=== PATIENT | male | born 1960 | race Caucasian/White ===

== ENCOUNTER 2019-11-21 14:17 | Inpatient (IN) | payer MEDICAID, SELFPAY ==
[2019-11-21] VITALS (7 sets, daily range): BP systolic 125–145; BP diastolic 78–87; PULSE 68–90; RESP 16–20; TEMP 36.8; O2SAT 96–99; BMI 22.1
--- NOTE | 2019-11-21 16:09 | ED_ITS ---
Entered by Jewell Mccullough, acting as scribe for HPI - Abdominal Pain General: Chief Complaint: Abdominal Pain Stated Complaint: ABD PAIN Time Seen by Provider: 11/21/19 16:09 Source: patient Mode of arrival: ambulatory Limitations: no limitations History of Present Illness: HPI narrative: 58 yo m came to the er pov with family for abd pain. Onset was today. MD elicited complaint: abdominal pain Pertinent past history: none Pain Consistency: constant Location: RLQ and LLQ Severity: mild Quality: stabbing Radiation: none Migration to: no migration Exacerbating factors: eating Relieving factors: nothing Associated Symptoms: Reports dysuria (burning); Denies chills, coffee ground emesis and fever(s) Review of Systems General: Reports: 10 or more systems reviewed and unremarkable except in HPI and below Const: Denies: fever or chills Eyes: Denies: change in vision ENMT: Denies: throat pain Card: Denies: chest pain Resp: Denies: shortness of breath GI: Denies: abdominal pain or coffee grounds in vomit : Reports: painful urination (burning) Musc: Denies: neck pain Skin/Breast: Denies: rash Neuro: Denies: headache Psych: Denies: anxiety Endo: Denies: excessive urination Marck/Lymph: Denies: easy bruising All/Imm: Denies: hives PFSH ED PFSH: Statuses (acute, chronic, etc) shown below reflect problem list status as previously entered and may not be historically accurate Medical History (Updated 11/21/19 @ 20:34 by Julisa Thakkar MD) Chronic alcohol use (Acute) Nicotine dependence (Acute) Right tibial fracture (Acute) Smoker (Acute) Tetrahydrocannabinol (THC) dependence (Acute) Surgical History (Updated 11/21/19 @ 20:24 by Julisa Thakkar MD) History of open reduction and internal fixation (ORIF) procedure (Acute) Family History (Updated 11/21/19 @ 20:24 by Julisa Thakkar MD) Father CAD (coronary artery disease) Father had a heart attack in his late 70s Cancer Unknown type Social History (Updated 11/21/19 @ 19:50 by Julisa Thakkar MD) Smoking and tobacco status: current every day smoker cigarettes Alcohol intake: current Desire information about alcohol rehabilitation?: No Counseling given: Yes Substance/Drug Use: current Other substance/drug use details: Using THC periodically Desire information about substance/drug rehabilitation?: Yes Counseling given: Yes Adopted: No Marital status: Physical Exam Const: COMMON NORMALS: no apparent distress, oriented x3 and alert EXAM LIMITATIONS: no altered mental status GENERAL APPEARANCE: cooperative; not lethargic ORIENTATION/CONSCIOUSNESS: Yes awake, Yes oriented to person, Yes oriented to place and Yes oriented to time; not lethargic HENMT: COMMON NORMALS: external ears normal EXTERNAL EAR: Yes external ears normal Eye: COMMON NORMALS: PERRL PUPIL: Yes PERRL Neck/C-Spine: COMMON NORMALS: full ROM Chest: COMMONS NORMALS: inspection of chest normal Resp: COMMON NORMALS: normal respiratory effort Cardio: COMMON NORMALS: regular rate and regular rhythm RATE: regular rate RHYTHM: regular rhythm GI: AUSCULTATION: Yes absent bowel sounds (diminished ) PALPATION: Yes tender : COMMON NORMALS: Yes no CVA tenderness BLADDER/KIDNEY EXAM: Yes no CVA tenderness Back/Pelvis: COMMON NORMALS: no CVA tenderness LUMBAR SPINE/LOWER BACK: Yes ROM limited Neuro: COMMON NORMALS: oriented x3 SENSORIUM/ORIENTATION: Yes alert, Yes oriented to person, Yes oriented to place, Yes oriented to time and No lethargic Psych: COMMON NORMALS: speech normal SPEECH: Yes normal speech Skin: COMMON NORMALS: no rashes or lesions noted GENERAL SKIN EXAM: no rashes or lesions noted Course Vital Signs: Vital signs: Vital Signs Temperature 98.2 F 11/21/19 15:03 Pulse Rate 75 11/21/19 19:27 Respiratory Rate 18 11/21/19 19:27 Blood Pressure 145/78 11/21/19 19:27 Pulse Oximetry 96 11/21/19 19:27 MDM - Abdominal Pain Lab Data: Labs: Lab Results 11/21/19 11/21/19 11/21/19 Range/Units 15:11 16:37 16:37 WBC 9.4 (4.0-10.0) 10^3/ uL RBC 4.99 (4.1-5.3) 10^6/u L Hgb 13.6 (11.7-16.6) g/dL Hct 41.0 L (42.0-52.0) % MCV 82.2 (80-94) fL MCH 27.3 L (28.0-34.0) pg MCHC 33.2 (30.0-36.0) g/dL RDW 17.4 H (12.1-15.1) % Plt Count 227 (130-400) 10^3/c mm MPV 11.2 H (7.4-10.4) fL Neut % (Auto) 58.9 % Lymph % (Auto) 23.2 % [place] % (Auto) 9.7 % Eos % (Auto) 7.4 % Baso % (Auto) 0.5 % Neut # (Auto) 5.5 (1.8-7.7) 10^3/u L Lymph # (Auto) 2.2 (0.8-4.8) 10^3/u L [place] # (Auto) 0.9 (0.2-0.9) 10^3/u L Eos # (Auto) 0.7 (0.0-0.8) 10^3/u L Baso # (Auto) 0.1 (0.0-0.1) 10^3/u L Nucleated RBC % (a uto) 0 % Nucleated RBCs # 0.0 /100WBC Sodium 135 L (136-145) mmol/L Potassium 4.4 (3.5-5.1) mmol/L Chloride 97 L (98-107) mmol/L Carbon Dioxide 25 (22-29) mmol/L Anion Gap 17.4 (5-19) BUN 4 L (6-20) mg/dL Creatinine 0.7 (0.7-1.2) mg/dL GFR Calculation 116.7 (90-130) mL/min Glucose 86 (74-109) mg/dL Lactate (0.5-2.2) mmol/L Calcium 9.1 (8.6-10.0) mg/Dl Total Bilirubin 0.5 (0.15-1.2) mg/dL AST 38 (0-40) U/L ALT 15 (0-41) U/L Alkaline Phosphata se 85 (40-130) IU/L Total Protein 8.0 (6.6-8.7) g/dL Albumin 3.9 (3.5-5.2) g/dL Globulin 4.1 (1.3-4.6) g/dL Lipase 40 (13-60) U/L Urine Color Yellow (Yellow) Urine Appearance Clear (CLEAR) Urine pH 5 (5-7) Ur Specific Gravit y 1.005 (1.005-1.030) Urine Protein Neg (Negative) Urine Glucose (UA) Norm (Normal) Urine Ketones Negative (Negative) Urine Occult Blood Neg (Negative) Urine Nitrate Negative (Negative) Urine Bilirubin Neg (Negative) Urine Urobilinogen Norm (Negative) mg/dL Ur Leukocyte Genia ase Negative (Negative) 11/21/19 Range/Units 16:37 WBC (4.0-10.0) 10^3/ uL RBC (4.1-5.3) 10^6/u L Hgb (11.7-16.6) g/dL Hct (42.0-52.0) % MCV (80-94) fL MCH (28.0-34.0) pg MCHC (30.0-36.0) g/dL RDW (12.1-15.1) % Plt Count (130-400) 10^3/c mm MPV (7.4-10.4) fL Neut % (Auto) % Lymph % (Auto) % [place] % (Auto) % Eos % (Auto) % Baso % (Auto) % Neut # (Auto) (1.8-7.7) 10^3/u L Lymph # (Auto) (0.8-4.8) 10^3/u L [place] # (Auto) (0.2-0.9) 10^3/u L Eos # (Auto) (0.0-0.8) 10^3/u L Baso # (Auto) (0.0-0.1) 10^3/u L Nucleated RBC % (a uto) % Nucleated RBCs # /100WBC Sodium (136-145) mmol/L Potassium (3.5-5.1) mmol/L Chloride (98-107) mmol/L Carbon Dioxide (22-29) mmol/L Anion Gap (5-19) BUN (6-20) mg/dL Creatinine (0.7-1.2) mg/dL GFR Calculation (90-130) mL/min Glucose (74-109) mg/dL Lactate 2.3 H (0.5-2.2) mmol/L Calcium (8.6-10.0) mg/Dl Total Bilirubin (0.15-1.2) mg/dL AST (0-40) U/L ALT (0-41) U/L Alkaline Phosphata se (40-130) IU/L Total Protein (6.6-8.7) g/dL Albumin (3.5-5.2) g/dL Globulin (1.3-4.6) g/dL Lipase (13-60) U/L Urine Color (Yellow) Urine Appearance (CLEAR) Urine pH (5-7) Ur Specific Gravit y (1.005-1.030) Urine Protein (Negative) Urine Glucose (UA) (Normal) Urine Ketones (Negative) Urine Occult Blood (Negative) Urine Nitrate (Negative) Urine Bilirubin (Negative) Urine Urobilinogen (Negative) mg/dL Ur Leukocyte Genia ase (Negative) Discharge Plan Discharge Patient Disposition: Admitted As Inpatient Admit Provider: Julisa Thakkar Clinical Impression: Abdominal pain Qualifiers: Abdominal location: lower abdomen, unspecified Qualified Code(s): R10.30 - Lower abdominal pain, unspecified Condition: Stable Referrals: Janny Andrews FNP [Primary Care Provider] - Coding Level of Care Code ED Slasher Hand for Chg Fwd Exam Problem Focused The documentation recorded by the Jamel rosa Stephanie Lyn, accurately reflects the service I personally performed and the decisions made by , Severiano Vizcarra, Nov 21, 2019 14:17
--- NOTE | 2019-11-21 16:12 | ED_ITS ---
HPI - Abdominal Pain General: Chief Complaint: Abdominal Pain Stated Complaint: ABD PAIN Time Seen by Provider: 11/21/19 16:09 History of Present Illness: Associated Symptoms: Reports nausea Review of Systems General: Reports: 10 or more systems reviewed and unremarkable except in HPI and below GI: Reports: abdominal pain and nausea PFSH ED PFSH: Statuses (acute, chronic, etc) shown below reflect problem list status as previously entered and may not be historically accurate Medical History (Updated 11/21/19 @ 20:34 by Julisa Thakkar MD) Chronic alcohol use (Acute) Nicotine dependence (Acute) Right tibial fracture (Acute) Smoker (Acute) Tetrahydrocannabinol (THC) dependence (Acute) Surgical History (Updated 11/21/19 @ 20:24 by Julisa Thakkar MD) History of open reduction and internal fixation (ORIF) procedure (Acute) Family History (Updated 11/21/19 @ 20:24 by Julisa Thakkar MD) Father CAD (coronary artery disease) Father had a heart attack in his late 70s Cancer Unknown type Social History (Updated 11/21/19 @ 19:50 by Julisa Thakkar MD) Smoking and tobacco status: current every day smoker cigarettes Alcohol intake: current Desire information about alcohol rehabilitation?: No Counseling given: Yes Substance/Drug Use: current Other substance/drug use details: Using THC periodically Desire information about substance/drug rehabilitation?: Yes Counseling given: Yes Adopted: No Marital status: Physical Exam Const: COMMON NORMALS: no apparent distress and oriented x3 GENERAL APPEARANCE: cooperative and well developed HENMT: COMMON NORMALS: normocephalic and external nose normal HEAD & SCALP: normocephalic FACE & SINUS: normal facial exam NOSE: external nose normal MOUTH: moist mucous membranes abnormal THROAT: posterior oropharynx normal Chest: COMMONS NORMALS: inspection of chest normal Resp: COMMON NORMALS: normal respiratory effort GI: COMMON NORMALS: soft to palpation INSPECTION: Yes abdominal distension AUSCULTATION: Yes normoactive bowel sounds PALPATION: Yes soft, Yes firm, Yes tender and No guarding Extremity: COMMON NORMALS: normal to inspection Neuro: COMMON NORMALS: oriented x3 and CN's II-XII intact bilaterally Skin: COMMON NORMALS: no rashes or lesions noted, no wounds, skin turgor normal and no jaundice GENERAL SKIN EXAM: no rashes or lesions noted and turgor normal Course Vital Signs: Vital signs: Vital Signs Temperature 98.2 F 11/21/19 15:03 Pulse Rate 75 11/21/19 19:27 Respiratory Rate 18 11/21/19 19:27 Blood Pressure 145/78 11/21/19 19:27 Pulse Oximetry 96 11/21/19 19:27 MDM - Abdominal Pain Lab Data: Labs: Lab Results 11/21/19 11/21/19 11/21/19 Range/Units 15:11 16:37 16:37 WBC 9.4 (4.0-10.0) 10^3/ uL RBC 4.99 (4.1-5.3) 10^6/u L Hgb 13.6 (11.7-16.6) g/dL Hct 41.0 L (42.0-52.0) % MCV 82.2 (80-94) fL MCH 27.3 L (28.0-34.0) pg MCHC 33.2 (30.0-36.0) g/dL RDW 17.4 H (12.1-15.1) % Plt Count 227 (130-400) 10^3/c mm MPV 11.2 H (7.4-10.4) fL Neut % (Auto) 58.9 % Lymph % (Auto) 23.2 % [place] % (Auto) 9.7 % Eos % (Auto) 7.4 % Baso % (Auto) 0.5 % Neut # (Auto) 5.5 (1.8-7.7) 10^3/u L Lymph # (Auto) 2.2 (0.8-4.8) 10^3/u L [place] # (Auto) 0.9 (0.2-0.9) 10^3/u L Eos # (Auto) 0.7 (0.0-0.8) 10^3/u L Baso # (Auto) 0.1 (0.0-0.1) 10^3/u L Nucleated RBC % (a uto) 0 % Nucleated RBCs # 0.0 /100WBC Sodium 135 L (136-145) mmol/L Potassium 4.4 (3.5-5.1) mmol/L Chloride 97 L (98-107) mmol/L Carbon Dioxide 25 (22-29) mmol/L Anion Gap 17.4 (5-19) BUN 4 L (6-20) mg/dL Creatinine 0.7 (0.7-1.2) mg/dL GFR Calculation 116.7 (90-130) mL/min Glucose 86 (74-109) mg/dL Lactate (0.5-2.2) mmol/L Calcium 9.1 (8.6-10.0) mg/Dl Total Bilirubin 0.5 (0.15-1.2) mg/dL AST 38 (0-40) U/L ALT 15 (0-41) U/L Alkaline Phosphata se 85 (40-130) IU/L Total Protein 8.0 (6.6-8.7) g/dL Albumin 3.9 (3.5-5.2) g/dL Globulin 4.1 (1.3-4.6) g/dL Lipase 40 (13-60) U/L Urine Color Yellow (Yellow) Urine Appearance Clear (CLEAR) Urine pH 5 (5-7) Ur Specific Gravit y 1.005 (1.005-1.030) Urine Protein Neg (Negative) Urine Glucose (UA) Norm (Normal) Urine Ketones Negative (Negative) Urine Occult Blood Neg (Negative) Urine Nitrate Negative (Negative) Urine Bilirubin Neg (Negative) Urine Urobilinogen Norm (Negative) mg/dL Ur Leukocyte Genia ase Negative (Negative) 11/21/19 Range/Units 16:37 WBC (4.0-10.0) 10^3/ uL RBC (4.1-5.3) 10^6/u L Hgb (11.7-16.6) g/dL Hct (42.0-52.0) % MCV (80-94) fL MCH (28.0-34.0) pg MCHC (30.0-36.0) g/dL RDW (12.1-15.1) % Plt Count (130-400) 10^3/c mm MPV (7.4-10.4) fL Neut % (Auto) % Lymph % (Auto) % [place] % (Auto) % Eos % (Auto) % Baso % (Auto) % Neut # (Auto) (1.8-7.7) 10^3/u L Lymph # (Auto) (0.8-4.8) 10^3/u L [place] # (Auto) (0.2-0.9) 10^3/u L Eos # (Auto) (0.0-0.8) 10^3/u L Baso # (Auto) (0.0-0.1) 10^3/u L Nucleated RBC % (a uto) % Nucleated RBCs # /100WBC Sodium (136-145) mmol/L Potassium (3.5-5.1) mmol/L Chloride (98-107) mmol/L Carbon Dioxide (22-29) mmol/L Anion Gap (5-19) BUN (6-20) mg/dL Creatinine (0.7-1.2) mg/dL GFR Calculation (90-130) mL/min Glucose (74-109) mg/dL Lactate 2.3 H (0.5-2.2) mmol/L Calcium (8.6-10.0) mg/Dl Total Bilirubin (0.15-1.2) mg/dL AST (0-40) U/L ALT (0-41) U/L Alkaline Phosphata se (40-130) IU/L Total Protein (6.6-8.7) g/dL Albumin (3.5-5.2) g/dL Globulin (1.3-4.6) g/dL Lipase (13-60) U/L Urine Color (Yellow) Urine Appearance (CLEAR) Urine pH (5-7) Ur Specific Gravit y (1.005-1.030) Urine Protein (Negative) Urine Glucose (UA) (Normal) Urine Ketones (Negative) Urine Occult Blood (Negative) Urine Nitrate (Negative) Urine Bilirubin (Negative) Urine Urobilinogen (Negative) mg/dL Ur Leukocyte Genia ase (Negative) Other Data: Other Data: SONY - Radiology Report Patient: [place] L Ordering Physician: Severiano Vizcarra P ID: [id number] Phone, Pager: Pager: N/A : 1960 Age/Gender: 58Y, M Primary Location: ER Procedure: CT abdomen pelvis w con* [id number] Study Date: 11/21/2019 5:18:19 PM Order #: [id number] Report Status: Finalized Reason: abd pain [facility] [address] [place] [address] CT Scan Report Signed Patient: Jaxon Cosby MR#: [id number] : 1960 Acct:[id number] Age/Sex: 58 / M ADM Date: 11/21/19 Loc: ER Attending Dr: Ordering Physician: Severinao Vizcarra DO Date of Service: 11/21/19 Procedure(s): CT abdomen pelvis w con* [id number] Accession Number(s): [id number] cc: Severiano Vizcarra DO PROCEDURE INFORMATION: Exam: CT Abdomen And Pelvis With Contrast Exam date and time: 11/21/2019 5:05 PM Age: 58 years old Clinical indication: Abdominal pain; Generalized; Additional info: Unknown TECHNIQUE: Imaging protocol: Computed tomography of the abdomen and pelvis with intravenous contrast. Total DLP: 481.16 mGy-cm Radiation optimization: All CT scans at this facility use at least one of these dose optimization techniques: automated exposure control; mA and/or kV adjustment per patient size (includes targeted exams where dose is matched to clinical indication); or iterative reconstruction. Contrast material: OMIN 300; Contrast volume: 95 ml; Contrast route: RT WRIST; COMPARISON: No relevant prior studies available. FINDINGS: Mediastinum: A small hiatal hernia is present. Liver: There is a diffuse decrease in hepatic parenchymal density, consistent with fatty infiltration. Gallbladder and bile ducts: Normal. No calcified stones. No ductal dilation. Pancreas: Normal. No ductal dilation. Spleen: Normal. No splenomegaly. Adrenals: Normal. No mass. Kidneys and ureters: Normal. No hydronephrosis. Stomach and bowel: There is marked wall thickening in the distal esophagus and especially the fundus of the stomach concerning for neoplasm. In particular the wall of the fundus of the stomach is thickened anteriorly on image 12 measuring nearly 3 cm in thickness. There is some hypodensity within the center of this thickening concerning for necrosis. There are multiple lymph nodes along the gastrohepatic ligament with 1 the largest appearing to have a necrotic center on image 16 measuring 1.9 cm in short axis. No ileus or obstruction. The remaining loops of bowel have an appropriate appearance. Appendix: No evidence of appendicitis. Intraperitoneal space: Unremarkable. No free air. No significant fluid collection. Vasculature: Unremarkable.No abdominal aortic aneurysm. Lymph nodes: No additional adenopathy is identified in the remainder of the abdomen or pelvis. Bladder: There is nonspecific bladder wall thickening. This may be related to incomplete distention. Reproductive: Unremarkable as visualized. Bones/joints: Osteopenia and moderate to severe degenerative changes in the spine are noted. No acute fracture or bony destructive lesion is identified. Multiple vacuum discs are noted in the lower lumbar spine. Soft tissues: Unremarkable. CT/CT abdomen pelvis w con* [id number] IMPRESSION: Markedly abnormal fundus of the stomach and gastroesophageal junction concerning for neoplasm. There is adjacent adenopathy. Further evaluation with endoscopy is recommended. Radiation Dose CTDIVOL = (mGy): DLP = 481.16 (mGy-cm) Dictated By: INTERFACE,USER 11/21/19 6325 Signed By: INTERFACE,USER 11/21/19 5775 Discharge Plan Discharge Patient Disposition: Admitted As Inpatient Admit Provider: Julisa Thakkar Clinical Impression: Abdominal pain Qualifiers: Abdominal location: lower abdomen, unspecified Qualified Code(s): R10.30 - Lower abdominal pain, unspecified Condition: Stable Referrals: Janny Andrews FNP [Primary Care Provider] - Coding Level of Care Code ED Flue Blower for Chg Fwd Exam Problem Focused
--- NOTE | 2019-11-21 16:17 | CTR_ITS ---
PROCEDURE INFORMATION: Exam: CT Abdomen And Pelvis With Contrast Exam date and time: 11/21/2019 5:05 PM Age: 58 years old Clinical indication: Abdominal pain; Generalized; Additional info: Unknown TECHNIQUE: Imaging protocol: Computed tomography of the abdomen and pelvis with intravenous contrast. Total DLP: 481.16 mGy-cm Radiation optimization: All CT scans at this facility use at least one of these dose optimization techniques: automated exposure control; mA and/or kV adjustment per patient size (includes targeted exams where dose is matched to clinical indication); or iterative reconstruction. Contrast material: OMIN 300; Contrast volume: 95 ml; Contrast route: RT WRIST; COMPARISON: No relevant prior studies available. FINDINGS: Mediastinum: A small hiatal hernia is present. Liver: There is a diffuse decrease in hepatic parenchymal density, consistent with fatty infiltration. Gallbladder and bile ducts: Normal. No calcified stones. No ductal dilation. Pancreas: Normal. No ductal dilation. Spleen: Normal. No splenomegaly. Adrenals: Normal. No mass. Kidneys and ureters: Normal. No hydronephrosis. Stomach and bowel: There is marked wall thickening in the distal esophagus and especially the fundus of the stomach concerning for neoplasm. In particular the wall of the fundus of the stomach is thickened anteriorly on image 12 measuring nearly 3 cm in thickness. There is some hypodensity within the center of this thickening concerning for necrosis. There are multiple lymph nodes along the gastrohepatic ligament with 1 the largest appearing to have a necrotic center on image 16 measuring 1.9 cm in short axis. No ileus or obstruction. The remaining loops of bowel have an appropriate appearance. Appendix: No evidence of appendicitis. Intraperitoneal space: Unremarkable. No free air. No significant fluid collection. Vasculature: Unremarkable.No abdominal aortic aneurysm. Lymph nodes: No additional adenopathy is identified in the remainder of the abdomen or pelvis. Bladder: There is nonspecific bladder wall thickening. This may be related to incomplete distention. Reproductive: Unremarkable as visualized. Bones/joints: Osteopenia and moderate to severe degenerative changes in the spine are noted. No acute fracture or bony destructive lesion is identified. Multiple vacuum discs are noted in the lower lumbar spine. Soft tissues: Unremarkable. CT/CT abdomen pelvis w con* [id number] IMPRESSION: Markedly abnormal fundus of the stomach and gastroesophageal junction concerning for neoplasm. There is adjacent adenopathy. Further evaluation with endoscopy is recommended. Radiation Dose CTDIVOL = (mGy): DLP = 481.16 (mGy-cm)
[2019-11-21 16:44] LABS: Basophils # 0.1 10^3/uL (0.0-0.1); Basophils % 0.5 %; Eosinophils # 0.7 10^3/uL (0.0-0.8); Eosinophils % 7.4 %; Hemoglobin 13.6 g/dL (11.7-16.6); Lymphocytes # 2.2 10^3/uL (0.8-4.8); Lymphocytes % 23.2 %; Mean Corpuscular HGB Conc 33.2 g/dL (30.0-36.0); Mean Corpuscular Hemoglobin 27.3 pg (28.0-34.0); Mean Corpuscular Volume 82.2 fL (80-94); Mean Platelet Volume 11.2 fL (7.4-10.4); Monocytes # 0.9 10^3/uL (0.2-0.9); Monocytes % 9.7 %; Neutrophils # 5.5 10^3/uL (1.8-7.7); Neutrophils % 58.9 %; Nucleated Red Blood Cells % 0 %; Platelet Count 227 10^3/cmm (130-400); Red Blood Count 4.99 10^6/uL (4.1-5.3); Red Cell Distribution Width 17.4 % (12.1-15.1); White Blood Count 9.4 10^3/uL (4.0-10.0)
[2019-11-21 16:45] LABS: Add RBC Morph No
[2019-11-21 16:58] LABS: Alanine Aminotransferase 15 U/L (0-41); Albumin Level 3.9 g/dL (3.5-5.2); Alkaline Phosphatase 85 IU/L (40-130); Anion Gap 17.4 (5-19); Aspartate Amino Transferase 38 U/L (0-40); Blood Urea Nitrogen 4 mg/dL (6-20); Calcium 9.1 mg/Dl (8.6-10.0); Carbon Dioxide 25 mmol/L (22-29); Chloride 97 mmol/L (98-107); Globulin 4.1 g/dL (1.3-4.6); Glomerular Filtration Rate 116.7 mL/min (90-130); Glucose 86 mg/dL (74-109); Lactate (Lactic Acid level) 2.3 mmol/L (0.5-2.2); Lipase 40 U/L (13-60); Potassium 4.4 mmol/L (3.5-5.1); Sodium 135 mmol/L (136-145); Total Bilirubin 0.5 mg/dL (0.15-1.2)
--- NOTE | 2019-11-21 17:18 | PC.NURSE ---
pt transported to CT by stretcher
[2019-11-21] MEDS: ondansetron 2 mg/ML SDV 2 mL 4 MG IVP (17:44)
[2019-11-21] MEDS: sodium chloride 0.9% 1,000 ML 999 ML IV (17:44)
[2019-11-21 19:17] LABS: Add Urine Microscopic? NO
[2019-11-21 19:43] LABS: Urine Appearance Clear (CLEAR); Urine Color Yellow (Yellow); pH Urine 5 (5-7)
[2019-11-21 19:44] LABS: Add Urine Culture? No; Bilirubin Urine Neg (Negative); Blood Urine Neg (Negative); Glucose Urine UA Norm (Normal); Ketones Urine Negative (Negative); Leukocyte Esterase Urine Negative (Negative); Nitrate Urine Negative (Negative); Protein Urine Neg (Negative); Specific Gravity, Urine 1.005 (1.005-1.030); Urobilinogen Urine Norm (Negative)
--- NOTE | 2019-11-21 19:46 | P.HP_ITS ---
Providers/Chief Complaint Primary Care Provider: JUANJOSE Rodríguez Chief Complaint: possible gastric cancer History of Present Illness Jaxon Cosby is a 58 year old male who does not carry any chronic medical conditions, he is an active smoker, does marijuana periodically, drinks alcohol on daily basis came in with chief complaint of 1 month history of abdominal pain, nausea & vomiting. Patient is endorsing that his symptoms started about 1 month ago with epigastric abdominal pain 5/10, it was getting worse on eating solid and liquid diet, he was not able to keep anything down, every time he would eat he gets abdominal cramps associate with nausea and vomiting, he did not notice any difficulty swallowing. Recently he has noticed fever, night sweats, chills he has lost significant weight, his clothes are getting looser for him, patient is endorsing that he was diagnosed with Crohn's disease about 8 to 10 years ago did not have repeat colonoscopy he was never diagnosed with any cancer before. He lives with his family. Diagnostics in ER showed blood pressure 145/78, pulse 75, temp 98.2, CBC BMP unremarkable, CT abdomen showed mass in fundus of stomach with adenopathy without gastric distention Patient was not experiencing any nausea vomiting by the time I evaluated him We talked about the possibility of malignancy because he has multiple risk factors and has constitutional symptoms. Agreed for an EGD and biopsy during this visit and would like to stay DNR/DNI Review of Systems Narrative: Patient has unkempt look, poor hygiene, very thin male, muscle mass loss, [place] pi?a, PERRLA, EOMI, I was not able to palpate supraclavicular lymph nodes S1-S2 no murmur, no JVD no signs of heart failure Lungs are clear to auscultation without adventitial sounds Abdomen soft but tender on palpation especially on epigastric area, bowel sounds sluggish, scaphoid appearance, Neurologically nonfocal exam, no cerebellar signs, Patient mood seems with sad and depressed Unkept appearance No rash on his skin Patient has nicotine staining and digital clubbing No lower extremity edema signs of gangrene or ischemia He has IV line in right arm Appreciable muscle mass loss Positive for night sweats and fever Medications/Allergies Home Medications Medication Instructions Recorded Confirmed Last Taken Type ondansetron HCl [Zofran] 8 mg PO Q8H 01/12/1011/21/19 11/21/19 10:00 History sucralfate 1 g PO QID 11/21/19 11/21/19 11/21/19 10:00 History Allergies Allergy/AdvReac Type Severity Reaction Status Date / Time No Known Allergies Allergy Verified 11/21/19 15:08 PFSH Acute PFSH: Statuses (acute, chronic, etc) shown below reflect problem list status as previously entered and may not be historically accurate Medical History (Updated 11/21/19 @ 20:34 by Julisa Thakkar MD) Chronic alcohol use (Acute) Nicotine dependence (Acute) Right tibial fracture (Acute) Smoker (Acute) Tetrahydrocannabinol (THC) dependence (Acute) Surgical History (Updated 11/21/19 @ 20:24 by Julisa Thakkar MD) History of open reduction and internal fixation (ORIF) procedure (Acute) Family History (Updated 11/21/19 @ 20:24 by Julisa Thakkar MD) Father CAD (coronary artery disease) Father had a heart attack in his late 70s Cancer Unknown type Social History (Updated 11/21/19 @ 19:50 by Julisa Thakkar MD) Smoking and tobacco status: current every day smoker cigarettes Alcohol intake: current Desire information about alcohol rehabilitation?: No Counseling given: Yes Substance/Drug Use: current Other substance/drug use details: Using THC periodically Desire information about substance/drug rehabilitation?: Yes Counseling given: Yes Adopted: No Marital status: Vitals/I&O/Wt Last Vital Signs Temp 98.2 F 11/21/19 15:03 Pulse 75 11/21/19 19:27 Resp 18 11/21/19 19:27 BP 145/78 11/21/19 19:27 Pulse Ox 96 11/21/19 19:27 Weight last 48 hrs Weight 56.699 kg Physical Exam Narrative: EXAM NARRATIVE: Thin cachectic appearance Sarcope?ia positive, extreme muscle mass loss, Anorexic Dehydrated appearance unkempt with poor hygiene EOMI, no supraclavicular lymphadenopathy S1-S2 no murmur no JVD no signs of heart failure Abdomen soft, scaphoid appearance, tender epigastric region on superficial palpation, bowel sounds sluggish, no distention, Lungs are clear to auscultation without adventitial sounds Nonfocal exam no neurological signs or symptoms, cerebellar signs negative, Mood seems depressed and sad Skin: No rash, digital clubbing positive with nicotine staining on his fingers Extremity: No signs of ischemia gangrene or edema Nontender vertebral area Data Labs: Other Labs: All Labs last 24 hrs except CBC/BMP 11/21/19 11/21/19 11/21/19 15:11 16:37 16:37 RBC 4.99 MCV 82.2 MCH 27.3 L MCHC 33.2 RDW 17.4 H MPV 11.2 H Neut % (Auto) 58.9 Lymph % (Auto) 23.2 [place] % (Auto) 9.7 Eos % (Auto) 7.4 Baso % (Auto) 0.5 Neut # (Auto) 5.5 Lymph # (Auto) 2.2 [place] # (Auto) 0.9 Eos # (Auto) 0.7 Baso # (Auto) 0.1 Nucleated RBC % (a uto) 0 Nucleated RBCs # 0.0 GFR Calculation 116.7 Lactate Calcium 9.1 Total Bilirubin 0.5 AST 38 ALT 15 Alkaline Phosphata se 85 Total Protein 8.0 Albumin 3.9 Globulin 4.1 Lipase 40 Urine Color Yellow Urine Appearance Clear Urine pH 5 Ur Specific Gravit y 1.005 Urine Protein Neg Urine Glucose (UA) Norm Urine Ketones Negative Urine Occult Blood Neg Urine Nitrate Negative Urine Bilirubin Neg Urine Urobilinogen Norm Ur Leukocyte Genia ase Negative 11/21/19 16:37 RBC MCV MCH MCHC RDW MPV Neut % (Auto) Lymph % (Auto) [place] % (Auto) Eos % (Auto) Baso % (Auto) Neut # (Auto) Lymph # (Auto) [place] # (Auto) Eos # (Auto) Baso # (Auto) Nucleated RBC % (a uto) Nucleated RBCs # GFR Calculation Lactate 2.3 H Calcium Total Bilirubin AST ALT Alkaline Phosphata se Total Protein Albumin Globulin Lipase Urine Color Urine Appearance Urine pH Ur Specific Gravit y Urine Protein Urine Glucose (UA) Urine Ketones Urine Occult Blood Urine Nitrate Urine Bilirubin Urine Urobilinogen Ur Leukocyte Genia ase Other Data: Other data: CT scan is showing mass in his fundus of stomach with adenopathy A&P Assessment and plan (1) Nausea and vomiting: Status: Acute Code(s): R11.2 - Nausea with vomiting, unspecified (2) Gastric mass: Status: Acute Code(s): K31.89 - Other diseases of stomach and duodenum (3) Mesenteric lymphadenopathy: Status: Acute Code(s): R59.0 - Localized enlarged lymph nodes (4) Weight loss: Status: Acute Code(s): R63.4 - Abnormal weight loss (5) Night sweats: Status: Acute Code(s): R61 - Generalized hyperhidrosis (6) Sarcopenia: Status: Acute Code(s): M62.84 - Sarcopenia (7) Malnourished: Status: Acute Code(s): E46 - Unspecified protein-calorie malnutrition Intractable nausea and vomiting 1 month history, CT abdomen shows stomach mass with adenopathy Patient has constitutional symptoms such as fever, night sweats and weight loss Multiple risk factors for stomach cancer started smoking polysubstance abuse and alcohol He would benefit from an EGD and biopsy We will keep him n.p.o. for tonight Hold DVT prophylaxis GI prophylaxis: Protonix 40 IV daily D5 half-normal fluids Morphine for his abdominal pain with Zofran Please consult general surgery in the morning, no urgent need overnight Patient wants to stay as DNR/DNI and understand the consequences and ready to rescind the status for EGD and colonoscopy if needed Attestations Medical Necessity Statement*: Anticipating his stay to cross more than 2 midnights because of his stomach mass and intractable nausea vomiting Time Spent in Patient Care: (>than 50% of time spent in counselling and/or direct pt care on unit) . 60 Coding Level of Care Code Acute Director Group [employer] for Chg Fwd Diagnoses Nausea and vomiting R11.2 Gastric mass K31.89 Mesenteric lymphadenopathy R59.0 Weight loss R63.4 Night sweats R61 Sarcopenia M62.84 Malnourished E46
--- NOTE | 2019-11-21 21:14 | PC.NURSE ---
report called to DANNY Russo. room ready at this time and all questions answered.
[2019-11-21] MEDS: morphine 4 mg/mL SDV 1 mL 2 MG IV (22:07)
[2019-11-21] MEDS: dextrose 5%-sod chloride 0.45% 1,000 ML 75 ML IV (22:09)
[2019-11-21 22:58] LABS: Alcohol Level 38 mg/dL (0-10)
[2019-11-22] VITALS (7 sets, daily range): BP systolic 92–141; BP diastolic 58–88; PULSE 62–89; RESP 16–22; TEMP 36.1–37.1; O2SAT 94–99
[2019-11-22 04:16] LABS: Amphetamines Screen Urine Negative (Negative); Barbiturates Screen Urine Positive (Negative); Benzodiazepines Screen Urine Negative (Negative); Cocaine Screen Urine Negative (Negative); Opiate Screen Urine Negative (Negative); PCP Screen Urine Negative (Negative); THC Screen Urine Positive (Negative)
[2019-11-22 05:41] LABS: Basophils # 0.1 10^3/uL (0.0-0.1); Basophils % 0.6 %; Eosinophils % 10.8 %; Hematocrit 40.1 % (42.0-52.0); Hemoglobin 13.1 g/dL (11.7-16.6); Lymphocytes # 2.6 10^3/uL (0.8-4.8); Lymphocytes % 29.2 %; Mean Corpuscular HGB Conc 32.7 g/dL (30.0-36.0); Mean Corpuscular Hemoglobin 26.9 pg (28.0-34.0); Mean Corpuscular Volume 82.3 fL (80-94); Mean Platelet Volume 11.5 fL (7.4-10.4); Monocytes # 1.2 10^3/uL (0.2-0.9); Neutrophils # 4.1 10^3/uL (1.8-7.7); Neutrophils % 45.9 %; Nucleated Red Blood Cells % 0 %; Platelet Count 209 10^3/cmm (130-400); Red Blood Count 4.87 10^6/uL (4.1-5.3); Red Cell Distribution Width 17.7 % (12.1-15.1); White Blood Count 8.9 10^3/uL (4.0-10.0)
[2019-11-22 05:45] LABS: Add RBC Morph No
[2019-11-22 06:09] LABS: Alanine Aminotransferase 16 U/L (0-41); Albumin Level 3.4 g/dL (3.5-5.2); Alkaline Phosphatase 73 IU/L (40-130); Anion Gap 14.9 (5-19); Aspartate Amino Transferase 39 U/L (0-40); Blood Urea Nitrogen 4 mg/dL (6-20); Calcium 8.9 mg/Dl (8.6-10.0); Carbon Dioxide 26 mmol/L (22-29); Chloride 99 mmol/L (98-107); Globulin 3.5 g/dL (1.3-4.6); Glomerular Filtration Rate 116.7 mL/min (90-130); Glucose 96 mg/dL (74-109); Magnesium 2.2 mg/dL (1.7-2.3); Potassium 3.9 mmol/L (3.5-5.1); Sodium 136 mmol/L (136-145); Total Bilirubin 0.5 mg/dL (0.15-1.2); Total Protein 6.9 g/dL (6.6-8.7)
--- NOTE | 2019-11-22 07:47 | P.PN_ITS ---
Pre-Anesthetic Assessment Pre-Anesthetic Assessment: Height/Weight: Height 1.6 m Weight 54.885 kg Temp Pulse Resp BP Pulse Ox 97.0 F L 82 16 140/84 99 11/22/19 07:44 11/22/19 07:44 11/22/19 07:44 11/22/19 07:44 11/22/19 07:44 Preop Diagnosis: N/V Proposed Procedure: Operation Date: 11/22/19 07:45 Proposed Procedures p EGD(Not Applicable) - Luciano Perrin MD Was Beta Craig taken within 24 hours: N/A Last intake: 4 days ago Social: Social History: Alcohol (6pk day) and Tobacco Packs per day: 1 Comment: marijuana weekly Exam: Pre-Anes Outpt Exam: alert, oriented x 3, clear to auscultation bilaterally and regular rate & rhythm Airway: Submandibular: WNL Cervical ROM: WNL MP: 1 Dentition: False (both) Additional comments: philippe Pulmonary: Pulmonary: COPD and DEWEY Comments: MDI less than 1 time a week. no home o2 CV/HEM: CV/HEM: None reported : : None reported Hepatic: Hepatic: None reported Comments: chronic alcoholic GI: GI: None reported Metabolic: Metabolic: None reported Musc/skel: Musc/skel: None reported Neuropsych: Neuropsych: BARRAZA Anesthetic Plan: ASA status: III Anesthesia: MAC Risk of > 500 ml blood loss (7ml/kg in children): No Meds/Allergies Current Medications: Current Medications Generic Name Dose Route Start Last Admin Trade Name Freq PRN Reason Stop Dose Admin Dextrose/Sodium Ch loride 1,000 mls @ 75 ml s/hr 11/21/19 20:00 11/22/19 03:40 Dextrose 5%-Sod Chloride 0.45% IV 75 mls/hr .[id number] DAVIS Infusion Morphine Sulfate 2 mg 11/21/19 19:53 11/21/19 22:07 Morphine IV 2 mg Q4H PRN Administration SEVERE PAIN PFSH Anesthesia PFSH: Medical History (Updated 11/21/19 @ 20:34 by Julisa Thakkar MD) Chronic alcohol use (Acute) Nicotine dependence (Acute) Right tibial fracture (Acute) Smoker (Acute) Tetrahydrocannabinol (THC) dependence (Acute) Surgical History (Updated 11/21/19 @ 20:24 by Julisa Thakkar MD) History of open reduction and internal fixation (ORIF) procedure (Acute) Family History (Updated 11/21/19 @ 20:24 by Julisa Thakkar MD) Father CAD (coronary artery disease) Father had a heart attack in his late 70s Cancer Unknown type Social History (Updated 11/21/19 @ 19:50 by Julisa Thakkar MD) Smoking and tobacco status: current every day smoker cigarettes Alcohol intake: current Desire information about alcohol rehabilitation?: No Counseling given: Yes Substance/Drug Use: current Other substance/drug use details: Using THC periodically Desire information about substance/drug rehabilitation?: Yes Counseling given: Yes Adopted: No Marital status: Data Anesthesia Labs: Other Labs: Laboratory Results - last 48 hr 11/21/19 11/21/19 11/21/19 15:11 16:23 16:37 WBC 9.4 RBC 4.99 Hgb 13.6 Hct 41.0 L MCV 82.2 MCH 27.3 L MCHC 33.2 RDW 17.4 H Plt Count 227 MPV 11.2 H Neut % (Auto) 58.9 Lymph % (Auto) 23.2 [place] % (Auto) 9.7 Eos % (Auto) 7.4 Baso % (Auto) 0.5 Neut # (Auto) 5.5 Lymph # (Auto) 2.2 [place] # (Auto) 0.9 Eos # (Auto) 0.7 Baso # (Auto) 0.1 Nucleated RBC % (a uto) 0 Nucleated RBCs # 0.0 Sodium Potassium Chloride Carbon Dioxide Anion Gap BUN Creatinine GFR Calculation Glucose Lactate Calcium Magnesium Total Bilirubin AST ALT Alkaline Phosphata se Total Protein Albumin Globulin Lipase Urine Color Yellow Urine Appearance Clear Urine pH 5 Ur Specific Gravit y 1.005 Urine Protein Neg Urine Glucose (UA) Norm Urine Ketones Negative Urine Occult Blood Neg Urine Nitrate Negative Urine Bilirubin Neg Urine Urobilinogen Norm Ur Leukocyte Genia ase Negative Urine Opiates Scre en Ur Barbiturates Sc reen Ur Phencyclidine S crn Ur Amphetamines Sc reen U Benzodiazepines Scrn Urine Cocaine Scre en U Marijuana (THC) Screen Ethyl Alcohol 38 H 11/21/19 11/21/19 11/21/19 16:37 16:37 18:11 WBC RBC Hgb Hct MCV MCH MCHC RDW Plt Count MPV Neut % (Auto) Lymph % (Auto) [place] % (Auto) Eos % (Auto) Baso % (Auto) Neut # (Auto) Lymph # (Auto) [place] # (Auto) Eos # (Auto) Baso # (Auto) Nucleated RBC % (a uto) Nucleated RBCs # Sodium 135 L Potassium 4.4 Chloride 97 L Carbon Dioxide 25 Anion Gap 17.4 BUN 4 L Creatinine 0.7 GFR Calculation 116.7 Glucose 86 Lactate 2.3 H Calcium 9.1 Magnesium Total Bilirubin 0.5 AST 38 ALT 15 Alkaline Phosphata se 85 Total Protein 8.0 Albumin 3.9 Globulin 4.1 Lipase 40 Urine Color Urine Appearance Urine pH Ur Specific Gravit y Urine Protein Urine Glucose (UA) Urine Ketones Urine Occult Blood Urine Nitrate Urine Bilirubin Urine Urobilinogen Ur Leukocyte Genia ase Urine Opiates Scre en Negative Ur Barbiturates Sc reen Positive H Ur Phencyclidine S crn Negative Ur Amphetamines Sc reen Negative U Benzodiazepines Scrn Negative Urine Cocaine Scre en Negative U Marijuana (THC) Screen Positive H Ethyl Alcohol 11/22/19 11/22/19 04:39 04:39 WBC 8.9 RBC 4.87 Hgb 13.1 Hct 40.1 L MCV 82.3 MCH 26.9 L MCHC 32.7 RDW 17.7 H Plt Count 209 MPV 11.5 H Neut % (Auto) 45.9 Lymph % (Auto) 29.2 [place] % (Auto) 13.0 Eos % (Auto) 10.8 Baso % (Auto) 0.6 Neut # (Auto) 4.1 Lymph # (Auto) 2.6 [place] # (Auto) 1.2 H Eos # (Auto) 1.0 H Baso # (Auto) 0.1 Nucleated RBC % (a uto) 0 Nucleated RBCs # 0.0 Sodium 136 Potassium 3.9 Chloride 99 Carbon Dioxide 26 Anion Gap 14.9 BUN 4 L Creatinine 0.7 GFR Calculation 116.7 Glucose 96 Lactate Calcium 8.9 Magnesium 2.2 Total Bilirubin 0.5 AST 39 ALT 16 Alkaline Phosphata se 73 Total Protein 6.9 Albumin 3.4 L Globulin 3.5 Lipase Urine Color Urine Appearance Urine pH Ur Specific Gravit y Urine Protein Urine Glucose (UA) Urine Ketones Urine Occult Blood Urine Nitrate Urine Bilirubin Urine Urobilinogen Ur Leukocyte Genia ase Urine Opiates Scre en Ur Barbiturates Sc reen Ur Phencyclidine S crn Ur Amphetamines Sc reen U Benzodiazepines Scrn Urine Cocaine Scre en U Marijuana (THC) Screen Ethyl Alcohol Cardiac Studies: No Data to Display
--- NOTE | 2019-11-22 09:22 | PC.NURSE ---
PT HAD 600ML NS WHILE IN GI LAB. NO ORDER TO DOCUMENT ON AT THIS TIME
[2019-11-22] MEDS: morphine 4 mg/mL SDV 1 mL 2 MG IV (09:49)
--- NOTE | 2019-11-22 10:34 | PM.DCS ---
Discharge Providers Date of Admission: 11/21/19 20:02 Date of Discharge: 11/22/19 Attending Provider at Admission: Julisa Thakkar MD Attending Provider at Discharge: Waqar Wilkes Primary Care Provider: JUANJOSE Rodríguez Diagnoses at Discharge Discharge Diagnosis (1) Nausea and vomiting: Status: Acute (2) Gastric mass: Status: Acute (3) Mesenteric lymphadenopathy: Status: Acute (4) Weight loss: Status: Acute (5) Night sweats: Status: Acute (6) Sarcopenia: Status: Acute (7) Malnourished: Status: Acute Reason for Visit Reason for Visit: Reason For Visit: possible gastric cancer Hospital Course Hospital Course: 58-year-old gentleman, current smoker, with history of chronic alcohol use, was admitted due to persistent nausea, abdominal discomfort, with symptoms persistent for about 1 month, with CT abdomen showing stomach mass with adenopathy. This morning he was assessed by EGD with biopsy. His nausea improved with symptomatic treatment and PPI. He is feeling better, and ready to return home. He will follow-up with surgery in office regarding biopsy results and will be referred further to oncology as appropriate. We will obtain CT chest on discharge for additional assessment due to the location of the mass. Smoking cessation was discussed with him. He was encouraged to quit smoking among other reasons due to gastric mass suspicious for malignancy. He verbalized understanding, and agreement with nicotine replacement therapy with nicotine patches and lozenges on discharge. Please continue to encourage cessation. Physical Exam Const: COMMON NORMALS: no apparent distress HENMT: COMMON NORMALS: oropharynx normal Neck/C-Spine: COMMON NORMALS: no JVD Resp: COMMON NORMALS: normal respiratory effort and clear to auscultation bilaterally AUSCULTATION: clear to auscultation bilaterally Cardio: COMMON NORMALS: no JVD, regular rhythm, S1 normal heart sound, S2 normal heart sound and no murmurs RHYTHM: regular rhythm HEART SOUNDS: S1 normal and S2 normal GI: COMMON NORMALS: normal to inspection, nondistended, normoactive bowel sounds, soft to palpation and non-tender PALPATION: Yes soft Extremity: COMMON NORMALS: no joint enlargement and no pedal edema Skin: COMMON NORMALS: no rashes or lesions noted GENERAL SKIN EXAM: no rashes or lesions noted and other (Nicotine stains on hands and fingers) Discharge Data Data Completed and Pending: Completed Studies During Hospitalization Category Date Time Status CT abdomen pelvis w con* [id number] Urge nt Cat Scan 11/21/19 16:17 Completed Pending at discharge Category Date Time Status Pathology: Surgic al [PTH] Routine Pth 11/22/19 08:55 Ordered Labs from last 24 hours 11/22/19 11/22/19 11/21/19 04:39 04:39 18:11 WBC 8.9 RBC 4.87 Hgb 13.1 Hct 40.1 L MCV 82.3 MCH 26.9 L MCHC 32.7 RDW 17.7 H Plt Count 209 MPV 11.5 H Neut % (Auto) 45.9 Lymph % (Auto) 29.2 [place] % (Auto) 13.0 Eos % (Auto) 10.8 Baso % (Auto) 0.6 Neut # (Auto) 4.1 Lymph # (Auto) 2.6 [place] # (Auto) 1.2 H Eos # (Auto) 1.0 H Baso # (Auto) 0.1 Nucleated RBC % (a uto) 0 Nucleated RBCs # 0.0 Sodium 136 Potassium 3.9 Chloride 99 Carbon Dioxide 26 Anion Gap 14.9 BUN 4 L Creatinine 0.7 GFR Calculation 116.7 Glucose 96 Lactate Calcium 8.9 Magnesium 2.2 Total Bilirubin 0.5 AST 39 ALT 16 Alkaline Phosphata se 73 Total Protein 6.9 Albumin 3.4 L Globulin 3.5 Lipase Urine Color Urine Appearance Urine pH Ur Specific Gravit y Urine Protein Urine Glucose (UA) Urine Ketones Urine Occult Blood Urine Nitrate Urine Bilirubin Urine Urobilinogen Ur Leukocyte Genia ase Urine Opiates Scre en Negative Ur Barbiturates Sc reen Positive H Ur Phencyclidine S crn Negative Ur Amphetamines Sc reen Negative U Benzodiazepines Scrn Negative Urine Cocaine Scre en Negative U Marijuana (THC) Screen Positive H Ethyl Alcohol 11/21/19 11/21/19 11/21/19 16:37 16:37 16:37 WBC 9.4 RBC 4.99 Hgb 13.6 Hct 41.0 L MCV 82.2 MCH 27.3 L MCHC 33.2 RDW 17.4 H Plt Count 227 MPV 11.2 H Neut % (Auto) 58.9 Lymph % (Auto) 23.2 [place] % (Auto) 9.7 Eos % (Auto) 7.4 Baso % (Auto) 0.5 Neut # (Auto) 5.5 Lymph # (Auto) 2.2 [place] # (Auto) 0.9 Eos # (Auto) 0.7 Baso # (Auto) 0.1 Nucleated RBC % (a uto) 0 Nucleated RBCs # 0.0 Sodium 135 L Potassium 4.4 Chloride 97 L Carbon Dioxide 25 Anion Gap 17.4 BUN 4 L Creatinine 0.7 GFR Calculation 116.7 Glucose 86 Lactate 2.3 H Calcium 9.1 Magnesium Total Bilirubin 0.5 AST 38 ALT 15 Alkaline Phosphata se 85 Total Protein 8.0 Albumin 3.9 Globulin 4.1 Lipase 40 Urine Color Urine Appearance Urine pH Ur Specific Gravit y Urine Protein Urine Glucose (UA) Urine Ketones Urine Occult Blood Urine Nitrate Urine Bilirubin Urine Urobilinogen Ur Leukocyte Genia ase Urine Opiates Scre en Ur Barbiturates Sc reen Ur Phencyclidine S crn Ur Amphetamines Sc reen U Benzodiazepines Scrn Urine Cocaine Scre en U Marijuana (THC) Screen Ethyl Alcohol 11/21/19 11/21/19 16:23 15:11 WBC RBC Hgb Hct MCV MCH MCHC RDW Plt Count MPV Neut % (Auto) Lymph % (Auto) [place] % (Auto) Eos % (Auto) Baso % (Auto) Neut # (Auto) Lymph # (Auto) [place] # (Auto) Eos # (Auto) Baso # (Auto) Nucleated RBC % (a uto) Nucleated RBCs # Sodium Potassium Chloride Carbon Dioxide Anion Gap BUN Creatinine GFR Calculation Glucose Lactate Calcium Magnesium Total Bilirubin AST ALT Alkaline Phosphata se Total Protein Albumin Globulin Lipase Urine Color Yellow Urine Appearance Clear Urine pH 5 Ur Specific Gravit y 1.005 Urine Protein Neg Urine Glucose (UA) Norm Urine Ketones Negative Urine Occult Blood Neg Urine Nitrate Negative Urine Bilirubin Neg Urine Urobilinogen Norm Ur Leukocyte Genia ase Negative Urine Opiates Scre en Ur Barbiturates Sc reen Ur Phencyclidine S crn Ur Amphetamines Sc reen U Benzodiazepines Scrn Urine Cocaine Scre en U Marijuana (THC) Screen Ethyl Alcohol 38 H Vitals: Last Vital Signs Temp 98.7 F 11/22/19 09:44 Pulse 68 11/22/19 09:44 Resp 18 11/22/19 09:44 BP 108/66 11/22/19 09:44 Pulse Ox 96 11/22/19 09:44 Discharge Plan Discharge Patient Disposition: Home, Self-Care Condition: Stable Prescriptions: New folic acid 1 mg Tablet 1 mg PO DAILY Qty: 30 RF: 0 pantoprazole 40 mg tablet,delayed release (DR/EC) 40 mg PO DAILY Qty: 30 RF: 0 thiamine HCl (vitamin B1) 100 mg/mL Solution 100 mg IV DAILY Qty: 30 RF: 0 nicotine 21 mg/24 hr patch 24 hour 1 patch TRANSDERMA DAILY Qty: 30 RF: 0 nicotine (polacrilex) 2 mg lozenge 2 mg BUCCAL Q1H PRN (Reason: nicotine cravings) Qty: 60 RF: 4 Continued sucralfate 1 gram Tablet 1 g PO QID RF: 0 Zofran 8 mg Tablet 8 mg PO Q8H Qty: 42 RF: 0 Discharge Orders: Discharge Order (Routine); Ordered 11/22/19 Ordered By: Waqar Wilkes Other Ambulatory Orders: CT chest w con* [id number] (Routine) Timeframe: 1 Week Facility: [facility] - Location: Rad[facility] Ordered By: Waqar Wilkes Referrals: Janny Andrews FNP [Primary Care Provider] - Luciano Perrin MD [Physician] - 2 weeks Discharge Diet: Advance as tolerated Activity Restrictions/Additional Instructions: Please stop smoking. Please avoid alcohol. Please avoid recreational drugs at this time. If you experience worsening abdominal pain, nausea, inability to tolerate food, fever, blood in your stool, or other abnormal symptoms please seek medical attention. Discharge Attestations Time Spent in Discharge Care*: greater than 30 min Time Spent in Smoking Cessation: Time spent discussing smoking cessation with patient: 3 to 10 minutes (He was encouraged to quit smoking among other reasons due to gastric mass suspicious for malignancy. He verbalized understanding, and agreement with nicotine replacement therapy with nicotine patches and lozenges on discharge.) Quality Metrics Clinical Quality Measures During this hospital stay, did patient experience: None Coding Level of Care Code Acute [employer] for Chg Fwd Exam Problem Focused Diagnoses Nausea and vomiting R11.2 Gastric mass K31.89 Mesenteric lymphadenopathy R59.0 Weight loss R63.4 Night sweats R61 Sarcopenia M62.84 Malnourished E46
--- NOTE | 2019-11-22 11:13 | P.CONIM_ITS ---
Providers/Reason For Consult Consulting Physican/Specialty*: Dr. Thakkar Reason for Consult*: Gastric mass Attending Physician: Waqar Wilkes Primary Care Provider: JUANJOSE Rodríguez History of Present Illness History of Present Illness Chief complaint: Gastric mass on CT scan Jaxon Cosby is a 58 year old male who presented to the ER last night with abdominal pain. Patient had some nausea but denies any vomiting. No fevers chills or jaundice. Patient denies any constipation or diarrhea. Patient is a heavy smoker uses cannabis and also happens to be heavy drinker. No prior EGD. Patient denies any black stools or hematemesis. He has lost about 20 pounds. Review of Systems Const: Denies: fever, chills, change in weight or fatigue ENMT: Denies: painful swallowing Card: Denies: chest pain Resp: Denies: shortness of breath GI: Denies: abdominal pain or blood in stool : Denies: painful urination Skin/Breast: Denies: rash or non-healing lesion Neuro: Denies: seizure-like activity Marck/Lymph: Denies: easy bruising Meds/Allergies Home Medications and Allergies Home Medications Medication Instructions Recorded Confirmed Type sucralfate 1 g PO QID 11/21/19 11/21/19 History Allergies Allergy/AdvReac Type Severity Reaction Status Date / Time No Known Allergies Allergy Verified 11/21/19 15:08 Current Medications Current Medications Generic Name Dose Route Start Last Admin Trade Name Freq PRN Reason Stop Dose Admin Enoxaparin Sodium 40 mg 11/21/19 20:00 11/22/19 10:45 Lovenox SUBCUT Not Given Q24H DAVIS Dextrose/Sodium Chloride 1,000 mls @ 75 mls/hr 11/21/19 20:00 11/22/19 03:40 Dextrose 5%-Sod Chloride 0.45% IV 75 mls/hr .[id number] DAVIS Infusion Morphine Sulfate 2 mg 11/21/19 19:53 11/22/19 09:49 Morphine IV 2 mg Q4H PRN Administration SEVERE PAIN PFSH Acute PFSH: Statuses (acute, chronic, etc) shown below reflect problem list status as previously entered and may not be historically accurate Medical History (Updated 11/21/19 @ 20:34 by Julisa Thakkar MD) Chronic alcohol use (Acute) Nicotine dependence (Acute) Right tibial fracture (Acute) Smoker (Acute) Tetrahydrocannabinol (THC) dependence (Acute) Surgical History (Updated 11/21/19 @ 20:24 by Julisa Thakkar MD) History of open reduction and internal fixation (ORIF) procedure (Acute) Family History (Updated 11/21/19 @ 20:24 by Julisa Thakkar MD) Father CAD (coronary artery disease) Father had a heart attack in his late 70s Cancer Unknown type Social History (Updated 11/21/19 @ 19:50 by Julisa Thakkar MD) Smoking and tobacco status: current every day smoker cigarettes Alcohol intake: current Desire information about alcohol rehabilitation?: No Counseling given: Yes Desire information about substance/drug rehabilitation?: Yes Counseling given: Yes Adopted: No Marital status: Vitals/I&O/Wt Last Vital Signs Temp 98.7 F 11/22/19 09:44 Pulse 68 11/22/19 09:44 Resp 18 11/22/19 09:44 BP 108/66 11/22/19 09:44 Pulse Ox 96 11/22/19 09:44 11/21/19 11/22/19 11/22/19 22:59 06:59 14:59 Intake Total 0 / 413.75 413.75 / 413.75 Output Total 0 / 0 Balance 0 / 413.75 413.75 / 413.75 Weight last 48 hrs Weight 122 lb 14.4 oz Weight 121 lb Weight 125 lb Physical Exam Const: COMMON NORMALS: no apparent distress ORIENTATION/CONSCIOUSNESS: Yes oriented to person, Yes oriented to place and Yes oriented to time HENMT: COMMON NORMALS: normocephalic HEAD & SCALP: normocephalic Eye: GENERAL EYE: normal appearance of both eyes Resp: COMMON NORMALS: clear to auscultation bilaterally AUSCULTATION: clear to auscultation bilaterally Cardio: COMMON NORMALS: S1 normal heart sound and S2 normal heart sound HEART SOUNDS: S1 normal and S2 normal GI: COMMON NORMALS: soft to palpation PALPATION: Yes soft Neuro: SENSORIUM/ORIENTATION: Yes oriented to person, Yes oriented to place and Yes oriented to time Skin: COMMON NORMALS: no rashes or lesions noted GENERAL SKIN EXAM: no rashes or lesions noted A&P Assessment and plan (1) Gastric mass: Discussed the findings with the patient Plan for EGD under MAC Procedure, risks, benefits and alternatives have been discussed with the patient who wishes to proceed with surgery. Status: Acute Code(s): K31.89 - Other diseases of stomach and duodenum Consult Attestations Medical Necessity Statement: Gastric mass requiring EGD to confirm pathology Coding Level of Care Code Acute [employer]ating [employer] for [facility] Fwd Diagnoses Gastric mass K31.89
[2019-12-11 10:12] LABS: Miscellaneous Test See Scanned Lab Rpt
== END 2019-11-22 11:46 | disposition home or self-care (01) | DRG 392 ==
LOC: ER 19:33 → MEDSURG 20:06
PROVIDERS: Surgery; Admitting Provider Internal Medicine; Emergency Provider Family Medicine; Family Provider Nurse Practitioner; PCP Nurse Practitioner Family; Visit Provider Internal Medicine
PROC: 0DJ08ZZ Inspection of Upper Intestinal Tract, Via Natural or Artificial Opening Endoscopic (ICD-10-PCS; CPT 43235; principal; 2019-11-22 07:45)
DX: K31.89 Other diseases of stomach and duodenum (principal); E46 Unspecified protein-calorie malnutrition; F17.210 Nicotine dependence, cigarettes, uncomplicated; F12.20 Cannabis dependence, uncomplicated; F10.20 Alcohol dependence, uncomplicated; R59.0 Localized enlarged lymph nodes; M62.84 Sarcopenia; Z68.21 Body mass index [BMI] 21.0-21.9, adult; J44.9 Chronic obstructive pulmonary disease, unspecified
CPT/HCPCS: 36415; 43239; 74177; 80053; 80307; 81003; 83605; 83690; 83735; 85025; 88305; 88361; 88367; 88374; 96360; 96374; 99221; 99282; J2270; J2405; J2704; J7030; J7799; Q9967

== ENCOUNTER 2019-11-21 14:17 | Emergency (ER) | payer MEDICAID, SELFPAY | END 2019-11-21 21:23 | disposition admitted as inpatient to this hospital (09) | LOC: ER 01-03 11:14 | PROVIDERS: Emergency Provider Family Medicine; Family Provider Nurse Practitioner; PCP Nurse Practitioner Family | DX: R10.30 Lower abdominal pain, unspecified (principal); F17.210 Nicotine dependence, cigarettes, uncomplicated; F12.20 Cannabis dependence, uncomplicated | CPT/HCPCS: 36415; 74177; 80053; 80307; 81003; 83605; 83690; 85025; 96360; 96374; 99282; 99284; J2405; J7030; Q9967 ==

== ENCOUNTER 2019-12-12 13:31 | Outpatient (CLI) | payer MEDICAID, SELFPAY ==
--- NOTE | 2019-12-12 14:57 | ONC CON_ITS ---
Dr. Miranda New Patient Note Patient: Jaxon Cosby Unit #: [id number]: [id number] Dicatated By: Nick Miranda M.D.Date of Visit: Dec 12, 2019 Onc MED New Patient/Consult Referring Physician: Dr. CALEB CHEW M.D. History of Present Illness: Mr. Jaxon Cosby, is a 58-year-old gentleman with 6 months history of progressive dysphagia and about 30 pounds weight loss, was evaluated by GI and on 11/21/[address] scan of abdomen pelvis which showed markedly abnormal fundus of the stomach and gastroesophageal junction concerning for neoplasm and there are multiple lymph nodes along the gastrohepatic ligament with largest lymph node being 1.9 cm. Subsequently, underwent EGD on 11/22/2019 which showed at 38 cm there was a friable mass noted which extended past the GE junction into fundus of the stomach. Body, antrum and pylorus of stomach was normal. Biopsy was obtained and it confirmed moderately differentiated invasive adenocarcinoma Patient is complaining of difficulty of swallowing solid food but no problem with liquids and medicine. Patient smoke marijuana since age 16 and still active. Complaining of epigastric pain not being controlled with tramadol and in the past used to take hydrocodone for chronic sinus pain and that usually help his epigastric pain too. Denies any fever chills denies any nausea or vomiting denies any hemoptysis hematemesis denies any melena hematochezia. Denies any jaundice. Past Medical History: Mr. Cosby's medical history consists of chronic obstructive pulmonary disease, Crohn's disease, and hiatal hernia. Past Surgical History: Mr. Cosby's surgical/procedural history consists of egd and right lower extremity ORIF. Medications: Amitriptyline HCl 1 - 2 Tablet (of 10 mg) Oral at bedtime, Folic Acid 1 Tablet (of 1 mg) Oral daily, Ondansetron HCl 1 Tablet (of 8 mg) Oral q 8 hours PRN, Pantoprazole Sodium 1 Tablet (of 40 mg) Tablet, enteric coated Oral daily, traMADol HCl 1 - 2 Tablet (of 50 mg) Oral q 6 hours PRN Allergies: No Known Allergies. Social History: Mr. Cosby is and he is unemployed. He is a daily smoker who has smoked 1.0 pack/day for 30 years. He is an active drinker.He consumes 6 drinks/day 3 days/week. He has indicated exposure to the following products: cigarettes. Mr. Cosby reports the following support systems: lives with spouse, significant other, family, or friends, lives in own house, supportive family/friends willing to assist with needs, and adequate transportation available for expected visits. His diet consists of regular meals. He indicates his activity level as: light exercise. Family History: Mr. Smalls mother is : cancer of unknown primary. Mr. Cosby's father is : myocardial infarction. Review Of Symptoms: Constitutional - Appetite is good and weight is stable. No fever, chills, hot flashes, or night sweats. ECOG score is, ENMT - No sinus congestion/drainage. No mouth sores. No sore throat or difficulty swallowing, Hematologic/Lymphatic - No abnormal bruising or bleeding, Respiratory - No shortness of breath. No cough. No pleuritic pain or hemoptysis, Cardiovascular - No angina pain. No palpitations, Gastrointestinal - No nausea or vomiting. No heartburn or acid reflux. No diarrhea or constipation. No blood in the stool or black stools, Genitourinary (M) - No dysuria or hematuria. No urinary frequency. No urgency or incontinence, Musculoskeletal - No joint or bone pain, Neurologic - No headache or dizziness. No numbness/paresthesias or other focal neurologic symptoms, Psychiatric - No anxiety or depression. No insomnia. Vital Signs: Performed on Dec 12, 2019 13:58: 10, 21.43, 1.56 sq.m, 63.00 in, 93 % (LOW), 122 /min (HIGH), 22 /min, 120/83 mm(hg), 97.0 F (LOW), and 121.0 lbs (HIGH). Performance Status: 1 - No physically strenuous activity, but ambulatory and able to carry out light or sedentary work (e.g. office work, light house work). (ECOG) Physical Examination: ENMT - No oral exudates, ulcers, masses, thrush or mucositis. Oropharynx clear. Tongue normal, Respiratory - Lungs are clear to auscultation without rhonchi or wheezing, Cardiovascular - Regular rate and rhythm of heart, Abdomen - Non-tender, non-distended, Good bowel sounds. No guarding or rebound tenderness. No pulsatile masses, Extremities - no edema. Lab/Imaging: Most recent lab results are not available for this patient. 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 And alcohol use Plan: Discussed with patient regarding his disease status and treatment options. His CT scan of abdomen pelvis done on 11/21/2019 showed distal esophageal mass along with adjacent lymphadenopathy along the gastrohepatic ligament., Clinically it appears patient has locally advanced disease, at this point we will consider CT PET scan to complete staging workup and based on CT PET scan finding we will make further recommendations e.g. if localized disease we'll consider combined chemoradiation with weekly carboplatin and Taxol followed by resection if possible and if distant metastases then will consider palliative chemotherapy or radiation to relieve dysphagia. Also check HER-2/kalpesh status. And patient return to clinic after CT PET scan with CBC CMP. Patient has appointment with radiation oncology today, will discuss his case with Dr. Hernandes after his evaluation and CT PET scan done. As far as epigastric pain is concerned patient feels more comfortable with hydrocodone, we'll give him prescription for hydrocodone he will take 1 tablet 4-6 hours as needed. Patient was advised to avoid marijuana. And quit smoking and was offered any assistance he may need. Also discuss about feeding tube placement, patient will think about. Signed By: Nick Miranda M.D. <<Signature on File>>
--- NOTE | 2019-12-14 14:32 | N.ONRAD NP_ITS ---
Radiation Oncology New Patient Visit Patient: Jaxon Cosby MR#: [id number] : 1960> Age: 59> Sex: Male> Dictated by: Dr. Santiago Hernandes Date of Service: 12/12/2019 Referring Physician(s): Luciano Perrin MD Primary Diagnosis: C15.5 - malignant neoplasm of lower third of esophagus, Diagnosed 12/12/2019 (active). Chief Complaint: epigastric pain and progressive dysphagia for 2 months History of Present Illness: This is a 59-year-old gentleman with a history of heartburn/acid reflux who presented with epigastric abdominal pain and progressive dysphagia for 2 months. Currently he can only tolerate soft food. He underwent a CT of abdomen/pelvis on November 21, 2019 which showed a markedly abnormal wall thickening in the distal esophagus, fundus of the stomach and GE junction concerning for neoplasm. There are multiple lymph nodes along the gastrohepatic ligament with the largest one measuring 1.9 cm with necrotic center. The patient underwent an EGD on November 22, 2019 which showed a friable mass in the distal esophagus at 36 cm which extends past the GE junction into the fundus of the stomach. The body, antrum and pylorus of the stomach were normal. Biopsy was taken from the mass. Pathology showed moderately differentiated invasive adenocarcinoma. The patient notes right upper quadrant abdominal pain, nausea, vomiting and dysphagia but denies hematemesis, cough, SOB, chest pain or headaches. He has fatigue, poor appetite and a significant weight loss of 20 pounds in the past 6 months. Current Medications: Amitriptyline HCl, folic Acid, hYDROcodone-Acetaminophen, ondansetron HCl, pantoprazole Sodium, traMADol HCl. Allergies: No Known Allergies Medical History: - Chronic obstructive pulmonary disease, - crohn's disease, - hiatal hernia. No history of collagen vascular disease. No previous radiation therapy. Surgical History: Egd and right lower extremity ORIF. Family History: Father is having experienced myocardial infarction. Mother is having experienced cancer of unknown primary. Social History: Last screened on 12/12/2019 - Current every day smoker 1.0 pack/day for 30 years (30 pack years). Last screened on 12/12/2019 - Active drinker 6 drinks/day 3 days/week. Patient indicated use of the following products: cigarettes. Patient indicated access to the following support systems: lives with spouse, significant other, family, or friends, lives in own house, supportive family/friends willing to assist with needs, and adequate transportation available for expected visits. Patient indicated the following nutritional habits: regular meals. Patient indicated participation in the following forms of activity: light exercise. Review of Systems: Constitutional - Complains of a poor appetite. Complains of mild fatigue. Complains of rigors / chills. Complains of change in weight down about 20 lbs. in 6 months. Denies fever and night sweats. Eyes - Denies blurred vision. ENMT - Complains of mouth dryness and altered taste. Denies dysphagia but has odynophagia with solid food, ear pain and stomatitis. Neck - Denies neck pain. Integumentary - Denies rash. Cardiovascular - Denies arrhythmias and chest pain. Respiratory - Complains of wheezing occasionally. Denies cough, dyspnea and hiccoughs. Gastrointestinal - Complains of abdominal pain that is persistent located in the right upper quadrant characterized as sharp, stabbing pain. Complains of nausea. Complains of vomiting associated with eating. Denies diarrhea and melena / GI bleeding. Genitourinary (M) - Complains of nocturia gets up 1 to 2 times per night. Denies dysuria, frequency and urgency. Musculoskeletal - Complains of bone pain in the right lower leg. Denies joint pain and muscle weakness. Neurologic - Complains of headaches occasionally. Denies dizziness. Endocrine - Denies diabetes and thyroid disease. Hematologic/Lymphatic - Denies tender or enlarged lymph nodes.. Vital Signs: Performed on 12/12/2019 3:08 PM BMI - 21.434 kg/m2, Height - 63.00 in, Weight - 121.0 lbs, Temperature - 97.0 f, Pulse - 72, Respiration - 22, O2 Sat - 100 %, Pain - 10 and BP - 120/ 83 mm(hg). Physical Exam: Pertinent to diagnosis and treatment. General: Alert and oriented x 3. No acute distress. HEENT: Normocephalic, atraumatic. EOMI ( Extraocular Movements Intact), PERRLA ( Pupils Equal, Round, Reactive to Light and Accommodation), Sclerae anicteric. Oral cavity is clear without lesions, masses or ulcers. NECK: Supple without supraclavicular or jugular lymphadenopathy. LUNGS: Clear to auscultation bilaterally without rales, rhonchi or wheeze. HEART: Regular rate and rhythm, normal S1 and S2 without murmur, gallop or rub. MUSCULOSKELETAL: No tenderness or percussion pain over the axial skeleton, scapulae or pelvis. ABDOMEN: Soft, nontender, nondistended without masses or organomegaly. Bowel sounds are present. EXTREMITIES: No peripheral edema is identified. Limited motor and sensory examination are grossly intact and symmetric bilaterally. NEUROLOGIC: Cranial nerves II ???XII are grossly intact. Normal sensation, strength 5/5 in all extremities, normal gait, no ataxia. Performance Status: 1 - No physically strenuous activity, but ambulatory and able to carry out light or sedentary work (e.g. office work, light house work). (ECOG) Pathology: moderately differentiated invasive adenocarcinoma Lab: none pending Imaging: See HPI Impression: This is a 59-year-old gentleman with a recently diagnosed moderately differentiated adenocarcinoma involving the distal esophagus extending into the fundus of stomach with regional lymphadenopathy. The patient has dysphagia tolerating soft diet. Plan: I recommended PET/CT to complete staging work-up. If he has a localized disease we will recommend preoperative chemoradiation therapy and will refer him to thoracic surgeon for evaluation of surgery; however if he has diffuse metastatic disease, we will recommend palliative radiation therapy followed by systemic therapy I went over the procedure for radiation therapy to the chest with the patient. The benefit, risks and potential side effects of radiotherapy to the chest were explained to the patient. The potential side effects include but not limited to fatigue, skin reaction, radiation pneumonitis, nausea, vomiting, diarrhea, esophagitis with odynophagia/dysphagia, damages to the heart/vessels, lungs, stomach, liver, bowels and spinal cord. Mr. Cosby expressed good understanding and agreed with the plan. He will follow up with us after PET/CT. Signed by: 12/14/2019 2:31:32 PM <<Signature on File>> CPT Code: CPT Code: Signed By: Dr. Santiago Hernandes, 12/14/2019 2:31:32 PM <<Signature on File>>
== END 2019-12-12 13:32 | disposition home or self-care (01) ==
LOC: ONCMED 13:37
PROVIDERS: Absent Provider Radiology Radiation Oncology; Family Provider Nurse Practitioner; PCP Nurse Practitioner Family; Referring Provider Surgery; Visit Provider Internal Medicine Medical Oncology
DX: C15.5 Malignant neoplasm of lower third of esophagus (principal); G89.3 Neoplasm related pain (acute) (chronic); J44.9 Chronic obstructive pulmonary disease, unspecified; K50.90 Crohn's disease, unspecified, without complications; K44.9 Diaphragmatic hernia without obstruction or gangrene; F12.90 Cannabis use, unspecified, uncomplicated; F17.210 Nicotine dependence, cigarettes, uncomplicated; F10.20 Alcohol dependence, uncomplicated; Z79.891 Long term (current) use of opiate analgesic
CPT/HCPCS: 99205

== ENCOUNTER 2019-12-17 08:38 | Outpatient (RCR) | payer MEDICAID, SELFPAY ==
--- NOTE | 2019-12-17 | CT_ITS ---
Radation Therapy Planning CT images; total exam DLP: 1909.98 mGy-cm MTDD
--- NOTE | 2019-12-17 | CT_ITS ---
Radation Therapy Planning CT images; total exam DLP: 1909.98 mGy-cm MTDD
== END 2019-12-21 23:59 | disposition home or self-care (01) ==
LOC: ONCMED 08:38
PROVIDERS: Family Provider Nurse Practitioner; PCP Nurse Practitioner Family; Visit Provider Radiology Radiation Oncology
DX: C15.5 Malignant neoplasm of lower third of esophagus (principal)
CPT/HCPCS: 77263; 77290; 77334; 77470; Q9967

== ENCOUNTER 2020-01-16 05:28 | Day surgery (SDC) | payer MEDICAID, SELFPAY ==
--- NOTE | 2020-01-09 07:41 | W.PM.OPSUD ---
Surgery/Procedure H&P Update DATE OF PROCEDURE: January 09, 2020 DATE H&P PERFORMED: 01/08/20 H&P UPDATE INFORMATION: I have reviewed H&P completed within last 30 days, I have examined patient prior to procedure and No changes to prior documentation PREOP DIAGNOSIS: N/V PLANNED PROCEDURE: Operation Date: 01/09/20 12:30 Proposed Procedures p Portacath Placement 75205 C15.9(Not Applicable) - Luciano Perrin MD
[2020-01-15 10:15] VITALS: BMI 19.6
--- NOTE | 2020-01-16 | SCC_ITS ---
Procedure Done: Placement of PowerPort in the left subclavian vein 23.3 seconds of fluoroscopic guidance, for a cumulative dose of 2.51 mGy, was provided to Dr. Perrin by the radiology department. C-arm images of the chest were saved for the patient's permanent record. [facility]
[2020-01-16 06:00] VITALS: BP 148/96; PULSE 95; RESP 18; TEMP 36.4; O2SAT 96
[2020-01-16] MEDS: sodium chloride 0.9% 1,000 ML 30 ML IV (06:18)
[2020-01-16 06:29] LABS: Basophils % 0.1 %; Eosinophils % 0.1 %; Hematocrit 40.5 % (42.0-52.0); Hemoglobin 13.5 g/dL (11.7-16.6); Lymphocytes # 1.2 10^3/uL (0.8-4.8); Lymphocytes % 12.9 %; Mean Corpuscular HGB Conc 33.3 g/dL (30.0-36.0); Mean Corpuscular Hemoglobin 27.8 pg (28.0-34.0); Mean Corpuscular Volume 83.3 fL (80-94); Mean Platelet Volume 10.9 fL (7.4-10.4); Monocytes # 0.2 10^3/uL (0.2-0.9); Monocytes % 2.4 %; Neutrophils # 7.7 10^3/uL (1.8-7.7); Nucleated Red Blood Cells % 0 %; Platelet Count 321 10^3/cmm (130-400); Red Blood Count 4.86 10^6/uL (4.1-5.3); Red Cell Distribution Width 18.6 % (12.1-15.1); White Blood Count 9.2 10^3/uL (4.0-10.0)
[2020-01-16 06:37] LABS: Alanine Aminotransferase 14 U/L (0-41); Albumin Level 3.6 g/dL (3.5-5.2); Alkaline Phosphatase 96 IU/L (40-130); Anion Gap 16.2 (5-19); Aspartate Amino Transferase 27 U/L (0-40); Blood Urea Nitrogen 5 mg/dL (6-20); Calcium 9.6 mg/dL (8.5-10.5); Carbon Dioxide 24 mmol/L (22-29); Chloride 95 mmol/L (98-107); Glomerular Filtration Rate 138.9 mL/min (90-130); Glucose 139 mg/dL (65-115); Potassium 4.2 mmol/L (3.5-5.1); Sodium 131 mmol/L (136-145); Total Bilirubin 0.6 mg/dL (0.15-1.2); Total Protein 8.6 g/dL (6.6-8.7)
--- NOTE | 2020-01-16 06:45 | ANES.PREANE2 ---
Pre-Anesthetic Assessment Pre-Anesthetic Assessment: Height/Weight: Height 1.6 m Weight 50.349 kg Temp Pulse Resp BP Pulse Ox 97.5 F L 95 18 148/96 96 01/16/20 06:00 01/16/20 06:00 01/16/20 06:00 01/16/20 06:00 01/16/20 06:00 Preop Diagnosis: Esophageal cancer Proposed Procedure: Operation Date: 01/09/20 12:30 Proposed Procedures p Portacath Placement 86240 C15.9(Not Applicable) - Luciano Perrin MD Operation Date: 01/16/20 07:00 Proposed Procedures p Portacath Placement 05447 C15.9(Not Applicable) - Luciano Perrin MD Last intake: Intake Last Liquid Date 01/16/20 Last Liquid Time 00:00 Last Solid Date 01/16/20 Last Solid Time 00:00 Social: Packs per day: 1/2 Pack years: 80+ Exam: Pre-Anes Outpt Exam: alert, oriented x 3, clear to auscultation bilaterally and regular rate & rhythm Airway: Submandibular: WNL Cervical ROM: WNL MP: 1 Pulmonary: Pulmonary: COPD Hepatic: Hepatic: Hepatitis Comments: C-dx'd 1month ago GI: GI: GERD Neuropsych: Neuropsych: BARRAZA Anesthetic Plan: ASA status: 3 Anesthesia: MAC Meds/Allergies Current Medications: Current Medications Generic Name Dose Route Start Last Admin Trade Name Freq PRN Reason Stop Dose Admin Sodium Chloride 1,000 mls @ 30 ml s/hr 01/16/20 05:45 01/16/20 06:18 Sodium Chloride 0.9% IV 01/17/20 05:44 30 mls/hr .Q24H DAVIS Administration PFSH Anesthesia PFSH: Social History Smoking and tobacco status: current every day smoker cigarettes Quit status (tobacco): has tried quititng Second hand smoke exposure: Yes Alcohol intake: current Desire information about alcohol rehabilitation?: No Counseling given: Yes Desire information about substance/drug rehabilitation?: Yes Counseling given: Yes Adopted: No Caregiver/support person: Yes Lives independently: Yes Household members: spouse Housing: House Marital status: Number of children: 0 Highest education level completed: 8th Grade Current occupational status: disabled Current occupational exposures/hazards: No Pets and animals: Yes Pets & animals: dog(s) History of recent travel: No Leisure activites: hunting and fishing Sexually active: No Current gender identity: Male 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 Special lety needs: No Agree to transfusion: Yes Financial difficulty paying for basics: Decline to Answer Data Anesthesia CBC & Chem 7: 01/16/20 06:10 01/16/20 06:10 Other Labs: Laboratory Results - last 48 hr 01/16/20 01/16/20 06:10 06:10 WBC 9.2 RBC 4.86 Hgb 13.5 Hct 40.5 L MCV 83.3 MCH 27.8 L MCHC 33.3 RDW 18.6 H Plt Count 321 MPV 10.9 H Neut % (Auto) 84.0 Lymph % (Auto) 12.9 Barber % (Auto) 2.4 Eos % (Auto) 0.1 Baso % (Auto) 0.1 Neut # (Auto) 7.7 Lymph # (Auto) 1.2 Barber # (Auto) 0.2 Eos # (Auto) 0.0 Baso # (Auto) 0.0 Nucleated RBC % (auto) 0 Nucleated RBCs # 0.0 Sodium 131 L Potassium 4.2 Chloride 95 L Carbon Dioxide 24 Anion Gap 16.2 BUN 5 L Creatinine 0.6 L GFR Calculation 138.9 H Glucose 139 H Calcium 9.6 Total Bilirubin 0.6 AST 27 ALT 14 Alkaline Phosphatase 96 Total Protein 8.6 Albumin 3.6 Globulin 5.0 H Cardiac Studies: No Data to Display
--- NOTE | 2020-01-16 06:49 | SC_ITS ---
WS: [id number] C-arm fluoroscopy of the chest for subclavian port placement, 01/16/2020 Clinical Data: port placement Comparison: Portable chest, 07/16/2017. Findings: The left Port-A-Cath has been inserted and ends in the superior vena cava SC/C-arm FL for CVA 41516 Impression: Insertion of left Port-A-Cath.
--- NOTE | 2020-01-16 06:53 | W.PM.OPSUD ---
Surgery/Procedure H&P Update DATE OF PROCEDURE: January 16, 2020 DATE H&P PERFORMED: 01/09/20 H&P UPDATE INFORMATION: I have reviewed H&P completed within last 30 days, I have examined patient prior to procedure and No changes to prior documentation PREOP DIAGNOSIS: Esophageal cancer PLANNED PROCEDURE: Operation Date: 01/09/20 12:30 Proposed Procedures p Portacath Placement 66331 C15.9(Not Applicable) - Luciano Perrin MD Operation Date: 01/16/20 07:00 Proposed Procedures p Portacath Placement 75432 C15.9(Not Applicable) - Lucinao Perrin MD
[2020-01-16] MEDS: heparin, porcine 1,000 unit/mL INJ 10 mL 10000 UNIT INJECTION (07:43)
[2020-01-16] MEDS: lidocaine 1% INJ 20 mL SUBCUT (07:43)
--- NOTE | 2020-01-16 08:05 | PM.OP ---
Operative Report Date of procedure: January 16, 2020 Pre-op Diagnosis: Esophageal cancer Post-op diagnosis: same Procedure Done: Placement of PowerPort in the left subclavian vein Fluoroscopic guidance and interpretation for placement of catheter Pathology: none sent Surgeon: Luciano Perrin Anesthesia: MAC Condition: stable Disposition: PACU Procedure: The patient was taken to the Operating Room and the chest and neck bilaterally were prepped and draped in a sterile manner after the antibiotic had been administered and shoulder rolls had been placed. A total of 10 mL of 1% lidocaine with 0.5% Marcaine was infiltrated under the clavicle on the left side at the site of the planned entry into the subclavian vein. An introducer needle was then used to access the subclavian vein under the clavicle and after withdrawing blood syringe was removed and a guidewire passed under fluoroscopy into the superior vena cava. The site of the planned port was then marked on the chest and a 15 blade was used to make a 3 cm skin incision this was extended into the subcutaneous tissue using electrocautery and a subcutaneous pocket over the pectoralis fascia was created 2-0 Vicryl suture was used to suture the port to the pectoral fascia in the pocket on 3 sides. The catheter, after having been flushed with hep saline, was attached to the tunneler and a tunnel created between the port site and the subclavian vein entry site. Under fluoroscopy the dilator sheath was passed over the guidewire into the proximal superior vena cava. The inner dilator was removed and the sheath left behind and~ the catheter was introduced through the peel-away sheath with the tip in the superior vena cava. The peel-away sheath was removed. The proximal end of the catheter was cut to the right size and was attached to the port. Using a Truong needle the port was accessed, it withdrew blood easily and flushed easily. A final 5cc of heparin was used to flush the Mediport. The subcutaneous tissue was approximated using interrupted 3-0 Vicryl sutures and the skin at the introducer site and the port site was closed using subcuticular running 4-0 Monocryl sutures. Dermabond was applied and the patient was stable throughout the procedure. Fluoroscopic guidance and interpretation was performed for introduction of the guidewire in the left subclavian vein, passage of dilator and placement of catheter tip in the distal superior vena cava.
[2020-01-16 08:19] VITALS: BP 117/76; PULSE 69; RESP 16; TEMP 36.1; O2SAT 100
[2020-01-16 08:45] VITALS: BP 99/66; PULSE 86; RESP 18; O2SAT 93
== END 2020-01-16 09:04 | disposition home or self-care (01) ==
PROVIDERS: Internal Medicine Medical Oncology; Family Provider Nurse Practitioner; PCP Nurse Practitioner Family; Visit Provider Surgery
PROC: (CPT 36561; principal; 2020-01-16 07:00)
DX: C15.9 Malignant neoplasm of esophagus, unspecified (principal); Z82.49 Family history of ischemic heart disease and other diseases of the circulatory system; F17.210 Nicotine dependence, cigarettes, uncomplicated
CPT/HCPCS: 36561; 12345; 36415; 76000; 77001; 80053; 85025; 96365; C1788; J0690; J1644; J2001; J2704; J3490; J7030

== ENCOUNTER 2020-01-18 05:45 | Outpatient (RCR) | payer MEDICAID, SELFPAY ==
[2020-01-03 08:59] LABS: Basophils % 0.5 %; Eosinophils # 0.6 10^3/uL (0.0-0.8); Eosinophils % 7.9 %; Hematocrit 42.4 % (42.0-52.0); Lymphocytes # 1.5 10^3/uL (0.8-4.8); Lymphocytes % 19.3 %; Mean Corpuscular Hemoglobin 27.3 pg (28.0-34.0); Mean Corpuscular Volume 82.8 fL (80-94); Mean Platelet Volume 11.1 fL (7.4-10.4); Monocytes % 13.1 %; Neutrophils # 4.6 10^3/uL (1.8-7.7); Neutrophils % 58.9 %; Nucleated Red Blood Cells % 0 %; Platelet Count 283 10^3/cmm (130-400); Red Blood Count 5.12 10^6/uL (4.1-5.3); Red Cell Distribution Width 18.5 % (12.1-15.1); White Blood Count 7.9 10^3/uL (4.0-10.0)
[2020-01-03 09:16] LABS: Alanine Aminotransferase 15 U/L (0-41); Albumin Level 3.1 g/dL (3.5-5.2); Alkaline Phosphatase 104 IU/L (40-130); Anion Gap 14.4 (5-19); Aspartate Amino Transferase 31 U/L (0-40); Blood Urea Nitrogen 4 mg/dL (6-20); Calcium 9.4 mg/dL (8.5-10.5); Carbon Dioxide 28 mmol/L (22-29); Chloride 95 mmol/L (98-107); Glomerular Filtration Rate 116.2 mL/min (90-130); Glucose 107 mg/dL (65-115); Potassium 4.4 mmol/L (3.5-5.1); Sodium 133 mmol/L (136-145); Total Bilirubin 0.6 mg/dL (0.15-1.2); Total Protein 8.1 g/dL (6.6-8.7)
--- NOTE | 2020-01-03 13:11 | ONC FU_ITS ---
Dr. Miranda follow up note Patient: Jaxon Cosby Unit #: [id number]: 1960 Dicatated By: Nick Miranda M.D.Date of Visit:Jan 03, 2020 Onc Med Follow-up/Prog Note History of Present Illness: Mr. Jaxon Cosby, is a 59 -year-old gentleman with 6 months history of progressive dysphagia and about 30 pounds weight loss, was evaluated by GI and on 11/21/[address] scan of abdomen pelvis which showed markedly abnormal fundus of the stomach and gastroesophageal junction concerning for neoplasm and there are multiple lymph nodes along the gastrohepatic ligament with largest lymph node being 1.9 cm. Subsequently, underwent EGD on 11/22/2019 which showed at 38 cm there was a friable mass noted which extended past the GE junction into fundus of the stomach. Body, antrum and pylorus of stomach was normal. Biopsy was obtained and it confirmed moderately differentiated invasive adenocarcinoma Patient is complaining of difficulty of swallowing solid food but no problem with liquids and medicine. Patient smoke marijuana since age 16 and still active. Complaining of epigastric pain not being controlled with tramadol and in the past used to take hydrocodone for chronic sinus pain and that usually help his epigastric pain too. Denies any fever chills denies any nausea or vomiting denies any hemoptysis hematemesis denies any melena hematochezia. Denies any jaundice. Came for follow-up, complaining of progressive dysphagia, has seen radiation oncology, now as per recommendation by radiation and combined chemoradiation is under consideration as patient CT PET scan's showed mostly locoregional disease except one positive lymph node in left supraclavicular area. Patient denies any hemoptysis or hematemesis, denies any diarrhea constipation. Denies any jaundice. Medications: Amitriptyline HCl 1 - 2 Tablet (of 10 mg) Tablet Oral at bedtime, Folic Acid 1 Tablet (of 1 mg) Oral daily, Ondansetron HCl 1 Tablet (of 8 mg) Oral q 8 hours PRN, Pantoprazole Sodium 1 Tablet (of 40 mg) Tablet, enteric coated Oral daily, traMADol HCl 1 - 2 Tablet (of 50 mg) Tablet Oral q 6 hours PRN Allergies: No Known Allergies. Review of Systems: Review of Systems is not available for this patient. Vital Signs: Performed on Jan 03, 2020 10:18 Height - 63.00 in Weight - 111.6 lbs Temperature - 97.0 F Pulse - 88 Respiration - 20 BP - 123/84 mm(hg) O2 Sat - 98 % Pain - 10 Performed on Jan 03, 2020 10:18 BMI - 19.769 kg/m2 Performance Status: 0 - Fully active, able to carry on all predisease activities without restrictions. (ECOG) Physical Examination: ENMT - No oral exudates, ulcers, masses, thrush or mucositis. Oropharynx clear. Tongue normal, Respiratory - Lungs are clear to auscultation without rhonchi or wheezing, Cardiovascular - Regular rate and rhythm of heart, Abdomen - Non-tender, non-distended, no masses, Good bowel sounds. No guarding or rebound tenderness. No pulsatile masses, Extremities - no edema. Lab/Imaging: Most recent lab results are not available for this patient. 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 Local metastatic nodes in the gastrohepatic ligament measuring 2.7 x 2 cm with SUV of 7.4. The left supraclavicular node measuring 1.3 cm with SUV of 4.8 consistent with a distant metastatic disease. Tiny mediastinal nodes in the subcarinal/right paratracheal shows minimal FDG activity likely benign. clinically stage IV,, left supraclavicular lymph node positive on CT PET scan .HER-2/kalpesh status negative Epigastric pain due to above 30 pounds weight loss over 6 months Marijuana use since age 16.chronic smoking. And alcohol use Plan: Discussed with patient regarding his labs white blood count 7.9 hemoglobin 14 crit 42.4 platelets 283,000 CMP within normal limits and CT PET scan which showed locoregional disease and single lymph node involvement in left supraclavicular area.. Case was discussed with Dr. Hernandes radiation oncology, because the patient progressive dysphagia he recommended combined chemoradiation for better palliation and after completion of chemoradiation he would consider SB RT to left supraclavicular lymph node. Role of concurrent chemotherapy with weekly carboplatin/Taxol was discussed with patient all the side effect possible benefits associated with chemotherapy including but not limited to bone marrow suppression, allergic reaction especially with Taxol, hyperglycemia due to steroids used to prevent reaction. Further teaching will be done by chemotherapy nurse. We'll obtain approval from his insurance prior to the treatment and then consider carboplatin AUC 2 and Taxol 50 mg/m??? weekly concurrent with radiation therapy. Patient is scheduled to get Port-A-Cath next week. And we will see him back 1 week after chemotherapy is initiated with CBC CMP. Signed By: Nick Miranda M.D. <<Signature on File>>
--- NOTE | 2020-01-04 12:38 | ONCRAD EPV_ITS ---
Radiation Oncology Established Patient Visit Patient: Cassidy MR#: [id number] : 1960> Age: 59> Sex: Male> Dictated by: Dr. 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 The patient has dysphagia tolerating soft diet. During the interval he underwent a PET/CT on December 29, 2019. It showed gastroesophageal mass with extension into the proximal stomach fundus with an SUV of 8.9 representing the known primary malignancy. Local metastatic nodes in the gastrohepatic ligament measuring 2.7 x 2 cm with an SUV of 7.4. No other abdominal nodes are present. A left supraclavicular node measuring 1.3 cm has SUV of 4.8 consistent with solitary distant metastatic disease. Small mediastinal nodes in the subcarinal and right paratracheal territory with minimal FDG activity. The patient notes dysphagia tolerating soft diet, abdominal pain, severe fatigue, night sweats and continued weight loss of 10 pounds since December 12, 2019. He denies nausea vomiting or hematemesis. Current Medications: Amitriptyline HCl, folic Acid, hYDROcodone-Acetaminophen, ondansetron HCl, pantoprazole Sodium, traMADol HCl. Allergies: No Known Allergies Current Complaints / Review of Systems: Constitutional - Complains of severe fatigue. Complains of night sweats which occur every night. Complains of rigors / chills. Complains of change in weight down about 10 lbs. since last seen on 12/12/19. Denies lack of appetite and fever. Eyes - Denies blurred vision. ENMT - Complains of dysphagia with eating solid foods, mouth dryness and altered taste. Denies ear pain and stomatitis. Neck - Denies neck pain. Integumentary - Denies rash. Cardiovascular - Denies arrhythmias and chest pain. Respiratory - Complains of a moderate cough which is productive. Complains of dyspnea associated with normal activity. Complains of wheezing occasionally. Denies hemoptysis. Gastrointestinal - Complains of severe abdominal pain that is persistent. Complains of satiety. Complains of occasional vomiting. Denies constipation, diarrhea, heartburn / dyspepsia, melena / GI bleeding and nausea. Genitourinary (M) - Denies dysuria, frequency and urgency. Musculoskeletal - Complains of bone pain right leg due to an injury. Complains of generalized muscle weakness. Denies joint pain. Neurologic - Complains of severe headaches gets one about every other day. Hematologic/Lymphatic - Denies tender or enlarged lymph nodes. Vital Signs: Performed on 01/03/2020 10:18 AM BMI - 19.769 kg/m2, Height - 63.00 in, Weight - 111.6 lbs, Temperature - 97.0 f, Pulse - 88, Respiration - 20, O2 Sat - 98 %, Pain - 10 and BP - 123/ 84 mm(hg). Physical Exam: General: Alert and oriented x 3. No acute distress. HEENT: Normocephalic, atraumatic. Extraocular Movements Intact: Pupils Equal, Round, Reactive to Light and Accommodation: Sclerae anicteric. Oral cavity is clear without lesions, masses or ulcers. NECK: Supple without supraclavicular or jugular lymphadenopathy. LUNGS: Clear to auscultation bilaterally without rales, rhonchi or wheeze. HEART: Regular rate and rhythm, normal S1 and S2 without murmur, gallop or rub. MUSCULOSKELETAL: No tenderness or percussion pain over the axial skeleton, scapulae or pelvis. ABDOMEN: Soft, nontender, nondistended without masses or organomegaly. Bowel sounds are present. EXTREMITIES: No peripheral edema is identified. Limited motor and sensory examination are grossly intact and symmetric bilaterally. NEUROLOGIC: Cranial nerves II ???XII are grossly intact. Normal sensation, strength 5/5 in all extremities, normal gait, no ataxia. Performance Status: 0 - Fully active, able to carry on all predisease activities without restrictions. (ECOG) Lab: Test performed on 01/03/2020 8:36 AM MCH - 27.3 pg (low), RDW - 18.5 % (high), MPV - 11.1 fl (high), Monocytes - 1.0 10 3/ul (high), Sodium - 133 mmol/l (low), Chloride - 95 mmol/l (low), BUN - 4 mg/dl (low), Albumin - 3.1 g/dl (low) and Globulin - 5.0 g/dl (high). 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 The patient has significant dysphagia and he continues to lose weight. Plan: I discussed this case with Dr. Miranda of medical oncology. Our consensus is to recommend concurrent chemoradiation therapy to treat the primary tumor and regional lymphadenopathy followed by SBRT to the solitary metastatic lymph node in the left supraclavicular region and adjuvant systemic therapy. I went over the procedure for radiation therapy to the chest/abdomen with the patient. The benefit, risks and potential side effects of radiotherapy were explained to the patient. The potential side effects include but not limited to fatigue, skin reaction, radiation pneumonitis, nausea, vomiting, diarrhea, esophagitis with odynophagia/dysphagia, damages to the heart/vessels, lungs, stomach, liver, bowels and spinal cord. Mr. Cosby expressed good understanding and the decided to proceed with the recommended treatments. He has signed informed consent for radiotherapy. We will coordinate with medical oncology to start chemoradiation therapy. Signed by: 01/04/2020 12:36:46 PM <<Signature on File>> CPT Code: CPT Code: Signed By: Dr. Santiago Hernandes, 01/04/2020 12:36:47 PM <<Signature on File>>
[2020-01-16] MEDS: HYDROcodone-acetaminophen 7.5-325 mg Tablet 2 TAB PO (11:12)
--- NOTE | 2020-01-16 11:23 | ONCRAD TMN_ITS ---
Radiation Oncology Weekly Treatment Management Patient: Jaxon Cosby MR#: [id number] : 1960> Age: 59> Sex: Male Dictated by: Dr. Santiago Hernandes Date of Service: 01/16/2020 Referring Physician(s) : Primary Diagnosis: C15.5 - Malignant neoplasm of lower third of esophagus, Diagnosed 12/12/2019 (Active) Radiotherapy to date: Course: Esophagus 2019, [facility], Ref. ID: [id number], Energy: 6X, Dose/Fx (cGy): 200, #Fx: , Dose Correction (cGy): 0, Total Dose (cGy): 200, Start Date: 01/16/2020, Elapsed Days: 0 Current Complaints/Interval History: Constitutional Complains of a poor appetite off and on. Complains of severe fatigue. Denies fever and night sweats. ENMT Complains of dysphagia tolerating soft diet and odynophagia. Respiratory Complains of chronic dyspnea associated with normal activity. Complains of hiccoughs. Complains of wheezing occasionally. Denies cough. Gastrointestinal Denies abdominal pain, heartburn / dyspepsia, nausea and vomiting. Current Medications: Amitriptyline HCl, cARBOplatin, dexamethasone, dexamethasone Sodium Phosphate, diphenhydrAMINE HCl, famotidine in NaCl, folic Acid, hYDROcodone-Acetaminophen, lORazepam, ondansetron HCl, ondansetron HCl, pACLitaxel, palonosetron HCl, pantoprazole Sodium, prochlorperazine Maleate, traMADol HCl. Allergies: No Known Allergies Vital Signs: Performed on 01/16/2020 11:11 AM BMI - 19.698 kg/m2, Height - 63.00 in, Weight - 111.2 lbs, Temperature - 97.2 f, Pulse - 101, Respiration - 18, O2 Sat - 98 %, Pain - 10 and BP - 143/ 91 mm(hg)(high). Physical Exam: Appears stable, no skin erythema or desquamation. Performance Status: 3 - Capable of only limited self-care, confined to bed or chair more than 50% of waking hours. (ECOG) Lab: Test performed on 01/16/2020 6:10 AM RDW - 18.6 % (high), Manual Lymphocytes - 12.9 % (low), Manual Monocytes - 2.4 % (low), Sodium - 131 mmol/l (low), Chloride - 95 mmol/l (low), Protein, Total - 8.6 g/dl (high) and Globulin - 5.0 g/dl (high). Imaging: No new diagnostic imaging was performed since the last weekly treatment visit. All radiation therapy related imaging (including but not limited to CBCT generated images) was reviewed. Appropriate changes, if any, were made to assure accurate target localization. Impression/Plan: Started chemoRT today. Doing well. Continue treatment as planned. I encouraged him to have more nutrient intake as he is losing significant weight. CPT: 75480 Signed by: Dr. Santiago Hernandes>01/16/2020 11:22:34 AM <<Signature on File>>
[2020-01-16] MEDS: sodium chloride 0.9% 250 ML 300 ML IV (11:27)
== END 2020-01-19 23:59 | disposition home or self-care (01) ==
LOC: ONCMED 05:45
PROVIDERS: Internal Medicine Hematology & Oncology; Absent Provider Radiology Radiation Oncology; Family Provider Nurse Practitioner; PCP Nurse Practitioner Family; Visit Provider Radiology Radiation Oncology
DX: Z51.0 Encounter for antineoplastic radiation therapy (principal); Z51.11 Encounter for antineoplastic chemotherapy; C15.5 Malignant neoplasm of lower third of esophagus; F12.20 Cannabis dependence, uncomplicated; Z79.899 Other long term (current) drug therapy; Z79.891 Long term (current) use of opiate analgesic
CPT/HCPCS: 77280; 77300; 77301; 77338; 77386; 80053; 85025; 96367; 96413; 96417; 99214; G0463; J1100; J1200; J2469; J3490; J7030; J7040; J7050; J9045; J9267

== ENCOUNTER 2020-02-04 05:55 | Outpatient (RCR) | payer MEDICAID, SELFPAY ==
--- NOTE | 2020-01-21 15:51 | ONCRAD TMN_ITS ---
Radiation Oncology Weekly Treatment Management Patient: Jaxon Cosby MR#: [id number] : 1960 Age: 59 Sex: Male Dictated by: Dr. Santiago Hernandes Date of Service: 01/21/2020 Referring Physician(s) : Primary Diagnosis: C15.5 - Malignant neoplasm of lower third of esophagus, Diagnosed 12/12/2019 (Active) Radiotherapy to date: Course: Esophagus 2019, Treatment Site: [facility], Ref. ID: [id number], Energy: 6X, Dose/Fx (cGy): 200, #Fx: , Dose Correction (cGy): 0, Total Dose (cGy): 600, Start Date: 01/16/2020, Elapsed Days: 5 Current Complaints/Interval History: Constitutional Complains of lack of appetite, severe fatigue. Denies fever, night sweats and change in weight. ENMT Dysphagia tolerating soft diet. Respiratory Complains of a mild cough which is productive, dyspnea associated with normal activity and wheezing. Denies hiccoughs. Gastrointestinal Complains of abdominal pain that is intermittent and generalized / diffuse in nature, nauseaand occasional vomiting. Denies heartburn / dyspepsia. Current Medications: Amitriptyline HCl, cARBOplatin, dexamethasone, dexamethasone Sodium Phosphate, diphenhydrAMINE HCl, famotidine in NaCl, folic Acid, hYDROcodone-Acetaminophen, lORazepam, ondansetron HCl, ondansetron HCl, pACLitaxel, palonosetron HCl, pantoprazole Sodium, prochlorperazine Maleate, traMADol HCl. Allergies: No Known Allergies Vital Signs: Performed on 01/21/2020 2:54 PM BMI - 19.946 kg/m2, Height - 63.00 in, Weight - 112.6 lbs, Temperature - 97.7 f, Pulse - 82, Respiration - 20, O2 Sat - 97 %, Pain - 9 and BP - 118/ 78 mm(hg). Physical Exam: Appears stable, no skin erythema or desquamation. Performance Status: 3 - Capable of only limited self-care, confined to bed or chair more than 50% of waking hours. (ECOG) Lab: None pending in Radiation Oncology. Imaging: No new diagnostic imaging was performed since the last weekly treatment visit. All radiation therapy related imaging (including but not limited to CBCT generated images) was reviewed. Appropriate changes, if any, were made to assure accurate target localization. Impression/Plan: Tolerating treatment well. Continue treatment as planned. CPT: 97811 Signed by: Dr. Santiago Hernandes>01/21/2020 3:49:48 PM <<Signature on File>>
[2020-01-22 16:47] LABS: Alanine Aminotransferase 12 U/L (0-41); Albumin Level 3.6 g/dL (3.5-5.2); Alkaline Phosphatase 78 IU/L (40-130); Aspartate Amino Transferase 23 U/L (0-40); Blood Urea Nitrogen 3 mg/dL (6-20); Calcium 9.1 mg/dL (8.5-10.5); Carbon Dioxide 25 mmol/L (22-29); Chloride 95 mmol/L (98-107); Globulin 3.8 g/dL (1.3-4.6); Glomerular Filtration Rate 221.7 mL/min (90-130); Glucose 165 mg/dL (65-115); Sodium 133 mmol/L (136-145); Total Bilirubin 0.6 mg/dL (0.15-1.2); Total Protein 7.4 g/dL (6.6-8.7)
[2020-01-22 22:33] LABS: Basophils % 0.4 %; Hematocrit 34.7 % (42.0-52.0); Hemoglobin 11.5 g/dL (11.7-16.6); Lymphocytes # 0.2 10^3/uL (0.8-4.8); Lymphocytes % 4.1 %; Mean Corpuscular HGB Conc 33.1 g/dL (30.0-36.0); Mean Corpuscular Hemoglobin 28.3 pg (28.0-34.0); Mean Corpuscular Volume 85.3 fL (80-94); Mean Platelet Volume 12.4 fL (7.4-10.4); Monocytes # 0.1 10^3/uL (0.2-0.9); Monocytes % 1.6 %; Neutrophils # 4.8 10^3/uL (1.8-7.7); Neutrophils % 92.5 %; Nucleated Red Blood Cells % 0 %; Platelet Count 219 10^3/cmm (130-400); Red Blood Count 4.07 10^6/uL (4.1-5.3); Red Cell Distribution Width 17.7 % (12.1-15.1); White Blood Count 5.1 10^3/uL (4.0-10.0)
[2020-01-23] MEDS: sodium chloride 0.9% 250 ML 75 ML IV (10:33)
--- NOTE | 2020-01-27 21:28 | ONC FU_ITS ---
[facility] Patient Note Patient: Jaxon Cosby Unit #: [id number]: 1960 Dictated By: Conchis SpearsDate of Visit: Jan 23, 2020 Onc MED Follow-Up/Prog Note Chief Complaint: distal esophageal cancer History of Present Illness: Mr. Cosby is a 59 -year-old gentleman with 6 months history of progressive dysphagia and about 30 pounds weight loss. He was evaluated by GI and on 11/21/[address] scan of abdomen pelvis which showed markedly abnormal fundus of the stomach and gastroesophageal junction concerning for neoplasm. There are multiple lymph nodes along the gastrohepatic ligament with largest lymph node being 1.9 cm. Subsequently, Mr Cosby underwent EGD on 11/22/2019 which showed at 38 cm there was a friable mass noted which extended past the GE junction into fundus of the stomach. Body, antrum and pylorus of stomach was normal. Biopsy was obtained and it confirmed moderately differentiated invasive adenocarcinoma Patient is complaining of difficulty of swallowing solid food but no problem with liquids and medicine. Patient smoke marijuana since age 16 and still active. Complained of epigastric pain not being controlled with tramadol and in the past used to take hydrocodone for chronic sinus pain and that usually help his epigastric pain too. PET/CT from 12/29/2019 reported: FDG positive primary gastroesophageal carcinoma. Local metastatic disease in the gastrohepatic ligament node. Distant metastatic disease in a solitary left supraclavicular node. Subcentimeter mediastinal nodes should be closely monitored on future imaging. The gastroesophageal mass with extension into the proximal stomach fundus with an SUV of 8. Local metastatic nodule in the gastrohepatic ligament measures 2.7 x 2.0 cm with an SUV of 7.4. A left supraclavicular nodule measuring 1.3 cm has an SUV of 4.8 and is consistent with distant metastatic disease. Mr. Cosby has been offered treatment with combined chemoradiation. He began his first cycle of carboplatin paclitaxel on January 16, 2020. Mr. Rogers is here today for follow-up. He is due for week 2 carboplatin paclitaxel. He states overall he feels that he is doing okay . He states he has noticed an increase in the neuropathy my bad leg is even weaker than it has been . He states he has had some numbness and tingling in his hands and fingers. He states it is pre-existing but now seems to be a little bit worse after the last treatment. He is still able to do all of his ADLs without assistance but has noticed that there is been increase in the neuropathy symptoms. He did have nausea on day 2 he states it really started the night before. He did take Compazine and this relieved his nausea. He states he had a few days of some intermittent nausea which was well controlled with Compazine. He denies any diarrhea. He denies any mouth sores or sore throat or difficulty swallowing. He states his appetite is fair. His energy is marginal and the I am just not doing much . He continues to have pain in the esophageal area. He states that the hydrocodone 7.5/325 barely takes the edge off of his pain currently. He denies any hematuria, he has had no hemoptysis. His ECOG is 2. Past Medical History: Chronic obstructive pulmonary disease Crohn's disease Hiatal hernia Past Surgical History: Egd Right lower extremity ORIF Left Subclavian Vein Power Port-Dr Perrin ([facility]) in 2019 Allergies: No Known Allergies. Medications: Amitriptyline HCl 1 - 2 Tablet (of 10 mg) Tablet Oral at bedtime Dexamethasone (4 mg) Tablet Oral Take as Directed Folic Acid 1 Tablet (of 1 mg) Oral daily HYDROcodone-Acetaminophen 1 - 3 Tablet (of 7.5-325 mg) Oral q 4 hours PRN LORazepam 0.5 - 1 Tablet (of 1 mg) Oral t.i.d. PRN Ondansetron HCl 1 Tablet (of 8 mg) Oral q 8 hours PRN Pantoprazole Sodium 1 Tablet (of 40 mg) Tablet, enteric coated Oral daily Prochlorperazine Maleate 1 Tablet (of 10 mg) Oral q 4 hours PRN traMADol HCl 1 - 2 Tablet (of 50 mg) Tablet Oral q 6 hours PRN Family History: Mr. Cosby's mother is : cancer of unknown primary. Mr. Cosby's father is : myocardial infarction. Social History: Mr. Cosby is and he is unemployed. He is a daily smoker who has smoked 1.0 pack/day for 30 years. He is an active drinker.He consumes 6 drinks/day 3 days/week. He has indicated exposure to the following products: cigarettes. Mr. Cosby reports the following support systems: lives with spouse, significant other, family, or friends, lives in own house, supportive family/friends willing to assist with needs, and adequate transportation available for expected visits. His diet consists of regular meals. He indicates his activity level as: light exercise. Review Of Symptoms: Constitutional Denies fevers, chills, night sweats, excessive fatigue or weight loss. Allergic/Immunologic No reactions. Eyes Denies significant visual changes. No diplopia. No amaurosis. ENMT Denies changes in hearing, sore throat, mouth sores, difficulty or changes in swallowing ability, and/or sinus drainage. Endocrine Denies hot flashes or night sweats. Hematologic/Lymphatic Denies easy bruising or bleeding. The patient denies any tender or palpable lymph nodes. Respiratory Denies dyspnea on exertion, chest pain, cough or hemoptysis. Denies orthopnea. Cardiovascular Denies anginal chest pain, palpitations or orthopnea. Gastrointestinal Denies vomiting, diarrhea, GI bleeding, or constipation. Denies change in bowel habits and/or stool color, no heartburn or early satiety. Has had some mild nausea-controlled with Compazine. Nausea was intense the night of chemo and the following day. Resolved at present. Genitourinary (M) Denies hematuria, dysuria, increased frequency, urgency, hesitancy or incontinence. Musculoskeletal Denies joint pain, swelling or redness. No decreased range of motion. Integumentary Denies chronic rashes, inflammation, ulcerations or skin changes. Neurologic Denies headache, blurred vision, and no areas of focal weakness. Normal gait. He states he has had some numbness and tingling in his hands and fingers. He states it is pre-existing but now seems to be a little bit worse after the last treatment. He is still able to do all of his ADLs without assistance but has noticed that there is been increase in the neuropathy symptoms. Psychiatric Denies insomnia, depression, reyna or mood swings. Vital Signs: Performed on Jan 23, 2020 09:36 Height - 63.00 in Weight - 110.4 lbs (LOW) BSA - 1.50 sq.m BMI - 19.56 Temperature - 98.1 F (LOW) Pulse - 67 /min Respiration - 22 /min BP - 143/82 mm(hg) (HIGH) O2 Sat - 99 % Pain - 8,2 - Ambulatory/capable of all self-care, unable to perform any work activities. Up and about more than 50% of waking hours. (ECOG) Physical Examination: Constitutional Alert, oriented, no acute distress. Skin pink, warm and dry. Head Normocephalic; atraumatic. Eyes Conjunctivae and sclerae are clear and without icterus. Pupils are reactive and equal. ENMT No oral exudates, ulcers, masses, thrush or mucositis. Oropharynx clear. Tongue normal. Neck Supple without masses or thyromegaly. No jugular venous distension. Hematologic/Lymphatic No petechiae or purpura. No tender or palpable lymph nodes in the cervical or supraclavicular areas. Respiratory Lungs are clear to auscultation without rhonchi or wheezing. Cardiovascular Regular rate and rhythm of heart without murmurs,clicks, gallops or rubs. Abdomen Non-tender, non-distended, no masses or ascites. Good bowel sounds noted in all quads. No guarding or rebound tenderness. No pulsatile masses. Back/Spine Non-tender to palpation. Extremities No visible deformities, no cyanosis, clubbing or edema. Musculoskeletal No tenderness or swelling, normal range of motion without obvious weakness. Integumentary No rashes or lesions. Neurologic normal cerebellar function, normal gait. Psychiatric Alert and oriented times three. Coherent speech. Verbalizes understanding of our discussions today. Laboratory:Test performed on Jan 22, 2020 15:35 Sodium 133 mmol/L Potassium 4.0 mmol/L Chloride 95 mmol/L CO2 25 mmol/L Anion Gap 17.0 BUN 3 mg/dL Creatinine 0.4 mg/dL Cr Clearance (Est) 145.8900 mL/min eGFR 221.7 mL/min Glucose 165 mg/dL Calcium 9.1 mg/dL Protein, Total 7.4 g/dL Albumin 3.6 g/dL Globulin 3.8 g/dL Bilirubin, Total 0.6 mg/dL ALT (SGPT) 12 U/L AST (SGOT) 23 U/L Alkaline Phosphatase 78 IU/L WBC 5.1 10 3/uL RBC 4.07 10 6/uL HGB 11.5 g/dL HCT 34.7 % MCV 85.3 fL MCH 28.3 pg MCHC 33.1 g/dL RDW 17.7 % Platelet Count 219 10 3/cmm MPV 12.4 fL Neutrophils 4.8 10 3/uL Lymphocytes 0.2 10 3/uL Monocytes 0.1 10 3/uL Eosinophils 0.0 10 3/uL Basophils 0.0 10 3/uL Neutrophil % 92.5 % Lymphocyte % 4.1 % Monocyte % 1.6 % Eosinophil % 0.0 % Basophils % 0.4 % Impression: Moderately differentiated invasive adenocarcinoma involving distal esophagus per EGD done on 11/22/2019 CT scan of abdomen pelvis done on 11/21/2019 showed markedly abnormal fundus of the stomach and gastroesophageal junction and adjacent lymphadenopathy CT PET scan done on 12/29/2019 shows gastroesophageal mass with extension into proximal stomach fundus with SUV of 8.9. Local metastatic nodes in the gastrohepatic ligament measuring 2.7 x 2 cm with SUV of 7.4. The left supraclavicular node measuring 1.3 cm with SUV of 4.8 consistent with a distant metastatic disease. Tiny mediastinal nodes in the subcarinal/right paratracheal shows minimal FDG activity likely benign. Clinically stage IV,, left supraclavicular lymph node positive on CT PET scan. Epigastric pain due to above 30 pounds weight loss over 6 months Marijuana use since age 16 along with chronic smoking and alcohol use. Dr. Miranda discussed with Mr. Cosby the results of the PET CT from December 29, 2019. It did show that he had local regional disease and a single node involvement in the left supraclavicular area. He has been advised to pursue combined chemoradiation for better palliation and after completion of chemoradiation he could be considered for SBRT to the left supraclavicular node. Mr. Cosby underwent placement of a PowerPort in the left subclavian vein per Dr. Perrin on January 16, 2020. He began his first cycle of chemotherapy on January 16, 2020. Plan: 1. Proceed with day 8 carboplatin paclitaxel at same dosing. 2. Steroid compliance confirmed. 3. Add Emend 150 mg daily to premed regimen and refill Compazine so he has that available at home as well. 4. We will increase his hydrocodone to 10/325 1 or 2 every 4-6 hours as needed pain prescription was given for number 30 tablets. He will need to discuss with Dr. Miranda next week the possibility of changing to something stronger or even long-acting if his pain is not controlled at this point. 5. His neuropathy is very concerning as he is only had 1 full treatment of elected to proceed with treatment today as he has neuropathy is next week. He may require dose reduction or if the neuropathy is severe enough he may not be able to pursue the paclitaxel and may be a candidate for Abraxane. 6. Labs in January 22, 2020 were reviewed in detail and discussed with Mr. Cosby. A copy was given to him. WBC 5.1, hemoglobin 11.5, platelets 219,000 and ANC is 4800. Potassium 4.09 #2.65 creatinine 0.4 and LFTs are normal. 7. Mr. Cosby will return in 1 week with CBC, CMP and consideration of day 15 carboplatin and Taxol. He is reminded to take his steroids prior to his scheduled chemotherapy. 8. Mr. Cosby was instructed to contact us in interim should questions or problems arise. Signed By: Conchis Spears-, [facility] Nick Miranda MD <<Signature on File>>
[2020-01-28] MEDS: sodium chloride 0.9% 500 ML 999 ML IV (15:40)
[2020-01-28 16:21] LABS: Alanine Aminotransferase 9 U/L (0-41); Albumin Level 3.2 g/dL (3.5-5.2); Alkaline Phosphatase 54 IU/L (40-130); Anion Gap 13.8 (5-19); Aspartate Amino Transferase 13 U/L (0-40); Blood Urea Nitrogen 6 mg/dL (6-20); Calcium 8.5 mg/dL (8.5-10.5); Carbon Dioxide 25 mmol/L (22-29); Chloride 96 mmol/L (98-107); Globulin 3.3 g/dL (1.3-4.6); Glomerular Filtration Rate 171.4 mL/min (90-130); Glucose 130 mg/dL (65-115); Osmolality Calculated 270 mOsm/kg (285-295); Potassium 3.8 mmol/L (3.5-5.1); Sodium 131 mmol/L (136-145); Total Bilirubin 0.9 mg/dL (0.15-1.2); Total Protein 6.5 g/dL (6.6-8.7)
[2020-01-28 16:29] LABS: Basophils % 0.3 %; Eosinophils % 1.2 %; Hematocrit 30.9 % (42.0-52.0); Hemoglobin 10.5 g/dL (11.7-16.6); Lymphocytes # 0.3 10^3/uL (0.8-4.8); Lymphocytes % 9.2 %; Mean Corpuscular Hemoglobin 29.5 pg (28.0-34.0); Mean Corpuscular Volume 86.8 fL (80-94); Mean Platelet Volume 12.2 fL (7.4-10.4); Monocytes # 0.4 10^3/uL (0.2-0.9); Monocytes % 12.8 %; Neutrophils # 2.5 10^3/uL (1.8-7.7); Neutrophils % 74.7 %; Nucleated Red Blood Cells % 0 %; Platelet Count 100 10^3/cmm (130-400); Red Blood Count 3.56 10^6/uL (4.1-5.3); Red Cell Distribution Width 17.1 % (12.1-15.1); White Blood Count 3.4 10^3/uL (4.0-10.0)
[2020-01-28 16:50] LABS: Amylase 19 U/L (28-100); Lipase 5 U/L (13-60)
[2020-01-28 19:21] LABS: Slide Review Slide Review Perform
--- NOTE | 2020-01-30 10:04 | ONCRAD TMN_ITS ---
Radiation Oncology Weekly Treatment Management Patient: Jaxon Cosby MR#: [id number] : 1960> Age: 59> Sex: Male Dictated by: Dr. Alex Murguia Date of Service: 01/30/2020 Referring Physician(s) : Dr. Miranda Primary Diagnosis: C15.5 - Malignant neoplasm of lower third of esophagus, Diagnosed 12/12/2019 (Active) Radiotherapy to date: Course: Thoracic Esophagus 2019 Treatment Site: [facility], Ref. ID: [id number], Energy: 6X, Dose/Fx (cGy): 200, #Fx: , Dose Correction (cGy): 0, Total Dose (cGy): 2,000, Start Date: 01/16/2020, Elapsed Days: 14 Current Complaints/Interval History: Patient complains of dry cough. No significant shortness of breath, odynophagia or dysphagia. Poor apeptite, he has lost additional 5 pounds. Current Medications: Amitriptyline HCl, cARBOplatin, dexamethasone, dexamethasone, dexamethasone Sodium Phosphate, diphenhydrAMINE HCl, famotidine in NaCl, folic Acid, hYDROcodone-Acetaminophen, hYDROcodone-Acetaminophen, lORazepam, lORazepam, ondansetron HCl, ondansetron HCl, pACLitaxel, palonosetron HCl, pantoprazole Sodium, prochlorperazine Maleate, prochlorperazine Maleate, traMADol HCl. Allergies: No Known Allergies Vital Signs: Elderly man, frail, thin, somewhat pale. Physical Exam: Appears stable, no skin erythema or desquamation. Performance Status: 2 - Ambulatory/capable of all self-care, unable to perform any work activities. Up and about more than 50% of waking hours. (ECOG) Lab: None pending in Radiation Oncology. Test performed on 01/16/2020 6:10 AM Manual Lymphocytes - 12.9 % (low), Manual Monocytes - 2.4 % (low), Test performed on 01/22/2020 3:35 PM RBC - 4.07 10 6/ul (low), HGB - 11.5 g/dl (low), HCT - 34.7 % (low), RDW - 17.7 % (high), MPV - 12.4 fl (high), Lymphocytes - 0.2 10 3/ul (low), Monocytes - 0.1 10 3/ul (low), Sodium - 133 mmol/l (low), Chloride - 95 mmol/l (low), BUN - 3 mg/dl (low), Creatinine - 0.4 mg/dl (low), Cr Clearance (Est) - 145.8900 ml/min (high), eGFR - 221.7 ml/min (high) and Glucose - 165 mg/dl (high). Imaging: No new diagnostic imaging was performed since the last weekly treatment visit. All radiation therapy related imaging (including but not limited to kV, MV, and CBCT generated images) was reviewed. Appropriate changes, if any, were made to assure accurate target localization. Impression/Plan: Tolerating treatment reasonably well, with expected mild side effects. Continue treatment as planned. I asked him to increase daily Ensure intake to 5-6 cans. Also, prescribed Mucinex for his cough. CPT: 68896 Signed by: Dr. Alex Murguia>01/30/2020 10:03:03 AM <<Signature on File>>
[2020-01-30] MEDS: sodium chloride 0.9% 250 ML 75 ML IV (11:05)
--- NOTE | 2020-01-30 14:01 | ONC FU_ITS ---
Dr. Miranda follow up note Patient: Jaxon Cosby Unit #: [id number]: 1960 Dicatated By: Nick Miranda M.D.Date of Visit:Jan 30, 2020 Onc Med Follow-up/Prog Note History of Present Illness: Mr. Cosby is a 59 -year-old gentleman with 6 months history of progressive dysphagia and about 30 pounds weight loss. He was evaluated by GI and on 11/21/[address] scan of abdomen pelvis which showed markedly abnormal fundus of the stomach and gastroesophageal junction concerning for neoplasm. There are multiple lymph nodes along the gastrohepatic ligament with largest lymph node being 1.9 cm. Subsequently, Mr Cosby underwent EGD on 11/22/2019 which showed at 38 cm there was a friable mass noted which extended past the GE junction into fundus of the stomach. Body, antrum and pylorus of stomach was normal. Biopsy was obtained and it confirmed moderately differentiated invasive adenocarcinoma Patient is complaining of difficulty of swallowing solid food but no problem with liquids and medicine. Patient smoke marijuana since age 16 and still active. Complained of epigastric pain not being controlled with tramadol and in the past used to take hydrocodone for chronic sinus pain and that usually help his epigastric pain too. PET/CT from 12/29/2019 reported: FDG positive primary gastroesophageal carcinoma. Local metastatic disease in the gastrohepatic ligament node. Distant metastatic disease in a solitary left supraclavicular node. Subcentimeter mediastinal nodes should be closely monitored on future imaging. The gastroesophageal mass with extension into the proximal stomach fundus with an SUV of 8. Local metastatic nodule in the gastrohepatic ligament measures 2.7 x 2.0 cm with an SUV of 7.4. A left supraclavicular nodule measuring 1.3 cm has an SUV of 4.8 and is consistent with distant metastatic disease. Mr. Cosby has been offered treatment with combined chemoradiation. He began his first cycle of carboplatin paclitaxel on January 16, 2020. Came for follow-up, complaining of postnasal discharge and cough especially after he go to bed, no hemoptysis or hematemesis, no fever or chills, right chest wall pain has improved, patient thinks it was due to chronic cough, still smoke about pack a day. And also requesting prescription for seat cushion. No peripheral numbness, no mouth sores, no thrush, no jaundice, tolerating combined chemoradiation with weekly carbo and Taxol well otherwise Medications: Amitriptyline HCl 1 - 2 Tablet (of 10 mg) Tablet Oral at bedtime, Dexamethasone (4 mg) Tablet Oral Take as Directed, Folic Acid 1 Tablet (of 1 mg) Oral daily, HYDROcodone-Acetaminophen 1 - 3 Tablet (of 7.5-325 mg) Oral q 4 hours PRN, LORazepam 0.5 - 1 Tablet (of 1 mg) Oral t.i.d. PRN, Ondansetron HCl 1 Tablet (of 8 mg) Oral q 8 hours PRN, Pantoprazole Sodium 1 Tablet (of 40 mg) Tablet, enteric coated Oral daily, Prochlorperazine Maleate 1 Tablet (of 10 mg) Oral q 4 hours PRN, traMADol HCl 1 - 2 Tablet (of 50 mg) Tablet Oral q 6 hours PRN Allergies: No Known Allergies. Review of Systems: Constitutional - Appetite is poor and weight is decreasing. No fever, chills, hot flashes, or night sweats. Energy level is poor, ENMT - Positive for sinus congestion/drainage. No mouth sores. No sore throat or difficulty swallowing, Hematologic/Lymphatic - No abnormal bruising or bleeding, Respiratory - Positive for shortness of breath and cough. No pleuritic pain or hemoptysis, Cardiovascular - No angina pain. No palpitations, Gastrointestinal - No nausea or vomiting. No heartburn or acid reflux. No diarrhea or constipation. No blood in the stool or black stools, Genitourinary (M) - No dysuria or hematuria. No urinary frequency. No urgency or incontinence, Musculoskeletal - No joint or bone pain, Neurologic - No headache or dizziness. No numbness/paresthesias or other focal neurologic symptoms, Psychiatric - No anxiety or depression. No insomnia. Vital Signs: Performed on Jan 30, 2020 10:23 Height - 63.00 in Temperature - 98.3 F (LOW) Pulse - 18 /min (LOW) Respiration - 94 /min (HIGH) BP - 95/67 mm(hg) O2 Sat - 99 % Pain - 8 Performance Status: 1 - No physically strenuous activity, but ambulatory and able to carry out light or sedentary work (e.g. office work, light house work). (ECOG) Physical Examination: ENMT - Sinuses are nontender. No oral exudates, ulcers, masses, thrush or mucositis. Oropharynx clear. Tongue normal, Respiratory - poor air entry, Cardiovascular - Regular rate and rhythm of heart, Abdomen - Non-tender, non-distended, Good bowel sounds. No guarding or rebound tenderness. No pulsatile masses, Extremities - no edema or rash. Lab/Imaging: Test performed on Jan 28, 2020 15:10 Sodium 131 mmol/L Potassium 3.8 mmol/L Chloride 96 mmol/L CO2 25 mmol/L Anion Gap 13.8 BUN 6 mg/dL Creatinine 0.5 mg/dL Cr Clearance (Est) 116.7100 mL/min eGFR 171.4 mL/min Glucose 130 mg/dL Calcium 8.5 mg/dL Protein, Total 6.5 g/dL Albumin 3.2 g/dL Globulin 3.3 g/dL Bilirubin, Total 0.9 mg/dL ALT (SGPT) 9 U/L AST (SGOT) 13 U/L Alkaline Phosphatase 54 IU/L WBC 3.4 10 3/uL RBC 3.56 10 6/uL HGB 10.5 g/dL HCT 30.9 % MCV 86.8 fL MCH 29.5 pg MCHC 34.0 g/dL RDW 17.1 % Platelet Count 100 10 3/cmm MPV 12.2 fL Neutrophils 2.5 10 3/uL Lymphocytes 0.3 10 3/uL Monocytes 0.4 10 3/uL Eosinophils 0.0 10 3/uL Basophils 0.0 10 3/uL Neutrophil % 74.7 % Lymphocyte % 9.2 % Monocyte % 12.8 % Eosinophil % 1.2 % Basophils % 0.3 % CBC Slide Review Slide Review Perform Test performed on Jan 16, 2020 06:10 Manual Lymphocytes 12.9 % Manual Monocytes 2.4 % Manual Eosinophils 0.1 % Manual Basophils 0.1 % Impression: Moderately differentiated invasive adenocarcinoma involving distal esophagus per EGD done on 11/22/2019 CT scan of abdomen pelvis done on 11/21/2019 showed markedly abnormal fundus of the stomach and gastroesophageal junction and adjacent lymphadenopathy CT PET scan done on 12/29/2019 shows gastroesophageal mass with extension into proximal stomach fundus with SUV of 8.9. Local metastatic nodes in the gastrohepatic ligament measuring 2.7 x 2 cm with SUV of 7.4. The left supraclavicular node measuring 1.3 cm with SUV of 4.8 consistent with a distant metastatic disease. Tiny mediastinal nodes in the subcarinal/right paratracheal shows minimal FDG activity likely benign. Clinically stage IV,, left supraclavicular lymph node positive on CT PET scan. Epigastric pain due to above 30 pounds weight loss over 6 months Marijuana use since age 16 along with chronic smoking and alcohol use. discussed with Mr. Cosby the results of the PET CT from December 29, 2019. It did show that he had local regional disease and a single node involvement in the left supraclavicular area. He has been advised to pursue combined chemoradiation for better palliation and after completion of chemoradiation he could be considered for SBRT to the left supraclavicular node. Mr. Cosby underwent placement of a PowerPort in the left subclavian vein per Dr. Perrin on January 16, 2020. He began his first cycle of chemotherapy on January 16, 2020. Plan: Discussed with patient regarding his labs white blood count 3.4 hemoglobin 10.5 crit 30.9 platelets 100,000 with a ANC 2500 CMP within normal limits except sodium 131 Clinically, patient is doing reasonably well, tolerating combined chemoradiation with weekly chiropractic and Taxol well but with expected side effects e.g. progressive pancytopenia. At this point we'll cut down his carboplatin dose by 10% to minimize bone marrow suppression and monitor his blood counts. We'll proceed with next cycle of weekly carboplatin/Taxol today and return to clinic in 1 week with CBC CMP As far as cough/post nasal discharge concern patient was advised to try [id number] Zyrtec or Claritin to control postnasal discharge and he was also advised to quit smoking hopefully with that his symptoms will improve. Right chest wall has improved significantly, no overlying skin changes, and under control with current pain medication. Signed By: Nick Miranda M.D. <<Signature on File>>
== END 2020-02-04 23:59 | disposition home or self-care (01) ==
LOC: ONCMED 05:55
PROVIDERS: Internal Medicine Hematology & Oncology; Internal Medicine Medical Oncology; Absent Provider Radiology Radiation Oncology; Family Provider Nurse Practitioner; PCP Nurse Practitioner Family; Visit Provider Specialist
DX: Z51.0 Encounter for antineoplastic radiation therapy (principal); Z51.11 Encounter for antineoplastic chemotherapy; C15.5 Malignant neoplasm of lower third of esophagus; C77.1 Secondary and unspecified malignant neoplasm of intrathoracic lymph nodes; G62.0 Drug-induced polyneuropathy; T45.1X5A Adverse effect of antineoplastic and immunosuppressive drugs, initial encounter; R63.4 Abnormal weight loss; F12.90 Cannabis use, unspecified, uncomplicated; G89.3 Neoplasm related pain (acute) (chronic); J44.9 Chronic obstructive pulmonary disease, unspecified; K50.90 Crohn's disease, unspecified, without complications; K44.9 Diaphragmatic hernia without obstruction or gangrene; F17.210 Nicotine dependence, cigarettes, uncomplicated; F10.20 Alcohol dependence, uncomplicated; Z79.891 Long term (current) use of opiate analgesic
CPT/HCPCS: 36591; 77014; 77336; 77386; 77427; 80053; 82150; 83690; 85025; 96360; 96367; 96413; 96417; 99214; J1100; J1200; J1453; J2469; J3490; J7030; J7040; J7050; J9045; J9267

== ENCOUNTER 2020-02-04 16:11 | Inpatient (IN) | payer MEDICAID, SELFPAY ==
[2020-02-04 16:56] VITALS: BP 105/71; PULSE 130; RESP 16; TEMP 36.6; O2SAT 98; BMI 21.4
[2020-02-04 17:18] LABS: Basophils % 0.3 %; Hemoglobin 10.4 g/dL (11.7-16.6); Lymphocytes # 0.3 10^3/uL (0.8-4.8); Lymphocytes % 7.1 %; Mean Corpuscular HGB Conc 34.7 g/dL (30.0-36.0); Mean Corpuscular Hemoglobin 29.8 pg (28.0-34.0); Monocytes # 0.5 10^3/uL (0.2-0.9); Monocytes % 13.4 %; Neutrophils # 2.8 10^3/uL (1.8-7.7); Neutrophils % 77.3 %; Nucleated Red Blood Cells % 0 %; Platelet Count 58 10^3/cmm (130-400); Red Blood Count 3.49 10^6/uL (4.1-5.3); Red Cell Distribution Width 16.9 % (12.1-15.1); White Blood Count 3.7 10^3/uL (4.0-10.0)
[2020-02-04 17:24] LABS: Slide Review Slide Review Perform
[2020-02-04 17:38] LABS: Alanine Aminotransferase 41 U/L (0-41); Albumin Level 2.9 g/dL (3.5-5.2); Alkaline Phosphatase 69 IU/L (40-130); Anion Gap 20.1 (5-19); Aspartate Amino Transferase 56 U/L (0-40); Blood Urea Nitrogen 8 mg/dL (6-20); Calcium 9.5 mg/dL (8.5-10.5); Carbon Dioxide 26 mmol/L (22-29); Chloride 91 mmol/L (98-107); Globulin 4.2 g/dL (1.3-4.6); Glomerular Filtration Rate 171.4 mL/min (90-130); Glucose 119 mg/dL (65-115); Lipase 8 U/L (13-60); Osmolality Calculated 275 mOsm/kg (285-295); Potassium 3.1 mmol/L (3.5-5.1); Sodium 134 mmol/L (136-145); Total Bilirubin 0.7 mg/dL (0.15-1.2); Total Protein 7.1 g/dL (6.6-8.7)
[2020-02-04 19:39] VITALS: BP 137/57; PULSE 133; RESP 20; O2SAT 99
--- NOTE | 2020-02-04 20:27 | ED_ITS ---
Entered by Essie Kumar, acting as scribe for Eric Rouse MD, [facility] Feb 04, 2020 16:11 HPI - General Adult General: Chief complaint: General Medical Stated complaint: cancer pt/not able to keep anything down Time Seen by Provider: 02/04/20 20:26 Source: patient Mode of arrival: ambulatory Limitations: no limitations History of Present Illness: HPI narrative: 59 yo Male presents to ED with complaint of unable to eat x 4 days. Pt states that he has stomach cancer. Pt states that he hasn't had an appetite and he has tried to eat but he just doesn't have a taste for it. Pt states that he is receiving radiation treatments and there is no plan to do surgery on his stomach. Pt states that he also has 10/10 abdominal pain. He has generalized weakness. MD complaint: No appetite-Stomach cancer patient Onset (ago): day(s) (4) Location: abdomen Radiation: non-radiation Severity scale (1-10): 10 Quality: constant Pain Consistency: constant Relieving factors: none Exacerbating factors: none Associated symptoms: Reports decreased appetite; Deny chest pain, dyspnea, headache(s), nausea, rash, palpitations or vomiting Treatments prior to arrival: none Review of Systems General: Reports: 10 or more systems reviewed and unremarkable except in HPI and below Const: Denies: fever, chills or body aches Eyes: Denies: change in vision or blurry vision ENMT: Denies: throat pain, enlarged tonsils, painful swallowing, hoarseness, mouth pain or swelling of lips/tongue Card: Denies: chest pain, palpitations, irregular heart rhythm, edema or swelling of feet/ankles Resp: Denies: shortness of breath, productive cough or non-productive cough GI: Denies: abdominal pain, nausea or vomiting : Denies: flank pain, painful urination, urinary frequency, urinary urgency or urinary hesitancy Musc: Denies: neck pain, back pain or extremity swelling Skin/Breast: Denies: rash, itching or redness Neuro: Denies: headache, numbness in extremities or weakness in extremities Endo: Denies: excessive urination, excessive thirst or tired all the time [facility] ED PFSH: Medical History Esophageal adenocarcinoma Hiatal hernia Port-A-Cath in place left subclavian - 01/16/20 Right tibial fracture Surgical History H/O esophagogastroduodenoscopy History of open reduction and internal fixation (ORIF) procedure Right LE Family History Father CAD (coronary artery disease) Father had a heart attack in his late 70s Cancer Unknown type Denies family history of Anesthesia complication Bleeding disorder Social History Smoking and tobacco status: current every day smoker cigarettes Quit status (tobacco): has tried quititng Second hand smoke exposure: Yes Alcohol intake: current Desire information about alcohol rehabilitation?: No Counseling given: Yes Desire information about substance/drug rehabilitation?: Yes Counseling given: Yes Adopted: No Caregiver/support person: Yes Lives independently: Yes Household members: spouse Housing: House Marital status: Number of children: 0 Highest education level completed: 8th Grade Current occupational status: disabled Current occupational exposures/hazards: No Pets and animals: Yes Pets & animals: dog(s) History of recent travel: No Leisure activites: hunting and fishing Sexually active: No Current gender identity: Male Lety/Jewish: Congregation Special lety needs: No Agree to transfusion: Yes Financial difficulty paying for basics: Decline to Answer Physical Exam Const: COMMON NORMALS: no apparent distress, average body habitus, oriented x3, no limitations, healthy appearing, alert and well nourished HENMT: COMMON NORMALS: normocephalic, head/scalp atraumatic and moist oral mucous membranes HEAD & SCALP: normocephalic and atraumatic Eye: COMMON NORMALS: PERRL, EOMs intact bilaterally, conjunctivae normal and no scleral icterus CONJUNCTIVA: Yes conjunctivae normal PUPIL: Yes PERRL Neck/C-Spine: COMMON NORMALS: full ROM, supple, no meningeal signs, no JVD and no carotid bruits Chest: COMMONS NORMALS: inspection of chest normal and palpation of chest normal Resp: COMMON NORMALS: normal respiratory effort, no retractions, no use of accessory muscles and percussion normal; negative for clear to auscultation bilaterally AUSCULTATION: not clear to auscultation bilaterally and crackles Laterality: bilateral PERCUSSION: percussion normal Cardio: COMMON NORMALS: no JVD, regular rate, regular rhythm, S1 normal heart sound, S2 normal heart sound, no gallops, no clicks, no murmurs, no rub and peripheral pulses 2+ throughout RATE: regular rate RHYTHM: regular rhythm HEART SOUNDS: S1 normal and S2 normal PERIPHERAL PULSES: pulses 2+ throughout GI: COMMON NORMALS: normal to inspection, nondistended, normoactive bowel sounds, soft to palpation, non-tender, no hepatosplenomegaly, no masses and no bruits PALPATION: Yes soft and Yes no hepatosplenomegaly : COMMON NORMALS: Yes no CVA tenderness BLADDER/KIDNEY EXAM: Yes no CVA tenderness Back/Pelvis: COMMON NORMALS: no CVA tenderness Extremity: COMMON NORMALS: normal to inspection, full ROM, normal capillary refill, no calf tenderness and no pedal edema Neuro: COMMON NORMALS: oriented x3 SENSORIUM/ORIENTATION: Yes alert MENINGEAL SIGNS: Yes no meningeal signs Skin: COMMON NORMALS: no rashes or lesions noted, no wounds, skin turgor normal, no jaundice, no petechiae and no mottling GENERAL SKIN EXAM: no rashes or lesions noted and turgor normal Course Consultations: Consultation #1: Dr. Maria, hospitalist who kindly accepted the patient to her service. Vital Signs: Vital signs: Vital Signs Temperature 97.8 F 02/04/20 16:56 Pulse Rate 92 02/04/20 23:05 Respiratory Rate 24 H 02/04/20 23:05 Blood Pressure 122/68 02/04/20 23:05 Pulse Oximetry 98 02/04/20 23:05 MDM - General Adult MDM Narrative: Medical decision making narrative: 59-year-old gentleman who was recently diagnosed with gastric malignancy and is currently on chemoradiation therapy. Who presents to the emergency department with generalized weakness, loss of appetite, and not feeling well. Evaluation in the emergency department was consistent with pneumonia. He is therefore admitted for IV antibiotics and further management. Medical Records: Attestation: I reviewed the patient's medical records. Lab Data: Attestation: I reviewed the patient's lab results. Labs: Lab Results 02/04/20 02/04/20 Range/Units 16:53 16:53 WBC 3.7 L (4.0-10.0) 10^3/ uL RBC 3.49 L (4.1-5.3) 10^6/u L Hgb 10.4 L (11.7-16.6) g/dL Hct 30.0 L (42.0-52.0) % MCV 86.0 (80-94) fL MCH 29.8 (28.0-34.0) pg MCHC 34.7 (30.0-36.0) g/dL RDW 16.9 H (12.1-15.1) % Plt Count 58 L (130-400) 10^3/c mm MPV 12.0 H (7.4-10.4) fL Neut % (Auto) 77.3 % Lymph % (Auto) 7.1 % [place] % (Auto) 13.4 % Eos % (Auto) 0.0 % Baso % (Auto) 0.3 % Neut # (Auto) 2.8 (1.8-7.7) 10^3/u L Lymph # (Auto) 0.3 L (0.8-4.8) 10^3/u L [place] # (Auto) 0.5 (0.2-0.9) 10^3/u L Eos # (Auto) 0.0 (0.0-0.8) 10^3/u L Baso # (Auto) 0.0 (0.0-0.1) 10^3/u L Nucleated RBC % (a uto) 0 % Nucleated RBCs # 0.0 /100WBC Sodium 134 L (136-145) mmol/L Potassium 3.1 L (3.5-5.1) mmol/L Chloride 91 L (98-107) mmol/L Carbon Dioxide 26 (22-29) mmol/L Anion Gap 20.1 H (5-19) BUN 8 (6-20) mg/dL Creatinine 0.5 L (0.7-1.2) mg/dL GFR Calculation 171.4 H (90-130) mL/min Glucose 119 H (65-115) mg/dL Calculated Osmolal ity 275 L (285-295) mOsm/k g Calcium 9.5 (8.5-10.5) mg/dL Total Bilirubin 0.7 (0.15-1.2) mg/dL AST 56 H (0-40) U/L ALT 41 (0-41) U/L Alkaline Phosphata se 69 (40-130) IU/L Total Protein 7.1 (6.6-8.7) g/dL Albumin 2.9 L (3.5-5.2) g/dL Globulin 4.2 (1.3-4.6) g/dL Lipase 8 L (13-60) U/L Imaging Data^: CXR: Radiologist's impression: [address] [address] XRay Report Signed Patient: Jaxon Cosby #: [id number] : 1960Acct#:[id number] Age/Sex: 59 / MADM Date: 02/04/20 Loc: [facility]Bed: Attending Dr: Ordering Provider/Ordering MD: Eric Rouse MD, [facility] Date of Service: 02/04/20 Procedure(s): XR chest 1V portable [id number] Accession Number(s): [id number] Report Number: [id number] PROCEDURE INFORMATION: Exam: XR Chest, 1 View Exam date and time: 02/04/2020 8:55 PM Age: 59 years old Clinical indication: Shortness of breath; Additional info: Weakness TECHNIQUE: Imaging protocol: XR of the chest Views: 1 view. COMPARISON: CR Chest 1 [place] [id number] 07/16/2017 1:49 AM FINDINGS: Tubes, catheters and devices: Left Infusaport catheter. Lungs: Subsegmental right upper and right lower lobe mixed ground-glass and alveolar airspace disease of active pneumonitis/pneumonia. COPD/chronic bronchitis. Antecedent granulomatous disease. Pleural space: Unremarkable. No pleural effusion. No pneumothorax. Heart/Mediastinum: Unremarkable. No cardiomegaly. Bones/joints: Unremarkable. Other findings: Micro cardia. XR/XR chest 1V portable [id number] IMPRESSION: Right upper and right lower lobe subsegmental pneumonitis/pneumonia. Dictated By:Harinder Sahni Signed By:Peggy Sahni Date/Time:02/04/202124 DD/ 23 Discharge Plan Discharge Patient Disposition: Admitted As Inpatient Admit Provider: Anjali Maria Clinical Impression: Pneumonia, Gastric cancer Condition: Stable Interventions: ED Discharge Assessment Last Done: 02/04/20 23:05 Discharge Date/Time: 02/04/20 23:07 Coding Level of Care Code ED Supervisor [place] for Chg Fwd Exam Comprehensive The documentation recorded by the José rosa Carmen, accurately reflects the service I personally performed and the decisions made by Padma gastelum Adegoke I, MD, [facility] Feb 04, 2020 16:11
--- NOTE | 2020-02-04 20:38 | XRR_ITS ---
PROCEDURE INFORMATION: Exam: XR Chest, 1 View Exam date and time: 02/04/2020 8:55 PM Age: 59 years old Clinical indication: Shortness of breath; Additional info: Weakness TECHNIQUE: Imaging protocol: XR of the chest Views: 1 view. COMPARISON: CR Chest 1 [place] [id number] 07/16/2017 1:49 AM FINDINGS: Tubes, catheters and devices: Left Infusaport catheter. Lungs: Subsegmental right upper and right lower lobe mixed ground-glass and alveolar airspace disease of active pneumonitis/pneumonia. COPD/chronic bronchitis. Antecedent granulomatous disease. Pleural space: Unremarkable. No pleural effusion. No pneumothorax. Heart/Mediastinum: Unremarkable. No cardiomegaly. Bones/joints: Unremarkable. Other findings: Micro cardia. XR/XR chest 1V portable [id number] IMPRESSION: Right upper and right lower lobe subsegmental pneumonitis/pneumonia.
[2020-02-04] MEDS: ondansetron 2 mg/ML SDV 2 mL 4 MG IVP (21:22)
[2020-02-04] MEDS: sodium chloride 0.9% 1,000 ML 999 ML IV (21:23)
[2020-02-04] MEDS: potassium chloride oral liq 20 mEq/15 mL UDC 40 MEQ PO (21:38)
[2020-02-04 21:39] VITALS: RESP 18; O2SAT 99
[2020-02-04] MEDS: morphine 4 mg/mL SDV 1 mL IVP ×2 (21:39→22:14)
[2020-02-04] MEDS: cefTRIAXone 1,000 MG in sodium chloride 0.9% (plus) 50 ML 100 MG IV (21:47)
[2020-02-04 22:14] VITALS: RESP 16; O2SAT 99
[2020-02-04] MEDS: azithromycin 500 MG in sodium chloride 0.9% 250 ML 250 MG IV (22:15)
[2020-02-04] MEDS: sodium chloride 0.9% 1,000 ML 100 ML IV ×2 (22:32→23:44)
[2020-02-04 23:05] VITALS: BP 122/68; PULSE 92; RESP 24; O2SAT 98
[2020-02-05] VITALS (9 sets, daily range): BP systolic 93–133; BP diastolic 55–79; PULSE 75–103; RESP 16–20; TEMP 36.3–37; O2SAT 96–99
--- NOTE | 2020-02-05 00:54 | P.HP_ITS ---
Providers/Chief Complaint Admitting Physician: Anjali Maria MD Primary Care Provider: Belkys Harris CHIEF EXECUTIVE OFFICER-C Chief Complaint: nausea History of Present Illness Jaxon Cosby is a 59 year old male recently diagnosed to have moderately differentiated invasive adenocarcinoma of esophagus in November 2019 after p/w progressive dysphagia to solids for months. Disease is metastatsic to local lymph nodes and left supraclavicular lymph nodes. He is s/p chemoradiation with carboplatin/paclitaxel x 2 cycles LD 01/29 and radiation to thoracic esophagus x 14 cycles LD 01/29. He presents now with c/o multiple episodes of vomiting, poor po intake, failure to thrive. No h/o hematemesis or leonard. Symptoms worsened over the last 6 days. Dry cough+, however not particularly bothersome to him. No c/o fever. Diagnostics in the ER show a white blood cell count of 3.7, not neutropenic ANC. Hypokalemia 3.1. Chest x-ray with right upper and right lower lobe subsegmental pneumonitis/pneumonia. He is saturating 98% on room air. No noted tachypnea. Blood pressure has been normal. Review of Systems General: Reports: 10 or more systems reviewed and unremarkable except in HPI and below Const: Denies: fever, chills or body aches Eyes: Denies: change in vision, blurry vision or photophobia ENMT: Reports: hoarseness; Denies: throat pain, enlarged tonsils, painful swallowing or nasal congestion Card: Denies: chest pain, palpitations, irregular heart rhythm, edema, swelling of feet/ankles, lightheadedness, pre-syncope, shortness of breath on exertion or shortness of breath when lying down Resp: Denies: shortness of breath, productive cough, non-productive cough, wheezing, stridor, pain on inspiration, change in phlegm color, coughing up blood or chest congestion GI: Reports: nausea, vomiting and difficulty swallowing; Denies: abdominal pain, vomiting blood, coffee grounds in vomit, heartburn/in digestion, diarrhea, constipation, cramping, change in stool character, blood in stool or black tarry stool : Denies: flank pain, painful urination, urinary frequency, urinary urgency, urinary hesitancy or blood in urine Musc: Denies: neck pain, back pain, extremity pain, joint swelling, joint warmth or deformity Neuro: Denies: headache, numbness in extremities, weakness in extremities, changes in sensation, difficulty walking, frequent falls, dizziness, vertigo, behavioral changes, slurred speech or seizure-like activity Psych: Denies: anxiety, depression, suicidal ideation or homicidal ideation Endo: Denies: excessive urination, excessive thirst, tired all the time, cold intolerance or hot flashes Marck/Lymph: Denies: easy bruising or easy bleeding Medications/Allergies Allergies Allergy/AdvReac Type Severity Reaction Status Date / Time No Known Allergies Allergy Verified 01/08/20 16:12 PFSH Acute PFSH: Medical History Esophageal adenocarcinoma Hiatal hernia Port-A-Cath in place left subclavian - 01/16/20 Right tibial fracture Surgical History H/O esophagogastroduodenoscopy History of open reduction and internal fixation (ORIF) procedure Right LE Family History Father CAD (coronary artery disease) Father had a heart attack in his late 70s Cancer Unknown type Denies family history of Anesthesia complication Bleeding disorder Social History Smoking and tobacco status: current every day smoker cigarettes Quit status (tobacco): has tried quititng Second hand smoke exposure: Yes Alcohol intake: current Desire information about alcohol rehabilitation?: No Counseling given: Yes Desire information about substance/drug rehabilitation?: Yes Counseling given: Yes Adopted: No Caregiver/support person: Yes Lives independently: Yes Household members: spouse Housing: House Marital status: Number of children: 0 Highest education level completed: 8th Grade Current occupational status: disabled Current occupational exposures/hazards: No Pets and animals: Yes Pets & animals: dog(s) History of recent travel: No Leisure activites: hunting and fishing Sexually active: No Current gender identity: Male Lety/Anabaptist: Shinto Special lety needs: No Agree to transfusion: Yes Financial difficulty paying for basics: Decline to Answer Vitals/I&O/Wt Last Vital Signs Temp 97.8 F 02/05/20 00:00 Pulse 90 02/05/20 00:00 Resp 20 H 02/05/20 00:00 BP 133/79 02/05/20 00:00 Pulse Ox 98 02/05/20 00:00 02/04/20 02/04/20 02/05/20 14:59 22:59 06:59 Intake Total 120 / 120 Balance 120 / 120 Weight last 48 hrs Weight 54.885 kg Physical Exam Narrative: EXAM NARRATIVE: GEN: Awake, alert and oriented, no acute distress , dehydration+, cachexia+ CVS: S1S2 N RS: CTA B/L Abd: Soft, nt/nd , bs+ CONTENT DEVELOPER: no focal neuro deficits EXT: red discoloration of palms and soles related to chemotherapy Data : 02/04/20 16:53 02/04/20 16:53 A&P Assessment and plan (1) Pneumonitis: Status: Acute Code(s): J18.9 - Pneumonia, unspecified organism (2) Esophageal adenocarcinoma: Status: Acute Code(s): C15.9 - Malignant neoplasm of esophagus, unspecified (3) Nicotine dependence: Status: Acute Code(s): F17.200 - Nicotine dependence, unspecified, uncomplicated (4) Hypokalemia: Status: Acute Code(s): E87.6 - Hypokalemia (5) Thrombocytopenia: Status: Acute Code(s): D69.6 - Thrombocytopenia, unspecified Additional A&P Information Admit to med/surg Based on review of chest x-ray, findings seem to be most consistent with right- sided pneumonitis. We will order CT chest to obtain further information regarding extent of involvement and look for any underlying consolidative process. Pneumonia is certainly a possibility, including atypical infection, given pneumonitis pattern, possibility of radiation pneumonitis cannot be excluded. Patient denies any history of choking or aspiration episodes, however possibility of aspiration pneumonitis cannot be excluded either given history of dysphagia and esophageal mass. Will obtain swallow evaluation in the morning Start empiric ceftriaxone and azithromycin for now. Patient appears to be clinically dehydrated, IV hydration with 100 cc/h. PRN pain for pain control P.o. potassium supplementation 40 mEq given in the ED. Nicotine dependence: Offer nicotine patch History of daily alcohol consumption, will monitor for signs of withdrawal. DVT ppx: Scds, avoiding pharmacologic ppx given thrombocytopneia Full code Attestations Medical Necessity Statement*: Anticipate > 2 midnight admission for w/up of pneumonia/pneumonitis, need for iv hydration and antibiotics Coding Level of Care Code Acute Test And Research Reactor Operator for Chg Fwd Diagnoses Pneumonitis J18.9 Esophageal adenocarcinoma C15.9 Nicotine dependence F17.200 Hypokalemia E87.6 Thrombocytopenia D69.6
--- NOTE | 2020-02-05 01:08 | CTR_ITS ---
PROCEDURE INFORMATION: Exam: CT Chest Without Contrast Exam date and time: 02/05/2020 1:09 AM Age: 59 years old Clinical indication: Condition or disease; Lung condition and disease; Other: Pneumonitis TECHNIQUE: Imaging protocol: Computed tomography of the chest without contrast. Total DLP: 402.53 mGy-cm Radiation optimization: All CT scans at this facility use at least one of these dose optimization techniques: automated exposure control; mA and/or kV adjustment per patient size (includes targeted exams where dose is matched to clinical indication); or iterative reconstruction. COMPARISON: CR XR chest 1V portable [id number] 02/04/2020 8:43 PM FINDINGS: Tubes, catheters and devices: Termination of central venous catheter at the cavoatrial junction. Lungs: COPD, interstitial prominence, and chronic granulomatous disease. Asymmetric airspace disease, right greater than left, consistent with bronchopneumonia in the appropriate clinical setting. Pleural space: Trace right pleural effusion. Heart: No cardiomegaly or significant pericardial effusion. Aorta: Normal caliber of the thoracic aorta. Lymph nodes: Calcified and noncalcified lymph nodes, the majority of which are subcentimeter in size. Upper abdomen: Wall thickening in the nondistended distal esophagus and proximal stomach, which would be worrisome for underlying malignancy. Splenic granulomata. Bowel dilatation in the visualized upper abdomen. Bones/joints: Schmorl's nodes, vertebral endplate irregularity, and marginal osteophytes. CT/CT chest [facility] [place] [id number] IMPRESSION: 1. COPD and asymmetric airspace disease, right greater than left, consistent with bronchopneumonia in the appropriate clinical setting. 2. Wall thickening in the nondistended distal esophagus and proximal stomach, which would be worrisome for underlying malignancy. 3. Additional findings as described above. Radiation Dose CTDIVOL = (mGy): DLP = 402.53 (mGy-cm)
[2020-02-05] MEDS: dextrose 5%-sod chloride 0.9% 1,000 ML 100 ML IV ×2 (02:21→12:03)
[2020-02-05] MEDS: HYDROcodone-acetaminophen 7.5-325 mg Tablet 1 TAB PO ×6 (02:21→22:36)
[2020-02-05 02:50] LABS: Hematocrit 22.2 % (42.0-52.0); Hemoglobin 7.6 g/dL (11.7-16.6); Lymphocytes # 0.3 10^3/uL (0.8-4.8); Lymphocytes % 10.3 %; Mean Corpuscular HGB Conc 34.2 g/dL (30.0-36.0); Mean Corpuscular Hemoglobin 29.7 pg (28.0-34.0); Mean Corpuscular Volume 86.7 fL (80-94); Monocytes # 0.5 10^3/uL (0.2-0.9); Monocytes % 20.2 %; Neutrophils # 1.6 10^3/uL (1.8-7.7); Nucleated Red Blood Cells % 0 %; Platelet Count 47 10^3/cmm (130-400); Red Blood Count 2.56 10^6/uL (4.1-5.3); Red Cell Distribution Width 16.6 % (12.1-15.1); White Blood Count 2.4 10^3/uL (4.0-10.0)
[2020-02-05 03:05] LABS: Magnesium 1.6 mg/dL (1.7-2.3)
[2020-02-05 03:32] LABS: Blood Urea Nitrogen 8 mg/dL (6-20); Calcium 7.6 mg/dL (8.5-10.5); Chloride 101 mmol/L (98-107); Glucose 105 mg/dL (65-115); Osmolality Calculated 278 mOsm/kg (285-295); Potassium 3.2 mmol/L (3.5-5.1); Sodium 136 mmol/L (136-145)
[2020-02-05 05:43] LABS: Anion Gap 15.2 (5-19); Carbon Dioxide 23 mmol/L (22-29)
[2020-02-05] MEDS: azithromycin 250 mg Tablet 500 MG PO (09:34)
[2020-02-05] MEDS: folic acid 1 mg Tablet PO (09:34)
[2020-02-05] MEDS: dexamethasone 4 mg Tablet PO ×2 (09:34→18:33)
[2020-02-05] MEDS: pantoprazole DR 40 mg Tablet PO (09:34)
[2020-02-05] MEDS: sucralfate 1 gm Tablet PO ×4 (09:35→22:36)
[2020-02-05] MEDS: thiamine 100 mg Tablet PO (09:35)
--- NOTE | 2020-02-05 11:17 | PC.CHAP ---
Pastoral Care Encounter/Spiritual Assessment Type of Contact [] Declined book salesman visit [] Patient/Family/Request visit [] Outpatient visit [] Follow-up visit [] Physician referral [] Code/Alert [x] Routine visit [] Staff referral [] Actively dying [] Patient sleeping [] Family support [] [] Out of room [] Palliative care [] [] Receiving care in room [] Pre-surgical visit [] Trauma [] Long length of stay [] ICU visit [] Other: Relational/Emotional Strength [x] Patient feels connected with others/family/visitors/staff [] Distress [] Loneliness/isolation [] Abandonment Spirituality of Patient [x] Person of Lety [] Attends Scientology of their Lety [x] Believes in Prayer [] Reads Bible or Lutheran materials [] There are Spiritual issues to be addressed Shirt Ironer Supervisor Interventions [x] Prayer [x] Active listening [x] Non-anxious presence [x] Spiritual/emotional support [] Crisis/trauma care [x] Spiritual counseling [] Bereavement support [] Provided bereavement packet [] Provided Bible/devotional materials [] Provided toy/stuffed animal, coloring book to patient or family member [] Provided Communion [] Anointing/[place] [] Salvation [] Completed spiritual assessment [] Other: Impact on Illness or Injury [] Angry [] Fearful [] Anxious [] Often cries [] Exhaustion [] Unable to work [] Unable to attend confucianist [] Unable to walk/stand [] Unable to read [] Unable to drive [] Unable to eat/drink [] Unable to sleep [] Unable to be with family [] Patient intubated [x] Other: n/a Summary Time spent with patient 5 minutes
--- NOTE | 2020-02-05 15:14 | PM.PN ---
Subjective Subjective: Interval history: Chart reviewed, noted continued hypokalemia, replace PO. ST evaluation appreciated. Patient seen and examined, resting in bed, reports some R sided abdominal discomfort. Will add Ensure supplementation as his oral intake has been modest. Medications: Reviewed: Yes Medication Review Details: Active Medications Generic Name Dose Route Start Last Admin Trade Name Freq PRN Reason Stop Dose Admin Acetaminophen 650 mg 02/05/20 01:33 Tylenol PO Q6H PRN Mild/Mod Pain Or Temp >/= 101 Hydrocodone Bitart /Acetaminophen 1 tab 02/05/20 01:45 02/05/20 13:25 Baker 7.5-325 Mg PO 1 tab Q4H DAVIS Administration Albuterol Sulfate 2.5 mg 02/05/20 01:35 02/05/20 04:01 Albuterol INHALATION 2.5 mg Q6H.RESPIRATORY P RN Administration SHORTNESS OF MICHELLE TH Amitriptyline HCl 10 mg 02/05/20 09:00 02/05/20 11:20 Elavil PO 10 mg DAILY DAVIS Administration Azithromycin 500 mg 02/05/20 09:00 02/05/20 09:34 Zithromax PO 500 mg DAILY DAVIS Administration Protocol Dexamethasone 4 mg 02/05/20 09:00 02/05/20 09:34 Decadron PO 4 mg BID DAVIS Administration Folic Acid 1 mg 02/05/20 09:00 02/05/20 09:34 Folic Acid PO 1 mg DAILY DAVIS Administration Sodium Chloride 1,000 mls @ 100 m ls/hr 02/04/20 21:45 02/04/20 23:44 Sodium Chloride 0.9% IV 100 mls/hr .Q10H DAVIS Administration Dextrose/Sodium Ch loride 1,000 mls @ 100 m ls/hr 02/05/20 01:45 02/05/20 12:03 Dextrose 5%-Sod Chloride 0.9% IV 100 mls/hr .Q10H DAVIS Administration Ceftriaxone Sodium 1,000 mg/ 50 mls @ 100 mls/ hr 02/05/20 21:30 Sodium Chloride IV Q24H DAVIS Protocol Morphine Sulfate 4 mg 02/04/20 21:40 02/04/20 22:14 Morphine IVP 4 mg Q4H PRN Administration SEVERE PAIN Nicotine 1 patch 02/05/20 09:00 02/05/20 10:46 Nicoderm 21 Mg P atch TRANSDERMA Not Given DAILY DAVIS Nicotine Polacrile x 2 mg 02/05/20 01:35 Nicorette BUCCAL Q1H PRN nicotine cravings Ondansetron HCl 4 mg 02/05/20 01:33 Zofran IVP Q8H PRN vomiting, or N/V if npo Pantoprazole Sodiu m 40 mg 02/05/20 09:00 02/05/20 09:34 Protonix PO 40 mg DAILY DAVIS Administration Sucralfate 1 gm 02/05/20 09:00 02/05/20 13:25 Carafate PO 1 gm QID DAVIS Administration Thiamine Mononitra te 100 mg 02/05/20 09:00 02/05/20 09:35 Vitamin B-1 PO 100 mg DAILY DAVIS Administration No Known Allergies Allergy (Verified 01/08/20 16:12) Vitals/I&O/Wt Last Vital Signs Temp 97.5 F L 02/05/20 11:33 Pulse 82 02/05/20 11:33 Resp 20 H 02/05/20 11:33 BP 103/68 02/05/20 11:33 Pulse Ox 98 02/05/20 11:33 02/05/20 02/05/20 02/05/20 06:59 14:59 22:59 Intake Total 520 / 520 2270 / 2270 Output Total 650 / 650 400 / 400 Balance -130 / -130 1870 / 1870 Weight last 48 hrs Weight 54.885 kg Physical Exam Const: COMMON NORMALS: no apparent distress and oriented x3 GENERAL APPEARANCE: cooperative and comfortable NUTRITIONAL APPEARANCE: thin ORIENTATION/CONSCIOUSNESS: Yes awake HENMT: COMMON NORMALS: normocephalic, head/scalp atraumatic and hearing grossly normal bilaterally HEAD & SCALP: normocephalic and atraumatic MOUTH: moist mucous membranes abnormal Details: parched Eye: COMMON NORMALS: PERRL, EOMs intact bilaterally and conjunctivae normal CONJUNCTIVA: Yes conjunctivae normal PUPIL: Yes PERRL Neck/C-Spine: COMMON NORMALS: full ROM GENERAL: Yes normal visual inspection and Yes trachea midline Chest: OTHER: -has port-A-cath in place Resp: COMMON NORMALS: normal respiratory effort, no retractions, no use of accessory muscles and clear to auscultation bilaterally EFFORT & INSPECTION: Yes able to speak in complete sentences, Yes symmetric chest movement and No tachypneic AUSCULTATION: clear to auscultation bilaterally Cardio: COMMON NORMALS: regular rate, regular rhythm, S1 normal heart sound, S2 normal heart sound and no murmurs RATE: regular rate RHYTHM: regular rhythm HEART SOUNDS: S1 normal and S2 normal GI: COMMON NORMALS: normal to inspection, nondistended, normoactive bowel sounds and soft to palpation PALPATION: Yes soft and Yes tender (right sided, worse in lower quadrant) Extremity: COMMON NORMALS: normal to inspection, full ROM and no clubbing, cyanosis or edema; negative for no pedal edema Neuro: COMMON NORMALS: oriented x3, moves all extremities, no focal motor deficits, no sensory deficits noted and gait normal Psych: COMMON NORMALS: mental status grossly normal, thought process normal, cooperative, affect normal and speech normal SPEECH: Yes normal speech THOUGHT PROCESS: normal thought process Skin: COMMON NORMALS: no rashes or lesions noted, no jaundice, no petechiae and no mottling GENERAL SKIN EXAM: no rashes or lesions noted Data : 02/05/20 02:35 02/05/20 02:35 A&P Assessment and plan (1) Pneumonia: -noted RUL and RLL pneumonitis/pneumonia on imaging including CT in background of COPD -had ST evaluation to rule out aspiration, negative for mari aspiration -continue Ceftriaxone, Azithromycin -not requiring oxygen currently, continue to monitor respiratory status -afebrile, continue to monitor vital signs Status: Acute Qualifiers: Laterality: right Lung location: upper lobe of lung Pneumonia type: due to unspecified organism Qualified Code(s): J18.9 - Pneumonia, unspecified organism Code(s): J18.9 - Pneumonia, unspecified organism (2) Pancytopenia due to antineoplastic chemotherapy: -noted pancytopenia likely secondary to ongoing chemotherapy, has been on treatment with carboplatin/paclitaxel with noted developing pancytopenia and reduction in carboplatin dose to prevent further bone marrow suppression -continue to monitor cell lines; noted drop could be dilution as well -monitor for bleeding -if continued neutropenia, may need precautions, ANC-1600 Status: Acute Code(s): D61.810 - Antineoplastic chemotherapy induced pancytopenia; T45.1X5A - Adverse effect of antineoplastic and immunosuppressive drugs, initial encounter (3) Hypokalemia: -replace as needed Status: Acute Code(s): E87.6 - Hypokalemia (4) Esophageal adenocarcinoma: -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 Miranda -Has been on chemotherapy with carboplatin/paclitaxel (x 2 cycles) as well as radiation therapy (x 14 cycles) Status: Acute Code(s): C15.9 - Malignant neoplasm of esophagus, unspecified (5) Nicotine dependence: -Chronic smoker, 1 PPD -continue nicotine replacement therapy Status: Acute Qualifiers: Nicotine product type: cigarettes Substance use status: uncomplicated Qualified Code(s): F17.210 - Nicotine dependence, cigarettes, uncomplicated Code(s): F17.200 - Nicotine dependence, unspecified, uncomplicated Additional A&P Information -COPD, not oxygen dependent at baseline -EtOH use: monitor for withdrawal -hx of Crohn's disease -mechanical soft diet per ST recommendations -GI ppx with PPI -DVT ppx with SCDs, no AC due to underlying thrombocytopenia and anemia -Dispo: home -Code status: FULL code Attestations Medical Necessity Statement*: Patient requires hospitalization for continued treatment of pneumonia in immunocompromised state, requiring close monitoring of respiratory status and IV antibiotic treatment. Time Spent in Patient Care: 16 - 35 minutes (>than 50% of time spent in counselling and/or direct pt care on unit). Coding Level of Care Code Acute Maintenance Supervisor 2Nd Shift for g Fwd Exam Comprehensive Diagnoses Pneumonia J18.9 Laterality: right Lung location: upper lobe of lung Pneumonia type: due to unspecified organism Pancytopenia due to antineoplastic chemotherapy D61.810; T45.1X5A Hypokalemia E87.6 Esophageal adenocarcinoma C15.9 Nicotine dependence F17.210 Nicotine product type: cigarettes Substance use status: uncomplicated
[2020-02-05] MEDS: potassium chloride oral liq 20 mEq/15 mL UDC 40 MEQ PO ×2 (18:48→18:52)
[2020-02-05] MEDS: cefTRIAXone 1,000 MG in sodium chloride 0.9% (plus) 50 ML 100 MG IV (22:36)
[2020-02-06] VITALS: BP 116/69; PULSE 77; RESP 18; TEMP 36.5; O2SAT 98
[2020-02-06] MEDS: HYDROcodone-acetaminophen 7.5-325 mg Tablet 1 TAB PO ×4 (01:29→13:48)
[2020-02-06] MEDS: dextrose 5%-sod chloride 0.9% 1,000 ML 100 ML IV (01:31)
[2020-02-06 04:00] VITALS: BP 126/70; PULSE 83; RESP 19; TEMP 36.6; O2SAT 97
[2020-02-06 05:22] LABS: Hematocrit 21.8 % (42.0-52.0); Hemoglobin 7.5 g/dL (11.7-16.6); Lymphocytes # 0.3 10^3/uL (0.8-4.8); Mean Corpuscular HGB Conc 34.4 g/dL (30.0-36.0); Mean Corpuscular Hemoglobin 29.8 pg (28.0-34.0); Mean Corpuscular Volume 86.5 fL (80-94); Mean Platelet Volume 14.2 fL (7.4-10.4); Monocytes # 0.4 10^3/uL (0.2-0.9); Monocytes % 17.1 %; Neutrophils # 1.7 10^3/uL (1.8-7.7); Neutrophils % 70.7 %; Nucleated Red Blood Cells % 0 %; Platelet Count 47 10^3/cmm (130-400); Red Blood Count 2.52 10^6/uL (4.1-5.3); Red Cell Distribution Width 16.9 % (12.1-15.1); White Blood Count 2.5 10^3/uL (4.0-10.0)
[2020-02-06 05:41] LABS: Add Urine Microscopic? NO; Bilirubin Urine Neg (NEGATIVE); Blood Urine Neg (Negative); Glucose Urine UA 1+ (Normal); Ketones Urine Negative (Negative); Leukocyte Esterase Urine Negative (Negative); Nitrate Urine Negative (Negative); Protein Urine Neg (Negative); Specific Gravity, Urine 1.005 (1.005-1.030); Urine Appearance Clear (CLEAR); Urine Color Yellow (Yellow); Urobilinogen Urine Norm (Negative); pH Urine 6 (5-7)
[2020-02-06 05:45] LABS: Magnesium 1.8 mg/dL (1.7-2.3)
[2020-02-06 05:46] LABS: Potassium 3.2 mmol/L (3.5-5.1)
[2020-02-06 07:46] VITALS: BP 130/71; PULSE 87; RESP 18; TEMP 36.4; O2SAT 96
[2020-02-06 08:13] VITALS: PULSE 90; RESP 18; O2SAT 95
[2020-02-06] MEDS: thiamine 100 mg Tablet PO (09:05)
[2020-02-06] MEDS: azithromycin 250 mg Tablet 500 MG PO (09:05)
[2020-02-06] MEDS: sucralfate 1 gm Tablet PO ×2 (09:05→13:48)
[2020-02-06] MEDS: folic acid 1 mg Tablet PO (09:06)
[2020-02-06] MEDS: dexamethasone 4 mg Tablet PO (09:06)
[2020-02-06] MEDS: pantoprazole DR 40 mg Tablet PO (09:06)
[2020-02-06 11:27] VITALS: BP 131/70; PULSE 92; RESP 18; TEMP 36.4; O2SAT 98
[2020-02-06] MEDS: sodium chloride 0.9% 1,000 ML 100 ML IV (12:25)
--- NOTE | 2020-02-06 15:05 | ECG_ITS ---
Measurements Intervals [place] Rate: 84 P: 70 IN: 133 QRS: 37 QRSD: 90 T: 34 QT: 385 QTc: 457 SINUS RHYTHM Baseline artifact Compared to ECG 07/16/2017 03:02:37 No significant changes Electronically Signed On 02-09-2020 14:51:23 CDT by Aditi Mcfarlane M.D. [email or web address]
--- NOTE | 2020-02-06 15:08 | PM.DCS ---
Discharge Providers Date of Admission: 02/04/20 21:41 Date of Discharge: February 06, 2020 Attending Provider at Admission: Anjali Maria MD Attending Provider at Discharge: Ruchi Ramos MD Primary Care Provider: Belkys Harris Diagnoses at Discharge Discharge Diagnosis (1) Pneumonia: Status: Acute Problem details: -noted RUL and RLL pneumonitis/pneumonia on imaging including CT in background of COPD -had ST evaluation to rule out aspiration, negative for mari aspiration -continue Ceftriaxone, Azithromycin; will discharge on oral Levaquin to allow for continued broad-spectrum coverage -not requiring oxygen currently, continue to monitor respiratory status -afebrile, continue to monitor vital signs Qualifiers: Laterality: right Lung location: upper lobe of lung Pneumonia type: due to unspecified organism Qualified Code(s): J18.9 - Pneumonia, unspecified organism (2) Pancytopenia due to antineoplastic chemotherapy: Status: Acute Problem details: -noted pancytopenia likely secondary to ongoing chemotherapy, has been on treatment with carboplatin/paclitaxel with noted developing pancytopenia and reduction in carboplatin dose to prevent further bone marrow suppression -continue to monitor cell lines; noted drop could be dilutional as well -monitor for bleeding; none so far -if continued neutropenia, may need precautions, ANC-1700 -confirmed with Oncology clinic that patient can have CBC drawn on Tuesday with results sent to Dr. 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 Miranda -Has been on chemotherapy with carboplatin/paclitaxel (x 2 cycles) as well as radiation therapy (x 14 cycles) (5) Nicotine dependence: Status: Chronic Qualifiers: Nicotine product type: cigarettes Substance use status: uncomplicated Qualified Code(s): F17.210 - Nicotine dependence, cigarettes, uncomplicated Other Information Additional DC diagnoses/information: -COPD, not oxygen dependent at baseline -EtOH use: monitor for withdrawal -hx of Crohn's disease -at least moderate protein calorie malnutrition and cachectic-appearing; encourage to have small frequent meals, mechanical soft diet due to poor dentition and dysphagia Reason for Visit Reason for Visit: Reason For Visit: nausea Hospital Course Hospital Course: Patient was admitted to the medical surgical floor and continued on antibiotic treatment secondary to findings of right-sided pneumonia/pneumonitis. He was maintained on room air, has been hemodynamically stable and has been on IV fluid hydration secondary to diminished oral intake. He was evaluated by speech therapy due to noted dysphagia with recommendation made for a mechanical soft diet, small frequent meals throughout the day. He is overall cachectic appearing and malnourished secondary to underlying esophageal cancer. He has been on active chemo radiation which is on hold secondary to acute infection. He had noted pancytopenia likely secondary to chemotherapy with close monitoring of cell lines while in the hospital. I have requested that oncology follow-up with his CBC which is to be drawn on Tuesday with results sent to Dr. Miranda. Patient has a scheduled follow-up appointment with Dr. Miranda on 02/13/2020. He is encouraged to be compliant with antibiotic treatment and to seek medical attention immediately should he have symptoms such as worsening cough, worsening shortness of breath, fever, malaise, chills. He is also counseled on need to avoid contact with sick individuals. Discharge Summary: -Patient to follow-up with his primary care provider within 1 week -Patient to have CBC drawn on Tuesday with results sent to Dr. Miranda -Patient to follow-up with Dr. Miranda as scheduled on 02/13/2020 Physical Exam Const: COMMON NORMALS: no apparent distress and oriented x3 GENERAL APPEARANCE: cooperative and comfortable NUTRITIONAL APPEARANCE: thin ORIENTATION/CONSCIOUSNESS: Yes awake OTHER: -gaunt appearance HENMT: COMMON NORMALS: normocephalic, head/scalp atraumatic and hearing grossly normal bilaterally HEAD & SCALP: normocephalic and atraumatic MOUTH: moist mucous membranes abnormal Details: parched Eye: COMMON NORMALS: PERRL, EOMs intact bilaterally and conjunctivae normal CONJUNCTIVA: Yes conjunctivae normal PUPIL: Yes PERRL Neck/C-Spine: COMMON NORMALS: full ROM GENERAL: Yes normal visual inspection and Yes trachea midline Chest: OTHER: -has port-A-cath in place (L); site with clean dressing in place, accessed Resp: COMMON NORMALS: normal respiratory effort, no retractions, no use of accessory muscles and clear to auscultation bilaterally EFFORT & INSPECTION: Yes able to speak in complete sentences, Yes symmetric chest movement and No tachypneic AUSCULTATION: clear to auscultation bilaterally Cardio: COMMON NORMALS: regular rate, regular rhythm, S1 normal heart sound, S2 normal heart sound and no murmurs RATE: regular rate RHYTHM: regular rhythm HEART SOUNDS: S1 normal and S2 normal GI: COMMON NORMALS: normal to inspection, nondistended, normoactive bowel sounds and soft to palpation PALPATION: Yes soft and Yes tender (right sided, worse in lower quadrant) Extremity: COMMON NORMALS: normal to inspection, full ROM and no clubbing, cyanosis or edema; negative for no pedal edema Neuro: COMMON NORMALS: oriented x3, moves all extremities, no focal motor deficits, no sensory deficits noted and gait normal Psych: COMMON NORMALS: mental status grossly normal, thought process normal, cooperative, affect normal and speech normal SPEECH: Yes normal speech THOUGHT PROCESS: normal thought process Skin: COMMON NORMALS: no rashes or lesions noted, no jaundice, no petechiae and no mottling GENERAL SKIN EXAM: no rashes or lesions noted Discharge Data Data Completed and Pending: Completed Studies During Hospitalization Category Date Time Status CT chest wo con 7 1250 Routine Cat Scan 02/05/20 01:08 Completed XR chest 1V terrance ble 16221 Urgent Exams 02/04/20 20:38 Completed Pending at discharge Category Date Time Status Urinalysis Stat Lab 02/04/20 16:27 Uncollected Labs from last 24 hours 02/06/20 02/06/20 02/06/20 04:45 04:38 04:38 WBC 2.5 L RBC 2.52 L Hgb 7.5 L Hct 21.8 L MCV 86.5 MCH 29.8 MCHC 34.4 RDW 16.9 H Plt Count 47 L MPV 14.2 H Neut % (Auto) 70.7 Lymph % (Auto) 11.0 [place] % (Auto) 17.1 Eos % (Auto) 0.0 Baso % (Auto) 0.0 Neut # (Auto) 1.7 L Lymph # (Auto) 0.3 L [place] # (Auto) 0.4 Eos # (Auto) 0.0 Baso # (Auto) 0.0 Nucleated RBC % (a uto) 0 Nucleated RBCs # 0.0 Potassium 3.2 L Magnesium Urine Color Yellow Urine Appearance Clear Urine pH 6 Ur Specific Gravit y 1.005 Urine Protein Neg Urine Glucose (UA) 1+ Urine Ketones Negative Urine Blood Neg Urine Nitrate Negative Urine Bilirubin Neg Urine Urobilinogen Norm Ur Leukocyte Genia ase Negative 02/06/20 04:38 WBC RBC Hgb Hct MCV MCH MCHC RDW Plt Count MPV Neut % (Auto) Lymph % (Auto) [place] % (Auto) Eos % (Auto) Baso % (Auto) Neut # (Auto) Lymph # (Auto) [place] # (Auto) Eos # (Auto) Baso # (Auto) Nucleated RBC % (a uto) Nucleated RBCs # Potassium Magnesium 1.8 Urine Color Urine Appearance Urine pH Ur Specific Gravit y Urine Protein Urine Glucose (UA) Urine Ketones Urine Blood Urine Nitrate Urine Bilirubin Urine Urobilinogen Ur Leukocyte Genia ase Vitals: Last Vital Signs Temp 97.6 F 02/06/20 11:27 Pulse 92 02/06/20 11:27 Resp 18 02/06/20 11:27 BP 131/70 02/06/20 11:27 Pulse Ox 98 02/06/20 11:27 Discharge Plan Discharge Patient Disposition: Home, Self-Care Condition: Stable Prescriptions: New levofloxacin [Levaquin] 750 mg tablet 750 mg PO DAILY 10 Days Qty: 10 RF: 0 Continued albuterol sulfate [Ventolin HFA] 90 mcg/actuation HFA aerosol inhaler 2 puff INHALATION Q6H PRN (Reason: copd) RF: 0 amitriptyline 10 mg tablet 10 mg PO DAILY RF: 0 cholecalciferol (vitamin D3) 50,000 unit capsule 50,000 unit PO .COMPLEX RF: 0 sucralfate 1 gram Tablet 1 g PO QID RF: 0 folic acid 1 mg Tablet 1 mg PO DAILY Qty: 30 RF: 0 pantoprazole 40 mg tablet,delayed release (DR/EC) 40 mg PO DAILY Qty: 30 RF: 0 ondansetron HCl [Zofran] 8 mg Tablet 8 mg PO Q8H Qty: 42 RF: 0 nicotine 21 mg/24 hr patch 24 hour 1 patch TRANSDERMA DAILY Qty: 30 RF: 0 nicotine (polacrilex) 2 mg lozenge 2 mg BUCCAL Q1H PRN (Reason: nicotine cravings) Qty: 60 RF: 4 hydrocodone-acetaminophen 7.5-325 mg Tablet 1 tab PO Q4H RF: 0 thiamine HCl (vitamin B1) 100 mg/mL solution 100 mg PO DAILY RF: 0 dexamethasone 4 mg Tablet 4 mg PO BID RF: 0 Discharge Orders: Discharge Order (Routine); Ordered 02/06/20 Ordered By: Ruchi Ramos Referrals: Janny Andrews FNP [Family Provider] - 7-10 days (Post hospital discharge follow up. Treated for pneumonitis with Levaquin. ) Nick Miranda MD [Staff Physician] - 02/13/20 (Please keep your scheduled appointment with Dr. Miranda on Tuesday02/13/20) Discharge Diet: Soft Mechanical Discharge Activity: Resume usual activity Discharge Attestations Time Spent in Discharge Care*: greater than 30 min Specific Discharge Activities: Specific discharge activities: educating patient, educating and/or supporting family/caregiver, discussing with pcp/other providers, discussing with director of casework/social workers/dc planners, documenting/other paperwork and evaluating patient/reviewing data Status at Discharge: Cognitive status at discharge: cognitively intact, Functional status at discharge: independent ambulation Overall status at discharge: patient is back to baseline Quality Metrics Clinical Quality Measures During this hospital stay, did patient experience: None Coding Level of Care Code Acute Network Desktop Support Specialist for g Fwd Diagnoses Pneumonia J18.9 Laterality: right Lung location: upper lobe of lung Pneumonia type: due to unspecified organism Pancytopenia due to antineoplastic chemotherapy D61.810; T45.1X5A Hypokalemia E87.6 Esophageal adenocarcinoma C15.9 Nicotine dependence F17.210 Nicotine product type: cigarettes Substance use status: uncomplicated
[2020-02-06] MEDS: levoFLOXacin 750 mg Tablet PO (15:28)
[2020-02-06] MEDS: potassium chloride oral liq 20 mEq/15 mL UDC 40 MEQ PO (15:28)
[2020-02-06 16:02] VITALS: BP 131/70; PULSE 92; RESP 18; TEMP 36.4; O2SAT 98
== END 2020-02-06 16:26 | disposition home or self-care (01) | DRG 193 ==
LOC: ER 20:26 → MEDSURG 22:08
PROVIDERS: Physician Assistant; Admitting Provider Student in an Organized Health Care Education/Training Program; Emergency Provider Family Medicine; Family Provider Nurse Practitioner; PCP Nurse Practitioner Family; Visit Provider Family Medicine
DX: J18.9 Pneumonia, unspecified organism (principal); D61.810 Antineoplastic chemotherapy induced pancytopenia; C15.9 Malignant neoplasm of esophagus, unspecified; E87.6 Hypokalemia; F17.210 Nicotine dependence, cigarettes, uncomplicated; T45.1X5A Adverse effect of antineoplastic and immunosuppressive drugs, initial encounter; D69.6 Thrombocytopenia, unspecified; J44.9 Chronic obstructive pulmonary disease, unspecified; Z72.89 Other problems related to lifestyle; Z79.51 Long term (current) use of inhaled steroids; Z68.21 Body mass index [BMI] 21.0-21.9, adult; Z79.83 Long term (current) use of bisphosphonates
CPT/HCPCS: 12345; 36415; 36591; 71045; 71250; 80048; 80053; 81003; 83690; 83735; 84132; 85025; 92526; 92610; 93005; 94640; 96375; 99282; A9270; J0456; J0696; J1642; J2270; J2405; J3475; J7030; J7050; J7611; J8540; Q0144

== ENCOUNTER 2020-02-04 16:11 | Emergency (ER) | payer MEDICAID, SELFPAY | END 2020-02-04 23:07 | disposition admitted as inpatient to this hospital (09) | LOC: ER 02-14 16:49 | PROVIDERS: Emergency Provider Family Medicine; Family Provider Nurse Practitioner; PCP Nurse Practitioner Family | DX: Z76.89 Persons encountering health services in other specified circumstances (principal) | CPT/HCPCS: 36415; 71045; 80053; 83690; 85025; 96365; 96367; 96375; 96376; 99282; 99285; A9270; J2270; J2405; J7030 ==

== ENCOUNTER 2020-02-19 06:44 | Outpatient (RCR) | payer MEDICAID, SELFPAY ==
[2020-02-08 14:19] LABS: Basophils % 0.3 %; Hematocrit 30.4 % (42.0-52.0); Hemoglobin 10.4 g/dL (11.7-16.6); Lymphocytes # 0.8 10^3/uL (0.8-4.8); Lymphocytes % 19.7 %; Mean Corpuscular HGB Conc 34.2 g/dL (30.0-36.0); Mean Corpuscular Hemoglobin 30.1 pg (28.0-34.0); Mean Corpuscular Volume 87.9 fL (80-94); Mean Platelet Volume 13.8 fL (7.4-10.4); Monocytes # 0.7 10^3/uL (0.2-0.9); Monocytes % 18.2 %; Neutrophils # 2.3 10^3/uL (1.8-7.7); Platelet Count 84 10^3/cmm (130-400); Red Blood Count 3.46 10^6/uL (4.1-5.3); Red Cell Distribution Width 17.4 % (12.1-15.1); White Blood Count 3.9 10^3/uL (4.0-10.0)
[2020-02-08 14:28] LABS: Alanine Aminotransferase 19 U/L (0-41); Albumin Level 2.8 g/dL (3.5-5.2); Alkaline Phosphatase 67 IU/L (40-130); Amylase 44 U/L (28-100); Anion Gap 15.9 (5-19); Aspartate Amino Transferase 19 U/L (0-40); Blood Urea Nitrogen 2 mg/dL (6-20); Calcium 8.9 mg/dL (8.5-10.5); Carbon Dioxide 32 mmol/L (22-29); Chloride 91 mmol/L (98-107); Globulin 3.7 g/dL (1.3-4.6); Glomerular Filtration Rate 221.7 mL/min (90-130); Glucose 106 mg/dL (65-115); Lipase 7 U/L (13-60); Osmolality Calculated 278 mOsm/kg (285-295); Sodium 136 mmol/L (136-145); Total Bilirubin 0.4 mg/dL (0.15-1.2); Total Protein 6.5 g/dL (6.6-8.7)
[2020-02-08 18:07] LABS: Potassium 2.9 mmol/L (3.5-5.1)
--- NOTE | 2020-02-11 16:52 | ONCRAD TMN_ITS ---
Radiation Oncology Weekly Treatment Management Patient: Jaxon Cosby MR#: [id number] : 1960> Age: 59> Sex: Male Dictated by: Dr. Aristeo Castanon Date of Service: 02/11/2020 Referring Physician(s) : Dr. Miranda Primary Diagnosis: C15.5 - Malignant neoplasm of lower third of esophagus, Diagnosed 12/12/2019 (Active) Radiotherapy to date: Course: 2019 Treatment Site: [facility], Ref. ID: [id number], Energy: 6X, Dose/Fx (cGy): 200, #Fx: , Dose Correction (cGy): 0, Total Dose (cGy): 2,600, Start Date: 01/16/2020, Elapsed Days: Current Complaints/Interval History: Mr. Cosby returns off break today. He had finished 11 treatments when he was hospitalized 02/04/2020. He was experiencing multiple episodes of vomiting, poor intake of fluids and food and was felt to have failure to thrive. He was not neutropenic and did not have any evidence of infection other than some pneumonitis/pneumonia on chest x-ray. However, in spite of the chest x-ray finding, he had a pulse ox of 98% on room air. During his hospitalization Mr. Cosby improved. He was discharged and is doing better at home. He only has minimal discomfort with swallowing. He is eating solids. He feels that his fluid intake is very good. His weight is down about 3-1/2 pounds over the past 12 days. Mr. Cosby appears ready to resume treatment. I discussed that with him and he wishes to proceed. Treatment resumed. Current Medications: Amitriptyline HCl, cARBOplatin, dexamethasone, dexamethasone, dexamethasone Sodium Phosphate, diphenhydrAMINE HCl, famotidine in NaCl, folic Acid, hYDROcodone-Acetaminophen, hYDROcodone-Acetaminophen, levoFLOXacin, lORazepam, mucus Relief Chest Congestion, ondansetron HCl, ondansetron HCl, pACLitaxel, palonosetron HCl, pantoprazole Sodium, potassium Chloride ER, prochlorperazine Maleate, prochlorperazine Maleate, traMADol HCl. Allergies: No Known Allergies Vital Signs: Performed on 02/11/2020 3:28 PM BMI - 18.954 kg/m2, Height - 63.00 in, Weight - 107.0 lbs, Temperature - 98.1 f, Pulse - 72, Respiration - 20, O2 Sat - 96 %, Pain - 6 and BP - 102/ 69 mm(hg). Physical Exam: Appears stable, no skin erythema or desquamation. Performance Status: 2 - Ambulatory/capable of all self-care, unable to perform any work activities. Up and about more than 50% of waking hours. (ECOG) Lab: None pending in Radiation Oncology. Test performed on 01/16/2020 6:10 AM Manual Lymphocytes - 12.9 % (low), Manual Monocytes - 2.4 % (low), Test performed on 01/28/2020 3:10 PM WBC - 3.4 10 3/ul (low), RBC - 3.56 10 6/ul (low), HGB - 10.5 g/dl (low), HCT - 30.9 % (low), RDW - 17.1 % (high), Platelet Count - 100 10 3/cmm (low), MPV - 12.2 fl (high), Lymphocytes - 0.3 10 3/ul (low), Sodium - 131 mmol/l (low), Chloride - 96 mmol/l (low), Creatinine - 0.5 mg/dl (low), eGFR - 171.4 ml/min (high), Glucose - 130 mg/dl (high), Protein, Total - 6.5 g/dl (low) and Albumin - 3.2 g/dl (low). Imaging: No new diagnostic imaging was performed since the last weekly treatment visit. All radiation therapy related imaging (including but not limited to kV, MV, and CBCT generated images) was reviewed. Appropriate changes, if any, were made to assure accurate target localization. Impression/Plan: Tolerating treatment well with expected side effects. Continue treatment as planned. CPT: 44885 Signed by: Dr. Aristeo Castanon>02/11/2020 4:50:14 PM <<Signature on File>>
[2020-02-13 12:41] LABS: Hematocrit 27.9 % (42.0-52.0); Hemoglobin 9.2 g/dL (11.7-16.6); Lymphocytes # 0.3 10^3/uL (0.8-4.8); Lymphocytes % 3.2 %; Mean Corpuscular Hemoglobin 29.3 pg (28.0-34.0); Mean Corpuscular Volume 88.9 fL (80-94); Mean Platelet Volume 12.1 fL (7.4-10.4); Monocytes # 0.3 10^3/uL (0.2-0.9); Monocytes % 3.9 %; Neutrophils # 7.2 10^3/uL (1.8-7.7); Neutrophils % 92.1 %; Nucleated Red Blood Cells % 0 %; Platelet Count 138 10^3/cmm (130-400); Red Blood Count 3.14 10^6/uL (4.1-5.3); Red Cell Distribution Width 17.8 % (12.1-15.1); White Blood Count 7.9 10^3/uL (4.0-10.0)
[2020-02-13 12:59] LABS: Alanine Aminotransferase 8 U/L (0-41); Alkaline Phosphatase 71 IU/L (40-130); Anion Gap 16.4 (5-19); Aspartate Amino Transferase 15 U/L (0-40); Blood Urea Nitrogen 5 mg/dL (6-20); Calcium 9.2 mg/dL (8.5-10.5); Carbon Dioxide 27 mmol/L (22-29); Chloride 93 mmol/L (98-107); Globulin 3.5 g/dL (1.3-4.6); Glomerular Filtration Rate 221.7 mL/min (90-130); Glucose 216 mg/dL (65-115); Osmolality Calculated 276 mOsm/kg (285-295); Potassium 4.4 mmol/L (3.5-5.1); Sodium 132 mmol/L (136-145); Total Bilirubin 0.4 mg/dL (0.15-1.2); Total Protein 6.5 g/dL (6.6-8.7)
[2020-02-13] MEDS: sodium chloride 0.9% 250 ML 75 ML IV (13:25)
--- NOTE | 2020-02-13 16:05 | ONC FU_ITS ---
Dr. Miranda follow up note Patient: Jaxon Cosby Unit #: [id number]: 1960 Dicatated By: Nick Miranda M.D.Date of Visit:Feb 13, 2020 Onc Med Follow-up/Prog Note History of Present Illness: Mr. Cosby is a 59 -year-old gentleman with 6 months history of progressive dysphagia and about 30 pounds weight loss. He was evaluated by GI and on 11/21/[address] scan of abdomen pelvis which showed markedly abnormal fundus of the stomach and gastroesophageal junction concerning for neoplasm. There are multiple lymph nodes along the gastrohepatic ligament with largest lymph node being 1.9 cm. Subsequently, Mr Cosby underwent EGD on 11/22/2019 which showed at 38 cm there was a friable mass noted which extended past the GE junction into fundus of the stomach. Body, antrum and pylorus of stomach was normal. Biopsy was obtained and it confirmed moderately differentiated invasive adenocarcinoma Patient is complaining of difficulty of swallowing solid food but no problem with liquids and medicine. Patient smoke marijuana since age 16 and still active. Complained of epigastric pain not being controlled with tramadol and in the past used to take hydrocodone for chronic sinus pain and that usually help his epigastric pain too. PET/CT from 12/29/2019 reported: FDG positive primary gastroesophageal carcinoma. Local metastatic disease in the gastrohepatic ligament node. Distant metastatic disease in a solitary left supraclavicular node. Subcentimeter mediastinal nodes should be closely monitored on future imaging. The gastroesophageal mass with extension into the proximal stomach fundus with an SUV of 8. Local metastatic nodule in the gastrohepatic ligament measures 2.7 x 2.0 cm with an SUV of 7.4. A left supraclavicular nodule measuring 1.3 cm has an SUV of 4.8 and is consistent with distant metastatic disease. Mr. Cosby has been offered treatment with combined chemoradiation. He began his first cycle of carboplatin paclitaxel on January 16, 2020. Came for follow-up, denies any specific complaints, no fever or chills, no nausea or vomiting, no diarrhea constipation, no hemoptysis or hematemesis, sore throat but under control. Is also on potassium supplement for hypokalemia seen on labs done on 02/08/2020. Tolerating combined chemoradiation with weekly carboplatin/Taxol, reasonably well. Medications: Amitriptyline HCl 1 - 2 Tablet (of 10 mg) Tablet Oral at bedtime, Dexamethasone (4 mg) Tablet Oral Take as Directed, Folic Acid 1 Tablet (of 1 mg) Oral daily, HYDROcodone-Acetaminophen 1 - 3 Tablet (of 7.5-325 mg) Oral q 4 hours PRN, LORazepam 0.5 - 1 Tablet (of 1 mg) Oral t.i.d. PRN, Ondansetron HCl 1 Tablet (of 8 mg) Oral q 8 hours PRN, Pantoprazole Sodium 1 Tablet (of 40 mg) Tablet, enteric coated Oral daily, Prochlorperazine Maleate 1 Tablet (of 10 mg) Oral q 4 hours PRN, traMADol HCl 1 - 2 Tablet (of 50 mg) Tablet Oral q 6 hours PRN Allergies: No Known Allergies. Review of Systems: Constitutional - Appetite is poor and weight is decreasing. No fever, chills, hot flashes, or night sweats. Energy level is poor, ENMT - Positive for sinus congestion/drainage. No mouth sores. No sore throat or difficulty swallowing, Hematologic/Lymphatic - No abnormal bruising or bleeding, Respiratory - Positive for shortness of breath and cough. No pleuritic pain or hemoptysis, Cardiovascular - No angina pain. No palpitations, Gastrointestinal - No nausea or vomiting. No heartburn or acid reflux. No diarrhea or constipation. No blood in the stool or black stools, Genitourinary (M) - No dysuria or hematuria. No urinary frequency. No urgency or incontinence, Musculoskeletal - No joint or bone pain, Neurologic - No headache or dizziness. No numbness/paresthesias or other focal neurologic symptoms, Psychiatric - No anxiety or depression. No insomnia. Vital Signs: Performed on Feb 13, 2020 11:39 Height - 63.00 in Weight - 105 lbs (LOW) BSA - 1.47 sq.m BMI - 18.60 Temperature - 97.6 F (LOW) Pulse - 92 /min Respiration - 18 /min BP - 89/63 mm(hg) (LOW) O2 Sat - 100 % Pain - 8 Performance Status: 1 - No physically strenuous activity, but ambulatory and able to carry out light or sedentary work (e.g. office work, light house work). (ECOG) Physical Examination: ENMT - No oral exudates, ulcers, masses, thrush or mucositis. Oropharynx clear. Tongue normal, Respiratory - Lungs are clear to auscultation without rhonchi or wheezing, Cardiovascular - Regular rate and rhythm of heart, Abdomen - Non-tender, non-distended, Good bowel sounds. No guarding or rebound tenderness. No pulsatile masses, Extremities - trace edema bilaterally. Lab/Imaging: Test performed on Feb 13, 2020 12:20 Sodium 132 mmol/L Potassium 4.4 mmol/L Chloride 93 mmol/L CO2 27 mmol/L Anion Gap 16.4 BUN 5 mg/dL Creatinine 0.4 mg/dL Cr Clearance (Est) 145.8900 mL/min eGFR 221.7 mL/min Glucose 216 mg/dL Calcium 9.2 mg/dL Protein, Total 6.5 g/dL Albumin 3.0 g/dL Globulin 3.5 g/dL Bilirubin, Total 0.4 mg/dL ALT (SGPT) 8 U/L AST (SGOT) 15 U/L Alkaline Phosphatase 71 IU/L WBC 7.9 10 3/uL RBC 3.14 10 6/uL HGB 9.2 g/dL HCT 27.9 % MCV 88.9 fL MCH 29.3 pg MCHC 33.0 g/dL RDW 17.8 % Platelet Count 138 10 3/cmm MPV 12.1 fL Neutrophils 7.2 10 3/uL Lymphocytes 0.3 10 3/uL Monocytes 0.3 10 3/uL Eosinophils 0.0 10 3/uL Basophils 0.0 10 3/uL Neutrophil % 92.1 % Lymphocyte % 3.2 % Monocyte % 3.9 % Eosinophil % 0.0 % Basophils % 0.0 % Test performed on Jan 28, 2020 15:10 CBC Slide Review Slide Review Perform Test performed on Jan 16, 2020 06:10 Manual Lymphocytes 12.9 % Manual Monocytes 2.4 % Manual Eosinophils 0.1 % Manual Basophils 0.1 % Impression: Moderately differentiated invasive adenocarcinoma involving distal esophagus per EGD done on 11/22/2019 CT scan of abdomen pelvis done on 11/21/2019 showed markedly abnormal fundus of the stomach and gastroesophageal junction and adjacent lymphadenopathy CT PET scan done on 12/29/2019 shows gastroesophageal mass with extension into proximal stomach fundus with SUV of 8.9. Local metastatic nodes in the gastrohepatic ligament measuring 2.7 x 2 cm with SUV of 7.4. The left supraclavicular node measuring 1.3 cm with SUV of 4.8 consistent with a distant metastatic disease. Tiny mediastinal nodes in the subcarinal/right paratracheal shows minimal FDG activity likely benign. Clinically stage IV,, left supraclavicular lymph node positive on CT PET scan. Epigastric pain due to above 30 pounds weight loss over 6 months Marijuana use since age 16 along with chronic smoking and alcohol use. discussed with Mr. Cosby the results of the PET CT from December 29, 2019. It did show that he had local regional disease and a single node involvement in the left supraclavicular area. He has been advised to pursue combined chemoradiation for better palliation and after completion of chemoradiation he could be considered for SBRT to the left supraclavicular node. Mr. Cosby underwent placement of a PowerPort in the left subclavian vein per Dr. Perrin on January 16, 2020. He began his first cycle of chemotherapy on January 16, 2020. Plan: Discussed with patient regarding his disease status and is concerned. Clinically, patient is doing better now, tolerating orally well. At this point we'll resume his weekly carbo and Taxol concurrent with radiation therapy today if repeat lab work done today shows resolution of hypokalemia. And recovery of mild/moderate thrombocytopenia Patient return to clinic in 1 week with CBC and CMP, if reasonable for next weekly dose of carbo/Taxol concurrent with radiation therapy. Patient was advised to maintain good oral hygiene and hydration. Addendum his repeat lab shows resolution of hypokalemia, now with change his potassium supplement to every other day. Signed By: Nick Miranda M.D. <<Signature on File>>
[2020-02-19 18:18] LABS: Basophils % 0.5 %; Hematocrit 29.2 % (42.0-52.0); Hemoglobin 9.7 g/dL (11.7-16.6); Lymphocytes # 0.1 10^3/uL (0.8-4.8); Mean Corpuscular HGB Conc 33.2 g/dL (30.0-36.0); Mean Corpuscular Hemoglobin 29.9 pg (28.0-34.0); Mean Corpuscular Volume 90.1 fL (80-94); Monocytes # 0.1 10^3/uL (0.2-0.9); Neutrophils # 3.8 10^3/uL (1.8-7.7); Neutrophils % 89.3 %; Nucleated Red Blood Cells % 0 %; Platelet Count 152 10^3/cmm (130-400); Red Blood Count 3.24 10^6/uL (4.1-5.3); Red Cell Distribution Width 18.3 % (12.1-15.1); White Blood Count 4.3 10^3/uL (4.0-10.0)
[2020-02-19 18:31] LABS: Alanine Aminotransferase 13 U/L (0-41); Albumin Level 3.2 g/dL (3.5-5.2); Alkaline Phosphatase 88 IU/L (40-130); Anion Gap 15.6 (5-19); Aspartate Amino Transferase 25 U/L (0-40); Blood Urea Nitrogen 4 mg/dL (6-20); Calcium 9.1 mg/dL (8.5-10.5); Carbon Dioxide 25 mmol/L (22-29); Chloride 95 mmol/L (98-107); Globulin 2.9 g/dL (1.3-4.6); Glomerular Filtration Rate 171.4 mL/min (90-130); Glucose 179 mg/dL (65-115); Osmolality Calculated 272 mOsm/kg (285-295); Potassium 4.6 mmol/L (3.5-5.1); Sodium 131 mmol/L (136-145); Total Bilirubin 0.3 mg/dL (0.15-1.2); Total Protein 6.1 g/dL (6.6-8.7)
== END 2020-02-19 23:59 | disposition home or self-care (01) ==
LOC: ONCMED 06:44
PROVIDERS: Specialist; Absent Provider Radiology Radiation Oncology; Family Provider Nurse Practitioner; PCP Nurse Practitioner Family; Visit Provider Internal Medicine Hematology & Oncology
DX: Z51.0 Encounter for antineoplastic radiation therapy (principal); Z51.11 Encounter for antineoplastic chemotherapy; C15.5 Malignant neoplasm of lower third of esophagus; C77.8 Secondary and unspecified malignant neoplasm of lymph nodes of multiple regions; F12.90 Cannabis use, unspecified, uncomplicated; Z79.899 Other long term (current) drug therapy; Z79.891 Long term (current) use of opiate analgesic
CPT/HCPCS: 36415; 36591; 77336; 77386; 80053; 82150; 83690; 85025; 96367; 96413; 96417; 99214; J1100; J1200; J2469; J3490; J7030; J7050; J9045; J9267

== ENCOUNTER 2020-03-05 06:43 | Outpatient (RCR) | payer MEDICAID, SELFPAY ==
[2020-02-20] MEDS: sodium chloride 0.9% 250 ML 75 ML IV (10:49)
--- NOTE | 2020-02-20 11:02 | ONC FU_ITS ---
Dr. Miranda follow up note Patient: Jaxon Cosby Unit #: [id number]: 1960 Dicatated By: Nick Miranda M.D.Date of Visit:Feb 20, 2020 Onc Med Follow-up/Prog Note History of Present Illness: Mr. Cosby is a 59 -year-old gentleman with 6 months history of progressive dysphagia and about 30 pounds weight loss. He was evaluated by GI and on 11/21/[address] scan of abdomen pelvis which showed markedly abnormal fundus of the stomach and gastroesophageal junction concerning for neoplasm. There are multiple lymph nodes along the gastrohepatic ligament with largest lymph node being 1.9 cm. Subsequently, Mr Cosby underwent EGD on 11/22/2019 which showed at 38 cm there was a friable mass noted which extended past the GE junction into fundus of the stomach. Body, antrum and pylorus of stomach was normal. Biopsy was obtained and it confirmed moderately differentiated invasive adenocarcinoma Patient is complaining of difficulty of swallowing solid food but no problem with liquids and medicine. Patient smoke marijuana since age 16 and still active. Complained of epigastric pain not being controlled with tramadol and in the past used to take hydrocodone for chronic sinus pain and that usually help his epigastric pain too. PET/CT from 12/29/2019 reported: FDG positive primary gastroesophageal carcinoma. Local metastatic disease in the gastrohepatic ligament node. Distant metastatic disease in a solitary left supraclavicular node. Subcentimeter mediastinal nodes should be closely monitored on future imaging. The gastroesophageal mass with extension into the proximal stomach fundus with an SUV of 8. Local metastatic nodule in the gastrohepatic ligament measures 2.7 x 2.0 cm with an SUV of 7.4. A left supraclavicular nodule measuring 1.3 cm has an SUV of 4.8 and is consistent with distant metastatic disease. Mr. Cosby has been offered treatment with combined chemoradiation. He began his first cycle of carboplatin paclitaxel on January 16, 2020. Came for follow-up, denies any specific complaints, no fever or chills, no nausea or vomiting, tolerating orally well, denies any dysphagia. And tolerating combined chemoradiation with weekly carboplatin/Taxol, well Medications: Amitriptyline HCl 1 - 2 Tablet (of 10 mg) Tablet Oral at bedtime, Dexamethasone (4 mg) Tablet Oral Take as Directed, Folic Acid 1 Tablet (of 1 mg) Oral daily, HYDROcodone-Acetaminophen 1 - 3 Tablet (of 7.5-325 mg) Oral q 4 hours PRN, LORazepam 0.5 - 1 Tablet (of 1 mg) Oral t.i.d. PRN, Ondansetron HCl 1 Tablet (of 8 mg) Oral q 8 hours PRN, Pantoprazole Sodium 1 Tablet (of 40 mg) Tablet, enteric coated Oral daily, Prochlorperazine Maleate 1 Tablet (of 10 mg) Oral q 4 hours PRN, traMADol HCl 1 - 2 Tablet (of 50 mg) Tablet Oral q 6 hours PRN Allergies: No Known Allergies. Review of Systems: Constitutional - Appetite is poor and weight is decreasing. No fever, chills, hot flashes, or night sweats. Energy level is poor, ENMT - Positive for sinus congestion/drainage. No mouth sores. No sore throat or difficulty swallowing, Hematologic/Lymphatic - No abnormal bruising or bleeding, Respiratory - Positive for shortness of breath and cough. No pleuritic pain or hemoptysis, Cardiovascular - No angina pain. No palpitations, Gastrointestinal - No nausea or vomiting. No heartburn or acid reflux. No diarrhea or constipation. No blood in the stool or black stools, Genitourinary (M) - No dysuria or hematuria. No urinary frequency. No urgency or incontinence, Musculoskeletal - No joint or bone pain, Neurologic - No headache or dizziness. No numbness/paresthesias or other focal neurologic symptoms, Psychiatric - No anxiety or depression. No insomnia. Vital Signs: Performed on Feb 20, 2020 09:46 Height - 63.00 in Weight - 103.8 lbs (HIGH) BSA - 1.46 sq.m BMI - 18.39 Temperature - 98.4 F Pulse - 97 /min Respiration - 18 /min BP - 125/86 mm(hg) O2 Sat - 100 % Pain - 0 Performance Status: 1 - No physically strenuous activity, but ambulatory and able to carry out light or sedentary work (e.g. office work, light house work). (ECOG) Physical Examination: ENMT - No oral exudates, ulcers, masses, thrush or mucositis. Oropharynx clear. Tongue normal, Respiratory - Lungs are clear to auscultation without rhonchi or wheezing, Cardiovascular - Regular rate and rhythm of heart, Extremities - trace edema. Lab/Imaging: Test performed on Feb 19, 2020 16:37 Sodium 131 mmol/L Potassium 4.6 mmol/L Chloride 95 mmol/L CO2 25 mmol/L Anion Gap 15.6 BUN 4 mg/dL Creatinine 0.5 mg/dL Cr Clearance (Est) 116.7100 mL/min eGFR 171.4 mL/min Glucose 179 mg/dL Calcium 9.1 mg/dL Protein, Total 6.1 g/dL Albumin 3.2 g/dL Globulin 2.9 g/dL Bilirubin, Total 0.3 mg/dL ALT (SGPT) 13 U/L AST (SGOT) 25 U/L Alkaline Phosphatase 88 IU/L WBC 4.3 10 3/uL RBC 3.24 10 6/uL HGB 9.7 g/dL HCT 29.2 % MCV 90.1 fL MCH 29.9 pg MCHC 33.2 g/dL RDW 18.3 % Platelet Count 152 10 3/cmm MPV 13.0 fL Neutrophils 3.8 10 3/uL Lymphocytes 0.1 10 3/uL Monocytes 0.1 10 3/uL Eosinophils 0.0 10 3/uL Basophils 0.0 10 3/uL Neutrophil % 89.3 % Lymphocyte % 3.0 % Monocyte % 3.0 % Eosinophil % 0.0 % Basophils % 0.5 % Test performed on Jan 28, 2020 15:10 Amylase 19 U/L CBC Slide Review Slide Review Perform Test performed on Jan 16, 2020 06:10 Manual Lymphocytes 12.9 % Manual Monocytes 2.4 % Manual Eosinophils 0.1 % Manual Basophils 0.1 % Impression: Moderately differentiated invasive adenocarcinoma involving distal esophagus per EGD done on 11/22/2019 CT scan of abdomen pelvis done on 11/21/2019 showed markedly abnormal fundus of the stomach and gastroesophageal junction and adjacent lymphadenopathy CT PET scan done on 12/29/2019 shows gastroesophageal mass with extension into proximal stomach fundus with SUV of 8.9. Local metastatic nodes in the gastrohepatic ligament measuring 2.7 x 2 cm with SUV of 7.4. The left supraclavicular node measuring 1.3 cm with SUV of 4.8 consistent with a distant metastatic disease. Tiny mediastinal nodes in the subcarinal/right paratracheal shows minimal FDG activity likely benign. Clinically stage IV,, left supraclavicular lymph node positive on CT PET scan. Epigastric pain due to above 30 pounds weight loss over 6 months Marijuana use since age 16 along with chronic smoking and alcohol use. discussed with Mr. Cosby the results of the PET CT from December 29, 2019. It did show that he had local regional disease and a single node involvement in the left supraclavicular area. He has been advised to pursue combined chemoradiation for better palliation and after completion of chemoradiation he could be considered for SBRT to the left supraclavicular node. Mr. Cosby underwent placement of a PowerPort in the left subclavian vein per Dr. Perrin on January 16, 2020. He began his first cycle of chemotherapy on January 16, 2020. Plan: Discussed with patient regarding his labs white blood count 4.3 hemoglobin 9.7 crit 29.2 platelets 152,000 CMP within normal limit except glucose 179 Clinically, patient is doing well, tolerating combined chemoradiation with weekly carboplatin/Taxol well but with expected side effects. We'll proceed with the next weekly dose of carboplatin/Taxol today and then return to clinic in 1 week with CBC CMP if looks reasonable and for weekly dose of carboplatin/Taxol concurrent with radiation. As far as hyperglycemia is concern patient was advised to watch his diet, avoid sugar/sweets and follow sliding scale. Signed By: Nick Miranda M.D. <<Signature on File>>
[2020-02-25 15:35] LABS: Basophils % 0.4 %; Eosinophils % 0.6 %; Hematocrit 26.7 % (42.0-52.0); Hemoglobin 8.8 g/dL (11.7-16.6); Lymphocytes # 0.3 10^3/uL (0.8-4.8); Lymphocytes % 5.6 %; Mean Corpuscular Hemoglobin 30.4 pg (28.0-34.0); Mean Corpuscular Volume 92.4 fL (80-94); Mean Platelet Volume 12.4 fL (7.4-10.4); Monocytes # 0.5 10^3/uL (0.2-0.9); Monocytes % 9.5 %; Neutrophils # 4.3 10^3/uL (1.8-7.7); Neutrophils % 82.7 %; Nucleated Red Blood Cells % 0 %; Platelet Count 95 10^3/cmm (130-400); Red Blood Count 2.89 10^6/uL (4.1-5.3); Red Cell Distribution Width 20.2 % (12.1-15.1); White Blood Count 5.2 10^3/uL (4.0-10.0)
[2020-02-25 15:45] LABS: Alanine Aminotransferase 11 U/L (0-41); Albumin Level 3.1 g/dL (3.5-5.2); Alkaline Phosphatase 99 IU/L (40-130); Anion Gap 12.9 (5-19); Aspartate Amino Transferase 19 U/L (0-40); Blood Urea Nitrogen 5 mg/dL (6-20); Calcium 8.8 mg/dL (8.5-10.5); Carbon Dioxide 29 mmol/L (22-29); Chloride 95 mmol/L (98-107); Globulin 2.9 g/dL (1.3-4.6); Glomerular Filtration Rate 221.7 mL/min (90-130); Glucose 79 mg/dL (65-115); Osmolality Calculated 271 mOsm/kg (285-295); Potassium 3.9 mmol/L (3.5-5.1); Sodium 133 mmol/L (136-145); Total Bilirubin 0.4 mg/dL (0.15-1.2)
--- NOTE | 2020-02-26 10:53 | ONCRAD TMN_ITS ---
Radiation Oncology Weekly Treatment Management Patient: Jaxon Cosby MR#: [id number] : 1960> Age: 59> Sex: Male Dictated by: Dr. Irineo Fisher Date of Service: 02/26/2020 Referring Physician(s) : Primary Diagnosis: C15.5 - Malignant neoplasm of lower third of esophagus, Diagnosed 12/12/2019 (Active) Radiotherapy to date: Course: Esophagus 2019, Treatment Site: [facility], Ref. ID: [id number], Energy: 6X, Dose/Fx (cGy): 200, #Fx: , Dose Correction (cGy): 0, Total Dose (cGy): 4,600, Start Date: 01/16/2020, End Date: 02/25/2020, Elapsed Days: 40 Treatment Site: [facility], Ref. ID: [id number], Energy: 6X, Dose/Fx (cGy): 180, #Fx: , Dose Correction (cGy): 0, Total Dose (cGy): 180, Start Date: 02/26/2020, Elapsed Days: 0 Current Complaints/Interval History: No new sx???s Current Medications: Amitriptyline HCl, cARBOplatin, dexamethasone, dexamethasone, dexamethasone Sodium Phosphate, diphenhydrAMINE HCl, famotidine in NaCl, folic Acid, hYDROcodone-Acetaminophen, hYDROcodone-Acetaminophen, levoFLOXacin, lORazepam, mucus Relief Chest Congestion, ondansetron HCl, ondansetron HCl, pACLitaxel, palonosetron HCl, pantoprazole Sodium, potassium Chloride ER, prochlorperazine Maleate, prochlorperazine Maleate, traMADol HCl. Allergies: No Known Allergies Vital Signs: Physical Exam: Appears stable, no skin erythema or desquamation. Performance Status: 1 - No physically strenuous activity, but ambulatory and able to carry out light or sedentary work (e.g. office work, light house work). (ECOG) Lab: None pending in Radiation Oncology. Test performed on 01/16/2020 6:10 AM Manual Lymphocytes - 12.9 % (low), Manual Monocytes - 2.4 % (low), Test performed on 01/28/2020 3:10 PM Amylase - 19 u/l (low), Test performed on 02/25/2020 3:22 PM RBC - 2.89 10 6/ul (low), HGB - 8.8 g/dl (low), HCT - 26.7 % (low), RDW - 20.2 % (high), Platelet Count - 95 10 3/cmm (low), MPV - 12.4 fl (high), Lymphocytes - 0.3 10 3/ul (low), Sodium - 133 mmol/l (low), Chloride - 95 mmol/l (low), BUN - 5 mg/dl (low), Creatinine - 0.4 mg/dl (low), Cr Clearance (Est) - 145.8900 ml/min (high), eGFR - 221.7 ml/min (high), Protein, Total - 6.0 g/dl (low) and Albumin - 3.1 g/dl (low). Imaging: No new diagnostic imaging was performed since the last weekly treatment visit. All radiation therapy related imaging (including but not limited to kV, MV, and CBCT generated images) was reviewed. Appropriate changes, if any, were made to assure accurate target localization. Impression/Plan: Tolerating treatment well with expected side effects. Continue treatment as planned. CPT: 28711 Signed by: Dr. Irineo Fisher>02/26/2020 10:52:59 AM <<Signature on File>>
[2020-03-04 20:37] LABS: Basophils % 0.9 %; Eosinophils % 1.8 %; Hematocrit 29.3 % (42.0-52.0); Hemoglobin 9.3 g/dL (11.7-16.6); Lymphocytes # 0.4 10^3/uL (0.8-4.8); Lymphocytes % 17.7 %; Mean Corpuscular HGB Conc 31.7 g/dL (30.0-36.0); Mean Corpuscular Hemoglobin 31.4 pg (28.0-34.0); Mean Platelet Volume 13.6 fL (7.4-10.4); Monocytes # 0.7 10^3/uL (0.2-0.9); Neutrophils # 1.1 10^3/uL (1.8-7.7); Neutrophils % 48.2 %; Nucleated Red Blood Cells % 0 %; Platelet Count 70 10^3/cmm (130-400); Red Blood Count 2.96 10^6/uL (4.1-5.3); Red Cell Distribution Width 22.5 % (12.1-15.1); White Blood Count 2.2 10^3/uL (4.0-10.0)
[2020-03-04 20:55] LABS: Alanine Aminotransferase 7 U/L (0-41); Albumin Level 3.1 g/dL (3.5-5.2); Alkaline Phosphatase 95 IU/L (40-130); Anion Gap 16.7 (5-19); Aspartate Amino Transferase 24 U/L (0-40); Blood Urea Nitrogen 3 mg/dL (6-20); Calcium 8.8 mg/dL (8.5-10.5); Carbon Dioxide 25 mmol/L (22-29); Chloride 95 mmol/L (98-107); Globulin 3.2 g/dL (1.3-4.6); Glucose 70 mg/dL (65-115); Osmolality Calculated 270 mOsm/kg (285-295); Potassium 3.7 mmol/L (3.5-5.1); Sodium 133 mmol/L (136-145); Total Bilirubin 0.3 mg/dL (0.15-1.2); Total Protein 6.3 g/dL (6.6-8.7)
[2020-03-04 21:49] LABS: Slide Review Slide Review Perform
--- NOTE | 2020-03-05 16:55 | ONC FU_ITS ---
Dr. Miranda follow up note Patient: Jaxon Cosby Unit #: [id number]: 1960 Dicatated By: Nick Miranda M.D.Date of Visit:Mar 05, 2020 Onc Med Follow-up/Prog Note History of Present Illness: Mr. Cosby is a 59 -year-old gentleman with 6 months history of progressive dysphagia and about 30 pounds weight loss. He was evaluated by GI and on 11/21/[address] scan of abdomen pelvis which showed markedly abnormal fundus of the stomach and gastroesophageal junction concerning for neoplasm. There are multiple lymph nodes along the gastrohepatic ligament with largest lymph node being 1.9 cm. Subsequently, Mr Cosby underwent EGD on 11/22/2019 which showed at 38 cm there was a friable mass noted which extended past the GE junction into fundus of the stomach. Body, antrum and pylorus of stomach was normal. Biopsy was obtained and it confirmed moderately differentiated invasive adenocarcinoma Patient is complaining of difficulty of swallowing solid food but no problem with liquids and medicine. Patient smoke marijuana since age 16 and still active. Complained of epigastric pain not being controlled with tramadol and in the past used to take hydrocodone for chronic sinus pain and that usually help his epigastric pain too. PET/CT from 12/29/2019 reported: FDG positive primary gastroesophageal carcinoma. Local metastatic disease in the gastrohepatic ligament node. Distant metastatic disease in a solitary left supraclavicular node. Subcentimeter mediastinal nodes should be closely monitored on future imaging. The gastroesophageal mass with extension into the proximal stomach fundus with an SUV of 8. Local metastatic nodule in the gastrohepatic ligament measures 2.7 x 2.0 cm with an SUV of 7.4. A left supraclavicular nodule measuring 1.3 cm has an SUV of 4.8 and is consistent with distant metastatic disease. Mr. Cosby has been offered treatment with combined chemoradiation. He began his first cycle of carboplatin paclitaxel on January 16, 2020. Last dose of chemotherapy with weekly carbo/Taxol concurrent with radiation therapy was given on 02/20/2020, subsequently patient developed progressive thrombocytopenia and leukopenia and due to that he continue to take radiation alone till he completed on 03/03/2020. Came for follow-up, denies any specific complaints, except generalized weakness and fatigue otherwise no fever or chills, no diarrhea constipation, no abdominal pain , no mouth sores, has completed radiation therapy on 03/03/2020 Medications: Amitriptyline HCl 1 - 2 Tablet (of 10 mg) Tablet Oral at bedtime, Dexamethasone (4 mg) Tablet Oral Take as Directed, Folic Acid 1 Tablet (of 1 mg) Oral daily, HYDROcodone-Acetaminophen 1 - 3 Tablet (of 7.5-325 mg) Oral q 4 hours PRN, LORazepam 0.5 - 1 Tablet (of 1 mg) Oral t.i.d. PRN, Ondansetron HCl 1 Tablet (of 8 mg) Oral q 8 hours PRN, Pantoprazole Sodium 1 Tablet (of 40 mg) Tablet, enteric coated Oral daily, Prochlorperazine Maleate 1 Tablet (of 10 mg) Oral q 4 hours PRN, traMADol HCl 1 - 2 Tablet (of 50 mg) Tablet Oral q 6 hours PRN Allergies: No Known Allergies. Review of Systems: Constitutional - Appetite is poor and weight is decreasing. No fever, chills, hot flashes, or night sweats. Energy level is poor, ENMT - Positive for sinus congestion/drainage. No mouth sores. No sore throat or difficulty swallowing, Hematologic/Lymphatic - No abnormal bruising or bleeding, Respiratory - Positive for shortness of breath and cough. No pleuritic pain or hemoptysis, Cardiovascular - No angina pain. No palpitations, Gastrointestinal - No nausea or vomiting. No heartburn or acid reflux. No diarrhea or constipation. No blood in the stool or black stools, Genitourinary (M) - No dysuria or hematuria. No urinary frequency. No urgency or incontinence, Musculoskeletal - No joint or bone pain, Neurologic - No headache or dizziness. No numbness/paresthesias or other focal neurologic symptoms, Psychiatric - No anxiety or depression. No insomnia. Vital Signs: Performed on Mar 05, 2020 15:46 Height - 63.00 in Weight - 107.4 lbs (HIGH) BSA - 1.48 sq.m BMI - 19.03 Temperature - 97.6 F (LOW) Pulse - 102 /min (HIGH) Respiration - 17 /min BP - 116/78 mm(hg) O2 Sat - 98 % Pain - 0 Performance Status: 2 - Ambulatory/capable of all self-care, unable to perform any work activities. Up and about more than 50% of waking hours. (ECOG) Physical Examination: ENMT - denies any mouth sores or thrush, Respiratory - Lungs are clear, Cardiovascular - Regular rate and rhythm, Abdomen - no abdominal pain or fullness, Extremities - no edema. Lab/Imaging: Test performed on Mar 04, 2020 15:20 Glucose 70 mg/dL BUN 3 mg/dL Creatinine 0.3 mg/dL Cr Clearance (Est) 194.52 mL/min Sodium 133 mmol/L Potassium 3.7 mmol/L Chloride 95 mmol/L CO2 25 mmol/L Calcium 8.8 mg/dL Protein, Total 6.3 g/dL Albumin 3.1 g/dL Globulin 3.2 g/dL Bilirubin, Total 0.3 mg/dL Alkaline Phosphatase 95 IU/L AST (SGOT) 24 IU/L ALT (SGPT) 7 IU/L WBC 2.2 10^9/L RBC 2.96 10^12/L HGB 9.3 g/dL HCT 29.3 % MCV 99.0 fl MCH 31.4 pg MCHC 31.7 g/dL RDW 22.5 % Platelet Count 70 10^9/L MPV 13.6 fL Neutrophils (Gran) 1.1 10^9/L Lymphocytes 0.4 10^9/L Monocytes 0.7 10^9/L Eosinophils 0.0 10^9/L Basophils 0.0 10^9/L Manual Lymphocytes 17.7 % Manual Monocytes 30.0 % Manual Eosinophils 1.8 % Manual Basophils 0.9 % Test performed on Feb 25, 2020 15:22 Anion Gap 12.9 eGFR 221.7 mL/min Neutrophil % 82.7 % Lymphocyte % 5.6 % Monocyte % 9.5 % Eosinophil % 0.6 % Basophils % 0.4 % Test performed on Jan 28, 2020 15:10 Amylase 19 U/L CBC Slide Review Slide Review Perform Impression: Moderately differentiated invasive adenocarcinoma involving distal esophagus per EGD done on 11/22/2019 CT scan of abdomen pelvis done on 11/21/2019 showed markedly abnormal fundus of the stomach and gastroesophageal junction and adjacent lymphadenopathy CT PET scan done on 12/29/2019 shows gastroesophageal mass with extension into proximal stomach fundus with SUV of 8.9. Local metastatic nodes in the gastrohepatic ligament measuring 2.7 x 2 cm with SUV of 7.4. The left supraclavicular node measuring 1.3 cm with SUV of 4.8 consistent with a distant metastatic disease. Tiny mediastinal nodes in the subcarinal/right paratracheal shows minimal FDG activity likely benign. Clinically stage IV,, left supraclavicular lymph node positive on CT PET scan. Epigastric pain due to above 30 pounds weight loss over 6 months Marijuana use since age 16 along with chronic smoking and alcohol use. discussed with Mr. Cosby the results of the PET CT from December 29, 2019. It did show that he had local regional disease and a single node involvement in the left supraclavicular area. He has been advised to pursue combined chemoradiation for better palliation and after completion of chemoradiation he could be considered for SBRT to the left supraclavicular node. Mr. Cosby underwent placement of a PowerPort in the left subclavian vein per Dr. Perrin on January 16, 2020. He began his first cycle of chemotherapy on January 16, 2020.And last dose of chemotherapy was given on 02/20/2020, subsequent chemotherapy was held because of progressive cytopenia and leukopenia and patient completed radiation therapy on 03/03/2020 Plan: Discussed with patient regarding his labs white blood count 2.2 hemoglobin 9.3 hematocrit 29.3 platelets 70,000 ANC 1100 CMP within normal limit except sodium 133 Clinically, patient is doing reasonably well, now recovering from combined chemoradiation, his follow-up lab shows further progression in his thrombocytopenia and leukopenia. Patient was advised to avoid any kind of trauma and we will repeat his CBC in 2 weeks and hopefully his blood counts will recover by that time. We will discuss with radiation to regarding SB RT to left supraclavicular nodule otherwise considering his performance status, patient has lost significant weight, will not consider consolidation therapy with 3 weekly carboplatin/Taxol. Patient is also declining surgical evaluation. In that case we will consider follow-up CT PET scan 5-8 weeks from 03/03/2020 and then plan accordingly. Signed By: Nick Miranda M.D. <<Signature on File>>
== END 2020-03-20 23:59 | disposition home or self-care (01) ==
LOC: ONCMED 06:43
PROVIDERS: Radiology Radiation Oncology; Absent Provider Radiology Radiation Oncology; Family Provider Nurse Practitioner; PCP Nurse Practitioner Family; Visit Provider Internal Medicine Hematology & Oncology
DX: Z51.11 Encounter for antineoplastic chemotherapy (principal); Z51.0 Encounter for antineoplastic radiation therapy; C15.5 Malignant neoplasm of lower third of esophagus; C77.8 Secondary and unspecified malignant neoplasm of lymph nodes of multiple regions; R63.4 Abnormal weight loss; J44.9 Chronic obstructive pulmonary disease, unspecified; Z68.30 Body mass index [BMI] 30.0-30.9, adult; K50.90 Crohn's disease, unspecified, without complications; F12.20 Cannabis dependence, uncomplicated; K44.9 Diaphragmatic hernia without obstruction or gangrene
CPT/HCPCS: 36415; 36591; 77300; 77336; 77338; 77385; 77386; 80053; 85025; 96367; 96413; 96417; 99214; J1100; J1200; J1453; J2469; J3490; J7030; J7050; J9045; J9267

== ENCOUNTER → 2020-04-15 09:48 | Outpatient (BNVA) | payer MEDICAID, SELFPAY | PROVIDERS: Family Provider Nurse Practitioner; PCP Nurse Practitioner Family; Visit Provider Internal Medicine Hematology & Oncology | DX: C15.9 Malignant neoplasm of esophagus, unspecified (principal) | CPT/HCPCS: 36415; 80053; 85025 ==

== ENCOUNTER 2020-04-17 06:44 | Outpatient (RCR) | payer MEDICAID, SELFPAY ==
[2020-03-24 13:08] LABS: Alanine Aminotransferase 8 U/L (0-41); Albumin Level 3.1 g/dL (3.5-5.2); Alkaline Phosphatase 136 IU/L (40-130); Anion Gap 15.1 (5-19); Aspartate Amino Transferase 28 U/L (0-40); Blood Urea Nitrogen 3 mg/dL (6-20); Calcium 9.1 mg/dL (8.5-10.5); Carbon Dioxide 28 mmol/L (22-29); Chloride 97 mmol/L (98-107); Globulin 3.9 g/dL (1.3-4.6); Glomerular Filtration Rate 221.7 mL/min (90-130); Glucose 68 mg/dL (65-115); Osmolality Calculated 276 mOsm/kg (285-295); Potassium 4.1 mmol/L (3.5-5.1); Sodium 136 mmol/L (136-145); Total Bilirubin 0.6 mg/dL (0.15-1.2)
[2020-03-24 13:15] LABS: Basophils % 0.4 %; Eosinophils # 0.2 10^3/uL (0.0-0.8); Eosinophils % 3.8 %; Hematocrit 37.8 % (42.0-52.0); Hemoglobin 12.5 g/dL (11.7-16.6); Lymphocytes # 0.7 10^3/uL (0.8-4.8); Lymphocytes % 15.9 %; Mean Corpuscular HGB Conc 33.1 g/dL (30.0-36.0); Mean Corpuscular Hemoglobin 34.4 pg (28.0-34.0); Mean Corpuscular Volume 104.1 fL (80-94); Mean Platelet Volume 11.3 fL (7.4-10.4); Monocytes # 0.9 10^3/uL (0.2-0.9); Monocytes % 20.5 %; Neutrophils # 2.6 10^3/uL (1.8-7.7); Neutrophils % 57.4 %; Nucleated Red Blood Cells % 0 %; Platelet Count 225 10^3/cmm (130-400); Red Blood Count 3.63 10^6/uL (4.1-5.3); Red Cell Distribution Width 19.5 % (12.1-15.1); White Blood Count 4.5 10^3/uL (4.0-10.0)
--- NOTE | 2020-03-31 11:02 | ONC FU_ITS ---
Dr. Miranda follow up note Patient: Jaxon Cosby Unit #: [id number]: 1960 Dicatated By: Nick Miranda M.D.Date of Visit:March 25, 2020 Telehealth Progress Note The patient has been informed that the visit may not be secure and acknowledged the information. I have explained the option of participating in a telephone or video visit during the COVID-19 public health emergency to the patient. After being given an opportunity to ask questions about and discuss this type of visit, the patient verbally consented to proceeding with the telephone/video visit. the patient understands that this service replaces an office visit and they may be billed and /or responsible for any applicable copayments History of Present Illness: Mr. Cosby is a 59 -year-old gentleman with 6 months history of progressive dysphagia and about 30 pounds weight loss. He was evaluated by GI and on 11/21/[address] scan of abdomen pelvis which showed markedly abnormal fundus of the stomach and gastroesophageal junction concerning for neoplasm. There are multiple lymph nodes along the gastrohepatic ligament with largest lymph node being 1.9 cm. Subsequently, Mr Cosby underwent EGD on 11/22/2019 which showed at 38 cm there was a friable mass noted which extended past the GE junction into fundus of the stomach. Body, antrum and pylorus of stomach was normal. Biopsy was obtained and it confirmed moderately differentiated invasive adenocarcinoma Patient is complaining of difficulty of swallowing solid food but no problem with liquids and medicine. Patient smoke marijuana since age 16 and still active. Complained of epigastric pain not being controlled with tramadol and in the past used to take hydrocodone for chronic sinus pain and that usually help his epigastric pain too. PET/CT from 12/29/2019 reported: FDG positive primary gastroesophageal carcinoma. Local metastatic disease in the gastrohepatic ligament node. Distant metastatic disease in a solitary left supraclavicular node. Subcentimeter mediastinal nodes should be closely monitored on future imaging. The gastroesophageal mass with extension into the proximal stomach fundus with an SUV of 8. Local metastatic nodule in the gastrohepatic ligament measures 2.7 x 2.0 cm with an SUV of 7.4. A left supraclavicular nodule measuring 1.3 cm has an SUV of 4.8 and is consistent with distant metastatic disease. Mr. Cosby has been offered treatment with combined chemoradiation. He began his first cycle of carboplatin paclitaxel on January 16, 2020. Last dose of chemotherapy with weekly carbo/Taxol concurrent with radiation therapy was given on 02/20/2020, subsequently patient developed progressive thrombocytopenia and leukopenia and due to that he continue to take radiation alone till he completed on 03/03/2020. Discussed with patient via telephone, patient denies any specific complaints, no fever or chills, no nausea or vomiting, no diarrhea constipation, patient said he is rather improving from combined chemoradiation, and has follow-up appointment with radiation oncology tomorrow. Denies any hemoptysis or hematemesis, denies any new bony pains, denies any weight loss. Appetite is improving. Medications: Amitriptyline HCl 1 - 2 Tablet (of 10 mg) Tablet Oral at bedtime, Dexamethasone (4 mg) Tablet Oral Take as Directed, Folic Acid 1 Tablet (of 1 mg) Oral daily, HYDROcodone-Acetaminophen 1 - 3 Tablet (of 7.5-325 mg) Oral q 4 hours PRN, LORazepam 0.5 - 1 Tablet (of 1 mg) Oral t.i.d. PRN, Ondansetron HCl 1 Tablet (of 8 mg) Oral q 8 hours PRN, Pantoprazole Sodium 1 Tablet (of 40 mg) Tablet, enteric coated Oral daily, Prochlorperazine Maleate 1 Tablet (of 10 mg) Oral q 4 hours PRN, traMADol HCl 1 - 2 Tablet (of 50 mg) Tablet Oral q 6 hours PRN Allergies: No Known Allergies. Review of Systems: Review of Systems is not available for this patient. Vital Signs: Vitals are not available for this patient. Performance Status: 1 - No physically strenuous activity, but ambulatory and able to carry out light or sedentary work (e.g. office work, light house work). (ECOG) Physical Examination: ENMT - denies any mouth sores or thrush, Respiratory - denies any shortness of breath or wheezing, Cardiovascular - denies any tachycardia or palpitation, Abdomen - denies any abdominal pain or swallowing, Extremities - denies any edema or rash. Lab/Imaging: Test performed on March 24, 2020 09:40 Sodium 136 mmol/L Potassium 4.1 mmol/L Chloride 97 mmol/L CO2 28 mmol/L Anion Gap 15.1 BUN 3 mg/dL Creatinine 0.4 mg/dL Cr Clearance (Est) 145.8900 mL/min eGFR 221.7 mL/min Glucose 68 mg/dL Calcium 9.1 mg/dL Protein, Total 7.0 g/dL Albumin 3.1 g/dL Globulin 3.9 g/dL Bilirubin, Total 0.6 mg/dL ALT (SGPT) 8 U/L AST (SGOT) 28 U/L Alkaline Phosphatase 136 IU/L WBC 4.5 10 3/uL RBC 3.63 10 6/uL HGB 12.5 g/dL HCT 37.8 % MCV 104.1 fL MCH 34.4 pg MCHC 33.1 g/dL RDW 19.5 % Platelet Count 225 10 3/cmm MPV 11.3 fL Neutrophils 2.6 10 3/uL Lymphocytes 0.7 10 3/uL Monocytes 0.9 10 3/uL Eosinophils 0.2 10 3/uL Basophils 0.0 10 3/uL Neutrophil % 57.4 % Lymphocyte % 15.9 % Monocyte % 20.5 % Eosinophil % 3.8 % Basophils % 0.4 % Test performed on Mar 04, 2020 15:20 Manual Lymphocytes 17.7 % Manual Monocytes 30.0 % Manual Eosinophils 1.8 % Manual Basophils 0.9 % Test performed on Jan 28, 2020 15:10 Amylase 19 U/L CBC Slide Review Slide Review Perform Impression: Moderately differentiated invasive adenocarcinoma involving distal esophagus per EGD done on 11/22/2019 CT scan of abdomen pelvis done on 11/21/2019 showed markedly abnormal fundus of the stomach and gastroesophageal junction and adjacent lymphadenopathy CT PET scan done on 12/29/2019 shows gastroesophageal mass with extension into proximal stomach fundus with SUV of 8.9. Local metastatic nodes in the gastrohepatic ligament measuring 2.7 x 2 cm with SUV of 7.4. The left supraclavicular node measuring 1.3 cm with SUV of 4.8 consistent with a distant metastatic disease. Tiny mediastinal nodes in the subcarinal/right paratracheal shows minimal FDG activity likely benign. Clinically stage IV,, left supraclavicular lymph node positive on CT PET scan. Epigastric pain due to above 30 pounds weight loss over 6 months Marijuana use since age 16 along with chronic smoking and alcohol use. discussed with Mr. Cosby the results of the PET CT from December 29, 2019. It did show that he had local regional disease and a single node involvement in the left supraclavicular area. He has been advised to pursue combined chemoradiation for better palliation and after completion of chemoradiation he could be considered for SBRT to the left supraclavicular node. Mr. Cosby underwent placement of a PowerPort in the left subclavian vein per Dr. Perrin on January 16, 2020. He began his first cycle of chemotherapy on January 16, 2020.And last dose of chemotherapy was given on 02/20/2020, subsequent chemotherapy was held because of progressive cytopenia and leukopenia and patient completed radiation therapy on 03/03/2020 Plan: Discussed with patient via telephone, regarding his labs white blood count 4.5 hemoglobin 12.5 crit 37.8 platelets 225,000 CMP within normal limits Clinically, patient is doing well, overall feeling better, now recovering from combined chemoradiation, no problem with swallowing. His follow-up lab workup shows normalization of pancytopenia. Patient has follow-up appointment with radiation oncology in the morning and then he will return to clinic in 2 weekswith CBC CMP and to discuss further treatment options. Patient has already declined surgical option. Signed By: Nick Miranda M.D. <<Signature on File>>
--- NOTE | 2020-04-18 10:17 | ONC FU_ITS ---
Dr. Miranda follow up note Patient: Jaxon Cosby Unit #: [id number]: 1960 Dicatated By: Nick Miranda M.D.Date of Visit:April 17, 2020 Onc Med Follow-up/Prog Note History of Present Illness: Mr. Cosby is a 59 -year-old gentleman with 6 months history of progressive dysphagia and about 30 pounds weight loss. He was evaluated by GI and on 11/21/[address] scan of abdomen pelvis which showed markedly abnormal fundus of the stomach and gastroesophageal junction concerning for neoplasm. There are multiple lymph nodes along the gastrohepatic ligament with largest lymph node being 1.9 cm. Subsequently, Mr Cosby underwent EGD on 11/22/2019 which showed at 38 cm there was a friable mass noted which extended past the GE junction into fundus of the stomach. Body, antrum and pylorus of stomach was normal. Biopsy was obtained and it confirmed moderately differentiated invasive adenocarcinoma Patient is complaining of difficulty of swallowing solid food but no problem with liquids and medicine. Patient smoke marijuana since age 16 and still active. Complained of epigastric pain not being controlled with tramadol and in the past used to take hydrocodone for chronic sinus pain and that usually help his epigastric pain too. PET/CT from 12/29/2019 reported: FDG positive primary gastroesophageal carcinoma. Local metastatic disease in the gastrohepatic ligament node. Distant metastatic disease in a solitary left supraclavicular node. Subcentimeter mediastinal nodes should be closely monitored on future imaging. The gastroesophageal mass with extension into the proximal stomach fundus with an SUV of 8. Local metastatic nodule in the gastrohepatic ligament measures 2.7 x 2.0 cm with an SUV of 7.4. A left supraclavicular nodule measuring 1.3 cm has an SUV of 4.8 and is consistent with distant metastatic disease. Mr. Cosby has been offered treatment with combined chemoradiation. He began his first cycle of carboplatin paclitaxel on January 16, 2020. Last dose of chemotherapy with weekly carbo/Taxol concurrent with radiation therapy was given on 02/20/2020, subsequently patient developed progressive thrombocytopenia and leukopenia and due to that he continue to take radiation alone till he completed on 03/03/2020. Discussed with patient via telephone, Patient denies any specific complaints except discomfort at Port-A-Cath site for the last 3 days, denies any trauma, denies any overlying skin changes, denies any puffiness or fullness around Port-A-Cath, denies any fever or chills. Denies any nausea or vomiting, denies any dysphagia. Medications: Amitriptyline HCl 1 - 2 Tablet (of 10 mg) Tablet Oral at bedtime, Dexamethasone (4 mg) Tablet Oral Take as Directed, Folic Acid 1 Tablet (of 1 mg) Oral daily, HYDROcodone-Acetaminophen 1 - 3 Tablet (of 7.5-325 mg) Oral q 4 hours PRN, LORazepam 0.5 - 1 Tablet (of 1 mg) Oral t.i.d. PRN, Ondansetron HCl 1 Tablet (of 8 mg) Oral q 8 hours PRN, Pantoprazole Sodium 1 Tablet (of 40 mg) Tablet, enteric coated Oral daily, Prochlorperazine Maleate 1 Tablet (of 10 mg) Oral q 4 hours PRN, traMADol HCl 1 - 2 Tablet (of 50 mg) Tablet Oral q 6 hours PRN Allergies: No Known Allergies. Review of Systems: Review of Systems is not available for this patient. Vital Signs: Vitals are not available for this patient. Performance Status: 1 - No physically strenuous activity, but ambulatory and able to carry out light or sedentary work (e.g. office work, light house work). (ECOG) Physical Examination: ENMT - denies any mouth sores, or jaundice, Respiratory - denies any shortness of breath or wheezing, Cardiovascular - denies any palpitation or tachycardia, Abdomen - denies any abdominal pain or fullness, Extremities - denies any lower extremity edema or rash. Lab/Imaging: Test performed on April 15, 2020 09:48 Glucose 100 mg/dL BUN 3 mg/dL Creatinine 0.6 mg/dL Cr Clearance (Est) 97.26 mL/min Sodium 136 mmol/L Potassium 3.7 mmol/L Chloride 98 mmol/L CO2 20 mmol/L Calcium 8.8 mg/dL Protein, Total 6.6 g/dL Albumin 3.2 g/dL Globulin 3.4 g/dL Bilirubin, Total 0.3 mg/dL Alkaline Phosphatase 116 IU/L AST (SGOT) 29 IU/L ALT (SGPT) 10 IU/L WBC 6.0 10^9/L RBC 3.73 10^12/L HGB 12.6 g/dL HCT 38.5 % MCV 103.2 fl MCH 33.8 pg MCHC 32.7 g/dL RDW 15.0 % Platelet Count 248 10^9/L MPV 11.8 fL Neutrophils (Gran) 3.6 10^9/L Lymphocytes 0.9 10^9/L Monocytes 1.0 10^9/L Eosinophils 0.4 10^9/L Basophils 0.1 10^9/L Manual Lymphocytes 15.3 % Manual Monocytes 15.9 % Manual Eosinophils 6.5 % Manual Basophils 0.8 % Test performed on March 24, 2020 09:40 Anion Gap 15.1 eGFR 221.7 mL/min Neutrophil % 57.4 % Lymphocyte % 15.9 % Monocyte % 20.5 % Eosinophil % 3.8 % Basophils % 0.4 % Test performed on Jan 28, 2020 15:10 Amylase 19 U/L CBC Slide Review Slide Review Perform Impression: Moderately differentiated invasive adenocarcinoma involving distal esophagus per EGD done on 11/22/2019 CT scan of abdomen pelvis done on 11/21/2019 showed markedly abnormal fundus of the stomach and gastroesophageal junction and adjacent lymphadenopathy CT PET scan done on 12/29/2019 shows gastroesophageal mass with extension into proximal stomach fundus with SUV of 8.9. Local metastatic nodes in the gastrohepatic ligament measuring 2.7 x 2 cm with SUV of 7.4. The left supraclavicular node measuring 1.3 cm with SUV of 4.8 consistent with a distant metastatic disease. Tiny mediastinal nodes in the subcarinal/right paratracheal shows minimal FDG activity likely benign. Clinically stage IV,, left supraclavicular lymph node positive on CT PET scan. Epigastric pain due to above 30 pounds weight loss over 6 months Marijuana use since age 16 along with chronic smoking and alcohol use. discussed with Mr. Cosby the results of the PET CT from December 29, 2019. It did show that he had local regional disease and a single node involvement in the left supraclavicular area. He has been advised to pursue combined chemoradiation for better palliation and after completion of chemoradiation he could be considered for SBRT to the left supraclavicular node. Mr. Cosby underwent placement of a PowerPort in the left subclavian vein per Dr. Perrin on January 16, 2020. He began his first cycle of chemotherapy on January 16, 2020.And last dose of chemotherapy was given on 02/20/2020, subsequent chemotherapy was held because of progressive cytopenia and leukopenia and patient completed radiation therapy on 03/03/2020 Plan: Discussed with patient via telephone, regarding his labs white blood count 6 hemoglobin 12.6 hematocrit 36.5 platelets 248,000 CMP within normal limits Clinically, patient is doing well with no new signs symptoms, further treatment options were discussed with patient, patient was supposed to see radiation oncology for left supraclavicular nodule management with SB RT, as planned initially. 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 In that case we will consider next generation sequencing to identified targetable therapy if available. In the meantime we will discuss with radiation oncology regarding left supraclavicular lesion management and if SB RT is considered then we'll see him back in one month otherwise we'll consider follow-up CT PET scan to assess disease status and then plan accordingly.As far as Port-A-Cath site discomfort/pain is concern, patient was advised to visit our clinic for evaluation but patient lives 1 hour away , he would rather go to local clinic for evaluation and if needed then he will call us or his surgeon. Signed By: Nick Miranda M.D. <<Signature on File>>
== END 2020-04-20 23:59 | disposition home or self-care (01) ==
LOC: ONCMED 06:44
PROVIDERS: Absent Provider Radiology Radiation Oncology; Family Provider Nurse Practitioner; PCP Nurse Practitioner Family; Visit Provider Internal Medicine Hematology & Oncology
DX: C15.5 Malignant neoplasm of lower third of esophagus (principal); C77.0 Secondary and unspecified malignant neoplasm of lymph nodes of head, face and neck; T82.848A Pain due to vascular prosthetic devices, implants and grafts, initial encounter; Z95.828 Presence of other vascular implants and grafts; R63.4 Abnormal weight loss; F17.200 Nicotine dependence, unspecified, uncomplicated; F12.90 Cannabis use, unspecified, uncomplicated; Z72.89 Other problems related to lifestyle; Z92.21 Personal history of antineoplastic chemotherapy; Z92.3 Personal history of irradiation
CPT/HCPCS: 80053; 85025

== ENCOUNTER 2020-06-06 07:32 | Outpatient (RCR) | payer MEDICAID, SELFPAY ==
--- NOTE | 2020-05-26 | CT_ITS ---
Radiation Therapy Planning CT images; total exam DLP: 842.70 mGy-cm MTDD
[2020-05-26 14:17] LABS: Blood Urea Nitrogen 4 mg/dL (6-20); Glomerular Filtration Rate 116.2 mL/min (90-130)
[2020-05-26] MEDS: iodixanol 320 mg/mL 100mL Btl (RAD THERAPY ONLY) IV (15:57)
--- NOTE | 2020-06-03 17:26 | ONCRAD TMN_ITS ---
Radiation Oncology Weekly Treatment Management Patient: Jaxon Cosby MR#: [id number] : 1960> Age: 59> Sex: Male Dictated by: Dr. 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 ID: [id number], Energy: 15X/6X, Dose/Fx (cGy): 500, #Fx: 2 / 5, Dose Correction (cGy): 0, Total Dose (cGy): 1,000, Start Date: 06/02/2020, Elapsed Days: 1 Interim History: The patient reports that his appetite is improving, and his swallowing is also improving. He has a nonproductive cough, but otherwise he reports that he is doing well. Current Medications: Amitriptyline HCl, cARBOplatin, dexamethasone, dexamethasone Sodium Phosphate, diphenhydrAMINE HCl, famotidine in NaCl, folic Acid, hydrocodone-Acetaminophen, hYDROcodone-Acetaminophen, hYDROcodone-Acetaminophen, levoFLOXacin, lORazepam, mucus Relief Chest Congestion, ondansetron HCl, ondansetron HCl, pACLitaxel, palonosetron HCl, pantoprazole Sodium, pantoprazole Sodium, potassium Chloride ER, prochlorperazine Maleate, prochlorperazine Maleate, protonix, traMADol HCl. Allergies: No Known Allergies Current Complaints/Review of Systems: Constitutional - Complains of mild fatigue. Complains of change in weight. Denies lack of appetite, fever and rigors / chills. ENMT - Complains of dysphagia which is slight. Cardiovascular - Denies chest pain. Respiratory - Complains of a mild cough which is non-productive. Complains of dyspnea associated with normal activity. Complains of wheezing. Vital Signs: Performed on 06/03/2020 4:15 PM BMI - 17.218 kg/m2 (low), Height - 63.00 in, Weight - 97.2 lbs, Temperature - 97.6 f, Pulse - 97, Respiration - 18, O2 Sat - 97 %, Pain - 0 and BP - 112/ 70 mm(hg). Physical Exam: Appears stable, no skin erythema or desquamation. Performance Status: 2 - Ambulatory/capable of all self-care, unable to perform any work activities. Up and about more than 50% of waking hours. (ECOG) Lab: None pending in Radiation Oncology. Test performed on 01/28/2020 3:10 PM Amylase - 19 u/l (low), Test performed on 03/24/2020 9:40 AM eGFR - 221.7 ml/min (high), Test performed on 04/15/2020 9:48 AM RBC - 3.73 10^12/l (low), MCV - 103.2 fl (high), Manual Monocytes - 15.9 % (high), BUN - 3 mg/dl (low), CO2 - 20 mmol/l (low) and Albumin - 3.2 g/dl (low). Imaging: No new diagnostic imaging was performed since the last weekly treatment visit. All radiation therapy related imaging (including but not limited to kV, MV, and CBCT generated images) was reviewed. Appropriate changes, if any, were made to assure accurate target localization. Impression/Plan: Tolerating treatment well with expected side effects. Continue treatment as planned. CPT: 12838 Signed by: Dr. Darryn Contreras>06/03/2020 5:24:45 PM <<Signature on File>>
== END 2020-06-20 23:59 | disposition home or self-care (01) ==
LOC: ONCMED 07:32
PROVIDERS: PCP Nurse Practitioner Family; Visit Provider Radiology Radiation Oncology
DX: Z51.0 Encounter for antineoplastic radiation therapy (principal); C77.0 Secondary and unspecified malignant neoplasm of lymph nodes of head, face and neck; C15.5 Malignant neoplasm of lower third of esophagus; Z79.891 Long term (current) use of opiate analgesic
CPT/HCPCS: 36415; 77300; 77301; 77334; 77336; 77338; 77386; 82565; 84520; Q9967

== ENCOUNTER 2020-07-21 05:32 | Outpatient (RCR) | payer MEDICAID, SELFPAY ==
--- NOTE | 2020-07-07 15:04 | ONCRAD EPV_ITS ---
Radiation Oncology Established Patient Visit Patient: Harjeet Coates [id number] : 1960 Age: 59 Sex: Male Dictated by: Dr. 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 Treatment Rendered: -) 50.4 Gy / 28 Fractions to the esophagus concurrent with weekly carbotaxol (01/16/2020 - 03/03/2020). After completion of this course, the patient???s known radiographic concern for left supraclavicular adenopathy diminished in size. He was then treated with SBRT as described below. -) 25 Gy / 5 fractions to the involved supraclavicular lymph nodes (06/02/2020 - 06/06/2020). Current History: The patient is seen in follow-up today, and he reports improved difficulty with swallowing. He is adequately managing his pain with existing pain medication. He is seen in the clinic office, drinking a bottle of 7-Up. The patient reports that he has no appetite, and that food simply does not taste good. Odynophagia does not significantly impair his ability to eat when he takes his pain medication. His main complaint, is that food simply does not ???taste good???. He reports no cough, shortness of breath, fever/chills, or new bone pain. Current Medications: Amitriptyline HCl, cARBOplatin, dexamethasone, dexamethasone Sodium Phosphate, diphenhydrAMINE HCl, famotidine in NaCl, folic Acid, hydrocodone-Acetaminophen, hYDROcodone-Acetaminophen, levoFLOXacin, lORazepam, mucus Relief Chest Congestion, ondansetron HCl, ondansetron HCl, pACLitaxel, palonosetron HCl, pantoprazole Sodium, potassium Chloride ER, prochlorperazine Maleate, prochlorperazine Maleate, protonix, traMADol HCl. Allergies: No Known Allergies Current Complaints / Review of Systems: Constitutional - Complains of a moderate appetite eats two meal per day. Reports loss of taste since neck radiation.. Complains of severe fatigue associated with less than normal activity. Complains of rigors / chills reports that he is often cold with chills... Complains of change in weight weight loss down from 97 pounds on 06/03 to 93.2 pounds today.. Denies fever, lethargy and night sweats. Eyes - Complains of blurred vision. ENMT - Complains of dysphagia reports off and on. Meat is very hard to swallow. Reports occuring since radiation to his neck.. Complains of mild mouth dryness which occurs in the morning. Complains of moderate altered taste and that has resulted in a loss of appetite reports occuring since neck radiation.. Denies ear pain, epistaxis, problems with hearing, oral bleeding, sputum production, stomatitis and tinnitus. Neck - Denies neck masses, neck pain, decreased range of motion and swelling of the neck. Integumentary - Complains of bruising easily. Complains of mildly dry skin. Complains of rash reports redness to his arms that increases when out in the hot sun. Instructed patient on use of SPF 30 prior to being out in the sun. Cardiovascular - Complains of dyspnea with too much activity. Denies arrhythmias, chest pain, edema, orthopnea and palpitations. Respiratory - Complains of moderate dyspnea associated with normal activity. Denies cough, hemoptysis, hiccoughs, pleuritic chest pain and wheezing. Gastrointestinal - Complains of severe abdominal pain that is intermittent to esophagus and stomach. Complains of moderate heartburn / dyspepsia relieved by Pantoprazole. Denies change in bowel habits, constipation, diarrhea, hematochezia, hemorrhoids, melena / GI bleeding, nausea and vomiting. Genitourinary (M) - Denies dysuria, frequency, hematuria, impotence, incontinence, nocturia, urgency and urine color change. Musculoskeletal - Complains of generalized muscle weakness which is moderate in nature associated with radiation therapy and this condition is improving. Denies bone pain, joint pain and decreased range of motion. Neurologic - Complains of dizziness that occurs with activity and this condition is improving. Complains of abnormal gait unsteady due to fatigue and weakness, using quad cane at home. Denies headaches, insomnia, motor weakness, sensory problems, seizure and stroke. Endocrine - Denies diabetes and hot flashes. Hematologic/Lymphatic - Complains of easy bruising.. Vital Signs: Performed on 07/07/2020 10:57 AM BMI - 16.545 kg/m2 (low), Height - 63.00 in, Weight - 93.4 lbs, Temperature - 98.1 f, Pulse - 112, Respiration - 18, O2 Sat - 98 % and BP - 107/ 76 mm(hg). Physical Exam: General: Alert and oriented x 3. No acute distress. However, the patient is cachectic. HEENT: Normocephalic, atraumatic. Extraocular Movements Intact: Pupils Equal, Round, Reactive to Light and Accommodation: Sclerae anicteric. Oral cavity is clear without lesions, masses or ulcers. NECK: Supple without supraclavicular or jugular lymphadenopathy. LUNGS: Clear to auscultation bilaterally without rales, rhonchi or wheeze. HEART: Regular rate and rhythm, normal S1 and S2 without murmur, gallop or rub. MUSCULOSKELETAL: No tenderness or percussion pain over the axial skeleton, scapulae or pelvis. ABDOMEN: Soft, nontender, nondistended without masses or organomegaly. Bowel sounds are present. EXTREMITIES: No peripheral edema is identified. Limited motor and sensory examination are grossly intact and symmetric bilaterally. NEUROLOGIC: Cranial nerves II ???XII are grossly intact. Performance Status: 2 - Ambulatory/capable of all self-care, unable to perform any work activities. Up and about more than 50% of waking hours. (ECOG) Lab: None pending. Test performed on 01/28/2020 3:10 PM Amylase - 19 u/l (low), Test performed on 03/24/2020 9:40 AM eGFR - 221.7 ml/min (high), Test performed on 04/15/2020 9:48 AM RBC - 3.73 10^12/l (low), MCV - 103.2 fl (high), Manual Monocytes - 15.9 % (high), BUN - 3 mg/dl (low), CO2 - 20 mmol/l (low) and Albumin - 3.2 g/dl (low). Pathology: Primary, c77.9 - secondary and unspecified malignant neoplasm of lymph node, unspecified, Diagnosed 03/05/2020 (active) and Primary, c15.5 - malignant neoplasm of lower third of esophagus, Diagnosed 12/12/2019 (active). Imaging: See HPI Impression: The patient is a 59-year-old male who has adenocarcinoma of the distal esophagus with regional and left supraclavicular adenopathy. The primary and regional lymphadenopathy was treated with concurrent chemoradiation therapy (completed 03/03/2020) and the involved supraclavicular lymph nodes were treated with SBRT (completed 06/06/2020). The patient tolerated therapy reasonably well, and although he has painful swallowing, it is well controlled with pain medication. In fact, the patient is able to drink 7-Up during his office visit today. My biggest current concern for the patient at this point is his cachexia and his poor appetite. We had a candid discussion today regarding consuming sufficient calories to sustain life. The patient reports that he will make a better effort at consuming calories, and he will push through his ???lack of taste???. He reports that he has sufficient pain medication to manage his pain such that he is able to swallow without aspiration or unbearable pain. I offered to optimize his pain medication, and the patient reported that it was unnecessary. Review of the medical record suggests that the patient has a prior history and current history of smoking cannabis, thus I question the utility of prescribing Marinol to stimulate his appetite. The patient is scheduled to see Dr. Miranda within the next 2 weeks. I have ordered a CT of the chest and neck such that it will be completed prior to Dr. Miranda's planned visit. Signed by: 07/07/2020 3:02:27 PM <<Signature on File>> Time spent with patient: CPT Code: CPT Code:
--- NOTE | 2020-07-15 13:12 | CT_ITS ---
WS: [id number] CT CHEST WITH INTRAVENOUS CONTRAST HISTORY: ESOPHAGEAL CANCER TECHNIQUE: Contiguous 5 mm axial imaging performed on the thorax. Coronal and sagittal reformats are submitted. All CT scans at [facility] use at least one of these dose optimization techniq ues: automated exposure control; mA and/or kV adjustment per patient size (includes targeted exams wh ere dose is matched to clinical indication); or iterative reconstruction. CONTRAST: Omnipaque 300; 95 mL IV. DLP: 673.12 mGycm COMPARISON: 02/05/2020 and PET/CT 04/26/2020 Lungs and central airway: Marked pulmonary hyperinflation. Large bulla the RIGHT apex. There is also pleural thickening and nodularity which is stable at the RIGHT apex. Previously described opacificati on and consolidation throughout the RIGHT lung has essentially resolved. There is some very minimal l inear interstitial thickening and atelectasis in the RIGHT upper lobe. No new pulmonary nodule or mas s. Pleura: Normal. No pleural effusion. Heart and pericardium: Normal size heart. No pericardial effusion. Mediastinum and bridget: No increasing size or number of mediastinal or hilar lymph nodes. There is exte nsive circumferential thickening of the esophagus beginning above the nishant and extending into the G E junction. There is decreased attenuation with wall thickening. Wall thickening measures up to 10 mm along the distal LEFT esophagus. Vessels: Mild atherosclerosis aorta. Chest wall and lower neck: No soft tissue masses. Upper abdomen: Visualized portions of the liver are normal. Atherosclerosis continues into the upper abdominal aorta. No adrenal mass. Osseous structures: No osteoblastic or osteolytic bone disease. CT/CT chest w con* [id number] IMPRESSION: 1. Extensive circumferential esophageal wall thickening and edema beginning ab ove the nishant through the GE junction. Similar to the prior study from 0. May be posttreatment edema and thickening. Similar to the PET/CT of 04/26/2020 which demonstrated no active disease. 2. Severe emphysema with near complete resolution of the previously described RIGHT lung pneumonia. 3. Severe emphysema. 4. No mediastinal or hilar adenopathy.
--- NOTE | 2020-07-15 13:12 | CT_ITS ---
WS: [id number] CT NECK WITH CONTRAST HISTORY: ESOPHAGEAL CANCER TECHNIQUE: Contiguous 5 mm axial images are performed through the neck with intravenous contrast. Sag ittal and coronal reformats are also submitted. All CT scans at [facility] use at least o ne of these dose optimization techniques: automated exposure control; mA and/or kV adjustment per pat ient size (includes targeted exams where dose is matched to clinical indication); or iterative recons truction. CONTRAST: CONTRAST: Omnipaque 300; 40 mL IV. DLP: 1664.4 mGycm COMPARISON: PET CT 04/26/2020 Nasopharynx, oropharynx, hypopharynx and larynx are unremarkable. No soft tissue masses or abnormal e nhancement. Torus tubarius and fossa of Rosenmuller and parapharyngeal fat are normal. No significant lymphadenopathy is identified. Thyroid gland and salivary glands are normally enhancing with no masses. Advanced degenerative disc disease and osteophytes at C4-5, C5-6 and C6-7. Visualized portions of the skull base demonstrate no abnormalities. Orbits and globes are within norm al limits. No soft tissue masses. Visualized paranasal sinuses and mastoid air cells are normal. Severe emphysematous changes at the lung apices. Small amount of fluid or debris in the esophagus at the level of the nishant. Again noted is some mild diffuse wall thickening which is probably related t o prior treatment for esophageal neoplasm. LEFT subclavian Port-A-Cath is present. CT/CT neck w con* [id number] IMPRESSION: 1. No neck mass or adenopathy. 2. Severe emphysema.
[2020-07-15] MEDS: iohexol 300 mg/mL 100 mL Btl IV ×2 (13:43)
[2020-07-21 09:25] LABS: Basophils # 0.1 10^3/uL (0.0-0.1); Basophils % 0.8 %; Eosinophils # 0.2 10^3/uL (0.0-0.8); Eosinophils % 1.6 %; Hematocrit 39.3 % (42.0-52.0); Hemoglobin 12.9 g/dL (11.7-16.6); Lymphocytes # 0.6 10^3/uL (0.8-4.8); Mean Corpuscular HGB Conc 32.8 g/dL (30.0-36.0); Mean Corpuscular Hemoglobin 33.1 pg (28.0-34.0); Mean Corpuscular Volume 100.8 fL (80-94); Mean Platelet Volume 10.3 fL (7.4-10.4); Monocytes # 0.8 10^3/uL (0.2-0.9); Monocytes % 7.6 %; Neutrophils # 8.23 10^3/uL (1.8-7.7); Neutrophils % 81.8 %; Nucleated Red Blood Cells % 0 %; Platelet Count 368 10^3/cmm (130-400); Red Cell Distribution Width 13.4 % (12.1-15.1); White Blood Count 10.1 10^3/uL (4.0-10.0)
[2020-07-21 09:40] LABS: Alanine Aminotransferase 6 U/L (0-41); Albumin Level 2.6 g/dL (3.5-5.2); Alkaline Phosphatase 85 IU/L (40-130); Anion Gap 21.9 (5-19); Aspartate Amino Transferase 27 U/L (0-40); Blood Urea Nitrogen 9 mg/dL (6-20); Calcium 8.7 mg/dL (8.5-10.5); Carbon Dioxide 21 mmol/L (22-29); Chloride 92 mmol/L (98-107); Globulin 3.7 g/dL (1.3-4.6); Glomerular Filtration Rate 116.2 mL/min (90-130); Glucose 125 mg/dL (65-115); Osmolality Calculated 269 mOsm/kg (285-295); Potassium 3.9 mmol/L (3.5-5.1); Sodium 131 mmol/L (136-145); Total Bilirubin 0.5 mg/dL (0.15-1.2); Total Protein 6.3 g/dL (6.6-8.7)
--- NOTE | 2020-07-22 16:23 | ONC FU_ITS ---
Dr. Miranda follow up note Patient: Jaxon Cosby Unit #: [id number]: 1960 Dicatated By: Nick Miranda M.D.Date of Visit:Jul 21, 2020 Onc Med Follow-up/Prog Note History of Present Illness: Mr. Cosby is a 59 -year-old gentleman with 6 months history of progressive dysphagia and about 30 pounds weight loss. He was evaluated by GI and on 11/21/[address] scan of abdomen pelvis which showed markedly abnormal fundus of the stomach and gastroesophageal junction concerning for neoplasm. There are multiple lymph nodes along the gastrohepatic ligament with largest lymph node being 1.9 cm. Subsequently, Mr Cosby underwent EGD on 11/22/2019 which showed at 38 cm there was a friable mass noted which extended past the GE junction into fundus of the stomach. Body, antrum and pylorus of stomach was normal. Biopsy was obtained and it confirmed moderately differentiated invasive adenocarcinoma Patient is complaining of difficulty of swallowing solid food but no problem with liquids and medicine. Patient smoke marijuana since age 16 and still active. Complained of epigastric pain not being controlled with tramadol and in the past used to take hydrocodone for chronic sinus pain and that usually help his epigastric pain too. PET/CT from 12/29/2019 reported: FDG positive primary gastroesophageal carcinoma. Local metastatic disease in the gastrohepatic ligament node. Distant metastatic disease in a solitary left supraclavicular node. Subcentimeter mediastinal nodes should be closely monitored on future imaging. The gastroesophageal mass with extension into the proximal stomach fundus with an SUV of 8. Local metastatic nodule in the gastrohepatic ligament measures 2.7 x 2.0 cm with an SUV of 7.4. A left supraclavicular nodule measuring 1.3 cm has an SUV of 4.8 and is consistent with distant metastatic disease. Mr. Cosby has been offered treatment with combined chemoradiation. He began his first cycle of carboplatin paclitaxel on January 16, 2020. Last dose of chemotherapy with weekly carbo/Taxol concurrent with radiation therapy was given on 02/20/2020, subsequently patient developed progressive thrombocytopenia and leukopenia and due to that he continue to take radiation alone till he completed on 03/03/2020. Follow-up CT PET scan done on April 26, 2020 showed interval resolution of abnormality at the GE junction indicating sterilization of malignancy. Resolution of gastroesophageal node. Improvement in the left supraclavicular lymph node indicating a positive response to therapy CT scan of neck chest and abdomen done on July 15, 2020 showed no abnormal mass or lymphadenopathy seen in the neck extensive circumferential esophageal wall thickening and edema above the nishant through the GE junction. Similar to prior study from April 26, 2020. May be posttreatment edema Severe emphysema with a near complete resolution of previously described right lung pneumonia. No mediastinal or hilar lymphadenopathy Came for follow-up, denies any specific complaints except dyspnea on exertion and off and on mild dysphagia but no pain, no nausea or vomiting, no diarrhea or constipation, no hemoptysis or hematemesis, appetite is reasonable with marijuana. Still smoking about half pack a day Medications: Amitriptyline HCl 1 - 2 Tablet (of 10 mg) Tablet Oral at bedtime, Folic Acid 1 Tablet (of 1 mg) Oral daily, HYDROcodone-Acetaminophen 1 - 3 Tablet (of 7.5-325 mg) Oral q 4 hours PRN, LORazepam 0.5 - 1 Tablet (of 1 mg) Oral t.i.d. PRN, Ondansetron HCl 1 Tablet (of 8 mg) Oral q 8 hours PRN, Pantoprazole Sodium 1 Tablet (of 40 mg) Tablet, enteric coated Oral daily, Prochlorperazine Maleate 1 Tablet (of 10 mg) Oral q 4 hours PRN, traMADol HCl 1 - 2 Tablet (of 50 mg) Tablet Oral q 6 hours PRN Allergies: No Known Allergies. Review of Systems: Constitutional - Appetite is poor and weight is decreasing. No fever, chills, hot flashes, or night sweats. Energy level is poor, ENMT - Positive for sinus congestion/drainage. No mouth sores. No sore throat. Positive for difficulty swallowing, Hematologic/Lymphatic - No abnormal bruising or bleeding, Respiratory - Positive for shortness of breath and cough. No pleuritic pain or hemoptysis, Cardiovascular - No angina pain. No palpitations, Gastrointestinal - No nausea or vomiting. No heartburn or acid reflux. No diarrhea or constipation. No blood in the stool or black stools, Genitourinary (M) - No dysuria or hematuria. No urinary frequency. No urgency or incontinence, Musculoskeletal - No joint or bone pain, Neurologic - No headache or dizziness. No numbness/paresthesias or other focal neurologic symptoms, Psychiatric - No anxiety or depression. No insomnia. Vital Signs: Performed on Jul 21, 2020 10:59 Height - 63.00 in Weight - 89.8 lbs (LOW) BSA - 1.38 sq.m BMI - 15.91 (LOW) Temperature - 97.7 F (LOW) Pulse - 106 /min (HIGH) Respiration - 16 /min BP - 92/68 mm(hg) O2 Sat - 98 % Pain - 4 Performance Status: 1 - No physically strenuous activity, but ambulatory and able to carry out light or sedentary work (e.g. office work, light house work). (ECOG) Physical Examination: ENMT - No mouth sores, no thrush, no, Respiratory - Poor air entry otherwise clear, Cardiovascular - Regular rate and rhythm of heart, Abdomen - Soft, bowel sounds present, Extremities - No visible edema. Lab/Imaging: Test performed on April 15, 2020 09:48 Glucose 100 mg/dL BUN 3 mg/dL Creatinine 0.6 mg/dL Cr Clearance (Est) 97.26 mL/min Sodium 136 mmol/L Potassium 3.7 mmol/L Chloride 98 mmol/L CO2 20 mmol/L Calcium 8.8 mg/dL Protein, Total 6.6 g/dL Albumin 3.2 g/dL Globulin 3.4 g/dL Bilirubin, Total 0.3 mg/dL Alkaline Phosphatase 116 IU/L AST (SGOT) 29 IU/L ALT (SGPT) 10 IU/L WBC 6.0 10^9/L RBC 3.73 10^12/L HGB 12.6 g/dL HCT 38.5 % MCV 103.2 fl MCH 33.8 pg MCHC 32.7 g/dL RDW 15.0 % Platelet Count 248 10^9/L MPV 11.8 fL Neutrophils (Gran) 3.6 10^9/L Lymphocytes 0.9 10^9/L Monocytes 1.0 10^9/L Eosinophils 0.4 10^9/L Basophils 0.1 10^9/L Manual Lymphocytes 15.3 % Manual Monocytes 15.9 % Manual Eosinophils 6.5 % Manual Basophils 0.8 % Test performed on March 24, 2020 09:40 Anion Gap 15.1 eGFR 221.7 mL/min Neutrophil % 57.4 % Lymphocyte % 15.9 % Monocyte % 20.5 % Eosinophil % 3.8 % Basophils % 0.4 % Test performed on Jan 28, 2020 15:10 Amylase 19 U/L CBC Slide Review Slide Review Perform Impression: Moderately differentiated invasive adenocarcinoma involving distal esophagus per EGD done on 11/22/2019 CT scan of abdomen pelvis done on 11/21/2019 showed markedly abnormal fundus of the stomach and gastroesophageal junction and adjacent lymphadenopathy CT PET scan done on 12/29/2019 shows gastroesophageal mass with extension into proximal stomach fundus with SUV of 8.9. Local metastatic nodes in the gastrohepatic ligament measuring 2.7 x 2 cm with SUV of 7.4. The left supraclavicular node measuring 1.3 cm with SUV of 4.8 consistent with a distant metastatic disease. Tiny mediastinal nodes in the subcarinal/right paratracheal shows minimal FDG activity likely benign. Clinically stage IV,, left supraclavicular lymph node positive on CT PET scan. Epigastric pain due to above 30 pounds weight loss over 6 months Marijuana use since age 16 along with chronic smoking and alcohol use. discussed with Mr. Cosby the results of the PET CT from December 29, 2019. It did show that he had local regional disease and a single node involvement in the left supraclavicular area. He has been advised to pursue combined chemoradiation for better palliation and after completion of chemoradiation he could be considered for SBRT to the left supraclavicular node. Mr. Cosby underwent placement of a PowerPort in the left subclavian vein per Dr. Perrin on January 16, 2020. He began his first cycle of chemotherapy on January 16, 2020.And last dose of chemotherapy was given on 02/20/2020, subsequent chemotherapy was held because of progressive cytopenia and leukopenia and patient completed radiation therapy on 03/03/2020 Plan: .Discussed with patient regarding his labs white blood count 10.1 hemoglobin 12.9 hematocrit 39.3 platelets 368,000 CMP within normal limits except glucose 131 and follow-up CT PET scan and recent CT scan of neck chest and abdomen, which showed no obvious active disease site. Clinically, doing reasonably well with no new signs symptom suggestive of disease progression, his follow-up CT PET scan done in April and then follow-up CT scan of neck chest abdomen done in June 2020 showed no evidence of active disease but persistent distal esophageal wall thickening and edema and severe emphysema. At this point will refer him to gastroenterology for EGD evaluation for biopsy to rule out recurrence of disease, and possible dilation to improve his mild dysphagia. As far as probe progressive dyspnea on exertion is concerned probably due to severe emphysema and patient still smoking, he was advised to quit smoking and was offered any assistance he may need and will also refer him to pulmonology to optimize his pulmonary function if possible. Patient return to clinic after EGD for further discussion. Because of his comorbid condition and no new findings on follow-up CT scan of chest abdomen and neck, patient would prefer observation alone unless follow-up EGD shows otherwise. If it shows recurrence of disease then we may consider immunotherapy with pembrolizumab as his tumor shows PDL 1+ whereas MMR D/MSI status was proficient, no NTRK gene fusion noticed tumor mutational burden was low, HER-2/kalpesh negative. Signed By: Nick Miranda M.D. <<Signature on File>>
== END 2020-07-21 23:59 | disposition home or self-care (01) ==
LOC: ONCMED 05:32
PROVIDERS: PCP Nurse Practitioner Family; Visit Provider Internal Medicine Hematology & Oncology
DX: C15.5 Malignant neoplasm of lower third of esophagus (principal); C77.8 Secondary and unspecified malignant neoplasm of lymph nodes of multiple regions; J44.9 Chronic obstructive pulmonary disease, unspecified; F17.210 Nicotine dependence, cigarettes, uncomplicated
CPT/HCPCS: 70491; 71260; 80053; 85025; 99214; Q9967

== ENCOUNTER 2020-07-30 18:27 | Inpatient (IN) | payer MEDICAID, SELFPAY ==
[2020-07-30 18:31] VITALS: BP 92/69; PULSE 119; RESP 20; TEMP 36.5; O2SAT 94; BMI 14.5
--- NOTE | 2020-07-30 18:40 | XR_ITS ---
WS: [id number] Portable AP upright chest, 07/30/2020 Clinical Data: Generalized weakness Comparison: Portable chest, 02/04/2020. Findings: No nodules, masses or effusions are seen. There is a Port-A-Cath entering the left subclavi an vein and ending in the superior vena cava. The heart is normal. The pulmonary vascularity is not i ncreased. No pneumonia or pneumothorax is seen. There is minimal scarring of the minor fissure and ad jacent right upper lobe. The diaphragms are flattened XR/XR chest 1V portable [id number] Impression: 1. Hyperinflation. 2. Minimal right upper lobe scarring.
--- NOTE | 2020-07-30 18:41 | ECG_ITS ---
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 Measurements Intervals Oracle Rate: 110 P: 85 PA: 133 QRS: 68 QRSD: 82 T: 85 QT: 346 QTc: 469 Interpretive Statements SINUS TACHYCARDIA MODERATE T-WAVE ABNORMALITY, CONSIDER ANTEROLATERAL ISCHEMIA [-0.1+ mV T WAVE IN V3-V6] MODERATE T-WAVE ABNORMALITY, CONSIDER INFERIOR ISCHEMIA [-0.1+ mV T WAVE IN II/aVF] Compared to ECG 02/06/2020 15:38:51 T-wave abnormality now present Possible ischemia now present Sinus rhythm no longer present Electronically Signed On 07-30-2020 20:01:42 CDT by Aditi Mcfarlane M.D. [id number]
[2020-07-30] MEDS: ondansetron 2 mg/ML SDV 2 mL 4 MG IVP (18:48)
--- NOTE | 2020-07-30 18:52 | ED_ITS ---
HPI - Weakness General: Chief complaint: Weakness Stated complaint: GENERAL WEAKNESS Time Seen by Provider: 07/30/20 18:35 Source: patient and EMS Mode of arrival: EMS Limitations: physical limitation History of Present Illness: HPI Narrative: Mr. Cosby is a 59-year-old male who comes in with generalized weakness. Patient has a history of esophageal cancer and for the past several days has not had much to eat or drink. He does not complain of any specific pain. He denies headache, chest pain, shortness of breath, abdominal pain or back pain. EMS reports the patient has had a gradual decline that is just gotten progressively worse. There is been no reported diarrhea or blood in his stools. The patient is not extremely conversant secondary to weakness when asked if he has complaints of pain he declines and says no Associated symptoms: Denies chest pain, chills, confusion, melena, diaphoresis, dysuria, easy bruising, fever(s), headache(s), syncope or vomiting Review of Systems Const: Reports: fatigue and malaise; Denies: fever(s), chills, body aches or diaphoresis Eyes: Denies: change in vision, blurry vision, photophobia, eye discomfort, eye discharge or eye redness ENMT: Denies: throat pain, odynophagia, hoarseness, swelling of lips/tongue, ear or mastoid pain, ear discharge, change in hearing or nasal discharge Card: Denies: chest pain, palpitations, irregular heart rhythm, edema, lightheadedness, syncope, pre-syncope, dyspnea on exertion or orthopnea Resp: Denies: dyspnea, productive cough, non-productive cough, wheezing, hemoptysis or chest congestion GI: Denies: abdominal pain, vomiting, hematemesis, coffee ground emesis, heartburn, diarrhea, constipation, GI cramping, hematochezia or melena : Denies: flank pain, dysuria, urinary frequency, urinary urgency or hematuria Musc: Denies: neck pain, back pain, extremity pain, extremity swelling, joint pain, joint swelling, joint redness, joint warmth or joint stiffness Skin/Breast: Denies: rash, pruritus, erythema or skin tenderness Neuro: Denies: headache(s), numbness in extremities, weakness in extremities, sensory changes, lack of coordination, difficulty walking, dizziness, vertigo, confusion, Slurred speech present or seizure-like activity Marck/Lymph: Denies: easy bruising, easy bleeding, petechiae, purpura or enlarged lymph nodes All/Imm: Denies: urticaria, throat swelling, tongue swelling, facial swelling or acute wheezing PFSH ED PFSH: Medical History (Updated 07/30/20 @ 21:23 by Lynette Irby) Esophageal adenocarcinoma -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 Miranda -Has been on chemotherapy with carboplatin/paclitaxel (x 2 cycles) as well as radiation therapy (x 14 cycles) Hiatal hernia Port-A-Cath in place left subclavian - 01/16/20 Right tibial fracture Surgical History H/O esophagogastroduodenoscopy History of open reduction and internal fixation (ORIF) procedure Right LE Family History Father CAD (coronary artery disease) Father had a heart attack in his late 70s Cancer Unknown type Denies family history of Anesthesia complication Bleeding disorder Social History Smoking and tobacco status: current every day smoker cigarettes Quit status (tobacco): has tried quititng Second hand smoke exposure: Yes Alcohol intake: current Desire information about alcohol rehabilitation?: No Counseling given: Yes Desire information about substance/drug rehabilitation?: Yes Counseling given: Yes Adopted: No Caregiver/support person: Yes Lives independently: Yes Household members: spouse Housing: House Marital status: Number of children: 0 Highest education level completed: 8th Grade Current occupational status: disabled Current occupational exposures/hazards: No Pets and animals: Yes Pets & animals: dog(s) History of recent travel: No Leisure activites: hunting and fishing Sexually active: No Current gender identity: Male Lety/Sikhism: [employer] Special lety needs: No Agree to transfusion: Yes Financial difficulty paying for basics: Decline to Answer Physical Exam Const: COMMON NORMALS: no acute distress and patient oriented x3 GENERAL APPEARANCE: lethargic, ill appearing, frail appearing and appears older than stated age NUTRITIONAL APPEARANCE: cachectic ORIENTATION/CONSCIOUSNESS: Yes awake, Yes oriented to person, Yes oriented to place and Yes lethargic HENMT: COMMON NORMALS: normocephalic, atraumatic, external ears normal, EAC's normal and Normal external nose present HEAD & SCALP: normal to inspection, normocephalic and atraumatic FACE & SINUS: normal facial exam and face symmetric NOSE: Normal external nose present and Normal nares present EXTERNAL EAR: Yes external ears normal EXTERNAL AUDITORY CANAL: EAC's normal MOUTH: Normal oral and palatal mucosa present, lip normal and tongue normal Eye: COMMON NORMALS: Equal, round and reactive pupils present and conjunctivae normal GENERAL EYE: appearance normal, both eyes and all related structures ALIGNMENT: Yes alignment normal PERIORBITAL: periorbital findings normal EYELID: eyelids normal CONJUNCTIVA: Yes conjunctivae normal SCLERA: sclerae normal PUPIL: Yes Equal, round and reactive pupils present Neck/C-Spine: COMMON NORMALS: full ROM, no lymphadenopathy, supple, no meningeal signs and no JVD GENERAL: Yes normal visual inspection and Yes trachea midline Chest: COMMONS NORMALS: normal inspection of the chest and normal palpation of entire chest wall Resp: COMMON NORMALS: normal respiratory effort, No retractions, No use of accessory muscles and clear to auscultation bilaterally EFFORT & INSPECTION: Yes able to speak in complete sentences and Yes symmetric chest movement AUSCULTATION: clear to auscultation bilaterally, no crackles, no rales, no rhonchi and no wheezes Cardio: COMMON NORMALS: no JVD, regular rate, regular rhythm, S1 normal heart sound present and S2 normal heart sound present RATE: regular rate RHYTHM: regular rhythm HEART SOUNDS: S1 normal heart sound present, S2 normal heart sound present, no click, no gallops, no murmurs, no rubs and abnormal split S2 GI: COMMON NORMALS: Soft to palpation and No hepatosplenomegaly present PALPATION: Yes Soft to palpation, No Tenderness to palpation present (GI), No Guarding due to palpation present (GI), No Rigid due to palpation, Yes No hepatosplenomegaly present, No Hernia present, No Palpable mass present and No Pulsatile mass present : COMMON NORMALS: Yes no CVA tenderness BLADDER/KIDNEY EXAM: Yes no CVA tenderness Back/Pelvis: COMMON NORMALS: no CVA tenderness, thoracic and lumbar spine normal to inspection, no thoracic nor lumbar tenderness and thoraco-lumbar ROM normal Extremity: COMMON NORMALS: normal to inspection, full ROM, capillary refill normal, no joint enlargement, no clubbing, cyanosis or edema and no calf tenderness Neuro: COMMON NORMALS: patient oriented x3, CN's II-XII intact bilaterally, moves all extremities, no focal motor deficits and no sensory deficits noted SENSORIUM/ORIENTATION: Yes oriented to person, Yes oriented to place and Yes lethargic MENINGEAL SIGNS: Yes no meningeal signs SPEECH: speech normal Skin: COMMON NORMALS: no rashes or lesions noted, turgor normal, no jaundice, no petechiae and no mottling GENERAL SKIN EXAM: no rashes or lesions noted and turgor normal Course Vital Signs: Vital signs: Vital Signs Temperature 97.7 F 07/30/20 18:31 Pulse Rate 119 H 07/30/20 18:31 Respiratory Rate 20 H 07/30/20 18:31 Blood Pressure 92/69 07/30/20 18:31 Pulse Oximetry 94 07/30/20 18:31 MDM - Weakness MDM Narrative: Medical decision making narrative: The case was reviewed with Dr. Ramos and she agrees to admit for further evaluation and care. Lab Data: Attestation: I reviewed the patient's lab results. Labs: Lab Results 07/30/20 07/30/20 07/30/20 Range/Units 18:58 18:58 18:58 WBC 12.2 H (4.0-10.0) 10^3/ uL RBC 4.02 L (4.1-5.3) 10^6/u L Hgb 13.3 (11.7-16.6) g/dL Hct 39.0 L (42.0-52.0) % MCV 97.0 H (80-94) fL MCH 33.1 (28.0-34.0) pg MCHC 34.1 (30.0-36.0) g/dL RDW 13.5 (12.1-15.1) % Plt Count 154 (130-400) 10^3/c mm MPV 11.9 H (7.4-10.4) fL Neut % (Auto) 85.7 % Lymph % (Auto) 3.2 % Cla[place]orne % (Auto) 8.9 % Eos % (Auto) 0.2 % Baso % (Auto) 0.8 % Neut # (Auto) 10.44 H (1.8-7.7) 10^3/u L Lymph # (Auto) 0.4 L (0.8-4.8) 10^3/u L [place]orne # (Auto) 1.1 H (0.2-0.9) 10^3/u L Eos # (Auto) 0.0 (0.0-0.8) 10^3/u L Baso # (Auto) 0.1 (0.0-0.1) 10^3/u L Nucleated RBC % (a uto) 0 % Nucleated RBCs # 0.0 /100WBC PT 13.60 (12.1-14.9) SECO NDS INR 1.01 (0.8-1.2) Specimen Type Sample Site ABG pH (7.35-7.45) ABG pCO2 (35-45) mmHg ABG pO2 (80.0-100.0) mmH g ABG HCO3 (22-26) mmol/L ABG Base Excess (-2.0-2.0) mmol/ L Jere Test Hematocrit (42-52) % O2 Delivery Device O2 Liters/Min % [facility]irm[facility] Attendant ID Sodium 134 L (136-145) mmol/L Potassium 3.1 L (3.5-5.1) mmol/L Chloride 95 L (98-107) mmol/L Carbon Dioxide 24 (22-29) mmol/L Anion Gap 18.1 (5-19) BUN 10 (6-20) mg/dL Creatinine 0.4 L (0.7-1.2) mg/dL GFR Calculation 221.7 H (90-130) mL/min Glucose 121 H (65-115) mg/dL Calculated Osmolal ity 275 L (285-295) mOsm/k g Lactic Acid (0.5-2.2) mmol/L Calcium 7.6 L (8.5-10.5) mg/dL Magnesium 1.6 L (1.7-2.3) mg/dL Total Bilirubin 0.9 (0.15-1.2) mg/dL AST 17 (0-40) U/L ALT 55 H (0-41) U/L Alkaline Phosphata se 77 (40-130) IU/L Creatine Kinase 94 (39-308) U/L Troponin T Baselin e (0-15) ng/L Total Protein 5.8 L (6.6-8.7) g/dL Albumin 2.4 L (3.5-5.2) g/dL Globulin 3.4 (1.3-4.6) g/dL Serum Ketones Positive H (Negative) 07/30/20 07/30/20 07/30/20 Range/Units 18:58 18:58 19:15 WBC (4.0-10.0) 10^3/ uL RBC (4.1-5.3) 10^6/u L Hgb (11.7-16.6) g/dL Hct (42.0-52.0) % MCV (80-94) fL MCH (28.0-34.0) pg MCHC (30.0-36.0) g/dL RDW (12.1-15.1) % Plt Count (130-400) 10^3/c mm MPV (7.4-10.4) fL Neut % (Auto) % Lymph % (Auto) % Claiborne % (Auto) % Eos % (Auto) % Baso % (Auto) % Neut # (Auto) (1.8-7.7) 10^3/u L Lymph # (Auto) (0.8-4.8) 10^3/u L [place]orne # (Auto) (0.2-0.9) 10^3/u L Eos # (Auto) (0.0-0.8) 10^3/u L Baso # (Auto) (0.0-0.1) 10^3/u L Nucleated RBC % (a uto) % Nucleated RBCs # /100WBC PT (12.1-14.9) SECO NDS INR (0.8-1.2) Specimen Type Arterial Sample Site Radial, right ABG pH 7.46 H (7.35-7.45) ABG pCO2 38.3 (35-45) mmHg ABG pO2 86.3 (80.0-100.0) mmH g ABG HCO3 27.3 H (22-26) mmol/L ABG Base Excess 3.3 H (-2.0-2.0) mmol/ L Jere Test Pos Hematocrit 34.9 L (42-52) % O2 Delivery Device Nc O2 Liters/Min 1.5 % Infirm[facility] Attendant ID [id number] Sodium (136-145) mmol/L Potassium (3.5-5.1) mmol/L Chloride (98-107) mmol/L Carbon Dioxide (22-29) mmol/L Anion Gap (5-19) BUN (6-20) mg/dL Creatinine (0.7-1.2) mg/dL GFR Calculation (90-130) mL/min Glucose (65-115) mg/dL Calculated Osmolal ity (285-295) mOsm/k g Lactic Acid 2.2 (0.5-2.2) mmol/L Calcium (8.5-10.5) mg/dL Magnesium (1.7-2.3) mg/dL Total Bilirubin (0.15-1.2) mg/dL AST (0-40) U/L ALT (0-41) U/L Alkaline Phosphata se (40-130) IU/L Creatine Kinase (39-308) U/L Troponin T Baselin e 13 (0-15) ng/L Total Protein (6.6-8.7) g/dL Albumin (3.5-5.2) g/dL Globulin (1.3-4.6) g/dL Serum Ketones (Negative) Imaging Data^: CXR: Attestation: I personally reviewed and interpreted this imaging study as follows: My impression: Findings of COPD but no acute cardiopulmonary findings. EKG Data^: EKG 1: Attestation: I personally reviewed and interpreted this EKG as follows: EKG interpretation date: 07/30/20 EKG interpretation time: 18:55 Interpretation: Sinus tachycardia at 110 beats a minute, T waves inverted inferiorly with T wave inversions and ST segment depressions V2 through V4. Discharge Plan Discharge Patient Disposition: Placed in Observation Clinical Impression: Generalized weakness, Acute dehydration Condition: Stable Prescriptions: No Action albuterol sulfate [Ventolin HFA] 90 mcg/actuation HFA aerosol inhaler 2 puff INHALATION Q6H PRN (Reason: copd) RF: 0 amitriptyline 10 mg tablet 10 mg PO BEDTIME RF: 0 cholecalciferol (vitamin D3) 50,000 unit capsule 50,000 unit PO .COMPLEX RF: 0 hydroxyzine pamoate 50 mg capsule 50 mg PO QID PRN (Reason: Anxiety) RF: 0 ProAir HFA 90 mcg/actuation HFA aerosol inhaler See Rx Instructions .ROUTE .COMPLEX RF: 0 sucralfate 1 gram Tablet 1 g PO QID RF: 0 folic acid 1 mg Tablet 1 mg PO DAILY Qty: 30 RF: 0 pantoprazole 40 mg tablet,delayed release (DR/EC) 40 mg PO DAILY Qty: 30 RF: 0 ondansetron HCl [Zofran] 8 mg Tablet 8 mg PO Q8H Qty: 42 RF: 0 nicotine 21 mg/24 hr patch 24 hour 1 patch TRANSDERMA DAILY Qty: 30 RF: 0 nicotine (polacrilex) 2 mg lozenge 2 mg BUCCAL Q1H PRN (Reason: nicotine cravings) Qty: 60 RF: 4 hydrocodone-acetaminophen 7.5-325 mg Tablet 1 tab PO Q4H RF: 0 thiamine HCl (vitamin B1) 100 mg/mL solution 100 mg PO DAILY RF: 0 dexamethasone 4 mg Tablet 4 mg PO BID RF: 0 Referrals: [facility] TELECOMMUNICATIONS CONSULTANT-C [Primary Care Provider] - Coding Level of Care Code ED [employer] Operations Consultant for Chg Fwd Exam Comprehensive
[2020-07-30 19:05] LABS: Basophils # 0.1 10^3/uL (0.0-0.1); Basophils % 0.8 %; Eosinophils % 0.2 %; Hemoglobin 13.3 g/dL (11.7-16.6); Lymphocytes # 0.4 10^3/uL (0.8-4.8); Lymphocytes % 3.2 %; Mean Corpuscular HGB Conc 34.1 g/dL (30.0-36.0); Mean Corpuscular Hemoglobin 33.1 pg (28.0-34.0); Mean Platelet Volume 11.9 fL (7.4-10.4); Monocytes # 1.1 10^3/uL (0.2-0.9); Monocytes % 8.9 %; Neutrophils # 10.44 10^3/uL (1.8-7.7); Neutrophils % 85.7 %; Nucleated Red Blood Cells % 0 %; Platelet Count 154 10^3/cmm (130-400); Red Blood Count 4.02 10^6/uL (4.1-5.3); Red Cell Distribution Width 13.5 % (12.1-15.1); White Blood Count 12.2 10^3/uL (4.0-10.0)
[2020-07-30 19:27] LABS: ABG PCO2 38.3 mmHg (35-45); ABG PH Result 7.46 (7.35-7.45); Arterial Blood Gas Hematocrit 34.9 % (42-52); Base Excess ABG 3.3 mmol/L (-2.0-2.0); Blood Gas Allen Test Pos; Blood Gas LPM 1.5 %; Blood Gas Sample Site Radial, right; Blood Gas Sample Type Arterial; HCO3 ABG 27.3 mmol/L (22-26); Oxygen Device NC; PO2 ABG 86.3 mmHg (80.0-100.0)
[2020-07-30 19:33] LABS: Ketone (Acetest) Serum Positive (Negative)
[2020-07-30 19:37] LABS: Lactic Sepsis W/Reflex 2.2 mmol/L (0.5-2.2)
[2020-07-30 19:38] LABS: Alanine Aminotransferase 55 U/L (0-41); Albumin Level 2.4 g/dL (3.5-5.2); Alkaline Phosphatase 77 IU/L (40-130); Anion Gap 18.1 (5-19); Aspartate Amino Transferase 17 U/L (0-40); Blood Urea Nitrogen 10 mg/dL (6-20); Calcium 7.6 mg/dL (8.5-10.5); Carbon Dioxide 24 mmol/L (22-29); Chloride 95 mmol/L (98-107); Creatine Phosphokinase 94 U/L (39-308); Globulin 3.4 g/dL (1.3-4.6); Glomerular Filtration Rate 221.7 mL/min (90-130); Glucose 121 mg/dL (65-115); Magnesium 1.6 mg/dL (1.7-2.3); Osmolality Calculated 275 mOsm/kg (285-295); Potassium 3.1 mmol/L (3.5-5.1); Sodium 134 mmol/L (136-145); Total Bilirubin 0.9 mg/dL (0.15-1.2); Total Protein 5.8 g/dL (6.6-8.7)
[2020-07-30 19:39] LABS: Troponin(5th) Baseline 13 ng/L (0-15)
[2020-07-30 19:45] LABS: INR 1.01 (0.8-1.2)
[2020-07-30] MEDS: sodium chloride 0.9% 1,000 ML 999 ML IV ×2 (19:48→21:13)
[2020-07-30] MEDS: magnesium sulfate premix 2 GM/50 ML PIGGYBACK IV (20:06)
--- NOTE | 2020-07-30 20:07 | PC.NURSE ---
[id number] adm via access port in L subclavian
[2020-07-30] MEDS: potassium chloride oral liq 20 mEq/15 mL UDC 40 MEQ PO (20:17)
--- NOTE | 2020-07-30 20:41 | ECG_ITS ---
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 Measurements Intervals [place] Rate: 93 P: 26 [place]: 150 QRS: 73 QRSD: 66 T: 85 QT: 342 QTc: 427 Interpretive Statements SINUS RHYTHM MODERATE T-WAVE ABNORMALITY, CONSIDER ANTERIOR ISCHEMIA [-0.1+ mV T WAVE IN V3/V4] Compared to ECG 07/30/2020 18:55:51 Sinus tachycardia no longer present T-wave abnormality still present Possible ischemia still present Electronically Signed On 07-31-2020 20:23:35 CDT by Julisa Chang M.D. [id number]
[2020-07-30 20:51] LABS: Reflex Lactate Order REFLEX LACTIC ORDERD
--- NOTE | 2020-07-30 21:27 | PM.HP ---
Providers/Chief Complaint Admitting Physician: Ruchi Ramos MD Primary Care Provider: Belkys Harris BOMB SQUAD OFFICER-C Chief Complaint: GENERAL WEAKNESS History of Present Illness Jaxon Cosby is a 59 year old male with PMHx noted below presents from home due to ongoing and progressive generalized weakness, poor oral intake and dysphasia particularly to solids. Patient is known to me from previous admission earlier this year. Seems to clinically be declining despite having completed chemotherapy and radiation in February of this year. He is pending EGD for evaluation of possible recurrence and possible dilation due to continued dysphagia. He is quite weak with noted difficulty even engaging with me during my encounter with him in the ER. Very soft-spoken, unable to perform his own ADLs. So far he has received a little over 2 L normal saline, unable to void which could be due to degree of dehydration. It seems that family is overwhelmed and unable to provide adequate care for him at this time given his continued clinical decompensation. Work-up so far indicates a white count of 12.2, normal hemoglobin and platelet count, noted hypokalemia with potassium of 3.1, normal renal function, hypocalcemia with a calcium of 7.6 which when corrected for hypoalbuminemia is 8.2, hypomagnesemia with a magnesium of 1.6. He is currently in the process of receiving replacement of electrolytes. LFTs other than ALT are normal, lactate is 2.2, serum ketones is positive which is likely due to poor oral intake. Blood pressure was initially low to low normal and seems to be responding to IV fluid hydration. Heart rate is in the 90s, he is requiring about 1 to 2 L nasal cannula with saturation at 97%. Chest x-ray is pending report. UA is pending. He will require further hydration, close monitoring of his hemodynamic status and evaluation for noted generalized weakness and physical deconditioning hence need for admission. Review of Systems Const: Reports: change in appetite (decreased appetite) and fatigue; Denies: fever(s) or chills Eyes: Denies: change in vision ENMT: Reports: dry mouth and other (Dysphasia with solids ); Denies: odynophagia Card: Reports: chest pain; Denies: swelling of feet/ankles or lightheadedness Resp: Denies: dyspnea or productive cough GI: Reports: nausea, vomiting and diarrhea; Denies: abdominal pain, hematemesis or hematochezia : Denies: dysuria, urinary frequency or hematuria Musc: Denies: back pain Skin/Breast: Denies: rash Neuro: Reports: weakness in extremities, difficulty walking, frequent falls and dizziness; Denies: numbness in extremities Psych: Denies: anxiety Medications/Allergies Home Medications Medication Instructions Recorded Confirmed Last Taken Type sucralfate 1 g PO QID 11/21/19 07/30/20 02/04/20 History folic acid 1 mg PO DAILY #30 tab 11/22/19 07/30/20 02/04/20 Rx nicotine 1 patch TRANSDERMA DAILY #30 each 11/22/19 07/30/20 Unknown Rx nicotine (polacrilex) 2 mg BUCCAL Q1H PRN #60 each 11/22/19 07/30/20 02/04/20 Rx ondansetron HCl [Zofran] 8 mg PO Q8H #42 tab 11/22/19 07/30/20 02/04/20 Rx pantoprazole 40 mg PO DAILY #30 tab 11/22/19 07/30/20 02/04/20 Rx albuterol sulfate 90 mcg/actuation 2 puff INHALATION Q6H PRN 11/28/19 07/30/20 02/03/20 History aerosol inhaler amitriptyline 10 mg tablet 10 mg PO BEDTIME 11/28/19 07/30/20 02/04/20 History cholecalciferol (vitamin D3) 1,250 50,000 unit PO .COMPLEX 11/28/19 07/30/20 01/30/20 History mcg (50,000 unit) capsule hydrocodone-acetaminophen 1 tab PO Q4H 01/08/20 07/30/20 02/04/20 History thiamine HCl (vitamin B1) 100 mg PO DAILY 01/08/20 07/30/20 01/14/20 History dexamethasone 4 mg PO BID 01/15/20 07/30/20 02/04/20 History albuterol sulfate [ProAir HFA] See Rx Instructions .ROUTE .COMPLEX 07/30/20 07/30/20 Unknown History hydroxyzine pamoate 50 mg PO QID PRN 07/30/20 07/30/20 Unknown History Allergies Allergy/AdvReac Type Severity Reaction Status Date / Time No Known Allergies Allergy Verified 01/08/20 16:12 PFSH Acute PFSH: Medical History Esophageal adenocarcinoma -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 Miranda -Has been on chemotherapy with carboplatin/paclitaxel (x 2 cycles) as well as radiation therapy (x 14 cycles) Hiatal hernia Port-A-Cath in place left subclavian - 01/16/20 Right tibial fracture Surgical History H/O esophagogastroduodenoscopy History of open reduction and internal fixation (ORIF) procedure Right LE Family History Father CAD (coronary artery disease) Father had a heart attack in his late 70s Cancer Unknown type Denies family history of Anesthesia complication Bleeding disorder Social History Smoking and tobacco status: current every day smoker cigarettes Quit status (tobacco): has tried quititng Second hand smoke exposure: Yes Alcohol intake: current Desire information about alcohol rehabilitation?: No Counseling given: Yes Desire information about substance/drug rehabilitation?: Yes Counseling given: Yes Adopted: No Caregiver/support person: Yes Lives independently: Yes Household members: spouse Housing: House Marital status: Number of children: 0 Highest education level completed: 8th Grade Current occupational status: disabled Current occupational exposures/hazards: No Pets and animals: Yes Pets & animals: dog(s) History of recent travel: No Leisure activites: hunting and fishing Sexually active: No Current gender identity: Male Lety/Yazdanism: Yazdanism Special lety needs: No Agree to transfusion: Yes Financial difficulty paying for basics: Decline to Answer Vitals/I&O/Wt Last Vital Signs Temp 97.7 F 07/30/20 18:31 Pulse 119 H 07/30/20 18:31 Resp 20 H 07/30/20 18:31 BP 92/69 07/30/20 18:31 Pulse Ox 94 07/30/20 18:31 07/30/20 07/30/20 07/30/20 06:59 14:59 22:59 Intake Total 1000 / 1000 Balance 1000 / 1000 Weight last 48 hrs Weight 40.823 kg Physical Exam Const: COMMON NORMALS: no acute distress, patient oriented x3 and alert GENERAL APPEARANCE: not in distress NUTRITIONAL APPEARANCE: cachectic ORIENTATION/CONSCIOUSNESS: Yes awake HENMT: COMMON NORMALS: normocephalic, atraumatic and hearing grossly normal bilaterally HEAD & SCALP: normocephalic and atraumatic MOUTH: moist mucous membranes abnormal Details: parched TEETH & GINGIVA: Yes edentulous Eye: COMMON NORMALS: Equal, round and reactive pupils present, EOMs intact bilaterally and conjunctivae normal CONJUNCTIVA: Yes conjunctivae normal PUPIL: Yes Equal, round and reactive pupils present Neck/C-Spine: COMMON NORMALS: full ROM GENERAL: Yes normal visual inspection and Yes trachea midline Resp: COMMON NORMALS: normal respiratory effort, No retractions, No use of accessory muscles and clear to auscultation bilaterally EFFORT & INSPECTION: Yes able to speak in complete sentences, Yes symmetric chest movement and No tachypneic AUSCULTATION: clear to auscultation bilaterally OTHER: -on 1.5 L NC Cardio: COMMON NORMALS: regular rhythm, S1 normal heart sound present, S2 normal heart sound present and No murmurs present (Cardio) RATE: tachycardic RHYTHM: regular rhythm HEART SOUNDS: S1 normal heart sound present and S2 normal heart sound present GI: COMMON NORMALS: Soft to palpation and non-tender INSPECTION: No abdominal distension and Yes scaphoid PALPATION: Yes Soft to palpation, No Tenderness to palpation present (GI), No Guarding due to palpation present (GI) and No Rigid due to palpation Extremity: COMMON NORMALS: normal to inspection, full ROM and no clubbing, cyanosis or edema; negative for no pedal edema Neuro: COMMON NORMALS: patient oriented x3, moves all extremities, no focal motor deficits and no sensory deficits noted OTHER: -Generally very weak Psych: COMMON NORMALS: mental status grossly normal, Normal thought process present, cooperative and normal affect SPEECH: Yes slow and Yes soft THOUGHT PROCESS: Normal thought process present Skin: COMMON NORMALS: no rashes or lesions noted, no jaundice, no petechiae and no mottling GENERAL SKIN EXAM: no rashes or lesions noted Data : 07/30/20 18:58 07/30/20 18:58 Micro: Microbiology 07/30/20 19:15 Blood Culture - Preliminary Blood SPECIMEN COLLECTED 07/30/20 18:58 Blood Culture - Preliminary Blood SPECIMEN COLLECTED A&P Assessment and plan (1) Generalized weakness: -Seems to have been gradually progressing particularly over the past 4 to 5 days with inability to stand or ambulate resulting in multiple falls -Quite cachectic appearing, with decreasing oral intake and known dysphagia with solids -Appears clinically dehydrated and overall quite deconditioned -Strict fall precautions -PT/OT evaluations in a.m. -noted leukocytosis, blood cx ordered, pending UA. No overt signs of infection though is immunocompromised at baseline so low threshold for this Status: Acute (2) Acute dehydration: -Noted to be clinically dehydrated with hypokalemia, hypocalcemia, hypomagnesemia -Electrolytes replaced in ER, repeat labs in a.m. 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 Miranda -off chemotherapy and radiation therapy; completed in 02/2020 -Per last oncology note (07/21) is pending EGD for evaluation of possible recurrence and possible dilation to improve dysphagia. Follow-up PET scan and recent CT scan of the neck/chest/abdomen done in 06/2020 showed no evidence of active disease but persistent distal esophageal wall thickening and edema, severe emphysema -Has had ongoing dysphagia particularly to solids Status: Chronic Additional A&P Information -COPD, not oxygen dependent at baseline; no acute exacerbation currently; supplemental oxygen as needed, Duonebs PRN -hx of EtOH use: unclear last use -hx of Crohn's disease -Chronic smoker -Cachexia and severe protein calorie malnutrition: BMI-15 kg/m2; supplement meals with Ensure -Physical deconditioning -full liquid diet for now, ST evaluation in AM -GI ppx with PPI -DVT ppx with lovenox -Dispo: may need placement as family unable to care adequately for him at this time -Code status: FULL code -guarded prognosis given overall deconditioning, cachexia Attestations Medical Necessity Statement*: Jaxon Hemanth Cosby's hospital stay will require greater than 2 midnights for management of generalized weakness, physical deconditioning, and clinical dehydration requiring IV fluid hydration and replacement of electrolytes. Time Spent in Patient Care: Greater than 35 minutes (>than 50% of time spent in counselling and/or direct pt care on unit). Coding Level of Care Code Acute Jewelry Drill Operator for Chg Fwd Diagnoses Generalized weakness R53.1 Acute dehydration E86.0 Esophageal adenocarcinoma C15.9
--- NOTE | 2020-07-30 21:32 | PC.NURSE ---
indwelling catheter and catheter sample offered to pt with Dr Ramos present. Pt refused stating pain for the reason. Pt offered to check status on urine sample in 30 min
[2020-07-30 21:39] LABS: Lactic Acid level (Lactate) 1.5 mmol/L (0.5-2.2)
[2020-07-30 21:42] LABS: Troponin 5 2HR 14.22 ng/L (0-15); Troponin 5 2HR Delta 1.22 ABS# (0-10)
[2020-07-31] VITALS (10 sets, daily range): BP systolic 109–143; BP diastolic 69–94; PULSE 84–107; RESP 14–18; TEMP 36.3–36.7; O2SAT 94–100
--- NOTE | 2020-07-31 00:41 | ECG_ITS ---
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 Measurements Intervals [place] Rate: 94 P: 46 NC: 132 QRS: 70 QRSD: 80 T: 60 QT: 347 QTc: 436 Interpretive Statements SINUS RHYTHM LOW QRS VOLTAGE IN EXTREMITY LEADS [QRS DEFLECTION < 0.5 mV IN LIMB LEADS] MODERATE T-WAVE ABNORMALITY, CONSIDER ANTERIOR ISCHEMIA [-0.1+ mV T WAVE IN V3/V4] Compared to ECG 07/30/2020 21:40:10 Low QRS voltage now present T-wave abnormality still present Possible ischemia still present Electronically Signed On 07-31-2020 20:24:29 CDT by Julisa Chang M.D. [id number]
[2020-07-31] MEDS: sodium chloride 0.9% 1,000 ML 75 ML IV ×2 (01:09→13:59)
[2020-07-31] MEDS: enoxaparin 30 mg/0.3 mL Syringe SUBCUT (01:09)
[2020-07-31 01:17] LABS: Troponin 5 6HR 12.04 ng/L (0-15)
--- NOTE | 2020-07-31 01:19 | PC.NURSE ---
ADMIT NOTE Pt received to floor from ER at 0040. Is alert and oriented. Denies pain. Says has just been very weak. Says has not been eating but says is because of poor appetite and nothing tastes good. Is very thin and looks emaciated. Thinks he has lost about 40lbs. Bilat SCD's . Redness to bony elbows and heels. IV fluids started at 75ml/hr via accessed port-a-cath to left chest. Also has PIID in left wrist. Does not remember when last urination was. ER reported pt adamantly refusing Singer or straight cath. Is aware of need to monitor I&O. court recording monitor applied
[2020-07-31 01:21] LABS: Troponin 5 6HR Delta -0.96 ng/L (0-12)
[2020-07-31 06:00] LABS: Basophils # 0.1 10^3/uL (0.0-0.1); Basophils % 0.6 %; Eosinophils # 0.1 10^3/uL (0.0-0.8); Eosinophils % 0.6 %; Hematocrit 34.1 % (42.0-52.0); Hemoglobin 11.5 g/dL (11.7-16.6); Lymphocytes # 0.5 10^3/uL (0.8-4.8); Mean Corpuscular HGB Conc 33.7 g/dL (30.0-36.0); Mean Corpuscular Hemoglobin 32.9 pg (28.0-34.0); Mean Corpuscular Volume 97.4 fL (80-94); Mean Platelet Volume 11.8 fL (7.4-10.4); Monocytes # 0.9 10^3/uL (0.2-0.9); Monocytes % 10.4 %; Neutrophils # 7.33 10^3/uL (1.8-7.7); Neutrophils % 80.7 %; Nucleated Red Blood Cells % 0 %; Platelet Count 142 10^3/cmm (130-400); Red Cell Distribution Width 13.7 % (12.1-15.1); White Blood Count 9.1 10^3/uL (4.0-10.0)
[2020-07-31 06:37] LABS: Anion Gap 10.8 (5-19); Blood Urea Nitrogen 8 mg/dL (6-20); Calcium 7.8 mg/dL (8.5-10.5); Carbon Dioxide 24 mmol/L (22-29); Chloride 103 mmol/L (98-107); Glucose 97 mg/dL (65-115); Osmolality Calculated 274 mOsm/kg (285-295); Potassium 3.8 mmol/L (3.5-5.1); Sodium 134 mmol/L (136-145)
[2020-07-31] MEDS: pantoprazole DR 40 mg Tablet PO (08:08)
[2020-07-31] MEDS: folic acid 1 mg Tablet PO (08:08)
[2020-07-31] MEDS: sucralfate 1 gm Tablet PO ×4 (08:08→21:11)
[2020-07-31] MEDS: dexamethasone 4 mg Tablet PO ×2 (08:08→17:27)
[2020-07-31] MEDS: nicotine 21 mg Patch 1 PATCH TRANSDERMA (08:08)
--- NOTE | 2020-07-31 11:00 | PC.CHAP ---
Pastoral Care Encounter/Spiritual Assessment Type of Contact [] Declined tube coverer visit [] Patient/Family/Request visit [] Outpatient visit [x] Follow-up visit [] Physician referral [] Code/Alert [] Routine visit [] Staff referral [] Actively dying [x] Patient sleeping [] Family support [] [] Out of room [] Palliative care [] [] Receiving care in room [] Pre-surgical visit [] Trauma [] Long length of stay [] ICU visit [] Other: Relational/Emotional Strength [] Patient feels connected with others/family/visitors/staff [] Distress [] Loneliness/isolation [] Abandonment Spirituality of Patient [] Person of Lety [] Attends Jewish of their Lety [] Believes in Prayer [] Reads Bible or Gnosticist materials [] There are Spiritual issues to be addressed [place] Administrator Interventions [] Prayer [] Active listening [] Non-anxious presence [] Spiritual/emotional support [] Crisis/trauma care [] Spiritual counseling [] Bereavement support [] Provided bereavement packet [] Provided Bible/devotional materials [] Provided toy/stuffed animal, coloring book to patient or family member [] Provided Communion [] Anointing/[place] [] Salvation [] Completed spiritual assessment [] Other: Impact on Illness or Injury [] Angry [] Fearful [] Anxious [] Often cries [] Exhaustion [] Unable to work [] Unable to attend zoroastrianism [] Unable to walk/stand [] Unable to read [] Unable to drive [] Unable to eat/drink [] Unable to sleep [] Unable to be with family [] Patient intubated [] Other: Summary Patient sleeping Time spent with patient 5 mins
[2020-07-31] MEDS: HYDROcodone-acetaminophen 7.5-325 mg Tablet 1 TAB PO ×2 (11:12→17:27)
--- NOTE | 2020-07-31 11:25 | PM.PN ---
Subjective Subjective: Interval history: History and physical reviewed. Patient reports significant swallowing difficulties with anything that is not liquid. Reviewed hematology oncology notes regarding plan for EGD with dilation. Discussed briefly with patient PEG tube. He reported he was trying to avoid this currently. Vitals/I&O/Wt Last Vital Signs Temp 97.4 F L 07/31/20 07:52 Pulse 89 07/31/20 09:20 Resp 16 07/31/20 09:20 BP 109/73 07/31/20 07:52 Pulse Ox 94 07/31/20 09:20 07/30/20 07/31/20 07/31/20 22:59 06:59 14:59 Intake Total 1000 / 1000 180 / 1180 240 / 240 Output Total 300 / 300 Balance 1000 / 1000 -120 / 880 240 / 240 Weight last 48 hrs Weight 42.184 kg Weight 42.184 kg Weight 40.823 kg Physical Exam Narrative: EXAM NARRATIVE: General exam no apparent distress, cachectic appearing Cardiovascular regular rate and rhythm, without murmur Lungs clear Abdomen is soft nontender with positive bowel sounds. No obvious organomegaly Extremities no cyanosis clubbing or edema Data : 07/31/20 05:35 07/31/20 05:35 Micro: Microbiology 07/30/20 19:15 Blood Culture - Preliminary Blood SPECIMEN COLLECTED 07/30/20 18:58 Blood Culture - Preliminary Blood SPECIMEN COLLECTED A&P Assessment and plan (1) Generalized weakness: Appears to be secondary to generalized deconditioning and poor oral intake PT, OT evaluations Has significant protein calorie malnutrition, moderate to severe with low BMI of 15 Status: Acute (2) Acute dehydration: Resolved with rehydration Status: Acute (3) Esophageal adenocarcinoma: No evidence of recurrence per last PET scan Has significant dysphasia. Oncology has planned EGD to rule out any local recurrence of esophageal cancer as well as possible dilation to improve dysphagia Secondary to this we will consult surgery for possible EGD Discussed with patient possibility of PEG tube and he will think about this but did not give consent currently. Status: Chronic Additional A&P Information COPD. No evidence of exacerbation currently. History of Crohn's disease History of alcohol use Tobacco dependency Full code Lovenox for DVT prophylaxis May need nursing facility placement. Attestations Medical Necessity Statement*: Needs continued hospitalization secondary to dysphasia and inability to take adequate amount of calories orally. Discharge currently would lead to rehospitalization within 24 to 48 hours. Coding Level of Care Code Acute Loan Interviewer Mortgage for Chg Fwd Diagnoses Generalized weakness R53.1 Acute dehydration E86.0 Esophageal adenocarcinoma C15.9
--- NOTE | 2020-07-31 11:54 | PM.CONSULT ---
Providers/Reason For Consult Consulting Physican/Specialty*: Dr. Gonzalez Reason for Consult*: Dysphagia Attending Physician: Pedro Luis Gonzalez MD Primary Care Provider: Belkys Harris History of Present Illness History of Present Illness Jaxon Cosby is a 59 year old male with stage IV adenocarcinoma of the distal esophagus status post chemoradiation. Patient has been complaining of poor oral intake difficulty swallowing especially solids and overall weakness and weight loss over the last couple of months. He had finished his chemoradiation in February 2020. Patient denies any chest pain, nausea, vomiting, hematemesis or black stools Review of Systems General: Reports: 10 or more systems reviewed and unremarkable except in HPI and below Meds/Allergies Home Medications and Allergies Home Medications Medication Instructions Recorded Confirmed Last Taken Type sucralfate 1 g PO QID 11/21/19 07/30/20 02/04/20 History folic acid 1 mg PO DAILY #30 tab 11/22/19 07/30/20 02/04/20 Rx nicotine 1 patch TRANSDERMA DAILY #30 each 11/22/19 07/30/20 Unknown Rx nicotine (polacrilex) 2 mg BUCCAL Q1H PRN #60 each 11/22/19 07/30/20 02/04/20 Rx ondansetron HCl [Zofran] 8 mg PO Q8H #42 tab 11/22/19 07/30/20 02/04/20 Rx pantoprazole 40 mg PO DAILY #30 tab 11/22/19 07/30/20 02/04/20 Rx albuterol sulfate 90 mcg/actuation 2 puff INHALATION Q6H PRN 11/28/19 07/30/20 02/03/20 History aerosol inhaler amitriptyline 10 mg tablet 10 mg PO BEDTIME 11/28/19 07/30/20 02/04/20 History cholecalciferol (vitamin D3) 1,250 50,000 unit PO .COMPLEX 11/28/19 07/30/20 01/30/20 History mcg (50,000 unit) capsule hydrocodone-acetaminophen 1 tab PO Q4H 01/08/20 07/30/20 02/04/20 History thiamine HCl (vitamin B1) 100 mg PO DAILY 01/08/20 07/30/20 01/14/20 History dexamethasone 4 mg PO BID 01/15/20 07/30/2020 History albuterol sulfate [ProAir HFA] See Rx Instructions .ROUTE .COMPLEX 07/30/20 07/30/20 Unknown History hydroxyzine pamoate 50 mg PO QID PRN 07/30/20 07/30/20 Unknown History Allergies Allergy/AdvReac Type Severity Reaction Status Date / Time No Known Allergies Allergy Verified 01/08/20 16:12 Current Medications Current Medications Generic Name Dose Route Start Last Admin Trade Name Freq PRN Reason Stop Dose Admin Hydrocodone Bitart/Acetaminophen 1 tab 07/31/20 00:44 07/31/20 11:12 [place] 7.5-325 Mg PO 1 tab Q4H PRN Administration MODERATE TO SEVERE PAIN Amitriptyline HCl 10 mg 07/31/20 00:44 07/31/20 01:09 Elavil PO 10 mg BEDTIME DAVIS Administration Dexamethasone 4 mg 07/31/20 09:00 07/31/20 08:08 Decadron PO 4 mg BID DAVIS Administration Enoxaparin Sodium 30 mg 07/31/20 01:00 07/31/20 01:09 Lovenox SUBCUT 30 mg Q24H DAVIS Administration Folic Acid 1 mg 07/31/20 09:00 07/31/20 08:08 Folic Acid PO 1 mg DAILY DAVIS Administration Sodium Chloride 1,000 mls @ 75 mls/hr 07/31/20 00:44 07/31/20 01:09 Sodium Chloride 0.9% IV 75 mls/hr .[id number] DAVIS Administration Nicotine 1 patch 07/31/20 09:00 07/31/20 08:08 Nicoderm 21 Mg Patch TRANSDERMA 1 patch DAILY DAVIS Administration Pantoprazole Sodium 40 mg 07/31/20 09:00 07/31/20 08:08 Protonix PO 40 mg DAILY DAVIS Administration Sucralfate 1 gm 07/31/20 09:00 07/31/20 08:08 Carafate PO 1 gm QID DAVIS Administration PFSH Acute PFSH: Medical History Esophageal adenocarcinoma Hiatal hernia Port-A-Cath in place left subclavian - 01/16/20 Right tibial fracture Surgical History H/O esophagogastroduodenoscopy History of open reduction and internal fixation (ORIF) procedure Right LE Family History Father CAD (coronary artery disease) Father had a heart attack in his late 70s Cancer Unknown type Denies family history of Anesthesia complication Bleeding disorder Social History Smoking and tobacco status: current every day smoker cigarettes Quit status (tobacco): has tried quititng Second hand smoke exposure: Yes Alcohol intake: current Desire information about alcohol rehabilitation?: No Counseling given: Yes Desire information about substance/drug rehabilitation?: Yes Counseling given: Yes Adopted: No Caregiver/support person: Yes Lives independently: Yes Household members: spouse Housing: House Marital status: Number of children: 0 Highest education level completed: 8th Grade Current occupational status: disabled Current occupational exposures/hazards: No Pets and animals: Yes Pets & animals: dog(s) History of recent travel: No Leisure activites: hunting and fishing Sexually active: No Current gender identity: Male Lety/Baptism: Rastafari Special lety needs: No Agree to transfusion: Yes Financial difficulty paying for basics: Decline to Answer Vitals/I&O/Wt Last Vital Signs Temp 97.5 F L 07/31/20 11:38 Pulse 92 07/31/20 11:38 Resp 16 07/31/20 11:38 BP 135/69 07/31/20 11:38 Pulse Ox 95 07/31/20 11:38 07/30/20 07/31/20 07/31/20 22:59 06:59 14:59 Intake Total 1000 / 1180 180 / 1180 240 / 240 Output Total 300 / 300 Balance 1000 / 880 -120 / 880 240 / 240 Weight last 48 hrs Weight 93 lb Weight 93 lb Weight 90 lb Physical Exam Narrative: EXAM NARRATIVE: HEENT: Normocephalic Eye: Sclera /conjunctiva normal Chest: Port-A-Cath left chest wall Constitutional: Cachectic Abdomen: Soft to palpation Neurological: Oriented to place person and time Skin: Intact, no lesions appreciated on gross exam Data Micro: Micro: Microbiology 07/30/20 19:15 Blood Culture - Pr eliminary Blood SPECIMEN [place] ZULLY 07/30/20 18:58 Blood Culture - Pr eliminary Blood SPECIMEN [facility] ZULL[facility] A&P Assessment and plan (1) Dysphagia: 59-year-old gentleman with stage IV adenocarcinoma the distal esophagus was now developed worsening dysphagia status post chemoradiation. Patient is agreeable to EGD, I am concerned that I may not be able to dilate if it is recurrence or scarring secondary to radiation and the next best option would be to place a gastrostomy tube at the same time. Patient is not sure whether he wants to undergo gastrostomy placement and will think about it and let us know as to what he wants to do later today. I will keep him n.p.o. after midnight with the plan for possible EGD, dilation and potential gastrostomy tube placement Status: Acute Coding Level of Care Code Acute Guide Dog Mobility Instructor for [facility] Fwd Diagnoses Dysphagia R13.10
--- NOTE | 2020-07-31 13:37 | PC.RESP ---
Smoking Cessation information and a schedule of classes sent to patient.
[2020-07-31 14:53] LABS: Urine Appearance Clear (CLEAR); Urine Color Brown (Yellow)
[2020-07-31 14:54] LABS: Bilirubin Urine 1+ (Negative); Blood Urine Neg (Negative); Glucose Urine UA Norm (Normal); Ketones Urine 1+ (Negative); Leukocyte Esterase Urine Negative (Negative); Nitrate Urine Negative (Negative); Protein Urine Neg (Negative); Urobilinogen Urine 4+ mg/dL (Negative); pH Urine 5 (5-7)
[2020-07-31 15:09] LABS: Add Urine Culture? No
[2020-08-01] VITALS (15 sets, daily range): BP systolic 95–137; BP diastolic 64–85; PULSE 66–90; RESP 14–18; TEMP 36.2–36.9; O2SAT 92–99
[2020-08-01] MEDS: enoxaparin 30 mg/0.3 mL Syringe SUBCUT (02:36)
[2020-08-01 05:33] LABS: Basophils % 0.3 %; Hematocrit 32.2 % (42.0-52.0); Hemoglobin 10.9 g/dL (11.7-16.6); Lymphocytes # 0.4 10^3/uL (0.8-4.8); Lymphocytes % 5.3 %; Mean Corpuscular HGB Conc 33.9 g/dL (30.0-36.0); Mean Corpuscular Volume 97.6 fL (80-94); Mean Platelet Volume 11.6 fL (7.4-10.4); Monocytes # 0.2 10^3/uL (0.2-0.9); Monocytes % 3.2 %; Neutrophils # 6.37 10^3/uL (1.8-7.7); Neutrophils % 89.2 %; Nucleated Red Blood Cells % 0.3 %; Platelet Count 131 10^3/cmm (130-400); White Blood Count 7.1 10^3/uL (4.0-10.0)
[2020-08-01] MEDS: sodium chloride 0.9% 1,000 ML 75 ML IV (05:49)
[2020-08-01 05:59] LABS: Anion Gap 12.7 (5-19); Blood Urea Nitrogen 8 mg/dL (6-20); Calcium 7.6 mg/dL (8.5-10.5); Carbon Dioxide 20 mmol/L (22-29); Chloride 104 mmol/L (98-107); Glucose 109 mg/dL (65-115); Osmolality Calculated 270 mOsm/kg (285-295); Potassium 4.7 mmol/L (3.5-5.1); Sodium 132 mmol/L (136-145)
--- NOTE | 2020-08-01 06:37 | PM.PN ---
Subjective Subjective: Interval history: No issues overnight Vitals/I&O/Wt Last Vital Signs Temp 97.6 F 08/01/20 04:00 Pulse 73 08/01/20 04:00 Resp 15 08/01/20 04:00 BP 105/66 08/01/20 04:00 Pulse Ox 97 08/01/20 04:00 07/31/20 07/31/20 08/01/20 14:59 22:59 06:59 Intake Total 1202.5 / 2372.5 170 / 2372.5 1000 / 2372.5 Output Total 550 / 950 400 / 950 Balance 1202.5 / 1422.5 -380 / 1422.5 600 / 1422.5 Weight last 48 hrs Weight 103 lb Weight 93 lb Weight 93 lb Weight 90 lb Physical Exam Narrative: EXAM NARRATIVE: Abdomen: Soft Data : 08/01/20 05:12 08/01/20 05:12 Micro: Microbiology 07/30/20 19:15 Blood Culture - Preliminary Blood NEGATIVE TO DATE 07/30/20 18:58 Blood Culture - Preliminary Blood NEGATIVE TO DATE A&P Assessment and plan (1) Dysphagia: 59-year-old gentleman with stage IV esophageal cancer status post chemoradiation with dysphagia. Plan for EGD, possible biopsy, possible dilation and feeding tube placement Status: Acute Attestations Medical Necessity Statement*: Stage IV esophageal cancer Coding Level of Care Code Acute Lining Feller Blindstitch for Chg Fwd Diagnoses Dysphagia R13.10
--- NOTE | 2020-08-01 06:53 | ANES.PREANE2 ---
Pre-Anesthetic Assessment Pre-Anesthetic Assessment: Height/Weight: Height 1.68 m Weight 46.72 kg Temp Pulse Resp BP Pulse Ox 98.4 F 75 16 95/64 94 08/01/20 06:39 08/01/20 06:39 08/01/20 06:39 08/01/20 06:39 08/01/20 06:39 Preop Diagnosis: Esophageal cancer Proposed Procedure: Operation Date: 08/01/20 07:00 Proposed Procedures p EGD possible dilation(Not Applicable) - Luciano Perrin MD s PEG Tube Insertion(Not Applicable) - Luciano Perrin MD Familial anesthetic complications: none Was Beta Craig taken within 24 hours: N/A Last intake: NPO > 8 hrs (last night) Social: Social History: Alcohol and Tobacco Comment: Marijuana Exam: Pre-Anes Outpt Exam: alert, oriented x 3, clear to auscultation bilaterally and regular rate & rhythm Airway: Cervical ROM: WNL MP: 2 Dentition: False Pulmonary: Pulmonary: COPD (2 L NC with activity) CV/HEM: CV/HEM: None reported : : None reported Hepatic: Hepatic: None reported GI: GI: GERD Anesthetic Plan: ASA status: 4 Anesthesia: MAC Risk of > 500 ml blood loss (7ml/kg in children): No Meds/Allergies Current Medications: Current Medications Generic Name Dose Route Start Last Admin Trade Name Freq PRN Reason Stop Dose Admin Hydrocodone Bitart /Acetaminophen 1 tab 07/31/20 00:44 07/31/20 17:27 Bartlett 7.5-325 Mg PO 1 tab Q4H PRN Administration MODERATE TO SEVER E PAIN Amitriptyline HCl 10 mg 07/31/20 00:44 07/31/20 21:11 Elavil PO 10 mg BEDTIME DAVIS Administration Dexamethasone 4 mg 07/31/20 09:00 07/31/20 17:27 Decadron PO 4 mg BID DAVIS Administration Enoxaparin Sodium 30 mg 07/31/20 01:00 08/01/20 02:36 Lovenox SUBCUT 30 mg Q24H DAVIS Administration Folic Acid 1 mg 07/31/20 09:00 07/31/20 08:08 Folic Acid PO 1 mg DAILY DAVIS Administration Sodium Chloride 1,000 mls @ 75 ml s/hr 07/31/20 00:44 08/01/20 05:49 Sodium Chloride 0.9% IV 75 mls/hr .[id number] DAVIS Administration Sodium Chloride 1,000 mls @ 30 ml s/hr 07/31/20 18:00 07/31/20 21:09 Sodium Chloride 0.9% IV 08/01/20 17:59 Not Given .Q24H ONE Nicotine 1 patch 07/31/20 09:00 07/31/20 08:08 Nicoderm 21 Mg P atch TRANSDERMA 1 patch DAILY DAVIS Administration Pantoprazole Sodiu m 40 mg 07/31/20 09:00 07/31/20 08:08 Protonix PO 40 mg DAILY DAVIS Administration Sucralfate 1 gm 07/31/20 09:00 07/31/20 21:11 Carafate PO 1 gm QID DAVIS Administration PFSH Anesthesia PFSH: Medical History Esophageal adenocarcinoma Hiatal hernia Port-A-Cath in place left subclavian - 01/16/20 Right tibial fracture Surgical History H/O esophagogastroduodenoscopy History of open reduction and internal fixation (ORIF) procedure Right LE Family History Father CAD (coronary artery disease) Father had a heart attack in his late 70s Cancer Unknown type Denies family history of Anesthesia complication Bleeding disorder Social History Smoking and tobacco status: current every day smoker cigarettes Quit status (tobacco): has tried quititng Second hand smoke exposure: Yes Alcohol intake: current Desire information about alcohol rehabilitation?: No Counseling given: Yes Desire information about substance/drug rehabilitation?: Yes Counseling given: Yes Adopted: No Caregiver/support person: Yes Lives independently: Yes Household members: spouse Housing: House Marital status: Number of children: 0 Highest education level completed: 8th Grade Current occupational status: disabled Current occupational exposures/hazards: No Pets and animals: Yes Pets & animals: dog(s) History of recent travel: No Leisure activites: hunting and fishing Sexually active: No Current gender identity: Male Lety/Sikh: Protestant Special lety needs: No Agree to transfusion: Yes Financial difficulty paying for basics: Decline to Answer Data Anesthesia CBC & Chem 7: 08/01/20 05:12 08/01/20 05:12 Other Labs: Laboratory Results - last 48 hr 07/30/20 07/30/20 07/30/20 18:58 18:58 18:58 WBC 12.2 H RBC 4.02 L Hgb 13.3 Hct 39.0 L MCV 97.0 H MCH 33.1 MCHC 34.1 RDW 13.5 Plt Count 154 MPV 11.9 H Neut % (Auto) 85.7 Lymph % (Auto) 3.2 Anson % (Auto) 8.9 Eos % (Auto) 0.2 Baso % (Auto) 0.8 Neut # (Auto) 10.44 H Lymph # (Auto) 0.4 L Anson # (Auto) 1.1 H Eos # (Auto) 0.0 Baso # (Auto) 0.1 Nucleated RBC % (auto) 0 Nucleated RBCs # 0.0 PT 13.60 INR 1.01 Specimen Type Sample Site ABG pH ABG pCO2 ABG pO2 ABG HCO3 ABG Base Excess Jere Test Hematocrit O2 Delivery Device O2 Liters/Min Sewing Department Supervisor ID Sodium 134 L Potassium 3.1 L Chloride 95 L Carbon Dioxide 24 Anion Gap 18.1 BUN 10 Creatinine 0.4 L GFR Calculation 221.7 H Glucose 121 H Calculated Osmolality 275 L Lactic Acid Lactic Acid (Sepsis) Calcium 7.6 L Magnesium 1.6 L Total Bilirubin 0.9 AST 17 ALT 55 H Alkaline Phosphatase 77 Creatine Kinase 94 Troponin T Baseline Troponin T 120 Minute Delta Troponin T Troponin T Hi Sens 6Hr Troponin T Hi Sens 6Hr Delta Total Protein 5.8 L Albumin 2.4 L Globulin 3.4 Urine Color Urine Appearance Urine pH Ur Specific [place] Urine Protein Urine Glucose (UA) Urine Ketones Urine Blood Urine Nitrate Urine Bilirubin Urine Urobilinogen Ur Leukocyte Esterase Urine RBC Urine WBC Ur Squamous Epith Cells Ur Transition Epith Cell Amorphous Sediment Urine Bacteria Serum Ketones Positive H 07/30/20 07/30/20 07/30/20 18:58 18:58 19:15 WBC RBC Hgb Hct MCV MCH MCHC RDW Plt Count MPV Neut % (Auto) Lymph % (Auto) Anson % (Auto) Eos % (Auto) Baso % (Auto) Neut # (Auto) Lymph # (Auto) Anson # (Auto) Eos # (Auto) Baso # (Auto) Nucleated RBC % (auto) Nucleated RBCs # PT INR Specimen Type Arterial Sample Site Radial, right ABG pH 7.46 H ABG pCO2 38.3 ABG pO2 86.3 ABG HCO3 27.3 H ABG Base Excess 3.3 H Jere Test Pos Hematocrit 34.9 L O2 Delivery Device Nc O2 Liters/Min 1.5 Sewing Department Supervisor ID Jlg Sodium Potassium Chloride Carbon Dioxide Anion Gap BUN Creatinine GFR Calculation Glucose Calculated Osmolality Lactic Acid 2.2 Lactic Acid (Sepsis) Calcium Magnesium Total Bilirubin AST ALT Alkaline Phosphatase Creatine Kinase Troponin T Baseline 13 Troponin T 120 Minute Delta Troponin T Troponin T Hi Sens 6Hr Troponin T Hi Sens 6Hr Delta Total Protein Albumin Globulin Urine Color Urine Appearance Urine pH Ur Specific [place] Urine Protein Urine Glucose (UA) Urine Ketones Urine Blood Urine Nitrate Urine Bilirubin Urine Urobilinogen Ur Leukocyte Esterase Urine RBC Urine WBC Ur Squamous Epith Cells Ur Transition Epith Cell Amorphous Sediment Urine Bacteria Serum Ketones 07/30/20 07/30/20 07/31/20 21:18 21:18 00:50 WBC RBC Hgb Hct MCV MCH MCHC RDW Plt Count MPV Neut % (Auto) Lymph % (Auto) Anson % (Auto) Eos % (Auto) Baso % (Auto) Neut # (Auto) Lymph # (Auto) Anson # (Auto) Eos # (Auto) Baso # (Auto) Nucleated RBC % (auto) Nucleated RBCs # PT INR Specimen Type Sample Site ABG pH ABG pCO2 ABG pO2 ABG HCO3 ABG Base Excess Jere Test Hematocrit O2 Delivery Device O2 Liters/Min Sewing Department Supervisor ID Sodium Potassium Chloride Carbon Dioxide Anion Gap BUN Creatinine GFR Calculation Glucose Calculated Osmolality Lactic Acid Lactic Acid (Sepsis) 1.5 Calcium Magnesium Total Bilirubin AST ALT Alkaline Phosphatase Creatine Kinase Troponin T Baseline Troponin T 120 Minute 14.22 Delta Troponin T 1.22 Troponin T Hi Sens 6Hr 12.04 Troponin T Hi Sens 6Hr Delta -0.96 L Total Protein Albumin Globulin Urine Color Urine Appearance Urine pH Ur Specific [place] Urine Protein Urine Glucose (UA) Urine Ketones Urine Blood Urine Nitrate Urine Bilirubin Urine Urobilinogen Ur Leukocyte Esterase Urine RBC Urine WBC Ur Squamous Epith Cells Ur Transition Epith Cell Amorphous Sediment Urine Bacteria Serum Ketones 07/31/20 07/31/20 07/31/20 05:35 05:35 14:10 WBC 9.1 RBC 3.50 L Hgb 11.5 L Hct 34.1 L MCV 97.4 H MCH 32.9 MCHC 33.7 RDW 13.7 Plt Count 142 MPV 11.8 H Neut % (Auto) 80.7 Lymph % (Auto) 6.0 Anson % (Auto) 10.4 Eos % (Auto) 0.6 Baso % (Auto) 0.6 Neut # (Auto) 7.33 Lymph # (Auto) 0.5 L [place]son # (Auto) 0.9 Eos # (Auto) 0.1 Baso # (Auto) 0.1 Nucleated RBC % (auto) 0 Nucleated RBCs # 0.0 PT INR Specimen Type Sample Site ABG pH ABG pCO2 ABG pO2 ABG HCO3 ABG Base Excess Jere Test Hematocrit O2 Delivery Device O2 Liters/Min Sewing Department Supervisor ID Sodium 134 L Potassium 3.8 Chloride 103 Carbon Dioxide 24 Anion Gap 10.8 BUN 8 Creatinine 0.3 L GFR Calculation 309.0 H Glucose 97 Calculated Osmolality 274 L Lactic Acid Lactic Acid (Sepsis) Calcium 7.8 L Magnesium 2.0 Total Bilirubin AST ALT Alkaline Phosphatase Creatine Kinase Troponin T Baseline Troponin T 120 Minute Delta Troponin T Troponin T Hi Sens 6Hr Troponin T Hi Sens 6Hr Delta Total Protein Albumin Globulin Urine Color Brown Urine Appearance Clear Urine pH 5 Ur Specific [place] 1.020 Urine Protein Neg Urine Glucose (UA) Norm Urine Ketones 1+ H Urine Blood Neg Urine Nitrate Negative Urine Bilirubin 1+ H Urine Urobilinogen 4+ H Ur Leukocyte Esterase Negative Urine RBC None Urine WBC None Ur Squamous Epith Cells None Ur Transition Epith Cell None Amorphous Sediment Not Reportable Urine Bacteria None Serum Ketones 08/01/20 08/01/20 05:12 05:12 WBC 7.1 RBC 3.30 L Hgb 10.9 L Hct 32.2 L MCV 97.6 H MCH 33.0 MCHC 33.9 RDW 14.0 Plt Count 131 MPV 11.6 H Neut % (Auto) 89.2 Lymph % (Auto) 5.3 Anson % (Auto) 3.2 Eos % (Auto) 0.0 Baso % (Auto) 0.3 Neut # (Auto) 6.37 Lymph # (Auto) 0.4 L [place]son # (Auto) 0.2 Eos # (Auto) 0.0 Baso # (Auto) 0.0 Nucleated RBC % (auto) 0.3 Nucleated RBCs # 0.0 PT INR Specimen Type Sample Site ABG pH ABG pCO2 ABG pO2 ABG HCO3 ABG Base Excess Jere Test Hematocrit O2 Delivery Device O2 Liters/Min Sewing Department Supervisor ID Sodium 132 L Potassium 4.7 Chloride 104 Carbon Dioxide 20 L Anion Gap 12.7 BUN 8 Creatinine 0.3 L GFR Calculation 309.0 H Glucose 109 Calculated Osmolality 270 L Lactic Acid Lactic Acid (Sepsis) Calcium 7.6 L Magnesium Total Bilirubin AST ALT Alkaline Phosphatase Creatine Kinase Troponin T Baseline Troponin T 120 Minute Delta Troponin T Troponin T Hi Sens 6Hr Troponin T Hi Sens 6Hr Delta Total Protein Albumin Globulin Urine Color Urine Appearance Urine pH Ur Specific [place] Urine Protein Urine Glucose (UA) Urine Ketones Urine Blood Urine Nitrate Urine Bilirubin Urine Urobilinogen Ur Leukocyte Esterase Urine RBC Urine WBC Ur Squamous Epith Cells Ur Transition Epith Cell Amorphous Sediment Urine Bacteria Serum Ketones Micro: Microbiology 07/30/20 19:15 Blood Culture - Preliminary Blood NEGATIVE TO DATE 07/30/20 18:58 Blood Culture - Preliminary Blood NEGATIVE TO DATE Cardiac Studies: No Data to Display
[2020-08-01] MEDS: sodium chloride 0.9% 1,000 ML 30 ML IV (07:02)
--- NOTE | 2020-08-01 07:50 | ANE.PACU2 ---
Inpatient post-anesthesia follow up: Airway intact: Yes Vital signs: Temperature 97.7 F Pulse Rate [Monito r] 119 Pulse Rate 74 Respiratory Rate 16 Blood Pressure [Ri ght Arm] 92/69 Blood Pressure 119/74 Pulse Oximetry 96 Oxygen Delivery Me thod Nasal Cannula Oxygen Flow Rate 1 Fraction of Inspir ed Oxygen Hydration adequate: Yes Nausea and vomiting: No Pain level: 1 Mental status: Baseline
--- NOTE | 2020-08-01 08:24 | SUR.PHASEI ---
0758 pt to floor PT AWAKE ALERT DENIES PAIN AND NAUSEA DOBHOFF TO LT NARE TAPED SECURELY AND CLAMPED DRESSING TO LT UPPER ABD D/I 0805 PT TO ROOM MOVED TO BED BY 3 , PT ALERT AND NOW C/O OF SOME PAIN , PT DID NOT GIVE NUMBER PT REPOSITIONED TO COMFORT NURSE VICTORINA RN NOTIFIED.
--- NOTE | 2020-08-01 09:49 | P.PN_ITS ---
Subjective Subjective: Interval history: And was examined today in the morning after he came from the EGD and failed PEG tube placement. As per the communication of the nurse with Dr. Perrin patient has been started on clear liquid. Dobbhoff tube has been placed. Vitals are stable. Labs have been reviewed. Medications have been reviewed. Patient seems to be in moderate distress. Vitals/I&O/Wt Last Vital Signs Temp 97.7 F 08/01/20 08:52 Pulse 73 08/01/20 08:52 Resp 16 08/01/20 08:52 BP 122/80 08/01/20 08:52 Pulse Ox 97 08/01/20 08:52 07/31/20 08/01/20 08/01/20 22:59 06:59 14:59 Intake Total 170 / 1372.5 1000 / 2372.5 Output Total 550 / 550 400 / 950 Balance -380 / 822.5 600 / 1422.5 Weight last 48 hrs Weight 46.72 kg Weight 42.184 kg Weight 42.184 kg Weight 40.823 kg Physical Exam Const: COMMON NORMALS: patient oriented x3 HENMT: COMMON NORMALS: normocephalic, atraumatic, hearing grossly normal bilaterally and external ears normal HEAD & SCALP: normocephalic and atraumatic EXTERNAL EAR: Yes external ears normal Eye: COMMON NORMALS: no scleral icterus GENERAL EYE: appearance normal, both eyes and all related structures Chest: COMMONS NORMALS: normal inspection of the chest and normal palpation of entire chest wall CHEST: Yes Symmetrical chest wall rise Resp: COMMON NORMALS: normal respiratory effort, No retractions and No use of accessory muscles EFFORT & INSPECTION: Yes symmetric chest movement OTHER: Decreased air entry bilateral entry bilaterally. No wheezing no rhonchi no crackles. Cardio: COMMON NORMALS: regular rate, regular rhythm, S1 normal heart sound present, S2 normal heart sound present, No gallops present (Cardio), No murmurs present (Cardio), No rub (Cardio) and Peripheral pulses 2+ throughout RATE: regular rate RHYTHM: regular rhythm HEART SOUNDS: S1 normal heart sound present and S2 normal heart sound present PERIPHERAL PULSES: Peripheral pulses 2+ throughout GI: COMMON NORMALS: Normal to inspection, nondistended, normoactive bowel sounds present, Soft to palpation, non-tender, No hepatosplenomegaly present and no masses AUSCULTATION: Yes normoactive bowel sounds PALPATION: Yes Soft t o palpation and Yes No hepatosplenomegaly present RECTAL EXAM: Yes deferred OTHER: Failed PEG tube site is clean no leak no discharge. Extremity: COMMON NORMALS: no clubbing, cyanosis or edema and no pedal edema Neuro: COMMON NORMALS: patient oriented x3 Data : 08/01/20 05:12 08/01/20 05:12 Micro: Microbiology 07/30/20 19:15 Blood Culture - Preliminary Blood NEGATIVE TO DATE 07/30/20 18:58 Blood Culture - Preliminary Blood NEGATIVE TO DATE A&P Assessment and plan (1) Generalized weakness: Appears to be secondary to generalized deconditioning and poor oral intake PT, OT evaluations Has significant protein calorie malnutrition, moderate to severe with low BMI of 15 Status: Acute (2) Acute dehydration: Resolved with rehydration Status: Acute (3) Esophageal adenocarcinoma: No evidence of recurrence per last PET scan Has significant dysphasia. Oncology has planned EGD to rule out any local recurrence of esophageal cancer as well as possible dilation to improve dysphagia Secondary to this we will consult surgery for possible EGD Discussed with patient possibility of PEG tube and he will think about this but did not give consent currently. Status: Chronic Additional A&P Information COPD. No evidence of exacerbation currently. History of Crohn's disease History of alcohol use Tobacco dependency Full code Lovenox for DVT prophylaxis May need nursing facility placement. Attestations Medical Necessity Statement*: Needs to be inpatient for severe deconditioning and cachexia. Coding Level of Care Code Acute Slurry Control Tender for Chg Fwd Diagnoses Generalized weakness R53.1 Acute dehydration E86.0 Esophageal adenocarcinoma C15.9
[2020-08-01] MEDS: HYDROmorphone 1 mg/mL INJ 1 mL IVP ×2 (10:06→18:29)
--- NOTE | 2020-08-01 10:46 | XR_ITS ---
WS: [id number] Portable AP semiupright chest, 08/01/2020 Clinical Data: dobbhoff placement Comparison: Portable chest, 07/30/2020. Findings: A feeding tube has been inserted and appears to end just at the gastroesophageal junction. The left Port-A-Cath remains in position. The diaphragms are flattened. There is atelectasis and/or m inimal pneumonia. Over the surface of the left diaphragm. No nodules, masses or effusions are seen. . The heart is normal. The pulmonary vascularity is not increased. No pneumonia or pneumothorax is see n. Monitor leads are on the chest wall. XR/XR chest 1V portable [id number] Impression: 1. Feeding tube ends at gastric esophageal junction. 2. Minimal atelectasis and/or minimal pneumonia at the surface of the left diap hragm. 3. Hyperinflation.
--- NOTE | 2020-08-01 11:30 | PC.OT ---
OT tx attempted at this time. Pt has returned from medical procedure and is somewhat groggy. OT tx withheld per pts request and will be attempted again tomorrow.
--- NOTE | 2020-08-01 11:50 | PC.CHAP ---
Pastoral Care Encounter/Spiritual Assessment Type of Contact [] Declined anchor operator visit [] Patient/Family/Request visit [] Outpatient visit [] Follow-up visit [] Physician referral [] Code/Alert [xx] Routine visit [] Staff referral [] Actively dying [] Patient sleeping [] Family support [] [] Out of room [] Palliative care [] [] Receiving care in room [] Pre-surgical visit [] Trauma [] Long length of stay [] ICU visit [] Other: Relational/Emotional Strength [] Patient feels connected with others/family/visitors/staff [] Distress [xx] Loneliness/isolation [] Abandonment Spirituality of Patient [] Person of Lety [] Attends Latter Day of their Lety [xx] Believes in Prayer [] Reads Bible or Episcopal materials [] There are Spiritual issues to be addressed Collective Bargaining Specialist Interventions [] Prayer [] Active listening [] Non-anxious presence [] Spiritual/emotional support [] Crisis/trauma care [] Spiritual counseling [] Bereavement support [] Provided bereavement packet [] Provided Bible/devotional materials [] Provided toy/stuffed animal, coloring book to patient or family member [] Provided Communion [] Anointing/[place] [] Salvation [xx] Completed spiritual assessment [] Other: Impact on Illness or Injury [] Angry [] Fearful [xx] Anxious [] Often cries [] Exhaustion [] Unable to work [] Unable to attend scientologist [] Unable to walk/stand [] Unable to read [] Unable to drive [] Unable to eat/drink [] Unable to sleep [xx] Unable to be with family [] Patient intubated [] Other: Summary Older gentleman who was drowsy and ready to sleep. He asked for prayer. He wants to go home where he can visit with his friends and family. He understands the COVID-19 procedures prevents visitors but he does not like it. He does not like to be alone. Time spent with patient 6 minutes Collective Bargaining Specialist Belkys Garay
[2020-08-01] MEDS: docusate sodium 100 mg Capsule PO (17:31)
--- NOTE | 2020-08-01 18:38 | PC.NURSE ---
End of SHift Report: Patient a/ox4. Patient was in OR this AM with Dr. Perrin for an EGD with Biopsy and possible Feeding tube placement. Per Dr. Perrin he was unable place feeding tube d/t inflammation. He has dressing to left lower abd c/d/i. Pain is controlled with IV Dilaudid. Continue IV Fluids. and advanced to a clear liquid diet as tolerated by patient. Had decreased urinary output today and juan cath was placed using sterile technique and had 450ml return upon placement of dark yojana colored urine. Dr. Ponce would like juan d/c'd 08/02 @ [address]. Dr. Perrin visited with patient regarded placement of PEG tube. Patient is to consider PEG Tube and nurse is to notify house super if yes and to add to OR schedule for 0800 08/02 and notify him by VOLT. Patient up to bedside commoded at this time and is a 2 person assist. Will continue to monitor. LENA, NETTA
[2020-08-02] VITALS (16 sets, daily range): BP systolic 94–149; BP diastolic 64–92; PULSE 65–104; RESP 8–22; TEMP 35.8–37.1; O2SAT 93–100
[2020-08-02] MEDS: HYDROmorphone 1 mg/mL INJ 1 mL IVP ×2 (01:08→14:15)
[2020-08-02] MEDS: sodium chloride 0.9% 1,000 ML 75 ML IV ×2 (04:49→18:11)
--- NOTE | 2020-08-02 04:49 | PC.NURSE ---
Patient's respirations low-8. Patient's void low- 270. Nurse was notified
[2020-08-02 07:02] LABS: Glucose Point of Care 97 mg/dL (70-110)
--- NOTE | 2020-08-02 07:33 | P.PN_ITS ---
Subjective Subjective: Interval history: No issues overnight, discussed extensively with the patient about risk benefits of further treatment, I could not place a PEG tube yesterday and patient is becoming more and more cachectic Vitals/I&O/Wt Last Vital Signs Temp 96.4 F L 08/02/20 04:00 Pulse 79 08/02/20 04:00 Resp 13 08/02/20 04:51 BP 120/74 08/02/20 04:00 Pulse Ox 96 08/02/20 04:00 08/01/20 08/02/20 08/02/20 22:59 06:59 14:59 Intake Total 1880 / 2360 Output Total 450 / 720 270 / 720 Balance 1430 / 1640 -270 / 1640 Weight last 48 hrs Weight 103 lb Physical Exam Narrative: EXAM NARRATIVE: Abdomen: Soft Urinary Catheter Management^: Singer: Cath Placed During This Visit: yes Reason for Continuing Indwelling Catheter: Acute Urinary Retention or Obstruction Urinary Catheter Date of Insertion: 08/01/20 Urinary Catheter Time of Insertion: 17:45 Data : 08/01/20 05:12 08/01/20 05:12 A&P Assessment and plan (1) Dysphagia: 59-year-old gentleman with stage IV esophageal cancer status post chemoradiation with dysphagia. Status post EGD showing severe esophagitis/recurrence which explains his dysphagia, I could not place a PEG tube yesterday Plan for laparoscopic placement of gastrostomy tube today Status: Acute Attestations Medical Necessity Statement*: Dysphagia, stage IV esophageal cancer requiring continued inpatient stay for nutrition Coding Level of Care Code Acute Contract Preparer for g Fwd Diagnoses Dysphagia R13.10
--- NOTE | 2020-08-02 08:06 | P.ANESASSM_ITS ---
Pre-Anesthetic Assessment Pre-Anesthetic Assessment: Height/Weight: Height 1.68 m Weight 46.72 kg Temp Pulse Resp BP Pulse Ox 98.8 F 72 20 H 128/77 98 08/02/20 07:43 08/02/20 07:43 08/02/20 07:43 08/02/20 07:43 08/02/20 07:43 Preop Diagnosis: Esophageal cancer Proposed Procedure: Operation Date: 08/01/20 07:00 Proposed Procedures p EGD possible dilation(Not Applicable) - Luciano Perrin MD s PEG Tube Insertion(Not Applicable) - Luciano Perrin MD Operation Date: 08/02/20 08:55 Proposed Procedures p Laparoscopic PEG Tube Placement(Not Applicable) - Luciano Perrin MD Familial anesthetic complications: none Was Beta Craig taken within 24 hours: N/A Last intake: Intake Last Liquid Date 08/01/20 Last Liquid Time 23:59 Social: Social History: Alcohol and Tobacco Comment: marijuana Exam: Pre-Anes Outpt Exam: alert, oriented x 3, clear to auscultation bilaterally and regular rate & rhythm Additional Exam Findings (including area of procedure): diminished Airway: Cervical ROM: WNL MP: 3 Additional comments: philippe Pulmonary: Pulmonary: COPD (2 L NC) GI: GI: GERD and Hiatus hernia Comments: stage 4 esophageal cancer Metabolic: Comments: cachexia Anesthetic Plan: ASA status: 4 Anesthesia: General Risk of > 500 ml blood loss (7ml/kg in children): No Meds/Allergies Current Medications: Current Medications Generic Name Dose Route Start Last Admin Trade Name Freq PRN Reason Stop Dose Admin Hydrocodone Bitart /Acetaminophen 1 tab 07/31/20 00:44 07/31/20 17:27 [place] 7.5-325 Mg PO 1 tab Q4H PRN Administration MODERATE TO SEVER E PAIN Amitriptyline HCl 10 mg 07/31/20 00:44 07/31/20 21:11 Elavil PO 10 mg BEDTIME DAVIS Administration Dexamethasone 4 mg 07/31/20 09:00 07/31/20 17:27 Decadron PO 4 mg BID DAVIS Administration Docusate Sodium 100 mg 08/01/20 18:00 08/01/20 17:31 Colace PO 100 mg BID DAVIS Administration Enoxaparin Sodium 30 mg 07/31/20 01:00 08/01/20 02:36 Lovenox SUBCUT 30 mg Q24H DAVIS Administration Folic Acid 1 mg 07/31/20 09:00 07/31/20 08:08 Folic Acid PO 1 mg DAILY DAVIS Administration Hydromorphone HCl 1 mg 08/01/20 09:45 08/02/20 01:08 Dilaudid Inj IVP 1 mg Q6H PRN Administration PAIN Sodium Chloride 1,000 mls @ 75 ml s/hr 07/31/20 00:44 08/02/20 04:49 Sodium Chloride 0.9% IV 75 mls/hr .[id number] DAVIS Administration Nicotine 1 patch 07/31/20 09:00 07/31/20 08:08 Nicoderm 21 Mg P atch TRANSDERMA 1 patch DAILY DAVIS Administration Pantoprazole Sodiu m 40 mg 07/31/20 09:00 07/31/20 08:08 Protonix PO 40 mg DAILY DAVIS Administration Sucralfate 1 gm 07/31/20 09:00 07/31/20 21:11 Carafate PO 1 gm QID DAVIS Administration PFSH Anesthesia PFSH: Medical History Esophageal adenocarcinoma Hiatal hernia Port-A-Cath in place left subclavian - 01/16/20 Right tibial fracture Surgical History H/O esophagogastroduodenoscopy History of open reduction and internal fixation (ORIF) procedure Right LE Family History Father CAD (coronary artery disease) Father had a heart attack in his late 70s Cancer Unknown type Denies family history of Anesthesia complication Bleeding disorder Social History Smoking and tobacco status: current every day smoker cigarettes Quit status (tobacco): has tried quititng Second hand smoke exposure: Yes Alcohol intake: current Desire information about alcohol rehabilitation?: No Counseling given: Yes Desire information about substance/drug rehabilitation?: Yes Counseling given: Yes Adopted: No Caregiver/support person: Yes Lives independently: Yes Household members: spouse Housing: House Marital status: Number of children: 0 Highest education level completed: 8th Grade Current occupational status: disabled Current occupational exposures/hazards: No Pets and animals: Yes Pets & animals: dog(s) History of recent travel: No Leisure activites: hunting and fishing Sexually active: No Current gender identity: Male Lety/Alevism: [place] Special lety needs: No Agree to transfusion: Yes Financial difficulty paying for basics: Decline to Answer Data Anesthesia CBC & Chem 7: 08/01/20 05:12 08/01/20 05:12 Other Labs: Laboratory Results - last 48 hr 07/31/20 08/01/20 08/01/20 14:10 05:12 05:12 WBC 7.1 RBC 3.30 L Hgb 10.9 L Hct 32.2 L MCV 97.6 H MCH 33.0 MCHC 33.9 RDW 14.0 Plt Count 131 MPV 11.6 H Neut % (Auto) 89.2 Lymph % (Auto) 5.3 [place] % (Auto) 3.2 Eos % (Auto) 0.0 Baso % (Auto) 0.3 Neut # (Auto) 6.37 Lymph # (Auto) 0.4 L [place] # (Auto) 0.2 Eos # (Auto) 0.0 Baso # (Auto) 0.0 Nucleated RBC % (auto) 0.3 Nucleated RBCs # 0.0 Sodium 132 L Potassium 4.7 Chloride 104 Carbon Dioxide 20 L Anion Gap 12.7 BUN 8 Creatinine 0.3 L GFR Calculation 309.0 H Glucose 109 POC Glucose Calculated Osmolality 270 L Calcium 7.6 L Urine Color Brown Urine Appearance Clear Urine pH 5 Ur Specific [place] 1.020 Urine Protein Neg Urine Glucose (UA) Norm Urine Ketones 1+ H Urine Blood Neg Urine Nitrate Negative Urine Bilirubin 1+ H Urine Urobilinogen 4+ H Ur Leukocyte Esterase Negative Urine RBC None Urine WBC None Ur Squamous Epith Cells None Ur Transition Epith Cell None Amorphous Sediment Not Reportable Urine Bacteria None 08/02/20 06:43 WBC RBC Hgb Hct MCV MCH MCHC RDW Plt Count MPV Neut % (Auto) Lymph % (Auto) [place] % (Auto) Eos % (Auto) Baso % (Auto) Neut # (Auto) Lymph # (Auto) [place] # (Auto) Eos # (Auto) Baso # (Auto) Nucleated RBC % (auto) Nucleated RBCs # Sodium Potassium Chloride Carbon Dioxide Anion Gap BUN Creatinine GFR Calculation Glucose POC Glucose 97 Calculated Osmolality Calcium Urine Color Urine Appearance Urine pH Ur Specific [place] Urine Protein Urine Glucose (UA) Urine Ketones Urine Blood Urine Nitrate Urine Bilirubin Urine Urobilinogen Ur Leukocyte Esterase Urine RBC Urine WBC Ur Squamous Epith Cells Ur Transition Epith Cell Amorphous Sediment Urine Bacteria Cardiac Studies: No Data to Display
--- NOTE | 2020-08-02 08:09 | SUR.PREOP ---
pt awakes easilly now in [facility] area, call light within reach bed locked juan to DD yellow urine noted vss. pt has dobhoff tube to nare securely taped.
--- NOTE | 2020-08-02 09:58 | SUR.PHASEI ---
0938 pt awake alert denies pain , pt sleeps if not disturbed pt takes off nc, pt sats 100% on RA, drssing to upper mid abd D/I. PT TO FLOOR PER CART [phone] PT MOVED TO BED WITH SLIDEBOARD AND ASSIST OF 3 NURSES, PT REMAINS ALERT LOPEZ TO DD WITH YELLOW URINE NOTED ABD DRESSING D/I
--- NOTE | 2020-08-02 12:49 | P.PN_ITS ---
Subjective Subjective: Interval history: No issues overnight.S/P laparoscopic placement of gastrostomy tube today. Started on PEG tube feeds. Currently tolerating the tube feed. Feeding has been started at a rate of 10 mL/h to increase by 10ml every 6 hours with a goal rate of 40 mL/h. We will start with the discharge planning. Vitals/I&O/Wt Last Vital Signs Temp 97.9 F 08/02/20 11:56 Pulse 89 08/02/20 11:56 Resp 22 H 08/02/20 11:56 BP 115/80 08/02/20 11:56 Pulse Ox 93 08/02/20 11:56 08/01/20 08/02/20 08/02/20 22:59 06:59 14:59 Intake Total 1880 / 2360 50 / 50 Output Total 450 / 450 270 / 720 Balance 1430 / 1910 -270 / 1640 50 / 50 Weight last 48 hrs Weight 46.72 kg Physical Exam Const: COMMON NORMALS: patient oriented x3 HENMT: COMMON NORMALS: normocephalic, atraumatic, hearing grossly normal bilaterally and external ears normal HEAD & SCALP: normocephalic and atraumatic EXTERNAL EAR: Yes external ears normal Eye: COMMON NORMALS: no scleral icterus GENERAL EYE: appearance normal, both eyes and all related structures Chest: COMMONS NORMALS: normal inspection of the chest and normal palpation of entire chest wall CHEST: Yes Symmetrical chest wall rise Resp: COMMON NORMALS: normal respiratory effort, No retractions and No use of accessory muscles EFFORT & INSPECTION: Yes symmetric chest movement OTHER: Decreased air entry bilateral entry bilaterally. No wheezing no rhonchi no crackles. Cardio: COMMON NORMALS: regular rate, regular rhythm, S1 normal heart sound present, S2 normal heart sound present, No gallops present (Cardio), No murmurs present (Cardio), No rub (Cardio) and Peripheral pulses 2+ throughout RATE: regular rate RHYTHM: regular rhythm HEART SOUNDS: S1 normal heart sound present and S2 normal heart sound present PERIPHERAL PULSES: Peripheral pulses 2+ throughout GI: COMMON NORMALS: Normal to inspection, nondistended, normoactive bowel sounds present, Soft to palpation, non-tender, No hepatosplenomegaly present and no masses AUSCULTATION: Yes normoactive bowel sounds PALPATION: Yes Soft to palpation and Yes No hepatosplenomegaly present RECTAL EXAM: Yes deferred OTHER: PEG tube site is clean no leak no discharge. Extremity: COMMON NORMALS: no clubbing, cyanosis or edema and no pedal edema Neuro: COMMON NORMALS: patient oriented x3 Urinary Catheter Management^: Singer: Cath Placed During This Visit: yes Reason for Continuing Indwelling Catheter: Acute Urinary Retention or Obstruction Urinary Catheter Date of Insertion: 08/01/20 Urinary Catheter Time of Insertion: 17:45 Data : 08/01/20 05:12 08/01/20 05:12 A&P Assessment and plan (1) Generalized weakness: Appears to be secondary to generalized deconditioning and poor oral intake PT, OT evaluations Has significant protein calorie malnutrition, moderate to severe with low BMI of 15 Status: Acute (2) Acute dehydration: Resolved with rehydration Status: Acute (3) Esophageal adenocarcinoma: No evidence of recurrence per last PET scan Has significant dysphasia. Oncology has planned EGD to rule out any local recurrence of esophageal cancer as well as possible dilation to improve dysphagia Secondary to this we will consult surgery for possible EGD s/p PEG tube placement. Status: Chronic Additional A&P Information COPD. No evidence of exacerbation currently. History of Crohn's disease History of alcohol use Tobacco dependency Full code Lovenox for DVT prophylaxis May need nursing facility placement. Attestations Medical Necessity Statement*: Patient needs to be in hospital for severe cachexia management secondary to stage IV esophageal cancer Coding Level of Care Code Acute Service Delivery Supervisor for [facility] Fwd Diagnoses Generalized weakness R53.1 Acute dehydration E86.0 Esophageal adenocarcinoma C15.9
--- NOTE | 2020-08-02 16:14 | PC.OT ---
OT tx attempted at 0900 and pt off the floor for surgical procedure. OT tx attempted again at 1600 and pt is sleeping soundly. plan to resume OT tx in the a.m. if pt able to tolerate.
--- NOTE | 2020-08-02 18:54 | PC.NURSE ---
Dr Ponce stated pt has a goal rate of 40 cc/hr for PEG tube. PEG tube is to be flushed with 200cc of saline Q6 hours.
--- NOTE | 2020-08-02 20:09 | PC.NURSE ---
Patient's blood pressure is 94/64. Patient's nurse been notified.
[2020-08-03] VITALS (11 sets, daily range): BP systolic 94–112; BP diastolic 63–75; PULSE 88–99; RESP 10–18; TEMP 36.6–37; O2SAT 93–98
--- NOTE | 2020-08-03 01:19 | PC.NURSE ---
pt c/o pain rating 9/10 in his abdomen. his last two blood pressure readings were soft, 94/64 at 2000 and 95/63 at 0000. The only active prn pain medication able to be given is hydromorphone 1mg IVP. this nurse called Dr. Ramos, reported his pain level and blood pressure readings. Dr Ramos came to floor to see patient. Dr. Ramos told this nurse to go ahead and give the medication, and update her on blood pressure readings and respirations.
[2020-08-03] MEDS: HYDROmorphone 1 mg/mL INJ 1 mL IVP ×2 (01:49→18:18)
[2020-08-03 04:21] LABS: Basophils % 0.2 %; Eosinophils % 0.2 %; Hematocrit 29.5 % (42.0-52.0); Hemoglobin 10.3 g/dL (11.7-16.6); Lymphocytes # 0.4 10^3/uL (0.8-4.8); Lymphocytes % 4.7 %; Mean Corpuscular HGB Conc 34.9 g/dL (30.0-36.0); Mean Corpuscular Hemoglobin 33.2 pg (28.0-34.0); Mean Corpuscular Volume 95.2 fL (80-94); Monocytes # 0.5 10^3/uL (0.2-0.9); Neutrophils # 7.04 10^3/uL (1.8-7.7); Neutrophils % 87.9 %; Nucleated Red Blood Cells % 0 %; Platelet Count 97 10^3/cmm (130-400); Red Cell Distribution Width 13.6 % (12.1-15.1)
[2020-08-03 04:47] LABS: Anion Gap 10.1 (5-19); Blood Urea Nitrogen 6 mg/dL (6-20); Calcium 7.2 mg/dL (8.5-10.5); Carbon Dioxide 24 mmol/L (22-29); Chloride 103 mmol/L (98-107); Glucose 113 mg/dL (65-115); Osmolality Calculated 275 mOsm/kg (285-295); Potassium 3.1 mmol/L (3.5-5.1); Sodium 134 mmol/L (136-145)
[2020-08-03] MEDS: sodium chloride 0.9% 1,000 ML 75 ML IV ×2 (06:12→22:53)
--- NOTE | 2020-08-03 06:18 | PC.NURSE ---
pt has not voided this shift. bladder does not feel distended. pt refusing straight cath PRN order. Dr Ramos notified. Will continue to monitor on day shift.
--- NOTE | 2020-08-03 07:50 | P.PN_ITS ---
Subjective Subjective: Interval history: No issues overnight, tolerating tube feeds Vitals/I&O/Wt Last Vital Signs Temp 98.1 F 08/03/20 04:00 Pulse 93 08/03/20 04:00 Resp 12 08/03/20 04:00 BP 101/68 08/03/20 04:00 Pulse Ox 93 08/03/20 04:00 08/02/20 08/03/20 08/03/20 22:59 06:59 14:59 Intake Total 999 Balance 999 Physical Exam Narrative: EXAM NARRATIVE: Abdomen: Soft, nontender, nondistended, PEG tube in left upper quadrant, functioning well Urinary Catheter Management^: Singer: Cath Placed During This Visit: yes Reason for Continuing Indwelling Catheter: Acute Urinary Retention or Obstruction Urinary Catheter Date of Insertion: 08/01/20 Urinary Catheter Time of Insertion: 17:45 Data : 08/03/20 03:55 08/03/20 03:55 A&P Assessment and plan (1) Dysphagia: Status post EGD and PEG tube placement, EGD showed significant inflammation, possible recurrence and the distal esophagus contributing to his dysphagia Protonix 40 twice daily and Carafate 1 g 3 times daily, treated empirically as esophagitis until pathology results are back Follow-up 2 weeks Continue tube feeds for 1 week then transition to bolus feeds Aggressive bowel regimen to avoid constipation Status: Acute Attestations Medical Necessity Statement*: Dysphagia requiring PEG tube placement Coding Level of Care Code Acute Outbound Sales Consultant for [facility] Fwd Diagnoses Dysphagia R13.10
[2020-08-03] MEDS: docusate sodium 100 mg Capsule PO ×2 (08:50→18:18)
[2020-08-03] MEDS: sodium chloride 0.9% 1,000 ML 250 ML IV (10:50)
--- NOTE | 2020-08-03 11:03 | PM.PN ---
Subjective Subjective: Interval history: Patient is tolerating the tube feed well. He is more alert and awake today. Though his urine output has been less in the last 24 hours. We will hydrate him well today and continue with the tube feeds with a goal rate of 40 mL per. Vitals and labs have been reviewed. Medications: Reviewed: Yes Vitals/I&O/Wt Last Vital Signs Temp 97.8 F 08/03/20 08:34 Pulse 95 08/03/20 08:34 Resp 18 08/03/20 08:34 BP 99/66 08/03/20 08:34 Pulse Ox 96 08/03/20 08:34 08/02/20 08/03/20 08/03/20 22:59 06:59 14:59 Intake Total 1000 / 1075 901. / 200 / 200 Balance 1000 / 1075 901. / 200 / 200 Physical Exam HENMT: COMMON NORMALS: normocephalic, atraumatic, hearing grossly normal bilaterally and external ears normal HEAD & SCALP: normocephalic and atraumatic EXTERNAL EAR: Yes external ears normal Eye: COMMON NORMALS: no scleral icterus GENERAL EYE: appearance normal, both eyes and all related structures Chest: COMMONS NORMALS: normal inspection of the chest and normal palpation of entire chest wall CHEST: Yes Symmetrical chest wall rise Resp: COMMON NORMALS: normal respiratory effort, No retractions, No use of accessory muscles and clear to auscultation bilaterally EFFORT & INSPECTION: Yes symmetric chest movement AUSCULTATION: clear to auscultation bilaterally OTHER: Decreased air entry bilateral entry bilaterally. No wheezing no rhonchi no crackles. Cardio: COMMON NORMALS: regular rate, regular rhythm, S1 normal heart sound present, S2 normal heart sound present, No gallops present (Cardio), No murmurs present (Cardio), No rub (Cardio) and Peripheral pulses 2+ throughout RATE: regular rate RHYTHM: regular rhythm HEART SOUNDS: S1 normal heart sound present and S2 normal heart sound present PERIPHERAL PULSES: Peripheral pulses 2+ throughout GI: COMMON NORMALS: Normal to inspection, nondistended, normoactive bowel sounds present, Soft to palpation, non-tender, No hepatosplenomegaly present and no masses AUSCULTATION: Yes normoactive bowel sounds PALPATION: Yes Soft to palpation and Yes No hepatosplenomegaly present RECTAL EXAM: Yes deferred OTHER: PEG tube site is clean no leak no discharge. Extremity: COMMON NORMALS: no clubbing, cyanosis or edema and no pedal edema Urinary Catheter Management^: Singer: Cath Placed During This Visit: yes, but has since been removed by the nurse Reason for Continuing Indwelling Catheter: Acute Urinary Retention or Obstruction Urinary Catheter Date of Insertion: 08/01/20 Urinary Catheter Time of Insertion: 17:45 Date Urinary Catheter Removed: 08/02/20 Time Urinary Catheter Discontinued: 18:00 Data : 08/03/20 03:55 08/03/20 03:55 A&P Assessment and plan (1) Generalized weakness: Appears to be secondary to generalized deconditioning and poor oral intake PT, OT evaluations Has significant protein calorie malnutrition, moderate to severe with low BMI of 15 Status: Acute (2) Acute dehydration: Resolved with rehydration Status: Acute (3) Esophageal adenocarcinoma: No evidence of recurrence per last PET scan Has significant dysphasia. Oncology has planned EGD to rule out any local recurrence of esophageal cancer as well as possible dilation to improve dysphagia Secondary to this we will consult surgery for possible EGD s/p PEG tube placement. Status: Chronic Additional A&P Information COPD. No evidence of exacerbation currently. History of Crohn's disease History of alcohol use Tobacco dependency Full code Lovenox for DVT prophylaxis May need nursing facility placement. Attestations Medical Necessity Statement*: Patient is to be in hospital for continued management of severe cachexia as well as severe physical deconditioning. Coding Level of Care Code Acute Director Of Compliance for [facility] Fwd Diagnoses Generalized weakness R53.1 Acute dehydration E86.0 Esophageal adenocarcinoma C15.9
[2020-08-04] VITALS (10 sets, daily range): BP systolic 89–107; BP diastolic 62–69; PULSE 86–111; RESP 15–21; TEMP 36.7–37.1; O2SAT 92–98; BMI 16.6
--- NOTE | 2020-08-04 03:21 | P.EN_ITS ---
Event Note Event Note: Called with patient having soft blood pressures and requesting pain medication. All he had ordered was Dilaudid. I went on and ordered some hydrocodone elixir since he is tolerating tube feeds. Review of his current medication list shows many medicines still on hold. Will defer to daytime prov ider for resumption of these as I was unable to fully discern if they were intentionally held right now or not.
[2020-08-04] MEDS: HYDROcodone-APAP 7.5-325 mg/15 mL UDC PEG-TUBE ×3 (03:32→13:10)
[2020-08-04] MEDS: sodium chloride 0.9% 1,000 ML 75 ML IV ×2 (08:12→21:30)
--- NOTE | 2020-08-04 12:08 | PM.PN ---
Subjective Subjective: Interval history: no acute events overnight, patient continues to be weak, laying in bed Medications: Reviewed: Yes Vitals/I&O/Wt Last Vital Signs Temp 98.0 F 08/04/20 07:59 Pulse 88 08/04/20 08:44 Resp 20 H 08/04/20 08:44 BP 102/64 08/04/20 07:59 Pulse Ox 94 08/04/20 08:44 08/03/20 08/04/20 08/04/20 22:59 06:59 14:59 Intake Total 1000 / 1200 698.75 / 698.75 Output Total 575 / 975 500 / 500 Balance 425 / 225 198.75 / 198.75 Weight last 48 hrs Weight 46.72 kg Physical Exam Narrative: EXAM NARRATIVE: GEN: Awake, alert and oriented, no acute distress , chronically ill appearing CVS: S1S2 N RS: CTA B/L Abd: Soft, nt/nd , bs+ Urinary Catheter Management^: Singer: Cath Placed During This Visit: yes, but has since been removed by the nurse Reason for Continuing Indwelling Catheter: Acute Urinary Retention or Obstruction Urinary Catheter Date of Insertion: 08/01/20 Urinary Catheter Time of Insertion: 17:45 Date Urinary Catheter Removed: 08/02/20 Time Urinary Catheter Discontinued: 18:00 Data : 08/03/20 03:55 08/03/20 03:55 A&P Assessment and plan (1) Generalized weakness: Appears to be secondary to generalized deconditioning and poor oral intake PT, OT evaluations Has significant protein calorie malnutrition, moderate to severe with low BMI of 15 Status: Acute (2) Acute dehydration: Resolved with rehydration Status: Acute (3) Esophageal adenocarcinoma: No evidence of recurrence per last PET scan s/p PEG tube placement with ongoing continuous tube feeds Appreciate surgical assesment, recommended f/up with Dr. Perrin in 2 weeks Technology Sales Representative consult today, patient has elected to reeturn home, will discuss with needle board repairer regarding optimal bolus feeding regimens and choice of nutrient source. Status: Chronic Additional A&P Information COPD. No evidence of exacerbation currently. History of Crohn's disease History of alcohol use Tobacco dependency Full code Lovenox for DVT prophylaxis Dispo: planned dischaarge in the upcoming 24 hrs with home health per patoent preference Attestations Medical Necessity Statement*: nutrition/dietary assessment/blus feeding recommendations, home health referraal Coding Level of Care Code Acute Automotive Quality Manager for [facility] Fwd Diagnoses Generalized weakness R53.1 Acute dehydration E86.0 Esophageal adenocarcinoma C15.9
--- NOTE | 2020-08-04 13:31 | PC.CHAP ---
Pastoral Care Encounter/Spiritual Assessment Type of Contact [] Declined cotton tipper visit [] Patient/Family/Request visit [] Outpatient visit [] Follow-up visit [] Physician referral [] Code/Alert [x] Routine visit [] Staff referral [] Actively dying [] Patient sleeping [] Family support [] [] Out of room [] Palliative care [] [] Receiving care in room [] Pre-surgical visit [] Trauma [x] Long length of stay [] ICU visit [] Other: Relational/Emotional Strength [x] Patient feels connected with others/family/visitors/staff [] Distress [] Loneliness/isolation [] Abandonment Spirituality of Patient [] Person of Lety [] Attends Anglican of their Lety [x] Believes in Prayer [] Reads Bible or Mu-Ism materials [] There are Spiritual issues to be addressed Electrode Cleaning Machine Operator Interventions [x] Prayer [x] Active listening [x] Non-anxious presence [x] Spiritual/emotional support [] Crisis/trauma care [] Spiritual counseling [] Bereavement support [] Provided bereavement packet [] Provided Bible/devotional materials [] Provided toy/stuffed animal, coloring book to patient or family member [] Provided Communion [] Anointing/[place] [] Salvation [x] Completed spiritual assessment [] Other: Impact on Illness or Injury [] Angry [] Fearful [x] Anxious [] Often cries [x] Exhaustion [] Unable to work [] Unable to attend yazdanism [] Unable to walk/stand [] Unable to read [] Unable to drive [] Unable to eat/drink [] Unable to sleep [x] Unable to be with family [] Patient intubated [] Other: Summary Patient asked for prayer for healing his weakness. Patient appeared to be anxious through most of the cotton tipper visit. Patient visited by Electrode Cleaning Machine Operator Arie Farmer Time spent with patient 8 minutes
--- NOTE | 2020-08-04 16:38 | PM.PN ---
Subjective Subjective: Interval history: Patient's tube feedings had been stopped yesterday due to concerns about abdominal distention, abdomen feels better today, restart tube feeds at 10 cc/h Vitals/I&O/Wt Last Vital Signs Temp 98.3 F 08/04/20 12:00 Pulse 89 08/04/20 12:00 Resp 18 08/04/20 12:00 BP 107/67 08/04/20 12:00 Pulse Ox 97 08/04/20 12:00 08/04/20 08/04/20 08/04/20 06:59 14:59 22:59 Intake Total 698.75 / 698.75 Output Total 500 / 500 Balance 198.75 / 198.75 Weight last 48 hrs Weight 103 lb Physical Exam Narrative: EXAM NARRATIVE: Abdomen: Soft, minimally distended, significant anasarca, tender PEG tube in the left upper quadrant Urinary Catheter Management^: Singer: Cath Placed During This Visit: yes, but has since been removed by the nurse Reason for Continuing Indwelling Catheter: Acute Urinary Retention or Obstruction Urinary Catheter Date of Insertion: 08/01/20 Urinary Catheter Time of Insertion: 17:45 Date Urinary Catheter Removed: 08/02/20 Time Urinary Catheter Discontinued: 18:00 Data : 08/05/20 05:12 08/05/20 05:12 A&P Assessment and plan (1) Dysphagia: Restart tube feeds at 10 cc/h Continue with Colace for bowel regimen Okay to have clear liquid diet Status: Acute Attestations Medical Necessity Statement*: Status post PEG tube placement Coding Level of Care Code Acute Extrusion Die Corrector for g Fwd Diagnoses Dysphagia R13.10
--- NOTE | 2020-08-04 18:56 | PC.NURSE ---
Patient tolerated clear liquids well today. minimal urine output. ABD is warm to touch with edema present and tender. peg tube is patent and asymptomatic. Will hold feedings for 4 hours due to concerns of spastic colon and feeding syndrome. Will restart Tube feedings at 10cc at [address] Perrin. VS are HR 110, 96%, 98.1 temp, 108/67 BP. SMW, OPTIONS ADVISOR
[2020-08-04] MEDS: HYDROmorphone 1 mg/mL INJ 1 mL IVP (20:30)
[2020-08-05] VITALS (9 sets, daily range): BP systolic 104–121; BP diastolic 70–83; PULSE 88–103; RESP 16–20; TEMP 36.7–37.4; O2SAT 92–96; BMI 17.4
[2020-08-05] MEDS: enoxaparin 30 mg/0.3 mL Syringe SUBCUT (02:41)
[2020-08-05 06:23] LABS: Basophils % 0.4 %; Eosinophils # 0.1 10^3/uL (0.0-0.8); Eosinophils % 0.8 %; Hematocrit 28.7 % (42.0-52.0); Hemoglobin 10.2 g/dL (11.7-16.6); Lymphocytes # 0.4 10^3/uL (0.8-4.8); Lymphocytes % 5.2 %; Mean Corpuscular HGB Conc 35.5 g/dL (30.0-36.0); Mean Corpuscular Volume 92.9 fL (80-94); Mean Platelet Volume 12.7 fL (7.4-10.4); Monocytes # 0.8 10^3/uL (0.2-0.9); Monocytes % 10.1 %; Neutrophils # 6.38 10^3/uL (1.8-7.7); Neutrophils % 82.9 %; Nucleated Red Blood Cells % 0 %; Platelet Count 97 10^3/cmm (130-400); Red Blood Count 3.09 10^6/uL (4.1-5.3); Red Cell Distribution Width 13.3 % (12.1-15.1); White Blood Count 7.7 10^3/uL (4.0-10.0)
[2020-08-05] MEDS: HYDROmorphone 1 mg/mL INJ 1 mL IVP (06:34)
[2020-08-05 06:41] LABS: Alanine Aminotransferase 13 U/L (0-41); Albumin Level 1.8 g/dL (3.5-5.2); Alkaline Phosphatase 59 IU/L (40-130); Anion Gap 9.6 (5-19); Aspartate Amino Transferase 12 U/L (0-40); Blood Urea Nitrogen 6 mg/dL (6-20); Calcium 6.6 mg/dL (8.5-10.5); Carbon Dioxide 25 mmol/L (22-29); Chloride 98 mmol/L (98-107); Globulin 2.5 g/dL (1.3-4.6); Glomerular Filtration Rate 171.4 mL/min (90-130); Glucose 103 mg/dL (65-115); Osmolality Calculated 266 mOsm/kg (285-295); Sodium 130 mmol/L (136-145); Total Bilirubin 0.6 mg/dL (0.15-1.2); Total Protein 4.3 g/dL (6.6-8.7)
[2020-08-05 06:59] LABS: Potassium 2.6 mmol/L (3.5-5.1)
--- NOTE | 2020-08-05 07:09 | PC.NURSE ---
Notified Dr Maria that patient has critical potassium of 2.6
[2020-08-05 07:12] LABS: Slide Review Slide Review Perform
--- NOTE | 2020-08-05 08:13 | PC.NURSE ---
rcvd verbal order from Dr Perrin for Full liquid diet and increase tube feeding to 20ml/hr. magnetic tape typewriter operator put orders in.
--- NOTE | 2020-08-05 08:15 | PC.NURSE ---
personal lines underwriter increased tube feeding to 20ml/hr
--- NOTE | 2020-08-05 08:19 | PC.OT ---
OT note: Pt's potassium 2.6. Will hold at this time.
--- NOTE | 2020-08-05 08:25 | PC.NURSE ---
redness noted to left lateral foot, heel and medial foot, right heel, and sacrum. heel boots applied, pillow placed to turn patient to right side. generalized edema noted.
--- NOTE | 2020-08-05 09:53 | PC.NURSE ---
Rcvd order from Dr Maria for 60mEq of PO potassium to be put in peg tube. Plate Maker Zinc put order in.
[2020-08-05] MEDS: nicotine 21 mg Patch 1 PATCH TRANSDERMA (10:13)
[2020-08-05] MEDS: folic acid 1 mg Tablet PO (10:13)
[2020-08-05] MEDS: pantoprazole DR 40 mg Tablet PO (10:13)
[2020-08-05] MEDS: docusate sodium 100 mg Capsule PO ×2 (10:13→16:51)
[2020-08-05] MEDS: dexamethasone 4 mg Tablet PO ×2 (10:13→16:51)
[2020-08-05] MEDS: potassium chloride ER 10 mEq Tablet 60 MEQ PO (10:14)
[2020-08-05] MEDS: sodium chloride 0.9% 1,000 ML 75 ML IV (11:15)
--- NOTE | 2020-08-05 16:35 | P.PN_ITS ---
Subjective Subjective: Interval history: no acute events overnight, patient continues to be weak, laying in bed, has had poor urine outaput today, abdomen noted to be more distended today, tube feeds initially brougght down to 10, now slowly advancing again. K at 2.6 Medications: Reviewed: Yes Vitals/I&O/Wt Last Vital Signs Temp 98.5 F 08/05/20 15:15 Pulse 100 08/05/20 15:15 Resp 16 08/05/20 15:15 BP 118/78 08/05/20 15:15 Pulse Ox 96 08/05/20 15:15 08/05/20 08/05/20 08/05/20 06:59 14:59 22:59 Intake Total 0 / 2056.25 1120 / 1120 Output Total 200 / 1300 400 / 400 Balance -200 / 756.25 1120 / 1120 -400 / 720 Weight last 48 hrs Weight 49.101 kg Weight 49.169 kg Weight 46.72 kg Physical Exam Narrative: EXAM NARRATIVE: GEN: Awake, alert and oriented, no acute distress , chronically ill appearing CVS: S1S2 N RS: CTA B/L Abd: Soft, nt/nd , bs+ Urinary Catheter Management^: Singer: Cath Placed During This Visit: yes, but has since been removed by the nurse Reason for Continuing Indwelling Catheter: Acute Urinary Retention or Obstruction Urinary Catheter Date of Insertion: 08/01/20 Urinary Catheter Time of Insertion: 17:45 Date Urinary Catheter Removed: 08/02/20 Time Urinary Catheter Discontinued: 18:00 Data : 08/05/20 05:12 08/05/20 05:12 Micro: Microbiology 07/30/20 19:15 Blood Culture - Final Blood NO GROWTH AFTER 5 DAYS 07/30/20 18:58 Blood Culture - Final Blood NO GROWTH AFTER 5 DAYS A&P Assessment and plan (1) Generalized weakness: Appears to be secondary to generalized deconditioning and poor oral intake PT, OT evaluations Has significant protein calorie malnutrition, moderate to severe with low BMI of 15 Now started on tube feeding diet, noted to have some increased abdominal distension which needed titrating down of continuous rate. Would not switch p atient to bolus feeding just yet due to potential to precipiatate abdominal bloating and refeedings yndrome. Status: Acute (2) Acute dehydration: Resolved with rehydration Status: Acute (3) Esophageal adenocarcinoma: No evidence of recurrence per last PET scan s/p PEG tube placement with ongoing continuous tube feeds Appreciate surgical assesment, recommended f/up with Dr. Perrin in 2 weeks Manager Wound Care consult Status: Chronic Additional A&P Information COPD. No evidence of exacerbation currently. History of Crohn's disease History of alcohol use Tobacco dependency Dispo: initially planned for SNF to best able to work with tube feeding and due to severe deconditioing, however patient now wishes to return home with HH. we are trying to find out of HH can help with continous tube feeds and make adjustments as needed. Full code Lovenox for DVT prophylaxis Attestations Medical Necessity Statement*: increased distension of abdomen, titration of newly initiated tube feeds, dispo planning Coding Level of Care Code Acute Manager Maritime for Chg Fwd Diagnoses Generalized weakness R53.1 Acute dehydration E86.0 Esophageal adenocarcinoma C15.9
[2020-08-05] MEDS: HYDROcodone-APAP 7.5-325 mg/15 mL UDC PEG-TUBE (16:51)
[2020-08-05] MEDS: potassium chloride ER 10 mEq Tablet 40 MEQ PEG-TUBE (16:51)
[2020-08-05] MEDS: enoxaparin 40 mg/0.4 mL Syringe SUBCUT (21:51)
[2020-08-06] VITALS (7 sets, daily range): BP systolic 106–118; BP diastolic 70–78; PULSE 86–102; RESP 16–22; TEMP 36.7–37.2; O2SAT 91–94
[2020-08-06] MEDS: sodium chloride 0.9% 1,000 ML 75 ML IV (00:36)
[2020-08-06] MEDS: HYDROcodone-APAP 7.5-325 mg/15 mL UDC PEG-TUBE (03:28)
--- NOTE | 2020-08-06 07:59 | PC.NUTR ---
NUTR TF RECOMMENDATIONS: Pulmocare with goal rate of 45 ml/hr providing 1620 kcal (99%), 68 g PRO (174%), and 848 ml fluid (52%)(%NEEDS). Suggest starting TF at 25 ml/hr and increase by 10 ml Q6H as tolerated till goal rate is met. Suggest H2O flushes of 100 ml Q4H to approach fluid needs or per physician. BOLUS FEEDINGS: 4-5 cans of pulmocare daily with H2O flushes of 1 cup after each feeding (3x daily)
[2020-08-06] MEDS: nicotine 21 mg Patch 1 PATCH TRANSDERMA (09:55)
[2020-08-06] MEDS: pantoprazole DR 40 mg Tablet PO (09:55)
[2020-08-06] MEDS: dexamethasone 4 mg Tablet PO (09:55)
[2020-08-06] MEDS: docusate sodium 100 mg Capsule PO (09:55)
[2020-08-06] MEDS: folic acid 1 mg Tablet PO (09:55)
--- NOTE | 2020-08-06 11:41 | PM.PN ---
Subjective Subjective: Interval history: Date of service: 08/05/2020 patient was seen but I forgot to place a note Patient's abdomen is not distended, minimally tender, PEG tube in the left upper quadrant, tolerating tube feeds at 10 cc/h, had bowel movements Vitals/I&O/Wt Last Vital Signs Temp 98.2 F 08/06/20 10:56 Pulse 102 H 08/06/20 10:56 Resp 16 08/06/20 10:56 BP 118/78 08/06/20 10:56 Pulse Ox 91 08/06/20 10:56 08/05/20 08/06/20 08/06/20 22:59 06:59 14:59 Intake Total 60 / 2180 1000 / 2180 Output Total 400 / 625 225 / 625 Balance -340 / 1555 775 / 1555 Weight last 48 hrs Weight 126 lb 14.4 oz Weight 108 lb 4 oz Weight 108 lb 6.4 oz Physical Exam Narrative: EXAM NARRATIVE: Abdomen: Soft, minimally tender, nondistended, PEG tube in the left upper quadrant Urinary Catheter Management^: Singer: Cath Placed During This Visit: yes, but has since been removed by the nurse Reason for Continuing Indwelling Catheter: Acute Urinary Retention or Obstruction Urinary Catheter Date of Insertion: 08/01/20 Urinary Catheter Time of Insertion: 17:45 Date Urinary Catheter Removed: 08/02/20 Time Urinary Catheter Discontinued: 18:00 Data : 08/05/20 05:12 08/05/20 05:12 A&P Assessment and plan (1) Dysphagia: Increase tube feeds to 20 cc/h, discussed with Dr. Maria about having tube feeds run continuously initially since his oral intake has been very poor for a long time and then transitioning to bolus feeds in about 10 days Continue with Colace for bowel regimen Advance to full liquid diet Status: Acute Attestations Medical Necessity Statement*: Dysphagia status post PEG tube placement Coding Level of Care Code Acute Senior Quality Methods Specialist for g Fwd Diagnoses Dysphagia R13.10
--- NOTE | 2020-08-06 11:42 | PM.PN ---
Subjective Subjective: Interval history: Patient feels great, keen to go home today, tolerating tube feeds at 20 cc/h Vitals/I&O/Wt Last Vital Signs Temp 98.2 F 08/06/20 10:56 Pulse 102 H 08/06/20 10:56 Resp 16 08/06/20 10:56 BP 118/78 08/06/20 10:56 Pulse Ox 91 08/06/20 10:56 08/05/20 08/06/20 08/06/20 22:59 06:59 14:59 Intake Total 60 / 2180 1000 / 2180 Output Total 400 / 625 225 / 625 Balance -340 / 1555 775 / 1555 Weight last 48 hrs Weight 126 lb 14.4 oz Weight 108 lb 4 oz Weight 108 lb 6.4 oz Physical Exam Narrative: EXAM NARRATIVE: Abdomen: Soft, nondistended, nontender, PEG tube in the left upper quadrant Urinary Catheter Management^: Singer: Cath Placed During This Visit: yes, but has since been removed by the nurse Reason for Continuing Indwelling Catheter: Acute Urinary Retention or Obstruction Urinary Catheter Date of Insertion: 08/01/20 Urinary Catheter Time of Insertion: 17:45 Date Urinary Catheter Removed: 08/02/20 Time Urinary Catheter Discontinued: 18:00 Data : 08/05/20 05:12 08/05/20 05:12 A&P Assessment and plan (1) Dysphagia: Increase tube feeds to 30 cc/h and 40cc tomorrow discussed with Dr. Maria about having tube feeds run continuously initially since his oral intake has been very poor for a long time and then transitioning to bolus feeds in about 10 days Continue with Colace for bowel regimen Advance to full liquid diet Status: Acute Attestations Medical Necessity Statement*: peg going home today Coding Level of Care Code Acute Head Batcher for Chg Fwd Diagnoses Dysphagia R13.10
[2020-08-06 13:29] LABS: Alanine Aminotransferase 14 U/L (0-41); Albumin Level 2.1 g/dL (3.5-5.2); Alkaline Phosphatase 74 IU/L (40-130); Aspartate Amino Transferase 16 U/L (0-40); Blood Urea Nitrogen 7 mg/dL (6-20); Calcium 7.4 mg/dL (8.5-10.5); Carbon Dioxide 22 mmol/L (22-29); Chloride 97 mmol/L (98-107); Globulin 3.5 g/dL (1.3-4.6); Glucose 137 mg/dL (65-115); Osmolality Calculated 270 mOsm/kg (285-295); Sodium 130 mmol/L (136-145); Total Bilirubin 0.5 mg/dL (0.15-1.2); Total Protein 5.6 g/dL (6.6-8.7)
[2020-08-06 13:39] LABS: Anion Gap 15.1 (5-19); Potassium 4.1 mmol/L (3.5-5.1)
--- NOTE | 2020-08-06 14:55 | PC.NURSE ---
Discharge instructions given to patient and patient verbalized understanding. patient's IV discontinued and port de-accessed. Patient called family for ride home. patient assisted with getting dresses and is now waiting on family to arrive.
--- NOTE | 2020-08-06 16:33 | PC.NURSE ---
patient taken to private vehicle via wheelchair by creative services writer.
--- NOTE | 2020-08-06 22:42 | P.DS_ITS ---
Discharge Providers Date of Admission: 07/30/20 21:50 Date of Discharge: August 06, 2020 Attending Provider at Admission: Ruchi Ramos MD Attending Provider at Discharge: Anjali Maria MD Primary Care Provider: Belkys Harris-Dina Diagnoses at Discharge Discharge Diagnosis (1) Dysphagia: Status: Acute (2) Generalized weakness: Status: Acute (3) Acute dehydration: Status: Acute (4) Esophageal adenocarcinoma: Status: Chronic Problem details: (5) Nicotine dependence: Status: Chronic Qualifiers: Nicotine product type: cigarettes Substance use status: uncomplicated Qualified Code(s): F17.210 - Nicotine dependence, cigarettes, uncomplicated (6) Pancytopenia due to antineoplastic chemotherapy: Status: Acute Reason for Visit Reason for Visit: GENERAL WEAKNESS Hospital Course Discharge Summary: Jaxon Cosby is a 59 year old male with PMH esophageal ca s/p chemoradiation presented from home due to ongoing and progressive generalized weakness, poor oral intake and dysphasia. He was noted to be significantly dehydrated and deconditioned. Due to concerns for possible recurrence he underwent UGIE and also PEG placement on 08/02. Significant inflammation was noted at lower end of esophagus, biopsies taken, showed chronic inflammation and radiation induced atypia. Tube feeding diet was started while inpatient which was titrated per patient tolerance and residuals check. Tube feeds were slowly increased to 30 cc today and plan is to increase to 40 cc tomorrow. It is preferred that patient keep with continous fedding for now ove rthe next 10 days or so to compensate for his long standing malnutrition and cachexia. Thereafter he can be transitioned to bolus feeding. Patient was strongly encouraged to consider SNF placement due to significant deconditioing, however has elected to return home under care of his and brother. Home health services were arranged that will also assist him with tube feeding. Physical Exam Narrative: EXAM NARRATIVE: GEN: Awake, alert and oriented, no acute distress CVS: S1S2 N RS: CTA B/L Abd: Soft, nt/nd , bs+ SALES REPRESENTATIVE TRAINEE: no focal neuro deficits Urinary Catheter Management^: Singer: Cath Placed During This Visit: yes, but has since been removed by the nurse Reason for Continuing Indwelling Catheter: Acute Urinary Retention or Obstruction Urinary Catheter Date of Insertion: 08/01/20 Urinary Catheter Time of Insertion: 17:45 Date Urinary Catheter Removed: 08/02/20 Time Urinary Catheter Discontinued: 18:00 Discharge Data Data Completed and Pending: Completed Studies During Hospitalization Category Date Time Status CXRP [XR chest 1V portable [id number]] R outine Exams 08/01/20 10:46 Completed XR chest 1V terrance ble [id number] Stat Exams 07/30/20 18:40 Completed Pathology: Surgic al [PTH] Routine Pth 08/01/20 07:46 Completed Pending at discharge Category Date Time Status ES surgery / GI i mages Routine Exams 08/02/20 08:16 Ordered Labs from last 24 hours 08/06/20 13:03 Sodium 130 L Potassium 4.1 Chloride 97 L Carbon Dioxide 22 Anion Gap 15.1 BUN 7 Creatinine 0.3 L GFR Calculation 309.0 H Glucose 137 H Calculated Osmolal ity 270 L Calcium 7.4 L Total Bilirubin 0.5 AST 16 ALT 14 Alkaline Phosphata se 74 Total Protein 5.6 L Albumin 2.1 L Globulin 3.5 Vitals: Last Vital Signs Temp 98.2 F 08/06/20 16:37 Pulse 102 H 08/06/20 16:37 Resp 16 08/06/20 16:37 BP 117/78 08/06/20 16:37 Pulse Ox 91 08/06/20 16:37 Discharge Plan Discharge Patient Disposition: Home Health Service Condition: Stable Prescriptions: New docusate sodium 100 mg Capsule 100 mg PO BID Qty: 0 RF: 0 Continued albuterol sulfate [Ventolin HFA] 90 mcg/actuation HFA aerosol inhaler 2 puff INHALATION Q6H PRN (Reason: copd) RF: 0 amitriptyline 10 mg tablet 10 mg PO BEDTIME RF: 0 cholecalciferol (vitamin D3) 50,000 unit capsule 50,000 unit PO .COMPLEX RF: 0 hydroxyzine pamoate 50 mg capsule 50 mg PO QID PRN (Reason: Anxiety) RF: 0 ProAir HFA 90 mcg/actuation HFA aerosol inhaler See Rx Instructions .ROUTE .COMPLEX RF: 0 sucralfate 1 gram Tablet 1 g PO QID RF: 0 folic acid 1 mg Tablet 1 mg PO DAILY Qty: 30 RF: 0 pantoprazole 40 mg tablet,delayed release (DR/EC) 40 mg PO DAILY Qty: 30 RF: 0 ondansetron HCl [Zofran] 8 mg Tablet 8 mg PO Q8H Qty: 42 RF: 0 nicotine 21 mg/24 hr patch 24 hour 1 patch TRANSDERMA DAILY Qty: 30 RF: 0 nicotine (polacrilex) 2 mg lozenge 2 mg BUCCAL Q1H PRN (Reason: nicotine cravings) Qty: 60 RF: 4 hydrocodone-acetaminophen 7.5-325 mg Tablet 1 tab PO Q4H RF: 0 thiamine HCl (vitamin B1) 100 mg/mL solution 100 mg PO DAILY RF: 0 dexamethasone 4 mg Tablet 4 mg PO BID RF: 0 Discharge Orders: Discharge Order (Routine); Ordered 08/06/20 Ordered By: Anjali Maria Referrals: Belkys Harris FNP-C [Primary Care Provider] - 08/15/20 11:00 am ([facility] will call you at home on August 15 at 11:00am for you appointment) Discharge Diet: As Directed Discharge Activity: Resume usual activity and Increase activity as tolerated Patient Instructions: Dehydration - Adult, Laxative, Stool Softeners (By mouth), Dysphagia, Weakness (GEN) Activity Restrictions/Additional Instructions: tube feed recommendations: Pulmocare with goal rate of 40 ml/hr starting 08/05 providing 1620 kcal (99%), 68 g PRO (174%), and 848 ml fluid (52%)(%NEEDS). Suggest starting TF at 25 ml/hr and increase by 10 ml Q6H as tolerated till goal rate is met. H2O flushes of 100 ml Q4H. tube feeds run continuously initially since his oral intake has been very poor for a long time and then transition to bolus feeds in about 10 days. Discharge Date/Time: 08/06/20 16:39 Discharge Attestations Time Spent in Discharge Care*: greater than 30 min Status at Discharge: Cognitive status at discharge: cognitively intact , Quality Metrics Clinical Quality Measures During this hospital stay, did patient experience: None Coding Level of Care Code Acute Settlement Processor for Chg Fwd Diagnoses Dysphagia R13.10 Generalized weakness R53.1 Acute dehydration E86.0 Esophageal adenocarcinoma C15.9 Nicotine dependence F17.210 Nicotine product type: cigarettes Substance use status: uncomplicated Pancytopenia due to antineoplastic chemotherapy D61.810; T45.1X5A
--- NOTE | 2020-08-07 16:29 | PC.SOCIAL ---
Notified by Elana that patient has not received appropriate supplies for tube feedings and HH nurse has not been out to coordinate set up. Spoke with Dionna at [facility] office who indicates his intake has not been processed yet. It is unclear the communication between and [facility] as to what was sent or verified. Per Kristina they did not receive orders for tube feeds and called this am to request. Per Dionna at [facility] returned call around 2pm and was told by Erik that patient's peg tube had come out. Elana spoke to the patient and advised to return to ED. Patient called ambulance to return. In the meantime updated order for tube feeds and had Dr Maria sign. Faxed per request to Lexi at [phone] and to Eriberto at [facility] [employer] at [phone]. Left note in ED for provider to alert that he will not have tube feeds set up until tomorrow afternoon. If patient returns home gabriela request that they call this nurse on her cell phone and provided number. Dionna will call this nurse back in am to verify plan.
== END 2020-08-06 16:39 | disposition home health service (06) | DRG 640 ==
LOC: ER 21:23 → MEDSURG 22:13
PROVIDERS: Emergency Medicine; Internal Medicine; Surgery; Admitting Provider Family Medicine; PCP Nurse Practitioner Family; Visit Provider Student in an Organized Health Care Education/Training Program
PROC: 0DJ08ZZ Inspection of Upper Intestinal Tract, Via Natural or Artificial Opening Endoscopic (ICD-10-PCS; CPT 43235; principal; 2020-08-01 07:00)
PROC: 0DH63UZ Insertion of Feeding Device into Stomach, Percutaneous Approach (ICD-10-PCS; CPT 43246; principal; 2020-08-02 08:35)
DX: E86.0 Dehydration (principal); E43 Unspecified severe protein-calorie malnutrition; D61.810 Antineoplastic chemotherapy induced pancytopenia; C15.9 Malignant neoplasm of esophagus, unspecified; Z68.1 Body mass index [BMI] 19.9 or less, adult; R64 Cachexia; R53.1 Weakness; R14.0 Abdominal distension (gaseous); F17.210 Nicotine dependence, cigarettes, uncomplicated; R13.10 Dysphagia, unspecified; J44.9 Chronic obstructive pulmonary disease, unspecified; E87.6 Hypokalemia; Z91.81 History of falling; R19.7 Diarrhea, unspecified; E83.42 Hypomagnesemia; E83.51 Hypocalcemia
CPT/HCPCS: 12345; 36415; 36416; 36591; 36592; 36600; 43239; 43246; 51702; 71045; 80048; 80053; 81001; 82009; 82550; 82803; 82962; 83605; 83735; 84484; 85025; 85610; 87040; 88305; 93005; 96372; 96375; 97110; 97162; 97166; 97530; 97535; 99281; J0610; J0690; J1170; J1650; J2405; J2704; J3475; J3480; J7030; J8540

== ENCOUNTER 2020-08-07 15:54 | Inpatient (IN) | payer MEDICAID, SELFPAY ==
[2020-08-07] VITALS (8 sets, daily range): BP systolic 120–140; BP diastolic 82–88; PULSE 96–108; RESP 18–20; TEMP 36.4–36.9; O2SAT 90–98; BMI 16.4
--- NOTE | 2020-08-07 16:04 | CTR_ITS ---
PROCEDURE INFORMATION: Exam: CT Abdomen And Pelvis With Contrast Exam date and time: 08/07/2020 5:49 PM Age: 59 years old Clinical indication: Abdominal pain; Prior surgery; Surgery type: Port, egd TECHNIQUE: Imaging protocol: Computed tomography of the abdomen and pelvis with intravenous contrast. Radiation optimization: All CT scans at this facility use at least one of these dose optimization techniques: automated exposure control; mA and/or kV adjustment per patient size (includes targeted exams where dose is matched to clinical indication); or iterative reconstruction. Contrast material: OMNI 300; Contrast volume: 95 ml; Contrast route: INTRAVENOUS (IV); COMPARISON: CT abdomen pelvis w con* [id number] 11/21/2019 5:18 PM RADIATION DOSE METRICS: Total DLP (mGy-cm): 854.72 FINDINGS: Limitations: Study somewhat limited due to streak artifact created by the patient being scanned with the arms at the sides. Tubes, catheters and devices: There is a recently placed PEG tube in the body of the stomach. The tube is new compared with the previous examinations . The transverse colon is distended with gas and is interposed between the stomach and the anterior abdominal wall and is draped over the PEG tube. Lungs: There is partial atelectasis in the dependent portions of both lower lobes. Pleural space: There are large bilateral pleural effusions. Mediastinal space: There is a small hiatal hernia. Liver: There is no focal abnormality within the liver. Gallbladder and bile ducts: The gallbladder is normal. Pancreas: Normal. No ductal dilation. Spleen: There is a 9 mm sized peripheral hypodensity in the lateral aspect of the spleen which is not seen on previous examinations and may represent small splenic infarct. The spleen demonstrates punctate calcifications, consistent with remote granulomatous organism exposure. Adrenals: The adrenal glands are normal. Kidneys and ureters: The kidneys are normal. There is no evidence of hydronephrosis. Stomach and bowel: There is no evidence of colitis/diverticulitis. Appendix: A normal appendix is identified. Intraperitoneal space: There is a large amount of free intraperitoneal air in fluid within the abdomen. This may be related to leakage from recently placed PEG 2. Correlation with clinical surgical history is suggested. Vasculature: The aorta demonstrates moderate atherosclerotic calcification. There is no evidence of an abdominal aortic aneurysm. There is at least moderate stenosis in the common iliac arteries on both sides without occlusion. Lymph nodes: Unremarkable. No enlarged lymph nodes. Bladder: Unremarkable as visualized. Reproductive: Unremarkable as visualized. Bones/joints: The lumbar spine demonstrates moderate degenerative changes at multiple levels. Soft tissues: Unremarkable. CT/CT abdomen pelvis w con* [id number] IMPRESSION: 1. Recently placed PEG tube 2. Large ascites 3. Large free intra-abdominal air 4. Atherosclerotic vascular disease 5. Small splenic infarct COMMENTS: THIS REPORT CONTAINS FINDINGS THAT MAY BE CRITICAL TO PATIENT CARE. The findings were verbally communicated via telephone conference with Lynette Irby at 6:42 PM CDT on 08/07/2020. The findings were acknowledged and understood. Radiation Dose CTDIVOL = (mGy): DLP = 854.72 (mGy-cm)
[2020-08-07] MEDS: ondansetron 2 mg/ML SDV 2 mL 4 MG IVP (16:31)
[2020-08-07] MEDS: HYDROmorphone 1 mg/mL INJ 1 mL 0.5 MG IVP ×2 (16:32→21:22)
[2020-08-07] MEDS: sodium chloride 0.9% 1,000 ML 999 ML IV (16:33)
[2020-08-07 16:44] LABS: Basophils % 0.3 %; Eosinophils % 0.1 %; Hematocrit 23.1 % (42.0-52.0); Hemoglobin 7.9 g/dL (11.7-16.6); Lymphocytes # 0.4 10^3/uL (0.8-4.8); Lymphocytes % 4.7 %; Mean Corpuscular HGB Conc 34.2 g/dL (30.0-36.0); Mean Corpuscular Hemoglobin 32.4 pg (28.0-34.0); Mean Corpuscular Volume 94.7 fL (80-94); Mean Platelet Volume 11.6 fL (7.4-10.4); Monocytes # 0.9 10^3/uL (0.2-0.9); Monocytes % 11.7 %; Neutrophils # 6.45 10^3/uL (1.8-7.7); Neutrophils % 82.4 %; Nucleated Red Blood Cells % 0 %; Platelet Count 131 10^3/cmm (130-400); Red Blood Count 2.44 10^6/uL (4.1-5.3); Red Cell Distribution Width 14.1 % (12.1-15.1); White Blood Count 7.8 10^3/uL (4.0-10.0)
[2020-08-07] MEDS: sodium chloride 0.9% 1,000 ML 100 ML IV (16:59)
[2020-08-07 17:10] LABS: Slide Review Slide Review Perform
[2020-08-07 17:13] LABS: Alanine Aminotransferase 11 U/L (0-41); Alkaline Phosphatase 66 IU/L (40-130); Anion Gap 12.2 (5-19); Aspartate Amino Transferase 13 U/L (0-40); Blood Urea Nitrogen 9 mg/dL (6-20); Carbon Dioxide 24 mmol/L (22-29); Chloride 102 mmol/L (98-107); Glucose 83 mg/dL (65-115); Lipase 3 U/L (13-60); Magnesium 1.6 mg/dL (1.7-2.3); Osmolality Calculated 276 mOsm/kg (285-295); Potassium 4.2 mmol/L (3.5-5.1); Sodium 134 mmol/L (136-145); Total Bilirubin 0.5 mg/dL (0.15-1.2)
--- NOTE | 2020-08-07 17:31 | W.ED.ABDPA2 ---
HPI - Abdominal Pain General: Chief Complaint: Abdominal Pain Stated Complaint: ABDOMINAL PAIN/ SWELLING/ TENDERNESS Time Seen by Provider: 08/07/20 15:57 Source: patient and EMS Mode of arrival: EMS Limitations: no limitations History of Present Illness: HPI narrative: Mr. Cosby is a nice 59-year-old male well-known to me from previous visits. Comes in complaining of abdominal pain. States he had a feeding tube placed on his last admission today he has discomfort distention around the tube and he said he had some fluids come out around the entry site of the feeding tube. He denies any chest pain or shortness of breath. He has no fever or chills. He is uncertain when he had his last bowel movement. He denies any vomiting. Patient is denying any other complaints or concerns at this time. Associated Symptoms: Denies chills, coffee ground emesis, constipation, GI cramping, diarrhea, dysuria, fever(s), heartburn, hematochezia, hematuria, hematemesis, melena, nausea, syncope and vomiting Review of Systems Const: Denies: fever(s), chills, body aches, fatigue, malaise or diaphoresis Eyes: Denies: change in vision, blurry vision, photophobia, eye discomfort, eye discharge, eye redness or yellow eyes ENMT: Denies: throat pain, odynophagia, hoarseness, swelling of lips/tongue, ear or mastoid pain, ear discharge, change in hearing or nasal discharge Card: Denies: chest pain, palpitations, irregular heart rhythm, edema, lightheadedness, syncope, pre-syncope, dyspnea on exertion or orthopnea Resp: Denies: dyspnea, productive cough, non-productive cough, wheezing, hemoptysis or chest congestion GI: Reports: abdominal pain; Denies: nausea, vomiting, hematemesis, coffee ground emesis, heartburn, diarrhea, constipation, GI cramping, hematochezia or melena : Denies: flank pain, dysuria, urinary frequency, urinary urgency or hematuria Musc: Denies: neck pain, back pain, extremity pain, extremity swelling, joint pain, joint swelling, joint redness, joint warmth or joint stiffness Skin/Breast: Denies: rash, pruritus, erythema, skin pain or skin tenderness Neuro: Denies: headache(s), numbness in extremities, weakness in extremities, sensory changes, lack of coordination, difficulty walking, dizziness, vertigo, confusion, Slurred speech present or seizure-like activity Marck/Lymph: Denies: easy bruising, easy bleeding, petechiae, purpura or enlarged lymph nodes All/Imm: Denies: urticaria, throat swelling, tongue swelling, facial swelling or acute wheezing PFSH ED PFSH: Medical History (Updated 08/07/20 @ 21:42 by Julisa Thakkar MD) Esophageal adenocarcinoma Hiatal hernia Port-A-Cath in place left subclavian - 01/16/20 Right tibial fracture Surgical History (Updated 08/07/20 @ 21:42 by Julisa Thakkar MD) H/O esophagogastroduodenoscopy History of open reduction and internal fixation (ORIF) procedure Right LE Status post insertion of percutaneous endoscopic gastrostomy (PEG) tube 08/02 Family History Father CAD (coronary artery disease) Father had a heart attack in his late 70s Cancer Unknown type Denies family history of Anesthesia complication Bleeding disorder Social History Smoking and tobacco status: current every day smoker cigarettes Quit status (tobacco): has tried quititng Second hand smoke exposure: Yes Alcohol intake: current Desire information about alcohol rehabilitation?: No Counseling given: Yes Desire information about substance/drug rehabilitation?: Yes Counseling given: Yes Adopted: No Caregiver/support person: Yes Lives independently: Yes Household members: spouse Housing: House Marital status: Number of children: 0 Highest education level completed: 8th Grade Current occupational status: disabled Current occupational exposures/hazards: No Pets and animals: Yes Pets & animals: dog(s) History of recent travel: No Leisure activites: hunting and fishing Sexually active: No Current gender identity: Male Lety/Druze: Spiritism Special lety needs: No Agree to transfusion: Yes Financial difficulty paying for basics: Decline to Answer Physical Exam Const: COMMON NORMALS: no acute distress, patient oriented x3, no limitations and alert GENERAL APPEARANCE: cooperative HENMT: COMMON NORMALS: normocephalic, atraumatic, external ears normal, EAC's normal and Normal external nose present HEAD & SCALP: normal to inspection, normocephalic and atraumatic FACE & SINUS: normal facial exam and face symmetric NOSE: Normal external nose present and Normal nares present EXTERNAL EAR: Yes external ears normal EXTERNAL AUDITORY CANAL: EAC's normal MOUTH: Normal oral and palatal mucosa present, lip normal and tongue normal Eye: COMMON NORMALS: Equal, round and reactive pupils present and conjunctivae normal GENERAL EYE: appearance normal, both eyes and all related structures ALIGNMENT: Yes alignment normal PERIORBITAL: periorbital findings normal EYELID: eyelids normal CONJUNCTIVA: Yes conjunctivae normal SCLERA: sclerae normal PUPIL: Yes Equal, round and reactive pupils present Neck/C-Spine: COMMON NORMALS: full ROM, no lymphadenopathy, supple, no meningeal signs and no JVD GENERAL: Yes normal visual inspection and Yes trachea midline Chest: COMMONS NORMALS: normal inspection of the chest and normal palpation of entire chest wall Resp: COMMON NORMALS: normal respiratory effort, No retractions, No use of accessory muscles and clear to auscultation bilaterally EFFORT & INSPECTION: Yes able to speak in complete sentences and Yes symmetric chest movement AUSCULTATION: clear to auscultation bilaterally, no crackles, no rales, no rhonchi and no wheezes Cardio: COMMON NORMALS: no JVD, regular rate, regular rhythm, S1 normal heart sound present and S2 normal heart sound present RATE: regular rate RHYTHM: regular rhythm HEART SOUNDS: S1 normal heart sound present, S2 normal heart sound present, no click, no gallops, no murmurs and no rubs GI: COMMON NORMALS: Soft to palpation and No hepatosplenomegaly present PALPATION: Yes Soft to palpation, Yes Tenderness to palpation present (GI) (Moderate diffusely with distention present.), No Guarding due to palpation present (GI), No Rigid due to palpation, Yes No hepatosplenomegaly present, No Hernia present, No Palpable mass present and No Pulsatile mass present : COMMON NORMALS: Yes no CVA tenderness BLADDER/KIDNEY EXAM: Yes no CVA tenderness Back/Pelvis: COMMON NORMALS: no CVA tenderness, thoracic and lumbar spine normal to inspection, no thoracic nor lumbar tenderness and thoraco-lumbar ROM normal Extremity: COMMON NORMALS: normal to inspection, full ROM, capillary refill normal, no joint enlargement, no clubbing, cyanosis or edema and no calf tenderness Neuro: COMMON NORMALS: patient oriented x3, CN's II-XII intact bilaterally, moves all extremities, no focal motor deficits and no sensory deficits noted SENSORIUM/ORIENTATION: Yes alert MENINGEAL SIGNS: Yes no meningeal signs SPEECH: speech normal Psych: COMMON NORMALS: mental status grossly normal, Normal thought process present, cooperative, normal affect, speech normal and activity/motor behavior normal SPEECH: Yes normal speech THOUGHT PROCESS: Normal thought process present Skin: COMMON NORMALS: no rashes or lesions noted, turgor normal, no jaundice, no petechiae and no mottling GENERAL SKIN EXAM: no rashes or lesions noted and turgor normal Course Vital Signs: Vital signs: Vital Signs Temperature 97.6 F 08/07/20 19:15 Pulse Rate 98 08/07/20 20:51 Respiratory Rate 18 08/07/20 21:22 Blood Pressure 134/88 08/07/20 20:51 Pulse Oximetry 95 08/07/20 20:51 MDM - Abdominal Pain MDM Narrative: Medical decision making narrative: 712 -Case reviewed including CT with Dr. Perrin. He would like an additional CT with Gastrografin placed on the PEG tube. 2103 -I have reviewed the second CT scan with Drs. Thakkar and Aydin. Dr. Perrin would like to leave his PEG tube to gravity to be collected a Singer bag. He believes the findings are likely secondary to refeeding syndrome. Patient has no white count, normal lactic and his belly is tender but I believe secondary primarily to distention. Patient does not appear septic or toxic at this time. Dr. Thakkar will admit for the patient's underlying medical reasons and transfuse him. Dr. Perrin will consult to see the patient in the a.m. 2143 -the patient's abdominal distention and pain are greatly improved after leaving his PEG tube to gravity. Medical Records: Attestation: I reviewed the patient's medical records. Lab Data: Attestation: I reviewed the patient's lab results. Labs: Lab Results 08/07/20 08/07/20 08/07/20 Range/Units 16:27 16:27 19:27 WBC 7.8 (4.0-10.0) 10^3/ uL RBC 2.44 L (4.1-5.3) 10^6/u L Hgb 7.9 L (11.7-16.6) g/dL Hct 23.1 L (42.0-52.0) % MCV 94.7 H (80-94) fL MCH 32.4 (28.0-34.0) pg MCHC 34.2 (30.0-36.0) g/dL RDW 14.1 (12.1-15.1) % Plt Count 131 (130-400) 10^3/c mm MPV 11.6 H (7.4-10.4) fL Neut % (Auto) 82.4 % Lymph % (Auto) 4.7 % [place] % (Auto) 11.7 % Eos % (Auto) 0.1 % Baso % (Auto) 0.3 % Neut # (Auto) 6.45 (1.8-7.7) 10^3/u L Lymph # (Auto) 0.4 L (0.8-4.8) 10^3/u L [place] # (Auto) 0.9 (0.2-0.9) 10^3/u L Eos # (Auto) 0.0 (0.0-0.8) 10^3/u L Baso # (Auto) 0.0 (0.0-0.1) 10^3/u L Nucleated RBC % (a uto) 0 % Nucleated RBCs # 0.0 /100WBC Sodium 134 L (136-145) mmol/L Potassium 4.2 (3.5-5.1) mmol/L Chloride 102 (98-107) mmol/L Carbon Dioxide 24 (22-29) mmol/L Anion Gap 12.2 (5-19) BUN 9 (6-20) mg/dL Creatinine 0.3 L (0.7-1.2) mg/dL GFR Calculation 309.0 H (90-130) mL/min Glucose 83 (65-115) mg/dL Calculated Osmolal ity 276 L (285-295) mOsm/k g Lactic Acid 0.5 (0.5-2.2) mmol/L Calcium 8.0 L (8.5-10.5) mg/dL Magnesium 1.6 L (1.7-2.3) mg/dL Total Bilirubin 0.5 (0.15-1.2) mg/dL AST 13 (0-40) U/L ALT 11 (0-41) U/L Alkaline Phosphata se 66 (40-130) IU/L Total Protein 5.0 L (6.6-8.7) g/dL Albumin 2.0 L (3.5-5.2) g/dL Globulin 3.0 (1.3-4.6) g/dL Lipase 3 L (13-60) U/L Blood Type Rho(D) Type 08/07/20 Range/Units 19:27 WBC (4.0-10.0) 10^3/ uL RBC (4.1-5.3) 10^6/u L Hgb (11.7-16.6) g/dL Hct (42.0-52.0) % MCV (80-94) fL MCH (28.0-34.0) pg MCHC (30.0-36.0) g/dL RDW (12.1-15.1) % Plt Count (130-400) 10^3/c mm MPV (7.4-10.4) fL Neut % (Auto) % Lymph % (Auto) % [place] % (Auto) % Eos % (Auto) % Baso % (Auto) % Neut # (Auto) (1.8-7.7) 10^3/u L Lymph # (Auto) (0.8-4.8) 10^3/u L [place] # (Auto) (0.2-0.9) 10^3/u L Eos # (Auto) (0.0-0.8) 10^3/u L Baso # (Auto) (0.0-0.1) 10^3/u L Nucleated RBC % (a uto) % Nucleated RBCs # /100WBC Sodium (136-145) mmol/L Potassium (3.5-5.1) mmol/L Chloride (98-107) mmol/L Carbon Dioxide (22-29) mmol/L Anion Gap (5-19) BUN (6-20) mg/dL Creatinine (0.7-1.2) mg/dL GFR Calculation (90-130) mL/min Glucose (65-115) mg/dL Calculated Osmolal ity (285-295) mOsm/k g Lactic Acid (0.5-2.2) mmol/L Calcium (8.5-10.5) mg/dL Magnesium (1.7-2.3) mg/dL Total Bilirubin (0.15-1.2) mg/dL AST (0-40) U/L ALT (0-41) U/L Alkaline Phosphata se (40-130) IU/L Total Protein (6.6-8.7) g/dL Albumin (3.5-5.2) g/dL Globulin (1.3-4.6) g/dL Lipase (13-60) U/L Blood Type O Positive Rho(D) Type Positive Imaging Data ^: CT Abd/Pel: Radiologist's impression: [address] [place] [address] CT Scan Report Signed Patient: Jaxon Cosby Unit #: [id number] : 1960 Age/Sex: 59 / M ADM Date: 08/07/20 Loc: ER Room/Bed: Attending Dr: Ordering Provider/Ordering MD: Lynette Irby DO Date of Service: 08/07/20 Procedure(s): CT abdomen pelvis w con* [id number] Accession Number(s): [id number] Report Number: [id number] PROCEDURE INFORMATION: Exam: CT Abdomen And Pelvis With Contrast Exam date and time: 08/07/2020 5:49 PM Age: 59 years old Clinical indication: Abdominal pain; Prior surgery; Surgery type: Port, egd TECHNIQUE: Imaging protocol: Computed tomography of the abdomen and pelvis with intravenous contrast. Radiation optimization: All CT scans at this facility use at least one of these dose optimization techniques: automated exposure control; mA and/or kV adjustment per patient size (includes targeted exams where dose is matched to clinical indication); or iterative reconstruction. Contrast material: OMNI 300; Contrast volume: 95 ml; Contrast route: INTRAVENOUS (IV); COMPARISON: CT abdomen pelvis w con* [id number] 11/21/2019 5:18 PM RADIATION DOSE METRICS: Total DLP (mGy-cm): 854.72 FINDINGS: Limitations: Study somewhat limited due to streak artifact created by the patient being scanned with the arms at the sides. Tubes, catheters and devices: There is a recently placed PEG tube in the body of the stomach. The tube is new compared with the previous examinations . The transverse colon is distended with gas and is interposed between the stomach and the anterior abdominal wall and is draped over the PEG tube. Lungs: There is partial atelectasis in the dependent portions of both lower lobes. Pleural space: There are large bilateral pleural effusions. Mediastinal space: There is a small hiatal hernia. Liver: There is no focal abnormality within the liver. Gallbladder and bile ducts: The gallbladder is normal. Pancreas: Normal. No ductal dilation. Spleen: There is a 9 mm sized peripheral hypodensity in the lateral aspect of the spleen which is not seen on previous examinations and may represent small splenic infarct. The spleen demonstrates punctate calcifications, consistent with remote granulomatous organism exposure. Adrenals: The adrenal glands are normal. Kidneys and ureters: The kidneys are normal. There is no evidence of hydronephrosis. Stomach and bowel: There is no evidence of colitis/diverticulitis. Appendix: A normal appendix is identified. Intraperitoneal space: There is a large amount of free intraperitoneal air in fluid within the abdomen. This may be related to leakage from recently placed PEG 2. Correlation with clinical surgical history is suggested. Vasculature: The aorta demonstrates moderate atherosclerotic calcification. There is no evidence of an abdominal aortic aneurysm. There is at least moderate stenosis in the common iliac arteries on both sides without occlusion. Lymph nodes: Unremarkable. No enlarged lymph nodes. Bladder: Unremarkable as visualized. Reproductive: Unremarkable as visualized. Bones/joints: The lumbar spine demonstrates moderate degenerative changes at multiple levels. Soft tissues: Unremarkable. CT/CT abdomen pelvis w con* [id number] IMPRESSION: 1. Recently placed PEG tube 2. Large ascites 3. Large free intra-abdominal air 4. Atherosclerotic vascular disease 5. Small splenic infarct COMMENTS: THIS REPORT CONTAINS FINDINGS THAT MAY BE CRITICAL TO PATIENT CARE. The findings were verbally communicated via telephone conference with Lynette Irby at 6:42 PM CDT on 08/07/2020. The findings were acknowledged and understood. Radiation Dose CTDIVOL = (mGy): DLP = 854.72 (mGy-cm) Dictated By: Raul Velarde Signed By: Raul Velarde Signed Date/Time: 08/07/20 1850 DD/ 165 CT Abdomen/Pelvis with oral contrast: Radiologist's impression: [address] [address] [address] Scan Report Signed Patient: Jaxon Cosby Unit #: [id number] : 1960 Age/Sex: 59 / M ADM Date: 08/07/20 Loc: ER Room/Bed: Attending Dr: Ordering Provider/Ordering MD: Lynette Irby DO Date of Service: 08/07/20 Procedure(s): CT abdomen pelvis wo con [id number] Accession Number(s): [id number] Report Number: [id number] PROCEDURE INFORMATION: Exam: CT Abdomen And Pelvis Without Contrast Exam date and time: 08/07/2020 7:45 PM Age: 59 years old Clinical indication: Device placement; Gi device; Peg tube; Prior surgery; Surgery type: Peg, egd, port; Additional info: Abdominal pain TECHNIQUE: Imaging protocol: Computed tomography of the abdomen and pelvis without contrast. Radiation optimization: All CT scans at this facility use at least one of these dose optimization techniques: automated exposure control; mA and/or kV adjustment per patient size (includes targeted exams where dose is matched to clinical indication); or iterative reconstruction. COMPARISON: CT abdomen pelvis w con* [id number] 08/07/2020 5:42 PM RADIATION DOSE METRICS: Total DLP (mGy-cm): 623.14 FINDINGS: Limitations: The absence of intravenous contrast lessens the sensitivity of this study for solid organ abnormalities. Tubes, catheters and devices: The contrast material has been injected through the PEG tube and opacifies the stomach confirming that the PEG tube tip is within the stomach. Pleural space: There are large bilateral pleural effusions and compressive atelectasis of the lower lobes not significantly changed. Liver: There is no focal abnormality within the liver. Gallbladder and bile ducts: The gallbladder is normal. Pancreas: The pancreas is normal. Spleen: The spleen demonstrates punctate calcifications, consistent with remote granulomatous organism exposure. Adrenals: The adrenal glands are normal. Kidneys and ureters: Normal. No hydronephrosis. Stomach and bowel: PEG tube is again noted to be passing along the undersurface of the transverse colon. There is no evidence of colitis/diverticulitis. Appendix: A normal appendix is identified. Intraperitoneal space: Large amount of free fluid and free air is seen in the abdomen not changed from the examination done at 5:47 p.m.. Vasculature: The aorta demonstrates moderate atherosclerotic calcification. Lymph nodes: Unremarkable. No enlarged lymph nodes. Bladder: Unremarkable as visualized. Reproductive: Unremarkable as visualized. Bones/joints: Unremarkable. No acute fracture. Soft tissues: Unremarkable. CT/CT abdomen pelvis wo con [id number] IMPRESSION: 1. There is large free air and free fluid within the abdomen and pelvis. 2. Bilateral pleural effusions not significantly changed. 3. Contrast injection confirms the PEG tube is within the stomach. No leakage of contrast was identified on this study. Radiation Dose CTDIVOL = (mGy): DLP = 623.14 (mGy-cm) Dictated By: Raul Velarde Signed By: Raul Velarde Signed Date/Time: 08/07/202019 DD/ 17 Discharge Plan Discharge Patient Disposition: Placed in Observation Admit Provider: Julisa Thakkar Clinical Impression: Abdominal pain Qualifiers: Abdominal location: generalized Qualified Code(s): R10.84 - Generalized abdominal pain Anemia Qualifiers: Anemia type: unspecified type Qualified Code(s): D64.9 - Anemia, unspecified Discharge Date/Time: 08/07/20 21:34 Coding Level of Care Code ED Oncology Physician for Chg Fwd Exam Comprehensive
[2020-08-07] MEDS: iohexol 300 mg/mL 100 mL Btl IV (17:50)
[2020-08-07] MEDS: magnesium sulfate premix 2 GM/50 ML PIGGYBACK IV (18:08)
--- NOTE | 2020-08-07 19:08 | CTR_ITS ---
PROCEDURE INFORMATION: Exam: CT Abdomen And Pelvis Without Contrast Exam date and time: 08/07/2020 7:45 PM Age: 59 years old Clinical indication: Device placement; Gi device; Peg tube; Prior surgery; Surgery type: Peg, egd, port; Additional info: Abdominal pain TECHNIQUE: Imaging protocol: Computed tomography of the abdomen and pelvis without contrast. Radiation optimization: All CT scans at this facility use at least one of these dose optimization techniques: automated exposure control; mA and/or kV adjustment per patient size (includes targeted exams where dose is matched to clinical indication); or iterative reconstruction. COMPARISON: CT abdomen pelvis w con* [id number] 08/07/2020 5:42 PM RADIATION DOSE METRICS: Total DLP (mGy-cm): 623.14 FINDINGS: Limitations: The absence of intravenous contrast lessens the sensitivity of this study for solid organ abnormalities. Tubes, catheters and devices: The contrast material has been injected through the PEG tube and opacifies the stomach confirming that the PEG tube tip is within the stomach. Pleural space: There are large bilateral pleural effusions and compressive atelectasis of the lower lobes not significantly changed. Liver: There is no focal abnormality within the liver. Gallbladder and bile ducts: The gallbladder is normal. Pancreas: The pancreas is normal. Spleen: The spleen demonstrates punctate calcifications, consistent with remote granulomatous organism exposure. Adrenals: The adrenal glands are normal. Kidneys and ureters: Normal. No hydronephrosis. Stomach and bowel: PEG tube is again noted to be passing along the undersurface of the transverse colon. There is no evidence of colitis/diverticulitis. Appendix: A normal appendix is identified. Intraperitoneal space: Large amount of free fluid and free air is seen in the abdomen not changed from the examination done at 5:47 p.m.. Vasculature: The aorta demonstrates moderate atherosclerotic calcification. Lymph nodes: Unremarkable. No enlarged lymph nodes. Bladder: Unremarkable as visualized. Reproductive: Unremarkable as visualized. Bones/joints: Unremarkable. No acute fracture. Soft tissues: Unremarkable. CT/CT abdomen pelvis wo con [id number] IMPRESSION: 1. There is large free air and free fluid within the abdomen and pelvis. 2. Bilateral pleural effusions not significantly changed. 3. Contrast injection confirms the PEG tube is within the stomach. No leakage of contrast was identified on this study. Radiation Dose CTDIVOL = (mGy): DLP = 623.14 (mGy-cm)
[2020-08-07] MEDS: piperacillin-tazobactam 3.375 GM in sodium chloride 0.9% (plus) 50 ML IV (19:30)
[2020-08-07] MEDS: diatrizoate meglumine 120 mL Sol XX (19:54)
--- NOTE | 2020-08-07 19:59 | PM.HP ---
Providers/Chief Complaint Primary Care Provider: Belkys Harris CARPET INSPECTOR-C Chief Complaint: ABDOMINAL PAIN/ SWELLING/ TENDERNESS History of Present Illness Jaxon Cosby is a 59 year old male who was recently discharged from the hospital on 08/06 after placement of PEG tube placement on 08/[address] Perrin secondary to poor oral intake generalized weakness and failure to thrive with dysphagia came in today with worsening abdominal pain. Patient is stating that around 3:00 he noticed leakage around his PEG tube, around 4 PM he had 1 large bowel movement, he did not notice any fresh bleeding or dark stools. No nausea, vomiting, fever, shortness of breath or chest pain. After 4:00 he started noticing abdominal distention and pain just below PEG site hence decided to come to the hospital for further evaluation. Diagnosis in the ER revealed no signs of sepsis, normal leukocyte count, patient was afebrile, CT abdomen revealed PEG tube in stomach, contrast was given via PEG tube which did not show any leakage, patient has mild tenderness around left lower quadrant area, anemia noticed, splenic infarct on CT abdomen, not a candidate to be on heparin. Dr. Perrin notified. CT abdomen is revealing a large free air with free fluid within abdomen and pelvis with bilateral pleural effusion most likely secondary to third spacing. Review of Systems Const: Reports: body aches and fatigue; Denies: fever(s) Eyes: Denies: change in vision ENMT: Reports: throat pain and hoarseness Card: Reports: dyspnea on exertion Resp: Reports: dyspnea GI: Reports: abdominal pain, nausea and GI cramping; Denies: vomiting, diarrhea or constipation : Denies: flank pain Musc: Reports: decrease in muscle mass Skin/Breast: Reports: lesions Neuro: Denies: headache(s) Psych: Denies: anxiety Endo: Denies: polyuria Marck/Lymph: Denies: easy bruising All/Imm: Denies: urticaria Medications/Allergies Home Medications Medication Instructions Recorded Confirmed Last Taken Type sucralfate 1 g PO QID 11/21/19 08/07/20 02/04/20 History folic acid 1 mg PO DAILY #30 tab 11/22/19 08/07/20 02/04/20 Rx nicotine 1 patch TRANSDERMA DAILY #30 each 11/22/19 08/07/20 Unknown Rx nicotine (polacrilex) 2 mg BUCCAL Q1H PRN #60 each 11/22/19 08/07/20 02/04/20 Rx ondansetron HCl [Zofran] 8 mg PO Q8H #42 tab 11/22/19 08/07/20 02/04/20 Rx pantoprazole 40 mg PO DAILY #30 tab 11/22/19 08/07/20 02/04/20 Rx albuterol sulfate 90 mcg/actuation 2 puff INHALATION Q6H PRN 11/28/19 08/07/20 02/03/20 History aerosol inhaler amitriptyline 10 mg tablet 10 mg PO BEDTIME 11/28/19 08/07/20 02/04/20 History cholecalciferol (vitamin D3) 1,250 50,000 unit PO .COMPLEX 11/28/19 08/07/20 01/30/20 History mcg (50,000 unit) capsule hydrocodone-acetaminophen 1 tab PO Q4H 01/08/20 08/07/20 02/04/20 History thiamine HCl (vitamin B1) 100 mg PO DAILY 01/08/20 08/07/20 01/14/20 History dexamethasone 4 mg PO BID 01/15/20 08/07/20 02/04/20 History albuterol sulfate [ProAir HFA] See Rx Instructions .ROUTE .COMPLEX 07/30/20 08/07/20 Unknown History hydroxyzine pamoate 50 mg PO QID PRN 07/30/20 08/07/20 Unknown History docusate sodium 100 mg PO BID #0 cap 08/06/20 08/07/20 Unknown Rx Allergies Allergy/AdvReac Type Severity Reaction Status Date / Time No Known Allergies Allergy Verified 01/08/20 16:12 PFSH Acute PFSH: Medical History (Updated 08/07/20 @ 21:42 by Julisa Thakkar MD) Esophageal adenocarcinoma Hiatal hernia Port-A-Cath in place left subclavian - 01/16/20 Right tibial fracture Surgical History (Updated 08/07/20 @ 21:42 by Julisa Thakkar MD) H/O esophagogastroduodenoscopy History of open reduction and internal fixation (ORIF) procedure Right LE Status post insertion of percutaneous endoscopic gastrostomy (PEG) tube 08/02 Family History Father CAD (coronary artery disease) Father had a heart attack in his late 70s Cancer Unknown type Denies family history of Anesthesia complication Bleeding disorder Social History Smoking and tobacco status: current every day smoker cigarettes Quit status (tobacco): has tried quititng Second hand smoke exposure: Yes Alcohol intake: current Desire information about alcohol rehabilitation?: No Counseling given: Yes Desire information about substance/drug rehabilitation?: Yes Counseling given: Yes Adopted: No Caregiver/support person: Yes Lives independently: Yes Household members: spouse Housing: House Marital status: Number of children: 0 Highest education level completed: 8th Grade Current occupational status: disabled Current occupational exposures/hazards: No Pets and animals: Yes Pets & animals: dog(s) History of recent travel: No Leisure activites: hunting and fishing Sexually active: No Current gender identity: Male Lety/Mormonism: Presybeterian Special lety needs: No Agree to transfusion: Yes Financial difficulty paying for basics: Decline to Answer Vitals/I&O/Wt Last Vital Signs Temp 97.6 F 08/07/20 19:15 Pulse 96 08/07/20 19:15 Resp 18 08/07/20 19:15 BP 133/85 08/07/20 19:15 Pulse Ox 98 08/07/20 19:15 Weight last 48 hrs Weight 54.885 kg Physical Exam Narrative: EXAM NARRATIVE: Extremely dehydrated, malnourished middle-age male Cachectic appearance Laying still in his bed Saturating well on room air Hemodynamically stable S1, S2 tachycardia Abdomen tender on mild palpation especially below PEG tube site and left lower quadrant area, bowel sounds present in all quadrants Mild rigidity, pain not out of proportion to palpation No active drainage via PEG tube Lower extremity edema Anasarca Patient seems irritable EOMI, PERRLA No neurological deficit Muscle mass loss sarcopenia Data : 08/07/20 16:27 08/07/20 16:27 A&P Assessment and plan (1) Pain around PEG tube site: Status: Acute (2) Anemia: Status: Acute Qualifiers: Anemia type: unspecified type Qualified Code(s): D64.9 - Anemia, unspecified (3) Abdominal pain: Status: Acute Qualifiers: Abdominal location: generalized Qualified Code(s): R10.84 - Generalized abdominal pain (4) Acute dehydration: Status: Acute (5) Generalized weakness: Status: Acute (6) Ascites: Status: Acute (7) Malnourished: Status: Acute Additional A&P Information Pain around PEG tube site No intraperitoneal leakage evident No signs of sepsis No leukocytosis or fever He received Zosyn in the ER Hold off on antibiotics for now I believe he is third spacing and initiation of PEG tube feeding because refeeding syndrome Monitor magnesium and phosphorus level N.p.o. Dr. Perrin recommended PEG tube to gravity overnight CT abdomen is revealing worsening of free fluid with air travel which I think is postoperative sequela, will follow-up with general surgery recommendations in the morning D5 LR at maintenance rate Dilaudid for analgesia Acute on chronic blood loss anemia Macrocytic anemia No active bleeding noticed I will keep him on Protonix 40 IV twice daily, requested 2 units of PRBC Monitor H&H, no acute indication for endoscopy Acute splenic infarct Not a candidate of anticoagulation because of anemia Malnourished/Sarcopenia Most likely patient currently suffering from refeeding syndrome, carries guarded prognosis, PEG tube feeding tube initiated once general surgery deems stable Full code VT prophylaxis: SCD N.p.o. Attestations Medical Necessity Statement*: Anticipating discharge in less than 48 hours currently need monitoring for possible refeeding syndrome, no PEG tube leakage noticed, receiving 2 units of PRBC for anemia Time Spent in Patient Care: (>than 50% of time spent in counselling and/or direct pt care on unit). 40mins Coding Level of Care Code Acute Self Sealing Fuel Tank Repairer for Chg Fwd Diagnoses Pain around PEG tube site T85.848A Anemia D64.9 Anemia type: unspecified type Abdominal pain R10.84 Abdominal location: generalized Acute dehydration E86.0 Generalized weakness R53.1 Ascites R18.8 Malnourished E46
[2020-08-07 20:00] LABS: Lactic Sepsis W/Reflex 0.5 mmol/L (0.5-2.2)
--- NOTE | 2020-08-07 21:10 | PC.NURSE ---
Per MD Clifton asked to vent G-tube, note large burst of air and over 10 minutes leaked 20 ml yellow fluid.
[2020-08-07 22:36] LABS: Urine Color Dark Yellow (Yellow)
[2020-08-07 22:37] LABS: Bacteria Urine 1+ /hpf; Bilirubin Urine 1+ (Negative); Blood Urine Neg (Negative); Glucose Urine UA Norm (Normal); Ketones Urine 1+ (Negative); Leukocyte Esterase Urine Negative (Negative); Mucus Urine 1+ /hpf; Nitrate Urine Negative (Negative); Protein Urine Neg (Negative); RBC Urine 0-4 /hpf (0-2); Specific Gravity, Urine 1.015 (1.005-1.030); Squamous Epithelial Cell Urine 0-4 /hpf (0-5); Urine Appearance Clear (CLEAR); Urobilinogen Urine 8 mg/dL (Negative); WBC Urine 0-4 /hpf (0-5); pH Urine 6.5 (5-7)
[2020-08-07] MEDS: pantoprazole 40 mg SDV IVP (23:34)
[2020-08-07] MEDS: dextrose 5%-lactated ringers 1,000 ML 75 ML IV (23:35)
[2020-08-08] VITALS (17 sets, daily range): BP systolic 112–140; BP diastolic 72–91; PULSE 89–127; RESP 14–28; TEMP 35.9–36.8; O2SAT 88–100
[2020-08-08] MEDS: FUROsemide 10 mg/mL SDV 2mL 20 MG IVP (04:24)
[2020-08-08 05:57] LABS: Basophils # 0.1 10^3/uL (0.0-0.1); Basophils % 0.6 %; Eosinophils % 0.1 %; Hematocrit 41.1 % (42.0-52.0); Hemoglobin 14.1 g/dL (11.7-16.6); Lymphocytes # 0.3 10^3/uL (0.8-4.8); Lymphocytes % 3.1 %; Mean Corpuscular HGB Conc 34.3 g/dL (30.0-36.0); Mean Corpuscular Hemoglobin 31.5 pg (28.0-34.0); Mean Corpuscular Volume 91.7 fL (80-94); Mean Platelet Volume 12.1 fL (7.4-10.4); Monocytes # 0.6 10^3/uL (0.2-0.9); Monocytes % 7.7 %; Neutrophils # 7.28 10^3/uL (1.8-7.7); Neutrophils % 87.5 %; Nucleated Red Blood Cells % 0 %; Platelet Count 102 10^3/cmm (130-400); Red Blood Count 4.48 10^6/uL (4.1-5.3); White Blood Count 8.3 10^3/uL (4.0-10.0)
--- NOTE | 2020-08-08 06:02 | PC.NURSE ---
Patient came to the floor on 1.5 liters NC with saturations at 92%. Respiratory assessed patient around 0015 with sats in the 70's. Patient was placed on 15 Liters with an oximask and doctor was notified. Patient stated that he was not short of breath. Patient was placed on Bipap at 80% oxygen flow sats at 100%. Patient is currently on Biapap 45% oxygen with sats at 100%. Patient received 1 unit of blood, holding fluids and second unit per Dr. Thakkar order. Patient received 20mg of lasix with output of 300. Physician notified of low output. Patient was NPO all night. PEG was hooked up to juan bag per doctors order in msg to nurse.
--- NOTE | 2020-08-08 07:36 | XRR_ITS ---
PROCEDURE INFORMATION: Exam: XR Abdomen, 2 Views Exam date and time: 08/08/2020 8:13 AM Age: 59 years old Clinical indication: Abdominal tenderness; Prior surgery; Surgery date: <1 month; Patient HX: Abdominal pain/discomfort around tube and has some fluids out around entry side of feeding tube. ; Additional info: S/P peg placement, pneumopertioneum, concern for colon injur TECHNIQUE: Imaging protocol: XR of the abdomen. Views: 2 Views. COMPARISON: CT abdomen pelvis con [id number] 08/07/2020 7:40 PM FINDINGS: Tubes, catheters and devices: Percutaneous gastrostomy feeding tube is positioned at the left upper quadrant. Central vascular catheter tip extends to the low superior vena cava or cavoatrial junction. Pleural space: Left pleural effusion. Parenchymal opacity of left lower lobe and right mid lung. Left pleural effusion. Gastrointestinal tract: Prominent gas distension of bowel in the upper abdomen and mild gas distention of bowel centrally. Residual gastrointestinal contrast media within the colon. Intraperitoneal space: Persistent free air. Bones/joints: Unremarkable for age. XR/XR abdomen min 2V [id number] IMPRESSION: 1. Central and upper abdominal moderate gas distention of bowel. 2. Suspect persistent prominent collection of free air despite the absence of upright images. 3. Right midlung and left lower lung opacity with left-sided effusion.
--- NOTE | 2020-08-08 07:37 | PM.CONSULT ---
Providers/Reason For Consult Consulting Physican/Specialty*: Dr. 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 Patient is discharged on 08/06/2020 but presented to the ER again on 08/07/2020 with abdominal pain and distention. He is also noticed some drainage around the catheter entry site. No fevers or chills and denies any nausea vomiting. Patient states the pain is generalized, does not radiate Review of Systems General: Reports: 10 or more systems reviewed and unremarkable except in HPI and below Meds/Allergies Home Medications and Allergies Home Medications Medication Instructions Recorded Confirmed Last Taken Type sucralfate 1 g PO QID 11/21/19 08/07/20 02/04/20 History folic acid 1 mg PO DAILY #30 tab 11/22/19 08/07/20 02/04/20 Rx nicotine 1 patch TRANSDERMA DAILY #30 each 11/22/19 08/07/20 Unknown Rx nicotine (polacrilex) 2 mg BUCCAL Q1H PRN #60 each 11/22/19 08/07/20 02/04/20 Rx ondansetron HCl [Zofran] 8 mg PO Q8H #42 tab 11/22/19 08/07/20 02/04/20 Rx pantoprazole 40 mg PO DAILY #30 tab 11/22/19 08/07/20 02/04/20 Rx albuterol sulfate 90 mcg/actuation 2 puff INHALATION Q6H PRN 11/28/19 08/07/20 02/03/20 History aerosol inhaler amitriptyline 10 mg tablet 10 mg PO BEDTIME 11/28/19 08/07/20 02/04/20 History cholecalciferol (vitamin D3) 1,250 50,000 unit PO .COMPLEX 11/28/19 08/07/20 01/30/20 History mcg (50,000 unit) capsule hydrocodone-acetaminophen 1 tab PO Q4H 01/08/20 08/07/20 02/04/20 History thiamine HCl (vitamin B1) 100 mg PO DAILY 01/08/20 08/07/20 01/14/20 History dexamethasone 4 mg PO BID 01/15/20 08/07/20 02/04/20 History albuterol sulfate [ProAir HFA] See Rx Instructions .ROUTE .COMPLEX 07/30/20 08/07/20 Unknown History hydroxyzine pamoate 50 mg PO QID PRN 07/30/20 08/07/20 Unknown History docusate sodium 100 mg PO BID #0 cap 08/06/20 08/07/20 Unknown Rx Allergies Allergy/AdvReac Type Severity Reaction Status Date / Time No Known Allergies Allergy Verified 01/08/20 16:12 Current Medications Current Medications Generic Name Dose Route Start Last Admin Trade Name Freq PRN Reason Stop Dose Admin Sodium Chloride 1,000 mls @ 100 mls/hr 08/07/20 16:15 08/07/20 16:59 Sodium Chloride 0.9% IV 100 mls/hr .Q10H DAVIS Administration Dextrose/Lactated Ringer's 1,000 mls @ 75 mls/hr 08/07/20 21:57 08/07/20 23:35 Dextrose 5%-Lactated Ringers IV 75 mls/hr .[id number] DAVIS Administration Pantoprazole Sodium 40 mg 08/07/20 22:00 08/07/20 23:34 Protonix IVP 40 mg Q12H DAVIS Administration PFSH Acute PFSH: Medical History Esophageal adenocarcinoma Hiatal hernia Port-A-Cath in place left subclavian - 01/16/20 Right tibial fracture Surgical History H/O esophagogastroduodenoscopy History of open reduction and internal fixation (ORIF) procedure Right LE Status post insertion of percutaneous endoscopic gastrostomy (PEG) tube 08/02 Family History Father CAD (coronary artery disease) Father had a heart attack in his late 70s Cancer Unknown type Denies family history of Anesthesia complication Bleeding disorder Social History Smoking and tobacco status: current every day smoker cigarettes Quit status (tobacco): has tried quititng Second hand smoke exposure: Yes Alcohol intake: current Desire information about alcohol rehabilitation?: No Counseling given: Yes Desire information about substance/drug rehabilitation?: Yes Counseling given: Yes Adopted: No Caregiver/support person: Yes Lives independently: Yes Household members: spouse Housing: House Marital status: Number of children: 0 Highest education level completed: 8th Grade Current occupational status: disabled Current occupational exposures/hazards: No Pets and animals: Yes Pets & animals: dog(s) History of recent travel: No Leisure activites: hunting and fishing Sexually active: No Current gender identity: Male Lety/Anabaptist: Muslim Special lety needs: No Agree to transfusion: Yes Financial difficulty paying for basics: Decline to Answer Vitals/I&O/Wt Last Vital Signs Temp 98.1 F 08/08/20 03:52 Pulse 124 H 08/08/20 05:53 Resp 28 H 08/08/20 04:00 BP 114/82 08/08/20 04:00 Pulse Ox 97 08/08/20 05:53 08/07/20 08/08/20 08/08/20 22:59 06:59 14:59 Intake Total 350 / 350 Output Total 600 / 600 Balance -250 / -250 Weight last 48 hrs Weight 121 lb Physical Exam Narrative: EXAM NARRATIVE: HEENT: Normocephalic Eye: Sclera /conjunctiva normal Respiratory and chest: Patient is currently on BiPAP Abdomen: Soft to palpation, minimally distended, minimally tender, no guarding or rigidity, PEG tube in the left upper quadrant Neurological: Oriented to place person and time Skin: Intact, no lesions appreciated on gross exam A&P Assessment and plan (1) Abdominal pain: 59-year-old gentleman with stage IV adenocarcinoma the distal esophagus status post chemoradiation status post PEG tube placement who presents with abdominal pain 5 days after the procedure. His hemoglobin is down to 7, there is no evidence of active GI bleed. Initial CT scan was concerning for possible PEG tube passing through the transverse colon but a repeat CT scan showed the PEG within the stomach with no extravasation of contrast and no evidence of transverse colon injury. CT scan also showed significant amount of acetic fluid and pneumoperitoneum. Overnight patient was on 1 L of oxygen is currently on BiPAP due to worsening respiratory status, he has bilateral effusions with atelectasis. He most likely will need to be COVID tested. Leave PEG tube to gravity Abdominal series today might need a Gastrografin enema I reviewed the CT scan and there is still a concern for possible injury to the transverse colon. Fleets enema today due to significant colonic distention Lactulose 15 cc p.o. twice daily Status: Acute Qualifiers: Abdominal location: generalized Qualified Code(s): R10.84 - Generalized abdominal pain Coding Level of Care Code Acute Fashion Consultant Selling for g Fwd Diagnoses Abdominal pain R10.84 Abdominal location: generalized
--- NOTE | 2020-08-08 08:22 | XRR_ITS ---
PROCEDURE INFORMATION: Exam: XR Chest, 1 View Exam date and time: 08/08/2020 9:17 AM Age: 59 years old Clinical indication: Shortness of breath; Additional info: SOB TECHNIQUE: Imaging protocol: XR of the chest Views: 1 view. COMPARISON: CR XR chest 1V portable [id number] 08/01/2020 10:52 AM FINDINGS: Lungs: Severe emphysema with destruction of much of the lung parenchyma particularly within the apices right greater than left. Pleural space: Subpulmonic effusions, moderate left greater than right, with adjacent atelectasis. Heart/Mediastinum: Unremarkable. No cardiomegaly. Bones/joints: Unremarkable. Intraperitoneal space: free air below the right hemidiaphragm. Likely related to the gastrostomy tube placement. Free air noted on the CT dated 08-07-20. XR/XR chest 1V portable [id number] IMPRESSION: 1. Severe emphysema with destruction of much of the lung parenchyma particularly within the apices right greater than left. 2. Subpulmonic effusions, moderate left greater than right, with adjacent atelectasis. 3. Free air below the right hemidiaphragm. Likely related to the gastrostomy tube placement. Free air noted on the CT dated 08-07-20.
[2020-08-08] MEDS: Fleet Enema 133 mL Enema PR (08:44)
[2020-08-08] MEDS: lactulose oral liq 20 gm/30 mL UDC 10 GM PO ×2 (08:44→21:27)
[2020-08-08 09:52] LABS: Anion Gap 17.5 (5-19); Blood Urea Nitrogen 9 mg/dL (6-20); Calcium 7.7 mg/dL (8.5-10.5); Carbon Dioxide 22 mmol/L (22-29); Chloride 99 mmol/L (98-107); Glomerular Filtration Rate 221.7 mL/min (90-130); Glucose 60 mg/dL (65-115); Magnesium 1.8 mg/dL (1.7-2.3); Osmolality Calculated 277 mOsm/kg (285-295); Phosphorus 4.5 mg/dL (2.5-4.5); Potassium 3.5 mmol/L (3.5-5.1); Sodium 135 mmol/L (136-145)
[2020-08-08 11:15] LABS: SARS Covid-2 Antigen Negative (Negative)
--- NOTE | 2020-08-08 11:35 | FL_ITS ---
WS: [id number] Gastrografin enema. HISTORY: position of PEG tube,? Transverse colon COMPARISON: Prior KUBs. FLUOROSCOPY TIME: 3.0 minutes. Contrast well distends the LEFT colon. Patient was unable to retain the contrast. There is contrast o verlying the mid abdomen which is not within the colon. This could be extravasated contrast as the pa tient did not retain contrast throughout the examination. CT will be performed. This will help determ ine whether this is intraperitoneal contrast or not. FL/FL enema w gastrografin [id number] IMPRESSION: Indeterminate for contrast extravasation into the peritoneal cavity across the PEG tube closely associated with the transverse colon. CT was performed after this examination and there is no extravasation of contra st from the lumen of the transverse colon.
[2020-08-08] MEDS: pantoprazole 40 mg SDV IVP ×2 (11:46→21:36)
[2020-08-08] MEDS: dextrose 5%-sod chloride 0.9% 1,000 ML 75 ML IV (13:33)
[2020-08-08] MEDS: piperacillin-tazobactam 3.375 GM in sodium chloride 0.9% (plus) 50 ML IV ×2 (13:53→21:27)
--- NOTE | 2020-08-08 14:04 | XR_ITS ---
WS: [id number] ABDOMEN 3 VIEW(S) HISTORY: s/p peg with concern for transverse colon injury COMPARISON: 08/08/2020 PEG tube in the LEFT upper quadrant. There is oral contrast in the colon. Oral contrast does not extr avasate into the peritoneal cavity as evidenced radiographically. There is no obstruction. The oral c ontrast is present within the distal colon. There is soft tissue thickening along the tract of the PE G tube. Also noted is free air throughout the abdominal cavity. This has been previous the described. XR/XR abdomen 3V [id number] IMPRESSION: 1. There is no contrast extravasating into the peritoneal cavity from the colo n. 2. PEG tube LEFT upper abdomen. 3. No change in the amount of free air.
--- NOTE | 2020-08-08 16:20 | P.PN_ITS ---
Subjective Subjective: Interval history: Overnight labs and H&P reviewed. Appreciate surgical assessment. Plan for Gastrografin enema study today to a certain position of the PEG tube. This morning he was on BiPAP, this afternoon has been taken off BiPAP and placed on 4 L/min nasal cannula. He is saturating well without any obvious respiratory distress at this present time. Chest x-ray nella wed mild lower pleural effusion and question of a consolidation. Noted to be hypoglycemic with glucose 60 on this morning CMP. Medications: Reviewed: Yes Vitals/I&O/Wt Last Vital Signs Temp 98.2 F 08/08/20 12:00 Pulse 112 H 08/08/20 13:00 Resp 17 08/08/20 12:00 BP 140/80 08/08/20 12:00 Pulse Ox 96 08/08/20 13:00 08/08/20 08/08/20 08/08/20 06:59 14:59 22:59 Intake Total 350 / 350 Output Total 600 / 600 420 / 420 Balance -250 / -250 -420 / -420 Weight last 48 hrs Weight 54.885 kg Physical Exam Narrative: EXAM NARRATIVE: GEN: Awake, alert and oriented, severe cachexia and malnourishment noted HEENT currently on nasal cannula saturating 96% CVS: S1S2 N, tachycardia present RS: CTA B/L except crackles over RUL Abd: Soft, nt/nd , bs+ SUPERVISOR LEAD REFINERY: no focal neuro deficits Data : 08/08/20 05:18 08/08/20 09:10 Micro: Microbiology 08/08/20 11:40 C.difficile Toxin B Gene (PCR) - Final Stool Occult Blood (FIT) - Final A&P Assessment and plan (1) Pain around PEG tube site: Status: Acute (2) Anemia: Status: Acute Qualifiers: Anemia type: unspecified type Qualified Code(s): D64.9 - Anemia, unspecified (3) Abdominal pain: Status: Acute Qualifiers: Abdominal location: generalized Qualified Code(s): R10.84 - Generalized abdominal pain (4) Acute dehydration: Status: Acute (5) Generalized weakness: Status: Acute (6) Ascites: Status: Acute (7) Malnourished: Status: Acute Additional A&P Information Patient is a 59-year-old male with a past medical history of adenocarcinoma status post chemoradiation who was recently admitted here for dysphagia, initial concern for recurrent cancer for which he underwent EGD. Also had placement of PEG tube due to extensive malnutrition and cachexia. Biopsy has subsequently returned with esophagitis no evidence of recurrent malignancy. He had been started on tube feeds and then discharged home with home health with instructions for tube feeds. He returned 1 day after discharge, complaining of leakage around the PEG tube. Now after undergoing 2 CAT scans overnight, there is some concern that the PEG tube may be traversing through the transverse colon and then into the stomach. He is planned to undergo barium enema/Gastrografin study to evaluate for position of the PEG tube. There is some free air noted on multiple CAT scans, however patient's belly is currently soft. Distention is likely related to recent procedure. Today patient had also developed hypoxic respiratory failure overnight for which she was placed on BiPAP. This afternoon he was transitioned from BiPAP to 4 L/min nasal cannula. He is currently comfortable on this intervention. No evidence of respiratory distress. Chest x-ray showing some bilateral pleural effusions without any other evidence of consolidation. For now we will place the patient also on empiric Zosyn until further clarity can be obtained regard ing the position of the PEG tube. Appreciate surgical consult Start DuoNeb inhalation every 4 hours scheduled given patient's history of COPD and extensive emphysematous changes on CT. At home patient takes dexamethasone 4 mg p.o. twice daily. We will convert this to a steroid equivalent of methylprednisolone 40 mg IV push every day. Acute on chronic blood loss anemia, monitor closely He received 2 units of blood transfusion yesterday, repeat hemoglobin this morning is noted to be at 14, likely some degree of hemoconcentration Hypoglycemia this morning on labs, started on D5 normal saline repeat blood sugar is pending at this time. Full code VT prophylaxis: SCD N.p.o. Attestations Medical Necessity Statement*: Needs further evaluation for position of PEG, hypoxic respiratory failure. Coding Level of Care Code Acute Clinical Field Specialist for Chg Fwd Diagnoses Pain around PEG tube site T85.848A Anemia D64.9 Anemia type: unspecified type Abdominal pain R10.84 Abdominal location: generalized Acute dehydration E86.0 Generalized weakness R53.1 Ascites R18.8 Malnourished E46
--- NOTE | 2020-08-08 16:54 | CT_ITS ---
WS: [id number] CT ABDOMEN AND PELVIS NONCONTRAST HISTORY: POST GASTROGRAFIN ENEMA ATTEMPT TECHNIQUE: Imaging performed through the abdomen and pelvis. Coronal and sagittal reformats are submi tted. All CT scans at [facility] use at least one of these dose optimization techniques: automated exposure control; mA and/or kV adjustment per patient size (includes targeted exams where d ose is matched to clinical indication); or iterative reconstruction. DLP: 306.13 mGy.cm COMPARISON: 08/07/[address] and Gastrografin enema. Limited contrast evaluation was performed to evaluate for possible extravasation of contrast into the peritoneal cavity. There is Gastrografin contrast on both sides of the peg tube and through the lume n of the transverse colon. There is no extravasation of Gastrografin identified. There is less free e dge on the prior study. Continued small bilateral pleural effusions and a small amount of free air. CT/CT abdomen pelvis wo con [id number] IMPRESSION: 1. No intraperitoneal extravasation of rectal contrast from the transverse col on. 2. Persistent but decreasing free air. 3. Bilateral pleural effusions and ascites. Discussed with Dr. Perrin.
[2020-08-08] MEDS: metoprolol tartrate 1 mg/1 mL SDV 5 mL 2.5 MG IV ×2 (17:38→21:10)
[2020-08-08 17:40] LABS: Glucose Point of Care 53 mg/dL (70-110)
[2020-08-08 17:40] LABS: Glucose Point of Care 51 mg/dL (70-110)
[2020-08-08 18:42] LABS: Glucose Point of Care 61 mg/dL (70-110)
[2020-08-08 18:42] LABS: Glucose Point of Care 89 mg/dL (70-110)
[2020-08-08] MEDS: diatrizoate meglumine 120 mL Sol PR ×2 (19:06→19:08)
[2020-08-08 21:12] LABS: Glucose Point of Care 148 mg/dL (70-110)
[2020-08-09] VITALS (13 sets, daily range): BP systolic 110–124; BP diastolic 72–82; PULSE 77–93; RESP 14–19; TEMP 36.3–36.7; O2SAT 93–100
[2020-08-09] MEDS: metoprolol tartrate 1 mg/1 mL SDV 5 mL 2.5 MG IV ×6 (00:25→21:13)
[2020-08-09] MEDS: ipratropium-albuterol 3 mL Neb INHALATION ×4 (01:00→20:57)
[2020-08-09] MEDS: dextrose 5%-sod chloride 0.9% 1,000 ML 75 ML IV ×2 (01:15→16:52)
[2020-08-09] MEDS: piperacillin-tazobactam 3.375 GM in sodium chloride 0.9% (plus) 50 ML IV ×3 (04:20→21:02)
--- NOTE | 2020-08-09 05:23 | PC.NURSE ---
Patient incontinent of urine, large amount of urine bed pad.
[2020-08-09] MEDS: HYDROmorphone 1 mg/mL INJ 1 mL IVP ×4 (06:19→21:19)
--- NOTE | 2020-08-09 07:14 | PM.PN ---
Subjective Subjective: Interval history: Patient overall doing well. PEG tube drainage is minimal. Undergone a CT scan of the abdomen and pelvis yesterday that showed; COMPARISON: 08/07/[address] and Gastrografin enema. Limited contrast evaluation was performed to evaluate for possible extravasation of contrast into the peritoneal cavity. There is Gastrografin contrast on both sides of the peg tube and through the lumen of the transverse colon. There is no extravasation of Gastrografin identified. There is less free edge on the prior study. Continued small bilateral pleural effusions and a small amount of free air. CT/CT abdomen pelvis wo con [id number] IMPRESSION: 1. No intraperitoneal extravasation of rectal contrast from the transverse colon. 2. Persistent but decreasing free air. 3. Bilateral pleural effusions and ascites. Vitals/I&O/Wt Last Vital Signs Temp 98.0 F 08/09/20 04:00 Pulse 82 08/09/20 04:00 Resp 14 08/09/20 06:19 BP 116/72 08/09/20 04:00 Pulse Ox 100 08/09/20 04:00 08/08/20 08/09/20 08/09/20 22:59 06:59 14:59 Intake Total 630 / 630 927.5 / 1557.5 Output Total 250 / 670 Balance 380 / -40 927.5 / 887.5 Weight last 48 hrs Weight 121 lb Physical Exam Narrative: EXAM NARRATIVE: Patient is conscious alert oriented X3 BMI 16.4 cachectic Head and neck examination PERRLA no masses no cervical lymphadenopathy no jaundice Abdomen nontender mild distended soft no organomegaly guarding or rigidity/no signs of peritonitis PEG tube in place at skin level of 4-5 cm with minimal drainage per draining bag Adjustment bedside was done by me and the G-tube now is at the level of 3-4 cm and clean dressing was applied Data : 08/08/20 05:18 08/08/20 09:10 Micro: Microbiology 08/08/20 11:40 C.difficile Toxin B Gene (PCR) - Final Stool Occult Blood (FIT) - Final A&P Assessment and plan (1) Abdominal pain: After history taking physical examination and after the images myself and resolution of abdominal pain, will plan to start the patient on trophic feeds Adjustment of PEG tube bedside Assurance and education All questions have been answered and all concerns have been addressed to patient's satisfaction. Status: Acute Qualifiers: Abdominal location: generalized Qualified Code(s): R10.84 - Generalized abdominal pain Attestations Medical Necessity Statement*: Medical necessity care is expected to cross 2 midnights because of continue medical optimization and start feeding the patient via PEG tube. Time Spent in Patient Care: (>than 50% of time spent in counselling and/or direct pt care on unit). Coding Level of Care Code Acute Workers' Compensation Commissioner for g Fwd Diagnoses Abdominal pain R10.84 Abdominal location: generalized
--- NOTE | 2020-08-09 07:24 | P.PN_ITS ---
Subjective Subjective: Interval history: appears to be improving today, afebrile, leaking reducing around PEG site, hypoglycemia resolved, remains off bipap, 02 requirement stable. Labs unable to be drawn from port today. Additionally no iv access in spite of multiple sticks today Medications: Reviewed: Yes Vitals/I&O/Wt Last Vital Signs Temp 98.0 F 08/09/20 04:00 Pulse 82 08/09/20 04:00 Resp 14 08/09/20 06:19 BP 116/72 08/09/20 04:00 Pulse Ox 100 08/09/20 04:00 08/08/20 08/09/20 08/09/20 22:59 06:59 14:59 Intake Total 630 / 630 927.5 / 1557.5 Output Total 250 / 670 Balance 380 / -40 927.5 / 887.5 Weight last 48 hrs Weight 54.885 kg Physical Exam Narrative: EXAM NARRATIVE: GEN: Awake, alert and oriented, severe cachexia and malnourishment noted HEENT currently on nasal cannula saturating 96% CVS: S1S2 N, tachycardia present RS: CTA B/L Abd: Soft, nt/nd , bs+ 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: no focal neuro deficits Data : 08/08/20 05:18 08/08/20 09:10 Micro: Microbiology 08/08/20 11:40 C.difficile Toxin B Gene (PCR) - Final Stool Occult Blood (FIT) - Final A&P Assessment and plan (1) Pain around PEG tube site: Status: Acute (2) Anemia: Status: Acute Qualifiers: Anemia type: unspecified type Qualified Code(s): D64.9 - Anemia, unspecified (3) Abdominal pain: Status: Acute Qualifiers: Abdominal location: generalized Qualified Code(s): R10.84 - Generalized abdominal pain (4) Acute dehydration: Status: Acute (5) Generalized weakness: Status: Acute (6) Ascites: Status: Acute (7) Malnourished: Status: Acute Additional A&P Information Patient is a 59-year-old male with a past medical history of adenocarcinoma status post chemoradiation who was recently admitted here for dysphagia, initial concern for recurrent cancer for which he underwent EGD. Also had placement of PEG tube due to extensive malnutrition and cachexia. Biopsy has subsequently returned with esophagitis no evidence of recurrent malignancy. He had been started on tube feeds and then discharged home with home health with instructions for tube feeds. He returned 1 day after discharge, complaining of leakage around the PEG tube. Now after undergoing multiple radiological investigations, it has been established that PEG is in the stomach, with perhaps some passage via mesocolon. # hypoxic respiratory failure noted on admission, initially placed on BiPAP. Transitioned to to 4 L/min nasal cannula yesterday afternnon and remains on this. He is currently comfortable on this intervention. No evidence of respiratory distress. Chest x-ray showing some bilateral pleural effusions without any other evidence of consolidation. For now we will place the patient also on empiric Zosyn for possible aspiration. Appreciate surgical consult Continue DuoNeb inhalation every 4 hours scheduled given patient's history of COPD and extensive emphysematous changes on CT. At home patient takes dexamethasone 4 mg p.o. twice daily. We will convert this to a steroid equivalent of methylprednisolone 40 mg IV push every day. Acute on chronic blood loss anemia, monitor closely He received 2 units of blood transfusion yesterday, repeat hemoglobin this morning is noted to be at 14, likely some degree of hemoconcentration Hypoglycemia this morning on labs, started on D5 normal saline repeat blood sugar is pending at this time. Full code DVT prophylaxis: SCD clears, tube feeds to resume tomorrow if continues to have reduced leakage around PEG Attestations Medical Necessity Statement*: iproving respiratoy status, resume tube feeds tomorrow Coding Level of Care Code Acute Surgical Corsetier for Chg Fwd Diagnoses Pain around PEG tube site T85.848A Anemia D64.9 Anemia type: unspecified type Abdominal pain R10.84 Abdominal location: generalized Acute dehydration E86.0 Generalized weakness R53.1 Ascites R18.8 Malnourished E46
[2020-08-09] MEDS: lactulose oral liq 20 gm/30 mL UDC 10 GM PO ×2 (07:53→21:02)
[2020-08-09] MEDS: nicotine 14 mg Patch 1 PATCH TRANSDERMA (08:06)
[2020-08-09] MEDS: pantoprazole 40 mg SDV IVP ×2 (10:15→21:19)
[2020-08-09 15:50] LABS: Glucose Point of Care 171 mg/dL (70-110)
[2020-08-10] VITALS (14 sets, daily range): BP systolic 104–127; BP diastolic 67–80; PULSE 50–89; RESP 16–20; TEMP 36.4–36.9; O2SAT 6–98
[2020-08-10] MEDS: dextrose 5%-sod chloride 0.9% 1,000 ML 75 ML IV (04:55)
[2020-08-10] MEDS: piperacillin-tazobactam 3.375 GM in sodium chloride 0.9% (plus) 50 ML IV ×3 (04:56→19:49)
[2020-08-10] MEDS: HYDROmorphone 1 mg/mL INJ 1 mL IVP ×3 (05:17→20:19)
--- NOTE | 2020-08-10 06:37 | PM.PN ---
Subjective Subjective: Interval history: Patient overall is doing well Feeds were supposed to be started yesterday at 10 mL/h in the form of trophic's. Patient complains earlier of some lower abdominal pain, on morning rounds patient denies abdominal pain. PEG tube in place without complications and gastric contents coming through the tubing at 150 mL. Vitals/I&O/Wt Last Vital Signs Temp 97.7 F 08/10/20 04:00 Pulse 75 08/10/20 04:00 Resp 18 08/10/20 05:17 BP 125/80 08/10/20 04:00 Pulse Ox 97 08/10/20 04:00 08/09/20 08/09/20 08/10/20 14:59 22:59 06:59 Intake Total 1410 / 1410 50 / 1460 953.75 / 2413.75 Output Total 320 / 320 50 / 370 0 / 370 Balance 1090 / 1090 0 / 1090 953.75 / 2043.75 Physical Exam Narrative: EXAM NARRATIVE: Patient is conscious alert oriented X3 BMI 16.4 cachectic Head and neck examination PERRLA no masses no cervical lymphadenopathy no jaundice Abdomen nontender mild distended soft no organomegaly guarding or rigidity/no signs of peritonitis PEG tube in place at skin level of 3-4 cm with minimal drainage around the G-tube likely ascitic. Gastric content per tube Data : 08/08/20 05:18 08/08/20 09:10 A&P Assessment and plan (1) Abdominal pain: Resolution of abdominal pain yet patient does complain of intermittent lower abdominal pain Recommend highly to place ABD around the PEG tube to absorb excess drainage Start trophic feeds at 10 mL/h and check residuals today Please call for questions or concerns. Assurance and education All questions have been answered and all concerns have been addressed to patient's satisfaction. Status: Acute Qualifiers: Abdominal location: generalized Qualified Code(s): R10.84 - Generalized abdominal pain Attestations Medical Necessity Statement*: Medical necessity care is expected to cross 2 midnights because of start appropriate nutrition and monitor the patient clinically with regard to his abdominal pain Coding Level of Care Code Acute Special Events Driver for [facility] Fwd Diagnoses Abdominal pain R10.84 Abdominal location: generalized
[2020-08-10] MEDS: ipratropium-albuterol 3 mL Neb INHALATION ×3 (08:17→20:20)
[2020-08-10] MEDS: pantoprazole 40 mg SDV IVP (09:46)
[2020-08-10] MEDS: metoprolol tartrate 1 mg/1 mL SDV 5 mL 2.5 MG IV ×2 (09:47→19:49)
[2020-08-10] MEDS: lactulose oral liq 20 gm/30 mL UDC 10 GM PO (10:50)
[2020-08-10] MEDS: nicotine 14 mg Patch 1 PATCH TRANSDERMA (10:51)
--- NOTE | 2020-08-10 11:47 | P.PN_ITS ---
Subjective Subjective: Interval history: No acute overnight events. Patient remains hemodynamically stable. Provided unable to draw labs as patient has poor IV access and we are unable to draw any blood from him. His port is also not able to draw back. Patient denies any new complaints. There is still some leakage around his PEG site, started on tube feeds Medications: Reviewed: Yes Vitals/I&O/Wt Last Vital Signs Temp 98.2 F 08/10/20 11:44 Pulse 55 L 08/10/20 11:44 Resp 17 08/10/20 11:44 BP 104/67 08/10/20 11:44 Pulse Ox 94 08/10/20 11:44 08/09/20 08/10/20 08/10/20 22:59 06:59 14:59 Intake Total 50 / 1460 953.75 / 2413.75 50 / 50 Output Total 50 / 370 0 / 370 250 / 250 Balance 0 / 1090 953.75 / 2043.75 -200 / -200 Physical Exam 2 Narrative: EXAM NARRATIVE: GEN: Awake, alert and oriented, no acute distress CVS: S1S2 N RS: CTA B/L except crackles over RUL Abd: Soft, nt/nd , bs+ 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 Data : 08/08/20 05:18 08/08/20 09:10 A&P Assessment and plan (1) Pain around PEG tube site: Status: Acute (2) Anemia: Status: Acute Qualifiers: Anemia type: unspecified type Qualified Code(s): D64.9 - Anemia, unspecified (3) Abdominal pain: Status: Acute Qualifiers: Abdominal location: generalized Qualified Code(s): R10.84 - Generalized abdominal pain (4) Acute dehydration: Status: Acute (5) Generalized weakness: Status: Acute (6) Ascites: Status: Acute (7) Malnourished: Status: Acute Additional A&P Information Patient is a 59-year-old male with a past medical history of adenocarcinoma status post chemoradiation who was recently admitted here for dysphagia, initial concern for recurrent cancer for which he underwent EGD. Also had placement of PEG tube due to extensive malnutrition and cachexia. Biopsy has subsequently returned with esophagitis no evidence of recurrent malignancy. He had been started on tube feeds and then discharged home with home health with instructions for tube feeds. He returned 1 day after discharge, complaining of leakage around the PEG tube. Now after undergoing multiple radiological investigations, it has been established that PEG is in the stomach, with perhaps some passage via mesocolon. # hypoxic respiratory failure noted on admission, initially placed on BiPAP. Transitioned to to 4 L/min nasal cannula. He is now down to 2 L/min minute nasal cannula. He is currently comfortable on this intervention. No evidence of respiratory distress. Chest x-ray showing some bilateral pleural effusions without any other evidence of consolidation. For now we will place the patient also on empiric Zosyn for possible aspiration. COVID antigen was negative. Appreciate surgical consult Continue DuoNeb inhalation every 4 hours scheduled given patient's history of COPD and extensive emphysematous changes on CT. At home patient takes dexamethasone 4 mg p.o. twice daily. We will convert this to a steroid equivalent of methylprednisolone 40 mg IV push every day. # Acute on chronic blood loss anemia, monitor closely, unable Will draw repeat labs. He received 2 units of blood transfusion upon admission, repeat hemoglobin this morning is noted to be at 14, likely some degree of hemoconcentration # Hypoglycemia is now resolved, he was started on tube feeds per surgical recommendations Full code DVT prophylaxis: SCD clears, tube feeds Start trophic feeds at 10 mL/h and check residuals today Attestations Medical Necessity Statement*: Needs close monitoring after initiation of tube feeds, continue to check residuals, slow advancement. Coding Level of Care Code Acute Nurse Aide for Chg Fwd Diagnoses Pain around PEG tube site T85.848A Anemia D64.9 Anemia type: unspecified type Abdominal pain R10.84 Abdominal location: generalized Acute dehydration E86.0 Generalized weakness R53.1 Ascites R18.8 Malnourished E46
[2020-08-10 16:32] LABS: Glucose Point of Care 132 mg/dL (70-110)
[2020-08-10] MEDS: pantoprazole DR 40 mg Tablet PO (18:26)
[2020-08-10 20:39] LABS: Glucose Point of Care 131 mg/dL (70-110)
[2020-08-11] VITALS (17 sets, daily range): BP systolic 117–152; BP diastolic 66–85; PULSE 76–89; RESP 12–20; TEMP 36.4–36.9; O2SAT 93–100
[2020-08-11] MEDS: HYDROmorphone 1 mg/mL INJ 1 mL IVP ×4 (01:33→17:33)
[2020-08-11] MEDS: metoprolol tartrate 1 mg/1 mL SDV 5 mL 2.5 MG IV ×6 (01:33→20:37)
[2020-08-11] MEDS: ipratropium-albuterol 3 mL Neb INHALATION ×4 (02:23→21:17)
[2020-08-11] MEDS: piperacillin-tazobactam 3.375 GM in sodium chloride 0.9% (plus) 50 ML IV ×3 (03:21→19:24)
[2020-08-11 03:32] LABS: Basophils % 0.1 %; Eosinophils % 0.1 %; Hematocrit 31.7 % (42.0-52.0); Hemoglobin 10.9 g/dL (11.7-16.6); Lymphocytes # 0.3 10^3/uL (0.8-4.8); Lymphocytes % 3.1 %; Mean Corpuscular HGB Conc 34.4 g/dL (30.0-36.0); Mean Corpuscular Hemoglobin 31.8 pg (28.0-34.0); Mean Corpuscular Volume 92.4 fL (80-94); Monocytes # 0.8 10^3/uL (0.2-0.9); Monocytes % 6.9 %; Neutrophils % 88.9 %; Nucleated Red Blood Cells % 0 %; Platelet Count 123 10^3/cmm (130-400); Red Blood Count 3.43 10^6/uL (4.1-5.3); Red Cell Distribution Width 13.8 % (12.1-15.1)
[2020-08-11 03:58] LABS: Alanine Aminotransferase 11 U/L (0-41); Albumin Level 1.8 g/dL (3.5-5.2); Alkaline Phosphatase 64 IU/L (40-130); Anion Gap 10.2 (5-19); Aspartate Amino Transferase 13 U/L (0-40); Blood Urea Nitrogen 5 mg/dL (6-20); Calcium 7.3 mg/dL (8.5-10.5); Carbon Dioxide 24 mmol/L (22-29); Chloride 104 mmol/L (98-107); Globulin 2.5 g/dL (1.3-4.6); Glucose 109 mg/dL (65-115); Osmolality Calculated 278 mOsm/kg (285-295); Potassium 3.2 mmol/L (3.5-5.1); Sodium 135 mmol/L (136-145); Total Bilirubin 0.4 mg/dL (0.15-1.2); Total Protein 4.3 g/dL (6.6-8.7)
[2020-08-11 06:31] LABS: Glucose Point of Care 97 mg/dL (70-110)
--- NOTE | 2020-08-11 07:47 | PC.RESP ---
Smoking Cessation information sent to patient.
[2020-08-11] MEDS: pantoprazole DR 40 mg Tablet PO ×2 (09:22→17:34)
[2020-08-11] MEDS: nicotine 14 mg Patch 1 PATCH TRANSDERMA (09:23)
[2020-08-11] MEDS: lactulose oral liq 20 gm/30 mL UDC 10 GM PO ×2 (09:23→20:37)
--- NOTE | 2020-08-11 10:30 | PC.NURSE ---
Residual checked less then 10 mls. Tube feeding increased to 30mls/hr at this time. Patient is eating ice chips and watching TV. No leaking noted from PEG tube dressing.
[2020-08-11 11:43] LABS: Glucose Point of Care 95 mg/dL (70-110)
--- NOTE | 2020-08-11 12:18 | P.PN_ITS ---
Subjective Subjective: Interval history: the patient is doing okay overall. Tube feeds are going at 30 mL's per hour. The goal is 40. Abdominal pain is better. Denies fevers or chills. No shortness of breath. No nausea or vomiting. Medications: Reviewed: Yes Medication Review Details: Generic Name Dose Route Start Last Admin Trade Name Freq PRN Reason Stop Dose Admin Albuterol/Ipratrop ium 3 ml 08/09/20 09:00 08/11/20 09:24 Duoneb INHALATION 3 ml Q6H.RESPIRATORY S CH Administration Heparin Sodium (Be ef Lung) 500 unit 08/09/20 21:00 08/11/20 09:24 Heparin Lock Flu sh IV 500 unit BID DAVIS Administration Hydromorphone HCl 0 mg 08/09/20 06:09 08/11/20 09:15 Dilaudid Inj IVP 2 mg Q4H PRN Administration abd pain Sodium Chloride 1,000 mls @ 100 m ls/hr 08/07/20 16:15 08/07/20 16:59 Sodium Chloride 0.9% IV 100 mls/hr .Q10H DAVIS Administration Dextrose/Lactated Ringer's 1,000 mls @ 75 ml s/hr 08/07/20 21:57 08/07/20 23:35 Dextrose 5%-Lact ated Ringers IV 75 mls/hr .[id number] DAVIS Administration Piperacillin Sod/T azobactam 50 mls @ 12.5 mls /hr 08/08/20 12:00 08/11/20 07:21 Sod 3.375 gm/ So dium Chloride IV Infused Q8H DAVIS Infusion Protocol Lactulose 10 gm 08/08/20 08:30 08/11/20 09:23 Constulose PO 10 gm Q12H DAVIS Administration Methylprednisolone Sodium Succinate 40 mg 08/08/20 11:45 08/11/20 09:24 Solu-Medrol IVP 40 mg DAILY DAVIS Administration Metoprolol Tartrat e 2.5 mg 08/08/20 16:30 08/11/20 09:23 Metoprolol Tartr ate IV 2.5 mg Q4H DAVIS Administration Nicotine 1 patch 08/09/20 09:00 08/11/20 09:23 Nicoderm 14 Mg P atch TRANSDERMA 1 patch DAILY DAVIS Administration Pantoprazole Sodiu m 40 mg 08/10/20 18:00 08/11/20 09:22 Protonix PO 40 mg BID DAVIS Administration Vancomycin HCl 250 mg 08/08/20 17:00 08/11/20 09:24 Vancocin PO 12.5 ml QID DAVIS Administration Vitals/I&O/Wt Last Vital Signs Temp 98.3 F 08/11/20 07:52 Pulse 78 08/11/20 09:29 Resp 12 08/11/20 09:24 BP 136/85 08/11/20 07:52 Pulse Ox 93 08/11/20 09:24 08/10/20 08/11/20 08/11/20 22:59 06:59 14:59 Intake Total 150 / 250 50 / 50 Output Total 400 / 650 300 / 300 Balance -250 / -400 -250 / -250 Physical Exam Narrative: EXAM NARRATIVE: the patient looks very weak and tired, cachectic. No acute distress. Mood and affect are appropriate. Responses are adequate. Skin is warm and dry. Pale. Moist maximum mucous membranes. Neck supple. No JVD Lungs bilateral mild diffuse wheezes. No respiratory distress Heart S1, S2, regular Abdomen is distended, nontender, bowel sounds are present. No rebound or guarding. Extremities bilateral 3+ pedal edema is present. No cyanosis. No cough tenderness bilaterally. Neurologically seems to be intact. Normal speech. Cranial nerves II through XII are grossly intact. Moves all extremities. Data : 08/11/20 02:42 08/11/20 02:42 A&P Assessment and plan (1) Pain around PEG tube site: Status: Acute (2) Anemia: Status: Acute Qualifiers: Anemia type: unspecified type Qualified Code(s): D64.9 - Anemia, unspecified (3) Abdominal pain: Status: Acute Qualifiers: Abdominal location: generalized Qualified Code(s): R10.84 - Generalized abdominal pain (4) Acute dehydration: Status: Acute (5) Generalized weakness: Status: Acute (6) Ascites: Status: Acute (7) Malnourished: Status: Acute Additional A&P Information Patient is a 59-year-old male with a past medical history of adenocarcinoma status post chemoradiation who was recently admitted here for dysphagia, initial concern for recurrent cancer for which he underwent EGD. Also had placement of PEG tube due to extensive malnutrition and cachexia. Biopsy has subsequently returned with esophagitis no evidence of recurrent malignancy. He had been started on tube feeds and then discharged home with home health with i nstructions for tube feeds. He returned 1 day after discharge, complaining of leakage around the PEG tube. Now after undergoing multiple radiological investigations, it has been established that PEG is in the stomach, with perhaps some passage via mesocolon. # hypoxic respiratory failure noted on admission, initially placed on BiPAP. Transitioned to to 4 L/min nasal cannula. He is now down to 2 L/min minute nasal cannula. He is currently comfortable on this intervention. No evidence of respiratory distress. Chest x-ray showing some bilateral pleural effusions without any other evidence of consolidation. For now we will place the patient also on empiric Zosyn for possible aspiration. COVID antigen was negative. Appreciate surgical consult Continue DuoNeb inhalation every 4 hours scheduled given patient's history of COPD and extensive emphysematous changes on CT. At home patient takes dexamethasone 4 mg p.o. twice daily. We will convert this to a steroid equivalent of methylprednisolone 40 mg IV push every day. # Acute on chronic blood loss anemia, monitor closely, unable Will draw repeat labs. He received 2 units of blood transfusion upon admission, repeat hemoglobin this morning is noted to be at 14, likely some degree of hemoconcentration # Hypoglycemia is now resolved, he was started on tube feeds per surgical recommendations Full code DVT prophylaxis: SCD clears, tube feeds Start trophic feeds at 10 mL/h and check residuals today [place] severe protein calorie malnutrition. This is secondary to advanced his aphasia will adenocarcinoma and associated dysphagia. Started on tube feeds via PEG tube. Currently there is no leakage in the area of PEG tube insertion. Appreciate surgical consult. We'll continue advancing the tube feed rate. Severe on a aanasarca including ascites, pleural effusions, peripheral edema.hopefully with initiation of the tube feeds this will improve as well. Severe deconditioning and debilitated secondaryto #1.the patient refused placement. He will go home with home health care. esophageal adenocarcinoma. I will try to get in touch with his primary oncologist before discharge in order to understand the plan of care. hypokalemia. We'll replace and monitor. Severe anemia. Received 2 units. Currently hemodynamically stable. We'll continue monitoring. Thrombocytopenia. Probably chronic. We'll monitor. DVT prophylaxis. Teds and SCDs. No anticoagulation due to above listed concerns. Advanced COPD/emphysema. Hypoxia probably chronic. Continue oxygen as needed. Continue respiratory treatments as needed. Chronic steroids? we'll try to check with the primary oncologist about need for the steroids at discharge. Leukocytosis. Probably due to steroids. I doubt he has pneumonia. Will consider distillation of antibiotics soon. The plan of care was discussed with the patient and multidisciplinary team. Attestations Medical Necessity Statement*: I'm hoping that I will be able to discharge the patient tomorrow. Today he is still not ready. Coding Level of Care Code Acute Caption Writer for Ch[facility] Fwd Diagnoses Pain around PEG tube site T85.848A Anemia D64.9 Anemia type: unspecified type Abdominal pain R10.84 Abdominal location: generalized Acute dehydration E86.0 Generalized weakness R53.1 Ascites R18.8 Malnourished E46
--- NOTE | 2020-08-11 14:31 | P.PN_ITS ---
Subjective Subjective: Interval history: Patient had some ascitic leak around the G-tube and a DuoDERM was placed by me yesterday and seemed to help and protect the skin. Patient has been tolerating tube feeds without complications. And had bowel movement. Currently denies any abdominal pain. Vitals/I&O/Wt Last Vital Signs Temp 97.7 F 08/11/20 12:00 Pulse 82 08/11/20 12:00 Resp 16 08/11/20 13:29 BP 122/77 08/11/20 12:00 Pulse Ox 95 08/11/20 12:00 08/10/20 08/11/20 08/11/20 22:59 06:59 14:59 Intake Total 150 / 250 50 / 50 Output Total 400 / 650 300 / 300 Balance -250 / -400 -250 / -250 Physical Exam Narrative: EXAM NARRATIVE: Patient is conscious alert oriented X3 BMI 16.4 cachectic Head and neck examination PERRLA no masses no cervical lymphadenopathy no jaundice Abdomen nontender mild distended soft no organomegaly guarding or rigidity/no signs of peritonitis PEG tube in place at skin level of 3-4 cm Data : 08/11/20 02:42 08/11/20 02:42 A&P Assessment and plan (1) Abdominal pain: Continue tube feeds to reach goal Continue skin care around PEG tube Please call for questions or concerns. Assurance and education All questions have been answered and all concerns have been addressed to patient's satisfaction. Status: Acute Qualifiers: Abdominal location: generalized Qualified Code(s): R10.84 - Generalized abdominal pain Attestations Medical Necessity Statement*: Patient's hospitalization crosses 2 midnights continuity of medical care and optimization of tube feeds Time Spent in Patient Care: (>than 50% of time spent in counselling and/or direct pt care on unit) . Coding Level of Care Code Acute Hospital Admissions Officer for [facility] Fwd Diagnoses Abdominal pain R10.84 Abdominal location: generalized
[2020-08-11 16:57] LABS: Glucose Point of Care 135 mg/dL (70-110)
--- NOTE | 2020-08-11 18:58 | PC.NURSE ---
Report to Micah DELGADO at this time
[2020-08-11 19:57] LABS: Glucose Point of Care 125 mg/dL (70-110)
[2020-08-12] VITALS (21 sets, daily range): BP systolic 103–129; BP diastolic 65–81; PULSE 80–97; RESP 14–20; TEMP 36.4–37; O2SAT 93–97
[2020-08-12] MEDS: metoprolol tartrate 1 mg/1 mL SDV 5 mL 2.5 MG IV ×6 (01:03→20:10)
[2020-08-12] MEDS: ipratropium-albuterol 3 mL Neb INHALATION ×4 (03:06→20:12)
[2020-08-12] MEDS: HYDROmorphone 1 mg/mL INJ 1 mL IVP ×6 (05:01→21:57)
[2020-08-12] MEDS: piperacillin-tazobactam 3.375 GM in sodium chloride 0.9% (plus) 50 ML IV ×3 (05:01→20:10)
[2020-08-12 06:05] LABS: Basophils % 0.3 %; Eosinophils # 0.1 10^3/uL (0.0-0.8); Eosinophils % 0.4 %; Hematocrit 34.4 % (42.0-52.0); Hemoglobin 11.4 g/dL (11.7-16.6); Lymphocytes # 0.3 10^3/uL (0.8-4.8); Lymphocytes % 2.6 %; Mean Corpuscular HGB Conc 33.1 g/dL (30.0-36.0); Mean Corpuscular Hemoglobin 31.5 pg (28.0-34.0); Mean Platelet Volume 11.9 fL (7.4-10.4); Monocytes # 0.9 10^3/uL (0.2-0.9); Neutrophils # 10.27 10^3/uL (1.8-7.7); Neutrophils % 87.7 %; Nucleated Red Blood Cells % 0 %; Platelet Count 116 10^3/cmm (130-400); Red Blood Count 3.62 10^6/uL (4.1-5.3); Red Cell Distribution Width 13.7 % (12.1-15.1); White Blood Count 11.7 10^3/uL (4.0-10.0)
[2020-08-12 06:25] LABS: Glucose Point of Care 130 mg/dL (70-110)
[2020-08-12 06:36] LABS: Alanine Aminotransferase 12 U/L (0-41); Albumin Level 1.8 g/dL (3.5-5.2); Alkaline Phosphatase 63 IU/L (40-130); Aspartate Amino Transferase 27 U/L (0-40); Blood Urea Nitrogen 10 mg/dL (6-20); Calcium 7.5 mg/dL (8.5-10.5); Carbon Dioxide 23 mmol/L (22-29); Chloride 101 mmol/L (98-107); Globulin 2.7 g/dL (1.3-4.6); Glomerular Filtration Rate 116.2 mL/min (90-130); Glucose 114 mg/dL (65-115); Osmolality Calculated 278 mOsm/kg (285-295); Sodium 134 mmol/L (136-145); Total Bilirubin 0.3 mg/dL (0.15-1.2); Total Protein 4.5 g/dL (6.6-8.7)
[2020-08-12 06:39] LABS: Anion Gap 13.6 (5-19); Potassium 3.6 mmol/L (3.5-5.1)
[2020-08-12 07:27] LABS: Magnesium 1.6 mg/dL (1.7-2.3); Phosphorus 2.6 mg/dL (2.5-4.5)
[2020-08-12] MEDS: lactulose oral liq 20 gm/30 mL UDC 10 GM PO ×2 (08:28→20:10)
[2020-08-12] MEDS: nicotine 14 mg Patch 1 PATCH TRANSDERMA (08:29)
[2020-08-12] MEDS: pantoprazole DR 40 mg Tablet PO ×2 (08:29→17:39)
--- NOTE | 2020-08-12 11:00 | PC.NURSE ---
Patient developed severe abdominal pain. CT ordered and Tube feeding stopped at this time.
[2020-08-12 11:50] LABS: Glucose Point of Care 136 mg/dL (70-110)
--- NOTE | 2020-08-12 12:20 | CT_ITS ---
WS: [id number] CT ABDOMEN PELVIS TECHNIQUE: Noncontrast CT of the abdomen and pelvis with coronal and sagittal reformatted images. CLINICAL INFORMATION: ? acute abdomen COMPARISON: August 08, 2020 and August 07, 2020 DLP: 608.[address] scans at [facility] use at least one of these dose optimization techniques: automat ed exposure control; mA and/or kV adjustment per patient size (includes targeted exams where dose is matched to clinical indication); or iterative reconstruction. FINDINGS: Moderate bilateral pleural effusions left greater than right with compressive atelectasis in the lung bases. Again seen is the PEG tube which appears unchanged. Oral contrast is visualized in the colon. Diffuse abdominal ascites similar to the prior examination. Pelvic ascites. Improving free air. No e vidence of new intraperitoneal air. Diffuse mesenteric edema. No other significant changes from previ ous. Normal liver and gallbladder. Adrenal glands appear normal. No hydronephrosis. Low-attenuation lesion in the spleen peripherally may represent small splenic infarct unchanged. Contrast is visualized in the sigmoid colon which is decompressed. CT/CT abdomen pelvis wo con [id number] IMPRESSION: 1. Improving intraperitoneal free air with diffuse abdominal ascites. 2. Abdominal and pelvic ascites similar to previous. Diffuse mesenteric edema. 3. Moderate bilateral pleural effusions with compressive atelectasis in the selam ng bases. 4. PEG tube appears unchanged. 5. No other significant changes from previous.
--- NOTE | 2020-08-12 13:02 | PC.NURSE ---
Patient returned from CT at this time.
--- NOTE | 2020-08-12 13:32 | PC.NURSE ---
Patient was not given his 1300 dose of Vancomycin as we are not putting anything in his PEG tube at this time because of patient's abdominal pain.
--- NOTE | 2020-08-12 14:10 | P.PN_ITS ---
Subjective Subjective: Interval history: Patient reports increasing abdominal pain. No nausea or vomiting. No fevers or chills. No bowel movements. Denies chest pain, shortness of breath, cough, palpitations Medications: Medication Review Details: Generic Name Dose Route Start Last Admin Trade Name Freq PRN Reason Stop Dose Admin Albuterol/Ipratrop ium 3 ml 08/09/20 09:00 08/12/20 08:49 Duoneb INHALATION 3 ml Q6H.RESPIRATORY S CH Administration Heparin Sodium (Be ef Lung) 500 unit 08/09/20 21:00 08/12/20 08:28 Heparin Lock Flu sh IV 500 unit BID DAVIS Administration Hydromorphone HCl 1 mg 08/12/20 12:18 08/12/20 12:28 Dilaudid Inj IVP 1 mg Q2H PRN Administration PAIN Sodium Chloride 1,000 mls @ 100 m ls/hr 08/07/20 16:15 08/07/20 16:59 Sodium Chloride 0.9% IV 100 mls/hr .Q10H DAVIS Administration Dextrose/Lactated Ringer's 1,000 mls @ 75 ml s/hr 08/07/20 21:57 08/07/20 23:35 Dextrose 5%-Lact ated Ringers IV 75 mls/hr .[id number] DAVIS Administration Piperacillin Sod/T azobactam 50 mls @ 12.5 mls /hr 08/08/20 12:00 08/12/20 12:58 Sod 3.375 gm/ So dium Chloride IV 12.5 mls/hr Q8H DAVIS Administration Protocol Lactulose 10 gm 08/08/20 08:30 08/12/20 08:28 Constulose PO 10 gm Q12H DAVIS Administration Methylprednisolone Sodium Succinate 40 mg 08/08/20 11:45 08/12/20 08:29 Solu-Medrol IVP 40 mg DAILY DAVIS Administration Metoprolol Tartrat e 2.5 mg 08/08/20 16:30 08/12/20 12:34 Metoprolol Tartr ate IV 2.5 mg Q4H DAVIS Administration Nicotine 1 patch 08/09/20 09:00 08/12/20 08:29 Nicoderm 14 Mg P atch TRANSDERMA 1 patch DAILY DAVIS Administration Pantoprazole Sodiu m 40 mg 08/10/20 18:00 08/12/20 08:29 Protonix PO 40 mg BID DAVIS Administration Vancomycin HCl 250 mg 08/08/20 17:00 08/12/20 13:31 Vancocin PO Not Given QID DAVIS Vitals/I&O/Wt Last Vital Signs Temp 97.6 F 08/12/20 11:48 Pulse 87 08/12/20 11:48 Resp 16 08/12/20 12:28 BP 129/81 08/12/20 11:48 Pulse Ox 94 08/12/20 11:48 08/11/20 08/12/20 08/12/20 22:59 06:59 14:59 Intake Total 389 / 789 450 / 1239 150 / 150 Output Total 650 / 1200 300 / 1500 400 / 400 Balance -261 / -411 150 / -261 -250 / -250 Physical Exam Narrative: EXAM NARRATIVE: the patient looks very weak and tired, cachectic. Mild distress is present due to pain. Mood and affect are appropriate. Responses are adequate. Skin is warm and dry. Pale. Moist maximum mucous membranes. Neck supple. No JVD Lungs bilateral mild diffuse wheezes. No respiratory distress Heart S1, S2, regular Abdomen is distended, tender to touch. Guarding is present. No rebound. Bowel sounds are weak. Extremities bilateral 3+ pedal edema is present. No cyanosis. No cough tenderness bilaterally. Neurologically seems to be intact. Normal speech. Cranial nerves II through XII are grossly intact. Moves all extremities. Data : 08/12/20 05:30 08/12/20 05:30 A&P Assessment and plan (1) Pain around PEG tube site: Status: Acute (2) Anemia: Status: Acute Qualifiers: Anemia type: unspecified type Qualified Code(s): D64.9 - Anemia, unspecified (3) Abdominal pain: Status: Acute Qualifiers: Abdominal location: generalized Qualified Code(s): R10.84 - Generalized abdominal pain (4) Acute dehydration: Status: Acute (5) Generalized weakness: Status: Acute (6) Ascites: Status: Acute (7) Malnourished: Status: Acute Additional A&P Information Patient is a 59-year-old male with a past medical history of adenocarcinoma status post chemoradiation who was recently admitted here for dysphagia, initial concern for recurrent cancer for which he underwent EGD. Also had placement of PEG tube due to extensive malnutrition and cachexia. Biopsy has subsequently returned with esophagitis no evidence of recurrent malignancy. He had been started on tube feeds and then discharged home with home health with instr uctions for tube feeds. He returned 1 day after discharge, complaining of leakage around the PEG tube. Now after undergoing multiple radiological investigations, it has been established that PEG is in the stomach, with perhaps some passage via mesocolon. # hypoxic respiratory failure noted on admission, initially placed on BiPAP. Transitioned to to 4 L/min nasal cannula. He is now down to 2 L/min minute nasal cannula. He is currently comfortable on this intervention. No evidence of respiratory distress. Chest x-ray showing some bilateral pleural effusions without any other evidence of consolidation. For now we will place the patient also on empiric Zosyn for possible aspiration. COVID antigen was negative. Appreciate surgical consult Continue DuoNeb inhalation every 4 hours scheduled given patient's history of COPD and extensive emphysematous changes on CT. At home patient takes dexamethasone 4 mg p.o. twice daily. We will convert this to a steroid equivalent of methylprednisolone 40 mg IV push every day. # Acute on chronic blood loss anemia, monitor closely, unable Will draw repeat labs. He received 2 units of blood transfusion upon admission, repeat hemoglobin this morning is noted to be at 14, likely some degree of hemoconcentration # Hypoglycemia is now resolved, he was started on tube feeds per surgical recommendations Full code DVT prophylaxis: SCD clears, tube feeds Start trophic feeds at 10 mL/h and check residuals today [place] Severe protein calorie malnutrition. This is secondary to advanced his aphasia will adenocarcinoma and associated dysphagia. Started on tube feeds via PEG tube. Currently there is no leakage in the area of PEG tube insertion. Discussed with his oncologist Dr. Miranda. He also recommended outpatient GI/hinds rgical follow-up for possible esophageal dilation to help with dysphagia. I spoke with the surgeon Dr. López. Right now the patient is too weak and frail and has too many other problems to be able to undergo another EGD. Newly worsened abdominal pain. There is significant guarding and decreased suleiman l sounds. I am concerned about possible acute abdomen. Spoke with the nurse. We will stop the tube feeds. Ordering stat CT abdomen. Will contact the surgeon after results are available. We will continue pain management. Severe on a aanasarca including ascites, pleural effusions, peripheral edema. Hopefully with initiation of the tube feeds this will improve as well. Severe deconditioning and debilitated secondaryto #1.the patient refused placement. He agreed to consider longterm facility placement. Esophageal adenocarcinoma. According to Dr. Miranda his adenocarcinoma has been treated. No plans for additional treatments at this point. Outpatient follow- up with Dr. Miranda. hypokalemia. We'll replace and monitor. Severe anemia. Received 2 units. Currently hemodynamically stable. We'll continue monitoring. Thrombocytopenia. Probably chronic. We'll monitor. DVT prophylaxis. Teds and SCDs. No anticoagulation due to above listed concerns. Advanced COPD/emphysema. Hypoxia probably chronic. Continue oxygen as needed. Continue respiratory treatments as needed. Chronic steroids? I spoke with Dr. Miranda. This is not for oncologic problems. I think it would be reasonable to try to gradually decrease the dose. Leukocytosis. Probably due to steroids. I doubt he has pneumonia. Will consider de-escalation of antibiotics soon. The patient also requested to be DNR. I spoke with him and he confirmed. He understands the concept of resuscitation and DNR. The plan of care was discussed with the patient and multidisciplinary team. Attestations Medical Necessity Statement*: The plan of care requires that he remains hospitalized. He needs additional testing today. Coding Level of Care Code Acute Senior Product Integrity Engineer for Chg Fwd Diagnoses Pain around PEG tube site T85.848A Anemia D64.9 Anemia type: unspecified type Abdominal pain R10.84 Abdominal location: generalized Acute dehydration E86.0 Generalized weakness R53.1 Ascites R18.8 Malnourished E46
[2020-08-12] MEDS: dexamethasone 4 mg/mL INJ IVP (15:25)
[2020-08-12 16:33] LABS: Glucose Point of Care 145 mg/dL (70-110)
[2020-08-12 21:05] LABS: Glucose Point of Care 153 mg/dL (70-110)
[2020-08-13] VITALS (20 sets, daily range): BP systolic 104–130; BP diastolic 67–85; PULSE 82–93; RESP 15–20; TEMP 36.4–37.2; O2SAT 91–97
[2020-08-13] MEDS: metoprolol tartrate 1 mg/1 mL SDV 5 mL 2.5 MG IV ×2 (01:21→05:25)
[2020-08-13] MEDS: ipratropium-albuterol 3 mL Neb INHALATION ×3 (02:12→14:22)
[2020-08-13] MEDS: HYDROmorphone 1 mg/mL INJ 1 mL IVP ×6 (03:13→22:38)
[2020-08-13] MEDS: piperacillin-tazobactam 3.375 GM in sodium chloride 0.9% (plus) 50 ML IV ×3 (03:13→20:52)
[2020-08-13] MEDS: dexamethasone 4 mg/mL INJ IVP ×2 (03:13→15:05)
[2020-08-13 05:40] LABS: Basophils % 0.2 %; Eosinophils % 0.1 %; Hematocrit 33.6 % (42.0-52.0); Hemoglobin 11.3 g/dL (11.7-16.6); Lymphocytes # 0.3 10^3/uL (0.8-4.8); Lymphocytes % 2.4 %; Mean Corpuscular HGB Conc 33.6 g/dL (30.0-36.0); Mean Corpuscular Hemoglobin 31.1 pg (28.0-34.0); Mean Corpuscular Volume 92.6 fL (80-94); Mean Platelet Volume 11.8 fL (7.4-10.4); Monocytes # 0.9 10^3/uL (0.2-0.9); Monocytes % 6.8 %; Neutrophils % 89.4 %; Nucleated Red Blood Cells % 0 %; Platelet Count 125 10^3/cmm (130-400); Red Blood Count 3.63 10^6/uL (4.1-5.3); Red Cell Distribution Width 13.7 % (12.1-15.1); White Blood Count 12.5 10^3/uL (4.0-10.0)
[2020-08-13 06:08] LABS: Albumin Level 2.1 g/dL (3.5-5.2); Anion Gap 11.7 (5-19); Blood Urea Nitrogen 13 mg/dL (6-20); Calcium 7.3 mg/dL (8.5-10.5); Carbon Dioxide 26 mmol/L (22-29); Chloride 99 mmol/L (98-107); Glomerular Filtration Rate 116.2 mL/min (90-130); Glucose 156 mg/dL (65-115); Phosphorus 3.6 mg/dL (2.5-4.5); Potassium 3.7 mmol/L (3.5-5.1); Sodium 133 mmol/L (136-145)
[2020-08-13 06:18] LABS: Magnesium 1.6 mg/dL (1.7-2.3)
[2020-08-13 06:50] LABS: Glucose Point of Care 132 mg/dL (70-110)
[2020-08-13] MEDS: lactulose oral liq 20 gm/30 mL UDC 10 GM PO ×2 (08:39→20:53)
[2020-08-13] MEDS: pantoprazole DR 40 mg Tablet PO ×2 (08:39→19:52)
[2020-08-13] MEDS: nicotine 14 mg Patch 1 PATCH TRANSDERMA (08:39)
[2020-08-13] MEDS: magnesium sulfate premix 2 GM/50 ML PIGGYBACK IV (09:58)
[2020-08-13 11:00] LABS: Glucose Point of Care 161 mg/dL (70-110)
--- NOTE | 2020-08-13 13:34 | P.DS_ITS ---
Discharge Providers Date of Admission: 08/08/20 11:45 Date of Discharge: August 13, 2020 Attending Provider at Admission: Julisa Thakkar MD Attending Provider at Discharge: Bobby Sandoval Primary Care Provider: Belkys Harris Diagnoses at Discharge Discharge Diagnosis (1) Pain around PEG tube site: Status: Acute (2) Anemia: Status: Acute Qualifiers: Anemia type: unspecified type Qualified Code(s): D64.9 - Anemia, unspecified (3) Abdominal pain: Status: Acute Qualifiers: Abdominal location: generalized Qualified Code(s): R10.84 - Generalized abdominal pain (4) Acute dehydration: Status: Acute (5) Generalized weakness: Status: Acute (6) Ascites: Status: Acute (7) Malnourished: Status: Acute Reason for Visit Reason for Visit: ABDOMINAL PAIN/ SWELLING/ TENDERNESS Hospital Course Discharge Summary: Patient is a 59-year-old male with a past medical history of adenocarcinoma status post chemoradiation who was recently admitted here for dysphagia, initial concern for recurrent cancer for which he underwent EGD. Also had placement of PEG tube due to extensive malnutrition and cachexia. Biopsy has subsequently returned with esophagitis no evidence of recurrent malignancy. He had been started on tube feeds and then discharged home with home health with instructions for tube feeds. He returned 1 day after discharge, complaining of leakage around the PEG tube. Now after undergoing multiple radiological investigations, it has been established that PEG is in the stomach, with perhaps some passage via mesocolon. he was also seen and evaluated by . Currently there is no evidence of leakage from the PEG tube insertion site. The patient was cleared for discharge. Yesterday he had some increased pain and abdominal distention. However CT didn't show any acute findings or any significant changes. He is currently tolerating his tube feeds were well. He is still very weak and cachectic. However he refused to consider assisted facility placement. He is adamant that he wants to go home. He states that he has enough support at home. short diagnosis and problem list Severe protein calorie malnutrition. This is secondary to advanced his aphasia will adenocarcinoma and associated dysphagia. Started on tube feeds via PEG tube. Currently there is no leakage in the area of PEG tube insertion. Discussed with his oncologist Dr. Miranda. He also recommended outpatient GI/surgical follow-up for possible esophageal dilation to help with dysphagia. I spoke with the surgeon Dr. López. Right now the patient is too weak and frail and has too many other problems to be able to undergo another EGD. Severe on a anasarca including ascites, pleural effusions, peripheral edema. Hopefully with initiation of the tube feeds this will improve as well. Severe deconditioning and debilitated secondaryto #1.the patient refused placement. Esophageal adenocarcinoma. According to Dr. Miranda his adenocarcinoma has been treated. No plans for additional treatments at this point. Outpatient follow- up with Dr. Miranda. hypokalemia. replaced. Severe anemia. Received 2 units. Currently hemodynamically stable. outpatient monitoring by primary care team. Thrombocytopenia. Probably chronic. outpatient monitoring. DVT prophylaxis. Teds and SCDs. No anticoagulation due to above listed concerns. Advanced COPD/emphysema. Hypoxia probably chronic. Continue oxygen as needed. Continue respiratory treatments as needed. Chronic steroids? I spoke with Dr. Miranda. This is not for oncologic problems. I think it would be reasonable to try to gradually decrease the dose. Leukocytosis. Probably due to steroids. I doubt he has pneumonia. antibiotics are discontinued at discharge. Stool positive for C. difficile. Outpatient vancomycin for additional 7 days. Physical Exam Narrative: EXAM NARRATIVE: the patient looks very weak and tired, cachectic. Mild distress is present due to pain. Mood and affect are appropriate. Responses are adequate. Skin is warm and dry. Pale. Moist maximum mucous membranes. Neck supple. No JVD Lungs bilateral mild diffuse wheezes. No respiratory distress Heart S1, S2, regular abdomen is soft today. Bowel sounds are present. No tenderness on palpation. No guarding or rebound. He had a nice bowel movement yesterday. Extremities bilateral 3+ pedal edema is present. No cyanosis. No cough tenderness bilaterally. Neurologically seems to be intact. Normal speech. Cranial nerves II through XII are grossly intact. Moves all extremities. Discharge Data Data Completed and Pending: Completed Studies During Hospitalization Category Date Time Status CT abdomen pelvis w con* [id number] Stat Cat Scan 08/07/20 16:[address] abdomen pelvis wo con [id number] Rout ine Cat Scan 08/08/20 16:[address] abdomen pelvis wo con [id number] Urge nt Cat Scan 08/07/20 19:[address] abdomen pelvis wo con [id number] Urge nt Cat Scan 08/12/20 12:20 Completed [place] enema w gastro grafin [id number] Routi ne Exams 08/08/20 11:35 Completed XR abdomen 3V 740 21 Routine Exams 08/08/20 14:04 Completed XR abdomen min 2V [id number] Routine Exams 08/08/20 07:36 Completed XR chest 1V terrance ble [id number] Routine Exams 08/08/20 08:22 Completed Pending at discharge Category Date Time Status Complete Blood Co unt w/Auto AM LABS Lab 08/14/20 04:00 Ordered Magnesium AM LABS Lab 08/14/20 04:00 Ordered Renal Function Pa stephani AM LABS Lab 08/14/20 04:00 Ordered Labs from last 24 hours 08/13/20 08/13/20 08/13/20 10:46 06:33 04:40 WBC RBC Hgb Hct MCV MCH MCHC RDW Plt Count MPV Neut % (Auto) Lymph % (Auto) [place] % (Auto) Eos % (Auto) Baso % (Auto) Neut # (Auto) Lymph # (Auto) [place] # (Auto) Eos # (Auto) Baso # (Auto) Nucleated RBC % (a uto) Nucleated RBCs # Sodium 133 L Potassium 3.7 Chloride 99 Carbon Dioxide 26 Anion Gap 11.7 BUN 13 Creatinine 0.7 GFR Calculation 116.2 Glucose 156 H POC Glucose 161 132 Calcium 7.3 L Phosphorus 3.6 Magnesium Albumin 2.1 L 08/13/20 08/13/20 08/12/20 04:40 04:40 20:42 WBC 12.5 H RBC 3.63 L Hgb 11.3 L Hct 33.6 L MCV 92.6 MCH 31.1 MCHC 33.6 RDW 13.7 Plt Count 125 L MPV 11.8 H Neut % (Auto) 89.4 Lymph % (Auto) 2.4 [place] % (Auto) 6.8 Eos % (Auto) 0.1 Baso % (Auto) 0.2 Neut # (Auto) 11.20 H Lymph # (Auto) 0.3 L [place] # (Auto) 0.9 Eos # (Auto) 0.0 Baso # (Auto) 0.0 Nucleated RBC % (a uto) 0 Nucleated RBCs # 0.0 Sodium Potassium Chloride Carbon Dioxide Anion Gap BUN Creatinine GFR Calculation Glucose POC Glucose 153 Calcium Phosphorus Magnesium 1.6 L Albumin 08/12/20 16:12 WBC RBC Hgb Hct MCV MCH MCHC RDW Plt Count MPV Neut % (Auto) Lymph % (Auto) [place] % (Auto) Eos % (Auto) Baso % (Auto) Neut # (Auto) Lymph # (Auto) [place] # (Auto) Eos # (Auto) Baso # (Auto) Nucleated RBC % (a uto) Nucleated RBCs # Sodium Potassium Chloride Carbon Dioxide Anion Gap BUN Creatinine GFR Calculation Glucose POC Glucose 145 Calcium Phosphorus Magnesium Albumin Vitals: Last Vital Signs Temp 98.3 F 08/13/20 11:07 Pulse 86 08/13/20 11:07 Resp 18 08/13/20 12:58 BP 104/67 08/13/20 11:07 Pulse Ox 93 08/13/20 11:07 Discharge Plan Discharge Patient Disposition: Home Health Service Condition: Stable Prescriptions: New vancomycin 1,000 mg Recon Soln 250 mg PO QID 7 Days Qty: 28 RF: 0 Continued albuterol sulfate [Ventolin HFA] 90 mcg/actuation HFA aerosol inhaler 2 puff INHALATION Q6H PRN (Reason: copd) RF: 0 amitriptyline 10 mg tablet 10 mg PO BEDTIME RF: 0 cholecalciferol (vitamin D3) 50,000 unit capsule 50,000 unit PO .COMPLEX RF: 0 hydroxyzine pamoate 50 mg capsule 50 mg PO QID PRN (Reason: Anxiety) RF: 0 docusate sodium 100 mg Capsule 100 mg PO BID Qty: 0 RF: 0 sucralfate 1 gram Tablet 1 g PO QID RF: 0 folic acid 1 mg Tablet 1 mg PO DAILY Qty: 30 RF: 0 pantoprazole 40 mg tablet,delayed release (DR/EC) 40 mg PO DAILY Qty: 30 RF: 0 ondansetron HCl [Zofran] 8 mg Tablet 8 mg PO Q8H Qty: 42 RF: 0 nicotine 21 mg/24 hr patch 24 hour 1 patch TRANSDERMA DAILY Qty: 30 RF: 0 nicotine (polacrilex) 2 mg lozenge 2 mg BUCCAL Q1H PRN (Reason: nicotine cravings) Qty: 60 RF: 4 hydrocodone-acetaminophen 7.5-325 mg Tablet 1 tab PO Q4H RF: 0 thiamine HCl (vitamin B1) 100 mg/mL solution 100 mg PO DAILY RF: 0 dexamethasone 4 mg Tablet 4 mg PO BID RF: 0 Discontinued albuterol sulfate [ProAir HFA] 90 mcg/actuation HFA aerosol inhaler See Rx Instructions .ROUTE .COMPLEX RF: 0 Discharge Orders: Discharge Order (Routine); Ordered 08/13/20 Ordered By: Bobby Sandoval Referrals: [facility] [Other] [facility] [Outside] Luciano Perrin MD [Physician] - 2 weeks Nick Miranda MD [Staff Physician] - 2 weeks Discharge Diet: Start new tube feeds as directed Discharge Activity: Increase activity as tolerated Patient Instructions: Dysphagia - Oncology Activity Restrictions/Additional Instructions: please return to emergency room he develop any new weakness, dizziness or lightheadedness, cough, shortness of breath, aspiration, palpitations, nausea or vomiting, increased abdominal pain or distention, nausea or vomiting, rectal blood or black stools, diarrhea or any other new complaints. Please continue tube feeds. Do not eat or drink fluids until you're cleared by your primary care doctors. Please follow-up with Dr. Perrin and your oncologist Dr. Miranda. Discharge Attestations Time Spent in Discharge Care*: greater than 30 min Status at Discharge: Cognitive status at discharge: cognitively intact , Quality Metrics Clinical Quality Measures During this hospital stay, did patient experience: None Coding Level of Care Code Acute Integration Developer for Chg Fwd Diagnoses Pain around PEG tube site T85.848A Anemia D64.9 Anemia type: unspecified type Abdominal pain R10.84 Abdominal location: generalized Acute dehydration E86.0 Generalized weakness R53.1 Ascites R18.8 Malnourished E46
[2020-08-13 17:54] LABS: Glucose Point of Care 117 mg/dL (70-110)
[2020-08-13 21:09] LABS: Glucose Point of Care 107 mg/dL (70-110)
[2020-08-14] VITALS (17 sets, daily range): BP systolic 119–130; BP diastolic 60–76; PULSE 72–95; RESP 14–18; TEMP 36.7–36.9; O2SAT 93–97
[2020-08-14] MEDS: HYDROmorphone 1 mg/mL INJ 1 mL IVP ×5 (01:31→14:12)
[2020-08-14] MEDS: dexamethasone 4 mg/mL INJ IVP ×2 (02:22→14:13)
[2020-08-14] MEDS: ipratropium-albuterol 3 mL Neb INHALATION ×3 (03:26→15:02)
[2020-08-14] MEDS: piperacillin-tazobactam 3.375 GM in sodium chloride 0.9% (plus) 50 ML IV ×2 (04:36→12:45)
[2020-08-14 05:38] LABS: Basophils % 0.3 %; Eosinophils % 0.2 %; Hematocrit 34.2 % (42.0-52.0); Hemoglobin 11.6 g/dL (11.7-16.6); Lymphocytes # 0.2 10^3/uL (0.8-4.8); Lymphocytes % 1.8 %; Mean Corpuscular HGB Conc 33.9 g/dL (30.0-36.0); Mean Corpuscular Hemoglobin 31.6 pg (28.0-34.0); Mean Corpuscular Volume 93.2 fL (80-94); Mean Platelet Volume 11.5 fL (7.4-10.4); Monocytes # 0.6 10^3/uL (0.2-0.9); Monocytes % 5.5 %; Neutrophils # 10.37 10^3/uL (1.8-7.7); Neutrophils % 91.3 %; Nucleated Red Blood Cells % 0 %; Platelet Count 145 10^3/cmm (130-400); Red Blood Count 3.67 10^6/uL (4.1-5.3); Red Cell Distribution Width 13.6 % (12.1-15.1); White Blood Count 11.4 10^3/uL (4.0-10.0)
[2020-08-14 06:02] LABS: Magnesium 1.6 mg/dL (1.7-2.3)
[2020-08-14 06:08] LABS: Albumin Level 2.3 g/dL (3.5-5.2); Anion Gap 12.5 (5-19); Blood Urea Nitrogen 10 mg/dL (6-20); Calcium 7.4 mg/dL (8.5-10.5); Carbon Dioxide 27 mmol/L (22-29); Chloride 99 mmol/L (98-107); Creatinine Clr Calc Pharmacy 126.5404; Glomerular Filtration Rate 171.4 mL/min (90-130); Glucose 153 mg/dL (65-115); Phosphorus 3.2 mg/dL (2.5-4.5); Potassium 3.5 mmol/L (3.5-5.1); Sodium 135 mmol/L (136-145)
[2020-08-14 07:39] LABS: Glucose Point of Care 153 mg/dL (70-110)
[2020-08-14] MEDS: nicotine 14 mg Patch 1 PATCH TRANSDERMA (09:07)
[2020-08-14] MEDS: pantoprazole DR 40 mg Tablet PO (09:07)
[2020-08-14] MEDS: lactulose oral liq 20 gm/30 mL UDC 10 GM PO (09:07)
[2020-08-14] MEDS: magnesium sulfate premix 2 GM/50 ML PIGGYBACK IV (09:20)
[2020-08-14 10:54] LABS: Glucose Point of Care 134 mg/dL (70-110)
--- NOTE | 2020-08-14 11:00 | PM.PN ---
Subjective Subjective: Interval history: Awake alert oriented. No acute distress. He denies any uncontrolled pain. No nausea or vomiting. No fever or chills. No chest pain, shortness of breath, cough, palpitations Vitals/I&O/Wt Last Vital Signs Temp 98.4 F 08/14/20 07:32 Pulse 95 08/14/20 08:55 Resp 18 08/14/20 08:52 BP 130/64 08/14/20 07:32 Pulse Ox 96 08/14/20 08:50 08/13/20 08/14/20 08/14/20 22:59 06:59 14:59 Intake Total 150 / 200 410 / 610 Output Total 800 / 1020 300 / 1320 Balance -650 / -820 110 / -710 Physical Exam Narrative: EXAM NARRATIVE: Patient looks better than yesterday. No significant events or changes. Mood and affect are appropriate. Responses are adequate. Skin is warm and dry. Moist mucous membranes. Neck supple. No JVD Lungs bilateral mild diffuse wheezes. No respiratory distress Heart S1, S2, regular abdomen is soft. Bowel sounds are present. No tenderness on palpation. No guarding or rebound. Extremities bilateral 3+ pedal edema is present. No cyanosis. No calf tenderness bilaterally. Neurologically seems to be intact. Normal speech. Cranial nerves II through XII are grossly intact. Moves all extremities. Data : 08/14/20 04:45 08/14/20 04:45 A&P Assessment and plan (1) Pain around PEG tube site: Status: Acute (2) Anemia: Status: Acute Qualifiers: Anemia type: unspecified type Qualified Code(s): D64.9 - Anemia, unspecified (3) Abdominal pain: Status: Acute Qualifiers: Abdominal location: generalized Qualified Code(s): R10.84 - Generalized abdominal pain (4) Acute dehydration: Status: Acute (5) Generalized weakness: Status: Acute (6) Ascites: Status: Acute (7) Malnourished: Status: Acute Additional A&P Information Patient is a 59-year-old male with a past medical history of adenocarcinoma status post chemoradiation who was recently admitted here for dysphagia, initial concern for recurrent cancer for which he underwent EGD. Also had placement of PEG tube due to extensive malnutrition and cachexia. Biopsy has subsequently returned with esophagitis no evidence of recurrent malignancy. He had been started on tube feeds and then discharged home with home health with instructions for tube feeds. He returned 1 day after discharge, complaining of leakage around the PEG tube. Now after undergoing multiple radiological investigations, it has been established that PEG is in the stomach, with perhaps some passage via mesocolon. # hypoxic respiratory failure noted on admission, initially placed on BiPAP. Transitioned to to 4 L/min nasal cannula. He is now down to 2 L/min minute nasal cannula. He is currently comfortable on this intervention. No evidence of respiratory distress. Chest x-ray showing some bilateral pleural effusions without any other evidence of consolidation. For now we will place the patient also on empiric Zosyn for possible aspiration. COVID antigen was negative. Appreciate surgical consult Continue DuoNeb inhalation every 4 hours scheduled given patient's history of COPD and extensive emphysematous changes on CT. At home patient takes dexamethasone 4 mg p.o. twice daily. We will convert this to a steroid equivalent of methylprednisolone 40 mg IV push every day. # Acute on chronic blood loss anemia, monitor closely, unable Will draw repeat labs. He received 2 units of blood transfusion upon admission, repeat hemoglobin this morning is noted to be at 14, likely some degree of hemoconcentration # Hypoglycemia is now resolved, he was started on tube feeds per surgical recommendations Full code DVT prophylaxis: SCD clears, tube feeds Start trophic feeds at 10 mL/h and check residuals today [place] Discharge was delayed yesterday due to time needed to complete discharge arrangements. There are no significant changes today. Continue plan of care outlined in the discharge summary. I discussed this with the patient again. He verbalized understanding and agreement. Severe protein calorie malnutrition. This is secondary to advanced his aphasia will adenocarcinoma and associated dysphagia. Started on tube feeds via PEG tube. Currently there is no leakage in the area of PEG tube insertion. Discussed with his oncologist Dr. Miranda. He also recommended outpatient GI/surgical follow-up for possible esophageal dilation to help with dysphagia. I spoke with the surgeon Dr. López. Right now the patient is too weak and frail and has too many other problems to be able to undergo another EGD. Severe anasarca including ascites, pleural effusions, peripheral edema. Hopefully with initiation of the tube feeds this will improve as well. Severe deconditioning and debilitated secondaryto #1.the patient refused placement. He decided to go home. Esophageal adenocarcinoma. According to Dr. Miranda his adenocarcinoma has been treated. No plans for additional treatments at this point. Outpatient follow-up with Dr. Miranda. hypokalemia. Replace. Severe anemia. Received 2 units. Currently hemodynamically stable. Thrombocytopenia. Probably chronic. We'll monitor. DVT prophylaxis. Teds and SCDs. No anticoagulation due to above listed concerns. Advanced COPD/emphysema. Hypoxia probably chronic. Continue oxygen as needed. Continue respiratory treatments as needed. Chronic steroids? I spoke with Dr. Miranda. This is not for oncologic problems. I think it would be reasonable to try to gradually decrease the dose. I will defer this to the primary care physician. Leukocytosis. Probably due to steroids. I doubt he has pneumonia. DNR. Attestations Medical Necessity Statement*: Going home today, hopefully. Coding Level of Care Code Acute Automotive Collision Repair Instructor for Chg Fwd Diagnoses Pain around PEG tube site T85.848A Anemia D64.9 Anemia type: unspecified type Abdominal pain R10.84 Abdominal location: generalized Acute dehydration E86.0 Generalized weakness R53.1 Ascites R18.8 Malnourished E46
== END 2020-08-14 16:25 | disposition home health service (06) | DRG 919 ==
LOC: ER 16:16 → MEDSURG 20:38
PROVIDERS: Emergency Medicine; Student in an Organized Health Care Education/Training Program; Admitting Provider Internal Medicine; PCP Nurse Practitioner Family; Visit Provider Internal Medicine
DX: T85.848A Pain due to other internal prosthetic devices, implants and grafts, initial encounter (principal); E43 Unspecified severe protein-calorie malnutrition; R18.8 Other ascites; Z68.1 Body mass index [BMI] 19.9 or less, adult; J96.11 Chronic respiratory failure with hypoxia; J90 Pleural effusion, not elsewhere classified; Z93.1 Gastrostomy status; Z85.01 Personal history of malignant neoplasm of esophagus; K44.9 Diaphragmatic hernia without obstruction or gangrene; F17.210 Nicotine dependence, cigarettes, uncomplicated; E86.0 Dehydration; D53.9 Nutritional anemia, unspecified; Z92.21 Personal history of antineoplastic chemotherapy; Z92.3 Personal history of irradiation; B96.89 Other specified bacterial agents as the cause of diseases classified elsewhere; J43.9 Emphysema, unspecified; E16.2 Hypoglycemia, unspecified; R13.10 Dysphagia, unspecified; Z66 Do not resuscitate; R60.0 Localized edema; K20.9 Esophagitis, unspecified; D69.6 Thrombocytopenia, unspecified; E87.6 Hypokalemia
CPT/HCPCS: 12345; 36415; 36416; 36430; 36591; 36592; 71045; 74019; 74021; 74176; 74177; 74270; 80048; 80053; 80069; 81001; 82274; 82962; 83605; 83690; 83735; 84100; 85025; 86850; 86900; 86920; 87426; 87493; 94640; 94660; 96375; 99283; C9113; G0378; J1100; J1170; J1642; J1940; J2405; J2543; J2920; J3370; J3475; J3480; J3490; J7030; P9016; Q9963; Q9967

== ENCOUNTER 2020-08-22 23:32 | Inpatient (IN) | payer MEDICAID, SELFPAY ==
[2020-08-22 23:34] VITALS: BP 122/84; PULSE 112; RESP 20; TEMP 36.1; O2SAT 90; BMI 17.6
[2020-08-22 23:48] VITALS: BP 122/84; PULSE 109; RESP 19; O2SAT 97
--- NOTE | 2020-08-22 23:54 | XRR_ITS ---
PROCEDURE INFORMATION: Exam: XR Chest, 1 View Exam date and time: 08/22/2020 11:55 PM Age: 59 years old Clinical indication: Prior surgery; Surgery type: Port; Patient HX: Right sided chest pain with SOB. History of esophageal cancer; Additional info: Cp TECHNIQUE: Imaging protocol: XR of the chest Views: 1 view. COMPARISON: CR XR chest 1V portable [id number] 08/08/2020 9:07 AM FINDINGS: Tubes, catheters and devices: Left Infusaport catheter. Lungs: Advanced bullous emphysema/COPD/chronic bronchitis. New mixed ground-glass interstitial lung disease and early consolidated alveolar airspace disease right lung with concern for active pneumonitis/pneumonia. Mild senile fibrosis. Antecedent granulomatous disease. Pleural space: Suspected small right pleural effusion. Heart/Mediastinum: Microcardia. Bones/joints: Unremarkable. XR/XR chest 1V portable [id number] IMPRESSION: 1. Findings raising concern for right-sided pneumonitis/pneumonia. 2. Suspected small right pleural effusion.
--- NOTE | 2020-08-22 23:54 | ECG_ITS ---
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 Measurements Intervals [place] Rate: 112 P: 7 MN: 156 QRS: 8 QRSD: 57 T: 0 QT: 311 QTc: 425 Interpretive Statements SINUS TACHYCARDIA LOW QRS VOLTAGE [QRS DEFLECTION < 0.5/1.0 mV IN LIMB/CHEST LEADS] MODERATE ST DEPRESSION [0.05+ mV ST DEPRESSION] Compared to ECG 07/31/2020 01:01:40 ST (T wave) deviation now present Sinus rhythm no longer present T-wave abnormality no longer present Possible ischemia no longer present Electronically Signed On 08-24-2020 20:31:33 CDT by Shabbir Hansen M.D. [id number]
[2020-08-23] VITALS (19 sets, daily range): BP systolic 97–133; BP diastolic 64–98; PULSE 96–111; RESP 15–118; TEMP 36.6–36.8; O2SAT 92–100
--- NOTE | 2020-08-23 00:06 | W.ED.CHESTPA ---
HPI - Chest Pain General: Chief Complaint: Chest Pain Stated Complaint: CP, SOB Time Seen by Provider: 08/22/20 23:40 History of Present Illness: HPI narrative: 59-year-old male presenting with right-sided chest pain and shortness of breath. He says that it started earlier today. He has been hospitalized of recent, with 2 hospitalizations in the last month. He has a history of adenocarcinoma. He also has severe malnutrition/cachexia with ascites and chronic pleural effusions. He states that he has not had much of a cough, fever, or any sputum production. He says the chest wall is very tender, and it feels like someone is set a heavy rock on his chest. Associated symptoms: Reports abdominal pain and dyspnea; Deny fever(s), nausea, palpitations or vomiting Review of Systems Const: Denies: fever(s) or chills Eyes: Denies: change in vision or blurry vision ENMT: Denies: swelling of lips/tongue, bleeding gums or sinus pain Card: Reports: chest pain, edema and swelling of feet/ankles; Denies: palpitations or irregular heart rhythm Resp: Reports: dyspnea; Denies: productive cough, non-productive cough or wheezing GI: Reports: abdominal pain; Denies: nausea or vomiting : Denies: hematuria Musc: Denies: neck pain or back pain Skin/Breast: Denies: rash or erythema Neuro: Denies: headache(s), dizziness or vertigo Psych: Denies: anxiety [facility] PFSH: Medical History (Updated 08/23/20 @ 04:21 by Shayna Robles MD) Esophageal adenocarcinoma Hiatal hernia Surgical History (Updated 08/23/20 @ 04:21 by Shayna Robles MD) H/O esophagogastroduodenoscopy (08/02/20) History of open reduction and internal fixation (ORIF) procedure Right LE Port-A-Cath in place (~12/2019) left subclavian Status post insertion of percutaneous endoscopic gastrostomy (PEG) tube (~08/02/20) 08/02 Family History Father CAD (coronary artery disease) Father had a heart attack in his late 70s Cancer Unknown type Denies family history of Anesthesia complication Bleeding disorder Social History Smoking and tobacco status: current every day smoker cigarettes Quit status (tobacco): has tried quititng Second hand smoke exposure: Yes Alcohol intake: current Desire information about alcohol rehabilitation?: No Counseling given: Yes Desire information about substance/drug rehabilitation?: Yes Counseling given: Yes Adopted: No Caregiver/support person: Yes Lives independently: Yes Household members: spouse Housing: House Marital status: Number of children: 0 Highest education level completed: 8th Grade Current occupational status: disabled Current occupational exposures/hazards: No Pets and animals: Yes Pets & animals: dog(s) History of recent travel: No Leisure activites: hunting and fishing Sexually active: No Current gender identity: Male Lety/Caodaism: Mandaen Special lety needs: No Agree to transfusion: Yes Financial difficulty paying for basics: Decline to Answer Physical Exam Const: GENERAL APPEARANCE: ill appearing and frail appearing ORIENTATION/CONSCIOUSNESS: Yes oriented to person, Yes oriented to place and Yes oriented to time HENMT: FACE & SINUS: sinuses nontender and face symmetric NOSE: No nasal discharge present MOUTH: tongue normal TEETH & GINGIVA: no abnormal tooth and associated gingiva THROAT: posterior oropharynx normal; no peritonsillar mass Eye: COMMON NORMALS: Equal, round and reactive pupils present, EOMs intact bilaterally and conjunctivae normal GENERAL EYE: exophthalmos EYELID: eyelids normal CONJUNCTIVA: Yes conjunctivae normal PUPIL: Yes Equal, round and reactive pupils present Neck/C-Spine: GENERAL: No tracheal deviation Chest: COMMONS NORMALS: normal inspection of the chest CHEST: Yes tenderness Resp: COMMON NORMALS: clear to auscultation bilaterally EFFORT & INSPECTION: No tachypneic, No respiratory distress, No retractions, No uses accessory muscles and No tracheal deviation AUSCULTATION: clear to auscultation bilaterally, no rhonchi, no wheezes and lung sounds not diminished Cardio: COMMON NORMALS: regular rate and regular rhythm RATE: regular rate RHYTHM: regular rhythm HEART SOUNDS: no murmurs PERIPHERAL PULSES: radial pulses present GI: INSPECTION: No abdominal distension AUSCULTATION: No Hyperactive bowel sounds present and No Hypoactive bowel sounds present PALPATION: No Guarding due to palpation present (GI) and No Rigid due to palpation PERCUSSION: no dullness to percussion and no tympanic to percussion : COMMON NORMALS: Yes no CVA tenderness BLADDER/KIDNEY EXAM: Yes no CVA tenderness Back/Pelvis: COMMON NORMALS: no CVA tenderness Neuro: SENSORIUM/ORIENTATION: Yes oriented to person, Yes oriented to place and Yes oriented to time Psych: COMMON NORMALS: mental status grossly normal Skin: COMMON NORMALS: no rashes or lesions noted GENERAL SKIN EXAM: no rashes or lesions noted Course Consultations: Consultation #1: rena Time: 02:51 Vital Signs: Vital signs: Vital Signs Temperature 96.9 F L 08/22/20 23:34 Pulse Rate 100 08/23/20 03:55 Respiratory Rate 19 H 08/23/20 03:55 Blood Pressure 127/85 08/23/20 03:55 Pulse Oximetry 98 08/23/20 03:55 MDM - Chest Pain MDM Narrative: Medical decision making narrative: 59-year-old male with history of adenocarcinoma presenting with right-sided pleuritic chest pain.. His oxygen saturations are good on 2 L. His blood pressure is 124/84. He has a right-sided pneumonitis on chest x-ray likely responsible for his pain. His white blood cell count is 9.1. Hemoglobin 10.6. Creatinine is 0.4. His albumin is very low. He has leg edema. He has been given Levaquin in the ER. We have held off on IV fluid, as he has a right-sided effusion already, as well as the edema, and his blood pressure is normal. Only one blood culture could be obtained, due to difficult IV access, and a non-drawing port. Lab Data: Labs: Lab Results 08/22/20 08/23/20 08/23/20 Range/Units 00:50 00:16 00:16 WBC 9.1 (4.0-10.0) 10^3/ uL RBC 3.39 L (4.1-5.3) 10^6/u L Hgb 10.6 L (11.7-16.6) g/dL Hct 30.4 L (42.0-52.0) % MCV 89.7 (80-94) fL MCH 31.3 (28.0-34.0) pg MCHC 34.9 (30.0-36.0) g/dL RDW 14.3 (12.1-15.1) % Plt Count 140 (130-400) 10^3/c mm MPV 11.8 H (7.4-10.4) fL Neut % (Auto) 87.8 % Lymph % (Auto) 3.6 % [place] % (Auto) 7.0 % Eos % (Auto) 0.3 % Baso % (Auto) 0.4 % Neut # (Auto) 7.98 H (1.8-7.7) 10^3/u L Lymph # (Auto) 0.3 L (0.8-4.8) 10^3/u L [place] # (Auto) 0.6 (0.2-0.9) 10^3/u L Eos # (Auto) 0.0 (0.0-0.8) 10^3/u L Baso # (Auto) 0.0 (0.0-0.1) 10^3/u L Nucleated RBC % (a uto) 0 % Nucleated RBCs # 0.0 /100WBC Sodium 129 L (136-145) mmol/L Potassium 3.9 (3.5-5.1) mmol/L Chloride 95 L (98-107) mmol/L Carbon Dioxide 25 (22-29) mmol/L Anion Gap 12.9 (5-19) BUN 9 (6-20) mg/dL Creatinine 0.4 L (0.7-1.2) mg/dL GFR Calculation 221.7 H (90-130) mL/min Glucose 91 (65-115) mg/dL Calculated Osmolal ity 266 L (285-295) mOsm/k g Lactate (0.5-2.2) mmol/L Calcium 7.0 L (8.5-10.5) mg/dL Total Bilirubin 0.5 (0.15-1.2) mg/dL AST 20 (0-40) U/L ALT 12 (0-41) U/L Alkaline Phosphata se 95 (40-130) IU/L Creatine Kinase 46 (39-308) U/L Troponin T Baselin e 35 H (0-15) ng/L NT-Pro-B Natriuret Pep 660 H (0-125) pg/mL Total Protein 4.6 L (6.6-8.7) g/dL Albumin 1.9 L (3.5-5.2) g/dL Globulin 2.7 (1.3-4.6) g/dL TSH 9.82 H (0.27-4.20) uIU/ mL SARS-CoV-2 Ag (Rap id) (Negative) 08/23/20 08/23/20 Range/Units 00:25 00:50 WBC (4.0-10.0) 10^3/ uL RBC (4.1-5.3) 10^6/u L Hgb (11.7-16.6) g/dL Hct (42.0-52.0) % MCV (80-94) fL MCH (28.0-34.0) pg MCHC (30.0-36.0) g/dL RDW (12.1-15.1) % Plt Count (130-400) 10^3/c mm MPV (7.4-10.4) fL Neut % (Auto) % Lymph % (Auto) % [place] % (Auto) % Eos % (Auto) % Baso % (Auto) % Neut # (Auto) (1.8-7.7) 10^3/u L Lymph # (Auto) (0.8-4.8) 10^3/u L [place] # (Auto) (0.2-0.9) 10^3/u L Eos # (Auto) (0.0-0.8) 10^3/u L Baso # (Auto) (0.0-0.1) 10^3/u L Nucleated RBC % (a uto) % Nucleated RBCs # /100WBC Sodium (136-145) mmol/L Potassium (3.5-5.1) mmol/L Chloride (98-107) mmol/L Carbon Dioxide (22-29) mmol/L Anion Gap (5-19) BUN (6-20) mg/dL Creatinine (0.7-1.2) mg/dL GFR Calculation (90-130) mL/min Glucose (65-115) mg/dL Calculated Osmolal ity (285-295) mOsm/k g Lactate 1.0 (0.5-2.2) mmol/L Calcium (8.5-10.5) mg/dL Total Bilirubin (0.15-1.2) mg/dL AST (0-40) U/L ALT (0-41) U/L Alkaline Phosphata se (40-130) IU/L Creatine Kinase (39-308) U/L Troponin T Baselin e (0-15) ng/L NT-Pro-B Natriuret Pep (0-125) pg/mL Total Protein (6.6-8.7) g/dL Albumin (3.5-5.2) g/dL Globulin (1.3-4.6) g/dL TSH (0.27-4.20) uIU/ mL SARS-CoV-2 Ag (Rap id) Negative (Negative) Discharge Plan Discharge Patient Disposition: Admitted As Inpatient Admit Provider: Shayna Robles Clinical Impression: Aspiration pneumonia Condition: Stable Referrals: Belkys Harris, BILLING CHECKER-C [Primary Care Provider] - Coding Level of Care Code ED Business Process Coordinator for Chg Fwd Exam Comprehensive
[2020-08-23] MEDS: levofloxacin-dextrose 5 % 750 MG/150 ML PREMIX 100 MG IV (00:43)
[2020-08-23 00:46] LABS: Troponin(5th) Baseline 35 ng/L (0-15)
[2020-08-23 00:52] LABS: SARS Covid-2 Antigen Negative (Negative)
[2020-08-23 00:54] LABS: Alanine Aminotransferase 12 U/L (0-41); Albumin Level 1.9 g/dL (3.5-5.2); Alkaline Phosphatase 95 IU/L (40-130); Aspartate Amino Transferase 20 U/L (0-40); Blood Urea Nitrogen 9 mg/dL (6-20); Carbon Dioxide 25 mmol/L (22-29); Chloride 95 mmol/L (98-107); Creatine Phosphokinase 46 U/L (39-308); Globulin 2.7 g/dL (1.3-4.6); Glomerular Filtration Rate 221.7 mL/min (90-130); Glucose 91 mg/dL (65-115); NT Pro B Type Natriuretic Pept 660 pg/mL (0-125); Osmolality Calculated 266 mOsm/kg (285-295); Sodium 129 mmol/L (136-145); Thyroid Stimulating Hormone 9.82 uIU/mL (0.27-4.20); Total Bilirubin 0.5 mg/dL (0.15-1.2); Total Protein 4.6 g/dL (6.6-8.7)
[2020-08-23 00:55] LABS: Anion Gap 12.9 (5-19); Potassium 3.9 mmol/L (3.5-5.1)
[2020-08-23] MEDS: morphine 4 mg/mL SDV 1 mL IVP ×3 (01:08→23:13)
[2020-08-23] MEDS: ondansetron 2 mg/ML SDV 2 mL 4 MG IVP (01:08)
[2020-08-23 01:15] LABS: Basophils % 0.4 %; Eosinophils % 0.3 %; Hematocrit 30.4 % (42.0-52.0); Hemoglobin 10.6 g/dL (11.7-16.6); Lymphocytes # 0.3 10^3/uL (0.8-4.8); Lymphocytes % 3.6 %; Mean Corpuscular HGB Conc 34.9 g/dL (30.0-36.0); Mean Corpuscular Hemoglobin 31.3 pg (28.0-34.0); Mean Corpuscular Volume 89.7 fL (80-94); Mean Platelet Volume 11.8 fL (7.4-10.4); Monocytes # 0.6 10^3/uL (0.2-0.9); Neutrophils # 7.98 10^3/uL (1.8-7.7); Neutrophils % 87.8 %; Nucleated Red Blood Cells % 0 %; Platelet Count 140 10^3/cmm (130-400); Red Blood Count 3.39 10^6/uL (4.1-5.3); Red Cell Distribution Width 14.3 % (12.1-15.1); White Blood Count 9.1 10^3/uL (4.0-10.0)
[2020-08-23 01:39] LABS: Slide Review Slide Review Perform
--- NOTE | 2020-08-23 01:54 | ECG_ITS ---
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 Measurements Intervals [place] Rate: 105 P: -10 MI: 139 QRS: 18 QRSD: 72 T: 0 QT: 341 QTc: 452 Interpretive Statements SINUS TACHYCARDIA LOW QRS VOLTAGE [QRS DEFLECTION < 0.5/1.0 mV IN LIMB/CHEST LEADS] Compared to ECG 08/22/2020 23:37:54 ST (T wave) deviation no longer present Electronically Signed On 08-25-2020 17:37:47 CDT by Shabbir Hansen M.D. [id number]
--- NOTE | 2020-08-23 04:09 | P.HP_ITS ---
Providers/Chief Complaint Admitting Physician: Margaret Primary Care Provider: Belkys HarrisP-C Chief Complaint: cp and sob History of Present Illness Jaxon Cosby is a 59 year old male who presented to the emergency room with increasing difficulty breathing and some right-sided chest pain. Mr. Cosby is had a challenging 2020 beyond what most of us have had. In November of this year he was diagnosed with stage IV gastroesophageal adenocarcinoma. He had distant metastatic disease to a supraclavicular lymph node. He underwent chemotherapy with Taxol and carboplatin as well as concurrent radiation therapy. This was completed in February of this year. He had had repeat evaluations with PET scan in June and had an area of thickening noted to the esophagus but no areas of uptake identified. EGD was done in July. Biopsies fortunately came back not showing recurrence of malignancy but he did have esophagitis. Patient has developed severe cachexia and protein calorie malnutrition and ultimately decision was made to put in a PEG tube to supplement his feeding. He represented not too long after the hospital stay where the tube was placed with acute abdominal pain. He had a very small splenic infarct identified. Initially there had been concern for PEG tube misplacement but it was ultimately determined to be in an appropriate place. He was treated with antibiotics. He had C. difficile colitis that was treated with oral vancomycin. He was discharged most recently on August 13. He says that the difficulty breathing began a couple of days ago. He has quit smoking since he was last here. He does not report any fevers. He has had some vomiting. He is just using the tube feed and not taking things by mouth. He does have difficulty with oral secretions. He is not been able to cough anything up as cough is quite weak. Denies ongoing diarrhea but does admit to some breakdown on his backside. In the emergency room he was found to have extensive right-sided infiltrates on imaging study. He received antibiotic coverage. He is being admitted for further evaluation and treatment. Review of Systems Const: Reports: body aches, change in appetite, change in weight, fatigue and malaise; Denies: fever(s) or chills Eyes: Denies: change in vision ENMT: Denies: throat pain, dry mouth or nasal congestion Card: Reports: chest pain; Denies: palpitations or edema Resp: Reports: dyspnea, productive cough, non-productive cough, wheezing and chest congestion; Denies: hemoptysis GI: Reports: nausea, vomiting and diarrhea; Denies: abdominal pain or constipation : Denies: difficulty urinating Musc: Reports: extremity pain, muscle weakness and decrease in muscle mass Skin/Breast: Reports: sores (Backside) and other (Still with draining from PEG tube but less); Denies: rash or pruritus Neuro: Reports: weakness in extremities; Denies: headache(s), numbness in extremities or dizziness Psych: Denies: anxiety or depression Marck/Lymph: Denies: easy bruising or easy bleeding Medications/Allergies Home Medications Medication Instructions Recorded Confirmed Last Taken Type sucralfate 1 g PO QID 11/21/19 08/07/20 02/04/20 History folic acid 1 mg PO DAILY #30 tab 11/22/19 08/07/20 02/04/20 Rx nicotine 1 patch TRANSDERMA DAILY #30 each 11/22/19 08/07/20 Unknown Rx nicotine (polacrilex) 2 mg BUCCAL Q1H PRN #60 each 11/22/19 08/07/20 02/04/20 Rx ondansetron HCl [Zofran] 8 mg PO Q8H #42 tab 11/22/19 08/07/20 02/04/20 Rx pantoprazole 40 mg PO DAILY #30 tab 11/22/19 08/07/20 02/04/20 Rx albuterol sulfate 90 mcg/actuation 2 puff INHALATION Q6H PRN 11/28/19 08/07/20 02/03/20 History aerosol inhaler amitriptyline 10 mg tablet 10 mg PO BEDTIME 11/28/19 08/07/20 02/04/20 History cholecalciferol (vitamin D3) 1,250 50,000 unit PO .COMPLEX 11/28/19 08/07/20 01/30/20 History mcg (50,000 unit) capsule thiamine HCl (vitamin B1) 100 mg PO DAILY 01/08/20 08/07/20 01/14/20 History dexamethasone 4 mg PO BID 01/15/20 08/07/20 02/04/20 History hydroxyzine pamoate 50 mg PO QID PRN 07/30/20 08/07/20 Unknown History docusate sodium 100 mg PO BID #0 cap 08/06/20 08/07/20 Unknown Rx hydrocodone-acetaminophen 15 ml FEEDING TUBE Q6H PRN #120 ml 08/14/20 Unknown Rx Allergies Allergy/AdvReac Type Severity Reaction Status Date / Time No Known Allergies Allergy Verified 01/08/20 16:12 PFSH Acute PFSH: Medical History Adenocarcinoma of gastroesophageal junction Stage IV, 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, underwent chemoradiation, taxol/carboplatin, completed 02/2020, Biopsy 07/2020 no recurrence on PET scan noted thickened esophagus COPD (chronic obstructive pulmonary disease) Hiatal hernia Surgical History H/O esophagogastroduodenoscopy (08/02/20) History of open reduction and internal fixation (ORIF) procedure Right LE Port-A-Cath in place (~12/2019) left subclavian Status post insertion of percutaneous endoscopic gastrostomy (PEG) tube (~08/02/20) 08/02 Family History Father CAD (coronary artery disease) Father had a heart attack in his late 70s Cancer Unknown type Denies family history of Anesthesia complication Bleeding disorder Social History (Updated 08/23/20 @ 04:32 by Shayna Robles MD) Smoking and tobacco status: current every day smoker cigarettes [ Other cigarette details: in early remission (less than 2 weeks on 08/23/2020) ] Quit status (tobacco): has tried quititng Alcohol intake: current Substance/Drug Use: current Substance/Drug use type: Marijuana Other substance/drug use details: Using THC periodically Caregiver/support person: Yes Lives independently: No Household members: spouse and family Housing: House Marital status: Number of children: 0 Highest education level completed: 8th Grade Current occupational status: disabled Pets and animals: Yes Pets & animals: dog(s) History of recent travel: No Leisure activites: hunting and fishing Sexually active: No Current gender identity: Male Lety/Buddhism: Anabaptist Special lety needs: No Agree to transfusion: Yes Financial difficulty paying for basics: Decline to Answer Vitals/I&O/Wt Last Vital Signs Temp 96.9 F L 08/22/20 23:34 Pulse 100 08/23/20 03:55 Resp 19 H 08/23/20 03:55 BP 127/85 08/23/20 03:55 Pulse Ox 98 08/23/20 03:55 08/22/20 08/22/20 08/23/20 14:59 22:59 06:59 Intake Total 150 / 150 Balance 150 / 150 Weight last 48 hrs Weight 45.359 kg Physical Exam Const: OTHER: Alert, oriented x3, cooperative, chronically ill-appearing HENMT: OTHER: Significant bitemporal wasting, dry mucous membranes, sunken cheeks Eye: OTHER: Pupils are equally reactive bilaterally, proptosis is noted bilaterally as well more prominent on the right than the left due to positioning Neck/C-Spine: OTHER: Supple Chest: OTHER: Port-A-Cath left upper chest Resp: OTHER: Patient has an essentially barrel chest compared to the degree of muscle wasting that he has. Lung sounds are actually quite distant due to this. Have to listen posteriorly. Breath sounds are decreased on the right with scattered rhonchi, wheezes but fairly clear on the left. Cardio: OTHER: Regular rate and rhythm, no murmurs gallops or rubs. GI: OTHER: Abdomen soft, slightly scaphoid, abdominal wall quite doughy, nontender, positive bowel sounds : OTHER: Normal external genitalia without any edema noted Extremity: NARRATIVE EXTREMITY EXAM: Patient with extremely puffy swollen feet extending to just above the ankles bilaterally. There is no edema between the knee and the ankle, some edema more proximally on each thigh. Extensive muscle wasting. Neuro: OTHER: Face symmetric, speech clear, moves all extremities but very weak, Psych: OTHER: Normal affect Skin: OTHER: Skin is dry with loss of turgor, I was unable to position the patient adequately look at his buttocks where he states he has some irritation Data : 08/22/20 00:50 08/23/20 00:16 Micro: Microbiology 08/23/20 00:50 Blood Culture - Preliminary Blood SPECIMEN COLLECTED A&P Assessment and plan (1) Aspiration pneumonia: Presumptive diagnosis based on what appears to be difficulty handling oral secretions on my physical exam combined with findings on chest x-ray. White count is normal. Could be a component of volume overload, particularly with degree of hypoproteinemia that he has at the moment. He appears intravascularly depleted but total body volume overloaded most notable at the feet and abdomen consistent with the degree of malnutrition that he has. Status: Acute Qualifiers: Aspiration pneumonia type: due to gastric secretions Laterality: right Lung location: lower lobe of lung Qualified Code(s): J69.0 - Pneumonitis due to inhalation of food and vomit (2) Severe protein-calorie malnutrition: With associated hypoproteinemia. Has quite swollen feet from third spacing as well as more protuberant abdomen that I would expect based on remainder of his physical exam. Status: Acute (3) Cachexia: With extensive muscle wasting throughout the body Status: Chronic (4) Hypothyroidism: New finding. Was considered due to the significant proptosis on exam. Could certainly be a contributor to weakness and overall clinical worsening but was not noted that a year ago. I am not sure if his thyroid was in the field of radiation but it may have been with the left subclavian lymph node that have been identified. Status: Acute Qualifiers: Hypothyroidism type: acquired Qualified Code(s): E03.9 - Hypothy roidism, unspecified (5) Normocytic anemia: Currently stable without reported bleeding but at high risk for such recurrent bleeding. Had transfusion of 2 units within the last month or so Status: Acute (6) Adenocarcinoma of gastroesophageal junction: Status post chemoradiation therapy with improvement earlier this yea. Recent PET scanning not showing any definite recurrence. Esophagus was noted to be thickened and EGD with biopsy was recently done. This did not show any evide nce of recurrent disease. Status: Chronic (7) COPD (chronic obstructive pulmonary disease): Related to chronic tobacco use. Mildly exacerbated related to aspiration. Status: Chronic Qualifiers: COPD type: unspecified COPD Qualified Code(s): J44.9 - Chronic obstructive pulmonary disease, unspecified (8) Splenic infarct: Noted on CT imaging most recently on August 12 unchanged from earlier in July Status: Chronic (9) Nicotine dependence: Reportedly in early remission Status: Chronic Qualifiers: Nicotine product type: cigarettes Substance use status: uncomplicated Qualified Code(s): F17.210 - Nicotine dependence, cigarettes, uncomplicated (10) C. difficile colitis: positive in 07/2020 Status: Resolved Additional A&P Information Patient with some irritation on his backside by his report, concerned there may be skin breakdown, current bed is not adequate to roll him over and evaluate him Inpatient admission Check procalcitonin Zosyn for antibiotic coverage presently Add oral vancomycin empirically Add lactobacillus secondary to need for PPI IVFs overnight Strict I's and O's and daily weights Monitor possible need for diuretics Breathing treatments as needed Continue oxygen therapy Check free T4, anticipate initiation of levothyroxine Continue tube feeding regimen but ensure appropriate aspiration precautions, head of bed elevated continuously We will ask speech to see to evaluate swallow function again, I do not note that they have seen him since January of this year PPI and Carafate Add lactobacillus secondary to need for PPI Pain control if needed Nicotine patch to continue, encouraged continued cessation from smoking Stool softeners as long as not having overly loose stools We will need to evaluate irritation he reports on his backside when we get him in a bed more suitable to such Monitor for need to stress dose steroids as it has been on dexamethasone, I suspect it was pretreatment for chemo and has stayed on his medication profile or been used for appetite stimulation SCDs if he can wear them for VTE prophylaxis, no pharmacological prophylaxis secondary to esophagitis, known history of gastroesophageal adenocarcinoma and anemia with recent transfusion within the last month, high risk for bleeding Supportive care otherwise Currently anticipate disposition home as patient did not wish for consideration of placement last time. He does have oxygen and nebulizer machine as I understand it at home Allow natural per his wishes Attestations Medical Necessity Statement*: Anticipated stay greater than 2 midnights in a gentleman with multiple comorbid conditions presenting with extensive opacities in the right lung compared to prior studies. 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 difficile colitis A04.72
--- NOTE | 2020-08-23 04:25 | PC.NURSE ---
[facility]
[2020-08-23 06:16] LABS: Procalcitonin 0.93 ng/mL (0-0.5)
[2020-08-23] MEDS: piperacillin-tazobactam 3.375 GM in sodium chloride 0.9% (plus) 50 ML IV ×3 (06:44→23:06)
[2020-08-23] MEDS: ipratropium-albuterol 3 mL Neb INHALATION ×3 (08:57→19:32)
[2020-08-23] MEDS: dextrose 5% + KCl 20 mEq 20 MEQ/1,000 ML BAG 75 MEQ IV (09:01)
[2020-08-23] MEDS: pantoprazole DR 40 mg Tablet PO ×2 (09:14→17:00)
[2020-08-23] MEDS: lactobacillus 1 Tablet 1 TAB PEG-TUBE ×2 (09:14→17:00)
[2020-08-23] MEDS: levothyroxine 25 mcg Tablet PO (09:14)
[2020-08-23] MEDS: sucralfate 1 gm/10 mL Oral Liq UDC PO ×4 (09:14→21:34)
[2020-08-23] MEDS: sennosides-docusate Tablet 1 TAB PO ×2 (09:14→17:00)
[2020-08-23] MEDS: nicotine 21 mg Patch 1 PATCH TRANSDERMA (09:15)
[2020-08-23] MEDS: docusate sodium 100 mg Capsule PO ×2 (09:15→17:00)
[2020-08-23] MEDS: folic acid 1 mg Tablet PO (09:15)
[2020-08-23] MEDS: thiamine 100 mg Tablet PO (09:15)
--- NOTE | 2020-08-23 10:41 | PC.NURSE ---
oral care completed and oral swabs provided
--- NOTE | 2020-08-23 11:10 | PC.NURSE ---
Dr. Maria notified this nurse to keep patient NPO, discontinue nicoderm gum, and use oral swabs for discomfort. see orders for further details.
[2020-08-23] MEDS: HYDROcodone-APAP 7.5-325 mg/15 mL UDC PO ×2 (13:22→17:11)
--- NOTE | 2020-08-23 15:02 | P.PN_ITS ---
Subjective Subjective: Interval history: no acute overnigth events, on 2lpm via NC when seen this morning , feels comfortbale, undergoing nebulization Medications: Reviewed: Yes Vitals/I&O/Wt Last Vital Signs Temp 98.3 F 08/23/20 11:49 Pulse 101 H 08/23/20 14:16 Resp 18 08/23/20 14:16 BP 131/87 08/23/20 11:49 Pulse Ox 92 08/23/20 14:16 08/23/20 08/23/20 08/23/20 06:59 14:59 22:59 Intake Total 150 / 150 50 / 50 Balance 150 / 150 50 / 50 Weight last 48 hrs Weight 48.534 kg Weight 45.359 kg Physical Exam Narrative: EXAM NARRATIVE: GEN: Awake, alert and oriented, no acute distress , chronically ill apperaing man with cachexia CVS: S1S2 N RS: CTA B/L except crackles over RUL Abd: Soft, nt/nd , bs+ 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 White count is normal. Continue zosyn empirically Covid antigen negative Status: Acute Qualifiers: Aspiration pneumonia type: due to gastric secretions Laterality: right Lung location: lower lobe of lung Qualified Code(s): J69.0 - Pneumonitis due to inhalation of food and vomit (2) Severe protein-calorie malnutrition: With associated hypoproteinemia. Likely from poor oral intake Status: Acute (3) Cachexia: With extensive muscle wasting throughout the body Status: Chronic (4) Hypothyroidism: started on levothyroxine Status: Acute Qualifiers: Hypothyroidism type: acquired Qualified Code(s): E03.9 - Hypothyroidism, unspecified (5) Normocytic anemia: Currently stable without reported bleeding but at high risk for such recurrent bleeding. Had transfusion of 2 units within the last month or so Status: Acute (6) Adenocarcinoma of gastroesophageal junction: Status post chemoradiation therapy with improvement earlier this yea. Recent PET scanning not showing any definite recurrence. Esophagus was noted to be thickened and EGD with biopsy was recently done. This did not show any evidence of recurrent disease. Status: Chronic (7) COPD (chronic obstructive pulmonary disease): Related to chronic tobacco use. Mildly exacerbated related to aspiration. Status: Chronic Qualifiers: COPD type: unspecified COPD Qualified Code(s): J44.9 - Chronic obstruc tive pulmonary disease, unspecified (8) Splenic infarct: Noted on CT imaging most recently on August 12 unchanged from earlier in July Status: Chronic (9) Nicotine dependence: Reportedly in early remission Status: Chronic Qualifiers: Nicotine product type: cigarettes Substance use status: uncomplicated Qualified Code(s): F17.210 - Nicotine dependence, cigarettes, uncomplicated (10) C. 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 difficile colitis A04.72
--- NOTE | 2020-08-23 15:21 | PC.NURSE ---
Patient had minimal urine in brief, changed, and linens changed, repositioned in bed with pillows, bladder distended upon palpation, bladder scanned and found greater than 687mL, Dr. Maria notified and new orders received for Singer catheter.
[2020-08-23 16:22] LABS: Influenza A by IFA Negative (Negative); Influenza B by IFA Negative (Negative)
[2020-08-24] VITALS (15 sets, daily range): BP systolic 96–126; BP diastolic 63–86; PULSE 94–112; RESP 14–20; TEMP 36.6–37.1; O2SAT 92–98
[2020-08-24] MEDS: ipratropium-albuterol 3 mL Neb INHALATION ×5 (02:44→20:28)
[2020-08-24] MEDS: levofloxacin-dextrose 5 % 500 MG/100 ML PREMIX 100 MG IV (03:25)
[2020-08-24] MEDS: piperacillin-tazobactam 3.375 GM in sodium chloride 0.9% (plus) 50 ML IV ×3 (05:43→22:26)
[2020-08-24 05:55] LABS: Basophils % 0.4 %; Eosinophils # 0.1 10^3/uL (0.0-0.8); Eosinophils % 1.1 %; Hematocrit 30.4 % (42.0-52.0); Hemoglobin 9.5 g/dL (11.7-16.6); Lymphocytes # 0.3 10^3/uL (0.8-4.8); Lymphocytes % 4.5 %; Mean Corpuscular HGB Conc 31.3 g/dL (30.0-36.0); Mean Corpuscular Hemoglobin 31.3 pg (28.0-34.0); Mean Platelet Volume 12.9 fL (7.4-10.4); Monocytes # 0.8 10^3/uL (0.2-0.9); Monocytes % 11.5 %; Neutrophils # 5.86 10^3/uL (1.8-7.7); Neutrophils % 81.8 %; Nucleated Red Blood Cells % 0 %; Platelet Count 96 10^3/cmm (130-400); Red Blood Count 3.04 10^6/uL (4.1-5.3); Red Cell Distribution Width 15.3 % (12.1-15.1); White Blood Count 7.2 10^3/uL (4.0-10.0)
[2020-08-24] MEDS: morphine 4 mg/mL SDV 1 mL IVP ×2 (05:58→22:45)
[2020-08-24] MEDS: sucralfate 1 gm/10 mL Oral Liq UDC PO ×4 (09:26→22:24)
[2020-08-24] MEDS: docusate sodium 100 mg Capsule PO ×2 (09:26→16:58)
[2020-08-24] MEDS: sennosides-docusate Tablet 1 TAB PO ×2 (09:26→16:58)
[2020-08-24] MEDS: folic acid 1 mg Tablet PO (09:26)
[2020-08-24] MEDS: levothyroxine 25 mcg Tablet PO (09:26)
[2020-08-24] MEDS: lactobacillus 1 Tablet 1 TAB PEG-TUBE ×2 (09:26→16:58)
[2020-08-24] MEDS: nicotine 21 mg Patch 1 PATCH TRANSDERMA (09:26)
[2020-08-24] MEDS: thiamine 100 mg Tablet PO (09:26)
[2020-08-24] MEDS: pantoprazole DR 40 mg Tablet PO ×2 (09:26→16:58)
[2020-08-24] MEDS: HYDROcodone-APAP 7.5-325 mg/15 mL UDC PO (09:27)
[2020-08-24] MEDS: dextrose 5% + KCl 20 mEq 20 MEQ/1,000 ML BAG 75 MEQ IV (10:50)
--- NOTE | 2020-08-24 10:54 | PC.NURSE ---
patient's 's number is [phone].
--- NOTE | 2020-08-24 12:28 | P.PN_ITS ---
Subjective Subjective: Interval history: No acute overnight events. Continues to have continuous PEG feeds. States breathing is better, he has been weaned down to room air now and saturating 94%. 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 White count is normal. Continue zosyn empirically for treatment. Covid antigen negative Status: Acute Qualifiers: Aspiration pneumonia type: due to gastric secretions Laterality: right Lung location: lower lobe of lung Qualified Code(s): J69.0 - Pneumonitis due to inhalation of food and vomit (2) Severe protein-calorie malnutrition: With associated hypoproteinemia. Likely from poor oral intake Status: Acute (3) Cachexia: With extensive muscle wasting throughout the body Status: Chronic (4) Hypothyroidism: started on levothyroxine 25 mics p.o. daily. This is a new diagnosis for him. Status: Acute Qualifiers: Hypothyroidism type: acquired Qualified Code(s): E03.9 - Hypothyroidism, unspecified (5) Normocytic anemia: Currently stable without reported bleeding but at high risk for such recurrent bleeding. Had transfusion of 2 units within the last month or so Status: Acute (6) Adenocarcinoma of gastroesophageal junction: Status post chemoradiation therapy with improvement earlier this yea. Recent PET scanning not showing any definite recurrence. Esophagus was noted to be thickened and EGD with biopsy was recently done. This did not show any evidence of recurrent disease. Status: Chronic (7) COPD (chronic obstructive pulmonary disease): Related to chronic tobacco use. Mildly exacerbated related to aspiration. Status: Chronic Qualifiers: COPD type: unspecified COPD Qualified Code(s): J44.9 - Chronic obst ructive pulmonary disease, unspecified (8) Splenic infarct: Noted on CT imaging most recently on August 12 unchanged from earlier in July Status: Chronic (9) Nicotine dependence: Reportedly in early remission Status: Chronic Qualifiers: Nicotine product type: cigarettes Substance use status: uncomplicated Qualified Code(s): F17.210 - Nicotine dependence, cigarettes, uncomplicated (10) C. difficile colitis: positive in 07/2020 Status: Resolved Additional A&P Information DVt ppx: lovenox DNR/DNI Disposition again discussed transition to retirement given his severe deconditioning and inability to care for self at home, however he refuses stating that his brother will take care of him at home.: Attestations Medical Necessity Statement*: Ongoing need for IV antibiotic, optimization of respiratory status prior to discharge. 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 difficile colitis A04.72
--- NOTE | 2020-08-24 12:29 | PC.NURSE ---
started new bottle of Pulmacare.
[2020-08-25] VITALS (11 sets, daily range): BP systolic 108–126; BP diastolic 70–86; PULSE 99–111; RESP 15–18; TEMP 36.4–36.7; O2SAT 93–98
[2020-08-25] MEDS: dextrose 5% + KCl 20 mEq 20 MEQ/1,000 ML BAG 75 MEQ IV ×2 (01:09→10:43)
[2020-08-25] MEDS: levofloxacin-dextrose 5 % 500 MG/100 ML PREMIX 100 MG IV (01:09)
[2020-08-25] MEDS: HYDROcodone-APAP 7.5-325 mg/15 mL UDC PO ×3 (01:16→15:56)
[2020-08-25] MEDS: ipratropium-albuterol 3 mL Neb INHALATION ×2 (03:11→07:55)
[2020-08-25] MEDS: morphine 4 mg/mL SDV 1 mL IVP (05:16)
[2020-08-25] MEDS: piperacillin-tazobactam 3.375 GM in sodium chloride 0.9% (plus) 50 ML IV ×2 (06:15→13:08)
[2020-08-25] MEDS: thiamine 100 mg Tablet PO (08:33)
[2020-08-25] MEDS: docusate sodium 100 mg Capsule PO (08:33)
[2020-08-25] MEDS: sennosides-docusate Tablet 1 TAB PO (08:33)
[2020-08-25] MEDS: sucralfate 1 gm/10 mL Oral Liq UDC PO ×2 (08:33→10:43)
[2020-08-25] MEDS: pantoprazole DR 40 mg Tablet PO (08:33)
[2020-08-25] MEDS: levothyroxine 25 mcg Tablet PO (08:33)
[2020-08-25] MEDS: folic acid 1 mg Tablet PO (08:33)
[2020-08-25] MEDS: lactobacillus 1 Tablet 1 TAB PEG-TUBE (08:33)
[2020-08-25] MEDS: nicotine 21 mg Patch 1 PATCH TRANSDERMA (08:33)
--- NOTE | 2020-08-25 10:23 | PC.NURSE ---
Dr. Ponce placed patient on RA, no distress noted oxygen saturation 96% will continue to monitor.
--- NOTE | 2020-08-25 12:29 | P.DS_ITS ---
Discharge Providers Date of Admission: 08/23/20 03:55 Date of Discharge: August 25, 2020 Attending Provider at Admission: Shayna Robles MD Attending Provider at Discharge: Nj Ponce MD Primary Care Provider: Belkys Harris Diagnoses at Discharge Discharge Diagnosis (1) Aspiration pneumonia: Status: Resolved Qualifiers: Aspiration pneumonia type: due to gastric secretions Laterality: right Lung location: lower lobe of lung Qualified Code(s): J69.0 - Pneumonitis due to inhalation of food and vomit (2) Severe protein-calorie malnutrition: Status: Acute (3) Cachexia: Status: Chronic (4) Hypothyroidism: Status: Chronic Qualifiers: Hypothyroidism type: acquired Qualified Code(s): E03.9 - Hypothyroidism, unspecified (5) Normocytic anemia: Status: Chronic (6) 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, 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, underwent chemoradiation, taxol/carboplatin, completed 02/2020, Biopsy 07/2020 no recurrence on PET scan noted thickened esophagus (7) COPD (chronic obstructive pulmonary disease): Status: Chronic Qualifiers: COPD type: unspecified COPD Qualified Code(s): J44.9 - Chronic obstructive pulmonary disease, unspecified (8) Splenic infarct: Status: Chronic Problem details: small, noted on follow up CT 08/12/20 unchanged (9) Nicotine dependence: Status: Chronic Problem details: early remission 08/23/2020 Qualifiers: Nicotine product type: cigarettes Substance use status: uncomplicated Qualified Code(s): F17.210 - Nicotine dependence, cigarettes, uncomplicated (10) C. difficile colitis: Status: Resolved Reason for Visit Reason for Visit: cp and sob Hospital Course Hospital Course: 59-year-old male with a past medical history of HTN, COPD, Hypertension, adenocarcinoma status post chemoradiation who was recently admitted here for dysphagia, initial concern for recurrent cancer for which he underwent EGD. Also had placement of PEG tube due to extensive malnutrition and cachexia. Biopsy has subsequently returned with esophagitis no evidence of recurrent malignancy. He had been started on tube feeds and then discharged home with home health with instructions for tube feeds.He was admitted with c/o increasing difficulty breathing and some right-sided chest pain.He was managed for aspiration PNA. He was kept on broad spectrum BAX namely Zosyn as well levofloxacin. He required suplemental oxygen initailly through [place] but at the time of discharge he is saturating well on room air.We have also started tapering dexamethasone 4mg q12 h daily to 4 mg oral daily as per the initial discussion with the oncologist there is no clear cut indication for him to be on jail chronic steroid we have switched dexamarthasone to 4 mg oral daily with the goal to stop.He has also completed C.Diff course. He still wants to stay with his family at home hence any assisted discussion have not been carried forward.Patient is being discharged in stable condition. Physical Exam Narrative: EXAM NARRATIVE: EXAM NARRATIVE: GEN: Awake, alert and oriented, no acute distress , chronically ill-appearing man CVS: S1S2 N RS: CTA B/L Abd: Soft, nt/nd , bs+ TITLE CAMERA OPERATOR: no focal neuro deficits Urinary Catheter Management^: Singer: Cath Placed During This Visit: yes Reason for Continuing Indwelling Catheter: Acute Urinary Retention or Obstruction Urinary Catheter Date of Insertion: 08/23/20 Urinary Catheter Time of Insertion: 15:41 Discharge Data Data Completed and Pending: Completed Studies During Hospitalization Category Date Time Status XR chest 1V terr[place] ble [id number] Stat Exams 08/22/20 23:54 Completed Pending at discharge Category Date Time Status Blood Culture Sta t Lab 08/23/20 00:50 Results Labs from last 24 hours 08/24/20 Unknown Sodium Cancelled Potassium Cancelled Chloride Cancelled Carbon Dioxide Cancelled Anion Gap Cancelled BUN Cancelled Creatinine Cancelled GFR Calculation Cancelled Glucose Cancelled Calculated Osmolal ity Cancelled Calcium Cancelled Phosphorus Cancelled Magnesium Cancelled Total Bilirubin Cancelled AST Cancelled ALT Cancelled Alkaline Phosphata se Cancelled Total Protein Cancelled Albumin Cancelled Globulin Cancelled Procalcitonin Cancelled Vitals: Last Vital Signs Temp 97.6 F 08/25/20 12:00 Pulse 107 H 08/25/20 12:00 Resp 15 08/25/20 12:00 BP 111/79 08/25/20 12:00 Pulse Ox 96 08/25/20 12:00 Discharge Plan Discharge Patient Disposition: Home Health Service Condition: Stable Prescriptions: New dexamethasone 4 mg tablet 4 mg PO DAILY Qty: 14 RF: 0 levofloxacin 500 mg tablet 500 mg PO DAILY 10 Days RF: 0 Lactobacillus acidophilus Capsule 100 mg PO BID Qty: 60 RF: 0 Continued albuterol sulfate [Ventolin HFA] 90 mcg/actuation HFA aerosol inhaler 2 puff INHALATION Q6H PRN (Reason: copd) RF: 0 amitriptyline 10 mg tablet 10 mg PO BEDTIME RF: 0 cholecalciferol (vitamin D3) 50,000 unit capsule 50,000 unit PO .COMPLEX RF: 0 hydroxyzine pamoate 50 mg capsule 50 mg PO QID PRN (Reason: Anxiety) RF: 0 docusate sodium 100 mg Capsule 100 mg PO BID Qty: 0 RF: 0 hydrocodone-acetaminophen 10-325 mg/15 mL(15 mL) solution 15 ml feeding tube Q6H PRN (Reason: pain) Qty: 120 RF: 0 sucralfate 1 gram Tablet 1 g PO QID RF: 0 folic acid 1 mg Tablet 1 mg PO DAILY Qty: 30 RF: 0 pantoprazole 40 mg tablet,delayed release (DR/EC) 40 mg PO DAILY Qty: 30 RF: 0 ondansetron HCl [Zofran] 8 mg Tablet 8 mg PO Q8H Qty: 42 RF: 0 nicotine 21 mg/24 hr patch 24 hour 1 patch TRANSDERMA DAILY Qty: 30 RF: 0 nicotine (polacrilex) 2 mg lozenge 2 mg BUCCAL Q1H PRN (Reason: nicotine cravings) Qty: 60 RF: 4 thiamine HCl (vitamin B1) 100 mg/mL solution 100 mg PO DAILY RF: 0 Discontinued dexamethasone 4 mg Tablet 4 mg PO BID RF: 0 Discharge Orders: Discharge Order (Routine); Ordered 08/25/20 Ordered By: Nj Ponce Other Ambulatory Orders: DME: Wheelchair (Order) Location: None Selected Ordered By: Nj Ponce Referrals: [facility] [Other] [facility] [Outside] [facility] [place] [facility] [place] Belkys Harris, MANAGER LAB-C [Primary Care Provider] - 4-7 days (Follow up with Belkys Harris at [facility]. Please call [phone] to make an appointment.) Discharge Diet: Resume prior tube feeds Discharge Activity: Increase activity as tolerated Patient Instructions: Clostridium Difficile, Levofloxacin (By mouth), Dexametha sone (By mouth), Probiotic (By mouth), Malnutrition (DC) Discharge Attestations Time Spent in Discharge Care*: greater than 30 min Specific Discharge Activities: Specific discharge activities: educating patient, educating and/or supporting family/caregiver, discussing with high risk case manager/social workers/dc planners, documenting/other paperwork and evaluating patient/reviewing data Status at Discharge: Cognitive status at discharge: cognitively intact , Behavioral status at discharge: cooperative , Functional status at discharge: independent ambulation Overall status at discharge: patient is back to baseline Quality Metrics Clinical Quality Measures During this hospital stay, did patient experience: None Coding Level of Care Code Acute Operation Supervisor for [facility] Fwd Diagnoses Aspiration pneumonia J69.0 Aspiration pneumonia type: due to gastric secretions Laterality: right Lung location: lower lobe of lung Severe protein-calorie malnutrition E43 Cachexia R64 Hypothyroidism E03.9 Hypothyroidism type: acquired Normocytic anemia D64.9 Adenocarcinoma of gastroesophageal junction C16.0 COPD (chronic obstructive pulmonary disease) J44.9 COPD type: unspecified COPD Splenic infarct D73.5 Nicotine dependence F17.210 Nicotine product type: cigarettes Substance use status: uncomplicated C. difficile colitis A04.72
--- NOTE | 2020-08-25 13:52 | PC.NURSE ---
Dr. Ponce notified this nurse to discontinue juan catheter, bolus 500mL if NS and deaccess port-a-cath, and continue with discharge plans, see ORDERS for further details.
[2020-08-25] MEDS: sodium chloride 0.9% 500 ML 999 ML IV (14:24)
--- NOTE | 2020-08-25 14:29 | PC.NURSE ---
juan catheter removed, IV bolus started.
--- NOTE | 2020-08-25 15:13 | PC.RESP ---
Smoking Cessation and Pulmonary Rehab information sent to patient less than one month ago.
--- NOTE | 2020-08-25 15:53 | PC.NURSE ---
discharge instructions completed, denies further questions or concerns.
--- NOTE | 2020-08-25 17:40 | PC.NURSE ---
Discharged via stretcher with transportation service, belongings sent with patient including wallet phone and phone neonatal nurse practitioner.
== END 2020-08-25 17:46 | disposition home health service (06) | DRG 177 ==
LOC: ER 08-23 02:57 → MEDSURG 08-23 04:18
PROVIDERS: Student in an Organized Health Care Education/Training Program; Admitting Provider Hospitalist; Emergency Provider Emergency Medicine; PCP Nurse Practitioner Family; Visit Provider Internal Medicine
DX: J69.0 Pneumonitis due to inhalation of food and vomit (principal); E43 Unspecified severe protein-calorie malnutrition; R64 Cachexia; C16.0 Malignant neoplasm of cardia; A04.72 Enterocolitis due to Clostridium difficile, not specified as recurrent; Z68.21 Body mass index [BMI] 21.0-21.9, adult; Z66 Do not resuscitate; E03.9 Hypothyroidism, unspecified; D64.9 Anemia, unspecified; D73.5 Infarction of spleen; F17.210 Nicotine dependence, cigarettes, uncomplicated; J44.9 Chronic obstructive pulmonary disease, unspecified; Z92.21 Personal history of antineoplastic chemotherapy; E77.8 Other disorders of glycoprotein metabolism
CPT/HCPCS: 12345; 36415; 51702; 71045; 80053; 82550; 83605; 83880; 84145; 84439; 84443; 84484; 85025; 87040; 87426; 87804; 93005; 94640; 94664; 96375; 99283; J1956; J2270; J2405; J2543; J3370; J7040

== ENCOUNTER 2020-09-04 20:08 | Emergency (ER) | payer MEDICAID, SELFPAY ==
[2020-09-04 20:21] VITALS: BP 109/80; PULSE 114; RESP 18; TEMP 37.2; O2SAT 94; BMI 16.1
--- NOTE | 2020-09-04 20:48 | W.ED.ABDPA2 ---
HPI - Abdominal Pain General: Chief Complaint: Abdominal Pain Stated Complaint: blocked feeding tube Time Seen by Provider: 09/04/20 20:23 Source: patient and EMS Mode of arrival: EMS Limitations: no limitations History of Present Illness: HPI narrative: 59-year-old male who is here by EMS home health states that his PEG tube was clogged and they were unable to use it today. He has no complaints at this time denies any pain. He was sent here to unclog his PEG tube or replace it. Associated Symptoms: Denies chills, diarrhea, dysuria, fever(s), nausea and vomiting Review of Systems Const: Denies: fever(s), chills, body aches or change in appetite Eyes: Denies: blurry vision or eye discomfort ENMT: Denies: throat pain or dental pain Card: Denies: chest pain Resp: Denies: dyspnea GI: Denies: abdominal pain, nausea, vomiting or diarrhea : Denies: dysuria Musc: Denies: neck pain or back pain Skin/Breast: Denies: rash Neuro: Denies: headache(s) Psych: Denies: depression Marck/Lymph: Denies: easy bruising All/Imm: Denies: urticaria PFSH ED PFSH: Medical History Adenocarcinoma of gastroesophageal junction Stage IV, 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, underwent chemoradiation, taxol/carboplatin, completed 02/2020, Biopsy 07/2020 no recurrence on PET scan noted thickened esophagus Aspiration pneumonia C. difficile colitis (~07/2020) Cachexia COPD (chronic obstructive pulmonary disease) Hiatal hernia Hypothyroidism Nicotine dependence early remission 08/23/2020 Normocytic anemia Severe protein-calorie malnutrition Splenic infarct (08/07/20) small, noted on follow up CT 08/12/20 unchanged Surgical History H/O esophagogastroduodenoscopy (08/02/20) History of open reduction and internal fixation (ORIF) procedure Right LE Port-A-Cath in place (~12/2019) left subclavian Status post insertion of percutaneous endoscopic gastrostomy (PEG) tube (~08/02/20) 08/02 Family History Father CAD (coronary artery disease) Father had a heart attack in his late 70s Cancer Unknown type Denies family history of Anesthesia complication Bleeding disorder Social History Smoking and tobacco status: current every day smoker cigarettes [ Other cigarette details: in early remission (less than 2 weeks on 08/23/2020) ] Quit status (tobacco): has tried quititng Alcohol intake: current Caregiver/support person: Yes Lives independently: No Household members: spouse and family Housing: House Marital status: Number of children: 0 Highest education level completed: 8th Grade Current occupational status: disabled Pets and animals: Yes Pets & animals: dog(s) History of recent travel: No Leisure activites: hunting and fishing Sexually active: No Current gender identity: Male Lety/Latter-Day: Religious Special lety needs: No Agree to transfusion: Yes Financial difficulty paying for basics: Decline to Answer Physical Exam Const: COMMON NORMALS: no acute distress, patient oriented x3 and healthy appearing HENMT: COMMON NORMALS: normocephalic and atraumatic HEAD & SCALP: normocephalic and atraumatic Eye: COMMON NORMALS: Equal, round and reactive pupils present and EOMs intact bilaterally PUPIL: Yes Equal, round and reactive pupils present Neck/C-Spine: COMMON NORMALS: full ROM and supple Chest: COMMONS NORMALS: normal inspection of the chest and normal palpation of entire chest wall Resp: COMMON NORMALS: normal respiratory effort, No retractions, No use of accessory muscles and clear to auscultation bilaterally AUSCULTATION: clear to auscultation bilaterally Cardio: COMMON NORMALS: regular rate, regular rhythm and No murmurs present (Cardio) RATE: regular rate RHYTHM: regular rhythm GI: COMMON NORMALS: Normal to inspection, nondistended, normoactive bowel sounds present, Soft to palpation, non-tender and no masses PALPATION: Yes Soft to palpation OTHER: PEG tube in place Extremity: COMMON NORMALS: normal to inspection and full ROM Neuro: COMMON NORMALS: patient oriented x3, moves all extremities and no focal motor deficits Psych: COMMON NORMALS: mental status grossly normal, Normal thought process present and cooperative THOUGHT PROCESS: Normal thought process present Skin: COMMON NORMALS: no rashes or lesions noted and no wounds GENERAL SKIN EXAM: no rashes or lesions noted Course Vital Signs: Vital signs: Vital Signs Temperature 99.0 F 09/04/20 20:21 Pulse Rate 114 H 09/04/20 20:21 Respiratory Rate 18 09/04/20 20:21 Blood Pressure 109/80 09/04/20 20:21 Pulse Oximetry 94 09/04/20 20:21 MDM - Abdominal Pain MDM Narrative: Medical decision making narrative: Patient presents here with PEG tube malfunction. Was able to unclog his PEG tube and is functioning here. He is stable for discharge. Discharge Plan Discharge Patient Disposition: Home Clinical Impression: PEG tube malfunction Condition: Stable Prescriptions: No Action albuterol sulfate [Ventolin HFA] 90 mcg/actuation HFA aerosol inhaler 2 puff INHALATION Q6H PRN (Reason: copd) RF: 0 amitriptyline 10 mg tablet 10 mg PO BEDTIME RF: 0 cholecalciferol (vitamin D3) 50,000 unit capsule 50,000 unit PO .COMPLEX RF: 0 hydroxyzine pamoate 50 mg capsule 50 mg PO QID PRN (Reason: Anxiety) RF: 0 docusate sodium 100 mg Capsule 100 mg PO BID Qty: 0 RF: 0 hydrocodone-acetaminophen 10-325 mg/15 mL(15 mL) solution 15 ml feeding tube Q6H PRN (Reason: pain) Qty: 120 RF: 0 dexamethasone 4 mg tablet 4 mg PO DAILY Qty: 14 RF: 0 Lactobacillus acidophilus Capsule 100 mg PO BID Qty: 60 RF: 0 sucralfate 1 gram Tablet 1 g PO QID RF: 0 folic acid 1 mg Tablet 1 mg PO DAILY Qty: 30 RF: 0 pantoprazole 40 mg tablet,delayed release (DR/EC) 40 mg PO DAILY Qty: 30 RF: 0 ondansetron HCl [Zofran] 8 mg Tablet 8 mg PO Q8H Qty: 42 RF: 0 nicotine 21 mg/24 hr patch 24 hour 1 patch TRANSDERMA DAILY Qty: 30 RF: 0 nicotine (polacrilex) 2 mg lozenge 2 mg BUCCAL Q1H PRN (Reason: nicotine cravings) Qty: 60 RF: 4 thiamine HCl (vitamin B1) 100 mg/mL solution 100 mg PO DAILY RF: 0 Discharge Orders: Discharge Order (Routine); Ordered 09/04/20 Ordered By: Jessica Stephens Referrals: Belkys Harris, CLERICAL METHODS ANALYST-C [Primary Care Provider] - 1-3 days Discharge Diet: Advance as tolerated Discharge Activity: Resume usual activity Patient Instructions: How to Use and Care for Your PEG Tube (ED) Coding Level of Care Code ED Silver Lap Machine Tender for [facility]
[2020-09-04 21:24] VITALS: RESP 18; O2SAT 96
[2020-09-04] MEDS: morphine 4 mg/mL SDV 1 mL IM (21:24)
[2020-09-05 00:24] VITALS: BP 99/75; PULSE 119; RESP 16; O2SAT 96
== END 2020-09-05 00:26 | disposition home or self-care (01) ==
PROVIDERS: Emergency Provider Emergency Medicine; PCP Nurse Practitioner Family
DX: K94.23 Gastrostomy malfunction (principal); Z85.00 Personal history of malignant neoplasm of unspecified digestive organ; Z92.21 Personal history of antineoplastic chemotherapy; J44.9 Chronic obstructive pulmonary disease, unspecified; F17.210 Nicotine dependence, cigarettes, uncomplicated
CPT/HCPCS: 12345; 96372; 99282; 99283; J2270